=== PATIENT | male | born 1965 | race Caucasian/White ===

== ENCOUNTER 2019-10-15 15:25 | Outpatient (CLI) | payer BC, SELFPAY ==
--- NOTE | ~2019-10-15 | XR_ITS ---
XR hip RT 2V w AP pelvis DATE: 10/15/2019 15:51 INDICATION: Right hip pain. No known injury. TECHNIQUE: AP pelvis. AP and lateral views. COMPARISON: None FINDINGS: Diffuse osteopenia. The pubic symphysis and sacroiliac joints are intact. No pelvic fractur e or bone destruction is detected. Hip joint spaces are symmetric and relatively preserved. No fractu re, dislocation, avascular necrosis or bone destruction of the right hip area Bilateral iliac arterial calcifications as well as abdominal aortic calcification. IMPRESSION: Osteopenia Reviewed, dictated and finalized at location B. IMPRESSION: Osteopenia
== END 2019-10-15 15:26 | disposition home or self-care (01) ==
LOC: CHSIMG 15:27
PROVIDERS: PCP Nurse Practitioner Family; Visit Provider Nurse Practitioner Family
DX: M25.551 Pain in right hip (principal)
CPT/HCPCS: 73502

== ENCOUNTER 2019-10-21 08:37 | Outpatient (RCR) | payer BC, SELFPAY ==
--- NOTE | 2019-10-21 09:11 | PTOPEVAL ---
Thank you for referring Augusto Leon to [facility]. Please review, sign, date and return this plan of care DEEPAK. I agree with and certify that the following plan of care is medically necessary. Referring Physician Date Admitting Provider: Attending Provider: Mirlande Munoz NP Referring Provider: *PT Outpatient Evaluation Start: 10/21/19 08:05 Freq: Status: Active Protocol: Document 10/21/19 08:05 AUTUMN (Rec: 10/21/19 08:47 AUTUMN [id number]) Therapy Assessment Status Assessment Status Assessment Status Evaluation Evaluation Information Problem Diagnosis back/hip pain right Onset 12/24/18 Additional Evaluation Detail [id number] Subjective Information Pt. reports that pain began Query Text:As Reported By Patient/ last year. He states that he Family had recent xray of the back and hip that revealed osteopenia. He states that pain is on the side of the right thigh. He reports that pain is increased with short distance walking or short durations of standing. 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 He states that he can only stand for about 5 minutes before having to sit. He reports that his goal for therapy is to decrease his hip /back pain. Prior Level of Function Activity Level (Last 3 Months) Occupation unemployed Hand Dominance Right Activity of Daily Living Ability Independent Indoor/Home Mobility Independent Community Mobility Independent Stairs Ability Independent Functional Cognition (Planning, Shopping Independent , Taking Medications) Cooking Yes Cleaning Yes Laundry Yes Shopping Yes Driving Yes Pain Assessment Pain Scale Pain Scale Used Numeric (1 - 10) Self Report Pain Assessment Right Hip(s) Reported Pain Level 2 Lowest Pain Intensity 2 Greatest Pain Intensity 10 Pain Aggravating Factors Bending,Exercise/Activity, Walking,Weight Bearing/ Standing Pain Relief Interventions Used By Relaxation Technique Patient
== END 2019-12-04 15:23 | disposition home or self-care (01) ==
LOC: CHSPT 08:37
PROVIDERS: PCP Nurse Practitioner Family; Visit Provider Nurse Practitioner Family
DX: M85.851 Other specified disorders of bone density and structure, right thigh (principal)
CPT/HCPCS: 97012; 97014; 97110; 97140; 97161; G0283

== ENCOUNTER 2020-09-04 19:05 | Emergency (ER) | payer SELFPAY ==
--- NOTE | ~2020-09-04 | XR_ITS ---
EXAMINATION: XR shoulder RT min 2V DATE: 09/04/2020 19:44 INDICATION: Right shoulder bruising post fall one day prior. TECHNIQUE: AP internally and externally rotated, AP oblique externally rotated and transscapular Y vi ews of the right shoulder were obtained. 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 No rmal alignment. No fracture. Glenohumeral and acromioclavicular joint spaces are normal. Chronic oss eous excrescence arising from the inferior neck of the glenoid. Soft tissues are unremarkable. A few small thin linear opacities are seen at the periphery of the right upper lobe which could represent K erley B-lines related to mild pulmonary edema or atelectasis. 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 No acute osseous abn ormality. Reviewed, dictated and finalized at location A. 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 No acute osseous abnormality.
[2020-09-04 19:15] VITALS: BP 110/78; PULSE 76; RESP 16; TEMP 36.6; O2SAT 97
--- NOTE | 2020-09-04 19:49 | ED.UPPEXIN ---
HPI - Extremity Injury (Upper) General Chief Complaint: Extremity Injury, Upper Stated Complaint: right shoulder injury Time Seen by Provider: 09/04/20 19:49 Source: patient Mode of arrival: ambulatory Limitations: no limitations History of Present Illness HPI narrative: 55-year-old man comes to the ER today complaining of right shoulder pain that is worse with movement and palpation that started last evening. Patient states that he was sitting on a stool and fell asleep, falling over and landing on his shoulder. Patient states that he had no chest pain, shortness of breath, rapid heart rate or headache prior to or after the fall. He denies any other injury , weakness, numbness or tingling and he has no headache. He states that he has been drinking (ETOH) this afternoon in order to kill the pain. complaint: injury to: right and shoulder Onset (ago): day(s) (1) Other Extremity Injury: Right: shoulder Other injuries: none Place: home ( onto carpeted floor.) Severity: moderate Relieving factors: rest Exacerbating factors: movement of extremity Context: fall Associated symptoms: denies other symptoms Related Data Home Medications Medication Instructions Recorded Confirmed aspirin 81 mg tablet,delayed 81 mg PO DAILY 03/31/19 09/04/20 release Allergies Allergy/AdvReac Type Severity Reaction Status Date / Time No Known Allergies Allergy Verified 12/10/19 14:35 Review of Systems Constitutional: Constitutional: Denies chills and Denies fever(s) Eyes: Eyes: Denies change in vision and Denies photophobia ENT: Denies nasal congestion and Denies sore throat Cardiovascular: Cardiovascular: Denies chest pain and Denies radiating jaw, neck or arm pain Respiratory: Respiratory: Denies cough, Denies dyspnea and Denies wheezing Gastrointestinal: Gastrointestinal: Denies abdominal pain, Denies diarrhea, Denies nausea and Denies vomiting Musculoskeletal: Musculoskeletal: Denies back pain and Denies joint swelling Integumentary/Breasts: Skin/Breast: Denies pruritus, Denies erythema and Denies rash Neurologic: Denies vertigo, Denies dizziness and Denies syncope Hematologic/Lymphatic: Hematologic/Lymphatic: Denies easy bleeding and Denies easy bruising Allergic/Immunologic: Allergic/Immunologic: Denies lip swelling and Denies throat swelling [facility] Past Medical History Medical History (Updated 09/04/20 @ 20:19 by Jian Dias MD) HTN (hypertension) Tobacco dependence Surgical History Surgical History History of foot surgery Right Heel Surgery - Screws/Plates Family History Family History Mother Family history of malignant neoplasm of breast in first degree relative Father Family history of heart disease in male family member before age 55 Social History Social History (Updated 09/04/20 @ 20:05 by Jian Dias MD) Smoking packs per day: 0.5 Smoking cigarettes per day: 10.0 Smoking status: Current every day smoker Alcohol intake: current Alcohol use details: Daily Substance use: never Substance use type: does not use Living arrangements: with family Gender identity (if verbalized by the patient): Male Exam Const: General: healthy appearing and alert Orientation/consciousness: patient oriented x3 Limitations: no limitations Other: mild acute distress. HENMT: Head: normal to inspection Ears: external ears normal and TM's normal bilaterally General nose exam: Normal nares present Face and sinus: normal facial exam Mouth: Yes moist mucous membranes Throat: posterior oropharynx normal Eyes: Conjunctivae: conjunctivae normal Pupils: Equal, round and reactive pupils present EOM: EOMs intact bilaterally Other: Nystagmus Neck: Neck: normal visual inspection and no lymphadenopathy Other: no tenderness. Resp: Effort & Inspection: normal respir
[2020-09-04 20:24] VITALS: BP 93/71; PULSE 73; RESP 20; O2SAT 96
== END 2020-09-04 20:30 | disposition home or self-care (01) ==
PROVIDERS: Emergency Provider Emergency Medicine; PCP Nurse Practitioner Family
DX: S43.401A Unspecified sprain of right shoulder joint, initial encounter (principal); F10.129 Alcohol abuse with intoxication, unspecified; R06.2 Wheezing; W19.XXXA Unspecified fall, initial encounter
CPT/HCPCS: 73030; 99282; 99283; A4565

== ENCOUNTER 2020-11-17 11:39 | Outpatient (CLI) | payer MEDICAID, SELFPAY ==
[2020-11-17 13:36] LABS: Alanine Aminotransferase 51 U/L (16-63); Albumin Level 2.5 g/dL (3.4-5.0); Alkaline Phosphatase 111 U/L (46-116); Anion Gap 9 mmol/L (8-16); Aspartate Amino Transferase 35 U/L (15-37); Bilirubin,Total 0.2 mg/dL (0.00-1.00); Blood Urea Nitrogen 4 mg/dL (7-18); Calcium 8.8 mg/dL (8.5-10.1); Carbon Dioxide 28 mmol/L (21-32); Chloride 96 mmol/L (98-108); Estimated Glomerular Filt Rate > 60; Glucose 94 mg/dL (70-99); Osmolality Calculated 272 mOsm/kg (285-295); Potassium 5.1 mmol/L (3.5-5.1); Sodium 133 mmol/L (136-145); Total Protein 7.3 g/dL (6.4-8.2)
== END 2020-11-17 11:40 | disposition home or self-care (01) ==
LOC: CHSLAB 11:41
PROVIDERS: PCP Nurse Practitioner Family; Visit Provider Nurse Practitioner Family
DX: Z00.00 Encounter for general adult medical examination without abnormal findings (principal); E87.1 Hypo-osmolality and hyponatremia
CPT/HCPCS: 36415; 80053

== ENCOUNTER 2020-11-24 11:03 | Outpatient (CLI) | payer MEDICAID, SELFPAY ==
[2020-11-24 12:52] LABS: Alanine Aminotransferase 20 U/L (16-63); Albumin Level 2.3 g/dL (3.4-5.0); Alkaline Phosphatase 102 U/L (46-116); Anion Gap 8 mmol/L (8-16); Aspartate Amino Transferase 15 U/L (15-37); Bilirubin,Total 0.3 mg/dL (0.00-1.00); Blood Urea Nitrogen 6 mg/dL (7-18); Calcium 8.6 mg/dL (8.5-10.1); Carbon Dioxide 28 mmol/L (21-32); Chloride 95 mmol/L (98-108); Estimated Glomerular Filt Rate > 60; Glucose 125 mg/dL (70-99); Osmolality Calculated 270 mOsm/kg (285-295); Potassium 4.6 mmol/L (3.5-5.1); Sodium 131 mmol/L (136-145); Total Protein 7.1 g/dL (6.4-8.2)
== END 2020-11-24 11:04 | disposition home or self-care (01) ==
LOC: CHSLAB 11:06
PROVIDERS: PCP Nurse Practitioner Family; Visit Provider Nurse Practitioner Family
DX: E87.1 Hypo-osmolality and hyponatremia (principal)
CPT/HCPCS: 36415; 80053

== ENCOUNTER 2020-12-01 15:39 | Outpatient (CLI) | payer MEDICAID, SELFPAY ==
[2020-12-01 18:09] LABS: Alanine Aminotransferase 20 U/L (16-63); Albumin Level 2.3 g/dL (3.4-5.0); Alkaline Phosphatase 105 U/L (46-116); Anion Gap 13 mmol/L (8-16); Aspartate Amino Transferase 17 U/L (15-37); Bilirubin,Total 0.3 mg/dL (0.00-1.00); Blood Urea Nitrogen 7 mg/dL (7-18); Calcium 8.6 mg/dL (8.5-10.1); Carbon Dioxide 24 mmol/L (21-32); Chloride 96 mmol/L (98-108); Estimated Glomerular Filt Rate > 60; Glucose 100 mg/dL (70-99); Osmolality Calculated 274 mOsm/kg (285-295); Potassium 4.5 mmol/L (3.5-5.1); Sodium 133 mmol/L (136-145); Total Protein 7.3 g/dL (6.4-8.2)
== END 2020-12-01 15:40 | disposition home or self-care (01) ==
LOC: CHSLAB 15:42
PROVIDERS: PCP Nurse Practitioner Family; Visit Provider Nurse Practitioner Family
DX: E87.1 Hypo-osmolality and hyponatremia (principal)
CPT/HCPCS: 36415; 80053

== ENCOUNTER 2020-12-08 11:35 | Outpatient (CLI) | payer SELFPAY ==
--- NOTE | ~2020-12-08 | XR_ITS ---
XR chest 2V DATE: 12/08/2020 12:10 INDICATION: Shortness of breath, cough. Smoker. TECHNIQUE: 2 views COMPARISON: None FINDINGS: There is bilateral hyperinflation consistent with COPD. There is patchy infiltrate in the right mid lung and greater patchy consolidation in the right lower lung. There are multiple acute or subacute displaced lateral right seventh and eighth and ninth rib fractur es. There is mild right pleural fluid. No pneumothorax is detected. The left lung is clear. No left pleural effusion or pneumothorax. Normal heart size. Left-sided transvenous pacemaker device with lead overlying right ventricle. Diffuse osteopenia. IMPRESSION: Displaced lateral right seventh through ninth rib fractures, acute or subacute Patchy infiltrate in the right mid and to a greater extent right lower lung and mild right pleural ef fusion. No pneumothorax COPD Left single-lead pacemaker Reviewed, dictated and finalized at location A. IMPRESSION: Displaced lateral right seventh through ninth rib fractures, acute or subacute Patchy infiltrate in the right mid and to a greater extent right lower lung and mild right pleural effusion. No pneumothorax COPD Left single-lead pacemaker
[2020-12-08 11:51] LABS: Hemoglobin 7.2 g/dL (14.0-18.0); Mean Corpuscular HGB Conc 32.7 g/dL (32.0-36.0); Mean Corpuscular Hemoglobin 26.9 pg (27.0-31.0); Mean Corpuscular Volume 82.1 fL (78.0-102.0); Mean Platelet Volume 8.7 fl (8.7-11.0); Platelet Count Result 491 K/mm3 (150-420); Red Blood Count 2.68 M/mm3 (4.70-6.10)
[2020-12-08 12:40] LABS: White Blood Count 34.6 K/mm3 (4.8-10.8)
[2020-12-08 12:43] LABS: Band Neutrophils Percent 1 % (0-6); Lymphocytes Absolute Manual 1.38 K/mm3 (1.1-4.5); Lymphocytes Percent Manual 4 % (18-44); Monocytes Absolute Manual 1.73 K/mm3 (0.1-0.90); Monocytes Percent Manual 5 % (3-9); Neutrophils Absolute Manual 31.48 K/mm3 (1.3-6.7); Neutrophils Percent Manual 90 % (46-73); Platelet Estimate Increased (Adequate); Total Cells Counted 100
[2020-12-08 14:49] LABS: Alanine Aminotransferase 16 U/L (16-63); Albumin Level 1.7 g/dL (3.4-5.0); Alkaline Phosphatase 140 U/L (46-116); Anion Gap 12 mmol/L (8-16); Aspartate Amino Transferase 15 U/L (15-37); Bilirubin,Total 0.2 mg/dL (0.00-1.00); Blood Urea Nitrogen 9 mg/dL (7-18); Calcium 8.4 mg/dL (8.5-10.1); Carbon Dioxide 27 mmol/L (21-32); Chloride 96 mmol/L (98-108); Estimated Glomerular Filt Rate > 60; Glucose 122 mg/dL (70-99); Osmolality Calculated 279 mOsm/kg (285-295); Potassium 4.1 mmol/L (3.5-5.1); Sodium 135 mmol/L (136-145); Total Protein 6.2 g/dL (6.4-8.2)
== END 2020-12-08 11:36 | disposition home or self-care (01) ==
LOC: CHSLAB 11:39
PROVIDERS: PCP Nurse Practitioner Family; Visit Provider Nurse Practitioner Family
DX: R05 Cough (principal); R53.83 Other fatigue; E87.1 Hypo-osmolality and hyponatremia
CPT/HCPCS: 36415; 71046; 80053; 85025; 85060

== ENCOUNTER 2020-12-08 14:32 | Inpatient (IN) | payer MEDICAID, SELFPAY ==
[2020-12-08] VITALS (9 sets, daily range): BP systolic 153–163; BP diastolic 71–87; PULSE 100–123; RESP 20–23; TEMP 37–37.7; O2SAT 97–100; BMI 16.9
--- NOTE | ~2020-12-08 | XR_ITS ---
EXAMINATION: [id number] DATE: 12/15/2020 12:56 INDICATION: Right pleural effusion status post thoracentesis. TECHNIQUE: Frontal and lateral views of the chest were obtained. COMPARISON: Chest 2 views 12/13/2020, chest CT 12/14/2020 FINDINGS: There are lucencies in the lungs, consistent with emphysema. There are airspace opacities i n right lower lung zone. There is a small right pleural effusion. No pneumothorax. The heart size is normal. There is a left chest pacer/defibrillator with lead in right ventricle. IMPRESSION: 1. Small right pleural effusion with improvement status post thoracentesis. 2. Airspace opacities in right lower lung zone, consistent with pneumonia. 3. Emphysema. Reviewed, dictated and finalized at location A.
--- NOTE | ~2020-12-08 | US_ITS ---
EXAMINATION: US thoracentesis DATE: 12/15/2020 12:58 INDICATION: pleural effusion TECHNIQUE: The procedure and its risks, benefits, and alternatives were discussed with the patient. P otential risks discussed included bleeding, infection, and pneumothorax. The patient understood the r isks and agreed to proceed. The skin was prepped and draped in sterile fashion. 1% lidocaine was used for local anesthesia. Under ultrasound guidance, a 5 Fr catheter with trochar was advanced into the right pleural effusion. Fluid was aspirated. The catheter was removed, and a dressing was applied. Th ere were no immediate complications. FINDINGS: Ultrasound images demonstrate a right pleural effusion and the catheter within the fluid. IMPRESSION: 1. Successful ultrasound-guided thoracentesis yielding 200 mL of opaque, burrell fluid. Reviewed, dictated and finalized at location A. IMPRESSION: 1. Successful ultrasound-guided thoracentesis yielding 200 mL of opaque, burrell f luid.
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
--- NOTE | ~2020-12-08 | XR_ITS ---
EXAMINATION: XR chest 2V EXAM DATE: 12/13/2020 11:25 INDICATION: Pneumonia. TECHNIQUE: Frontal and lateral projections of the chest obtained and reviewed. Comparison is made to prior examination from 12/08/2016. FINDINGS: There is multi segmental right lower lobe airspace disease consistent with pneumonia. Mild progression in this compared to 12/08. There is small to moderate right pleural effusion. There is sin gle lead pacemaker/AICD device seen with tip projecting over the expected location of right ventricle . Cardiomediastinal silhouette is normal. There is no pneumothorax suspected. There are no osseous ab normalities identified. IMPRESSION: 1. Progression in multi segmental right lower lobe pneumonia. 2. Small to moderate right pleural effusion. Reviewed, dictated and finalized at location B.
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
[2020-12-08 18:33] LABS: Lactic Acid Reflex 1.5 mmol/L (0.7-2.1)
[2020-12-08 18:46] LABS: NT Pro B Type Natriuretic Pept 648 pg/mL (5-100); Troponin I < 0.012 ng/mL (0.000-0.034)
--- NOTE | 2020-12-08 19:20 | PC.NURSE ---
Assumed care of pt at this time. Pt alert and upright on stretcher, family at bedside. Pt requesting food tray. Pt and family updated on POC.
--- NOTE | 2020-12-08 19:44 | PC.NURSE ---
EDP made aware of elevated HR. Per VORB, give 1L NS bolus and recheck temperature.
[2020-12-08] MEDS: SODIUM CHLORIDE 0.9% IV 1,000 ML 999 ML IV CONT (19:52)
[2020-12-08] MEDS: ACETAMINOPHEN 325 MG TABLET 650 MG PO (19:52)
--- NOTE | 2020-12-08 21:10 | ADMGEN ---
This patient, Augusto Leon, was admitted to Medical Room 346-. Patient/family oriented to hospital policies and general routines including ID bracelet, bed and alarms, visiting hours, pain management, procedures, bathroom and other care routines, personal items, smoking policy, room service/diet, and visiting hours. Information on how to activate the Rapid Response Team has been discussed. Patient/Family are encouraged to report perceived risks to care and to ask questions if they do not understand what they are told or what they should do.
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
[2020-12-08] MEDS: SODIUM CHLORIDE 0.9% IV 1,000 ML 125 ML IV CONT (21:18)
[2020-12-08 21:34] LABS: Add Urine Microscopic? YES; Appearance Urine Clear (Clear); Bacteria Urine Trace /hpf; Bilirubin Urine Negative (Negative); Blood Urine Negative (Negative); Color Urine Yellow (Yellow); Glucose Urine UA Negative (Negative); Ketones Urine Negative (Negative); Leukocyte Esterase Ur Negative LEU/UL (Negative); Mucus Urine Rare /lpf; Nitrate Urine Negative (Negative); Protein Urine Negative (Negative); RBC Urine 0-2 /hpf (0-2); Specific Grav Ur 1.023 (1.001-1.035); WBC Urine 0-3 /hpf
[2020-12-08] MEDS: levETIRAcetam 500 MG TABLET 1500 MG PO (23:32)
[2020-12-08] MEDS: carvediloL 3.125 MG TABLET PO (23:33)
[2020-12-08] MEDS: DULoxetine HCL 30 MG CAPSULE.DR PO (23:33)
[2020-12-09] VITALS (14 sets, daily range): BP systolic 132–159; BP diastolic 77–82; PULSE 96–124; RESP 16–18; TEMP 36.9–37.6; O2SAT 93–98; BMI 16.9
[2020-12-09] MEDS: ALBUTEROL SULFATE (*SP) AEROSOL 1 PUFF 2 PUFF INHALATION ×4 (00:53→20:45)
[2020-12-09 01:15] LABS: Basophils Absolute Auto 0.1 K/mm3 (0.0-0.1); Basophils Percent Auto 0.3 % (0.2-1.2); Hematocrit 21.5 % (42.0-52.0); Immature Granulocyte Absolute 0.47 K/mm3 (0.00-0.031); Immature Granulocyte Percent A 1.5 % (0-0.5); Lymphocytes Absolute Auto 1.18 K/mm3 (0.9-3.2); Lymphocytes Percent Auto 3.9 % (18.3-44.2); Mean Corpuscular HGB Conc 32.6 g/dl (32-36); Mean Corpuscular Hemoglobin 27.3 pg (26-34); Mean Platelet Volume 8.6 fl (7.4-10.4); Monocytes Percent Auto 6.5 % (2.6-8.5); Neutrophils Absolute Auto 26.7 K/mm3 (1.3-6.7); Neutrophils Percent Auto 87.8 % (45.5-73.1); Platelet Count Result 462 k/mm3 (150-375); Red Blood Count 2.56 M/mm3 (4.6-6.20); Red Cell Distribution Width 17.2 % (11.5-14.5); White Blood Count 30.4 K/mm3 (4.5-10.0)
[2020-12-09 06:08] LABS: Basophils Absolute Auto 0.1 K/mm3 (0.0-0.1); Basophils Percent Auto 0.3 % (0.2-1.2); Eosinophils Percent Auto 0.1 % (0-4.4); Hematocrit 22.5 % (42.0-52.0); Hemoglobin 7.1 g/dL (14.0-18.0); Immature Granulocyte Absolute 0.33 K/mm3 (0.00-0.031); Immature Granulocyte Percent A 1.1 % (0-0.5); Lymphocytes Absolute Auto 1.14 K/mm3 (0.9-3.2); Lymphocytes Percent Auto 3.7 % (18.3-44.2); Mean Corpuscular HGB Conc 31.6 g/dl (32-36); Mean Corpuscular Hemoglobin 26.3 pg (26-34); Mean Corpuscular Volume 83.3 fl (80-100); Mean Platelet Volume 8.8 fl (7.4-10.4); Monocytes Absolute Auto 1.9 K/mm3 (0.1-0.6); Monocytes Percent Auto 6.3 % (2.6-8.5); Neutrophils Absolute Auto 27.3 K/mm3 (1.3-6.7); Neutrophils Percent Auto 88.5 % (45.5-73.1); Platelet Count Result 507 k/mm3 (150-375); Red Cell Distribution Width 17.3 % (11.5-14.5); White Blood Count 30.9 K/mm3 (4.5-10.0)
[2020-12-09 06:41] LABS: Anion Gap 7 mmol/L (8-16); Blood Urea Nitrogen 5 mg/dL (9-20); Calcium 8.2 mg/dL (8.4-10.2); Carbon Dioxide 26 mmol/L (22-30); Chloride 97 mmol/L (98-107); Estimated CRCL calculation 161 ml/min; Estimated Glomerular Filt Rate > 60; Glucose 109 mg/dL (65-110); Potassium 3.2 mmol/L (3.4-5.0); Sodium 130 mmol/L (137-145)
[2020-12-09] MEDS: ACETAMINOPHEN 325 MG TABLET 650 MG PO ×2 (08:03→17:50)
[2020-12-09] MEDS: SODIUM CHLORIDE 1 GM TABLET 3 GM PO ×3 (08:03→17:02)
[2020-12-09] MEDS: DULoxetine HCL 30 MG CAPSULE.DR PO ×2 (08:04→17:01)
[2020-12-09] MEDS: THIAMINE HCL 100 MG TABLET PO (08:04)
[2020-12-09] MEDS: FOLIC ACID 1 MG TABLET PO (08:04)
[2020-12-09] MEDS: MULTIVITAMINS THERAPEUTIC TAB (*BKC) 1 TABLET PO (08:04)
[2020-12-09] MEDS: DOCUSATE SODIUM LIQ 100 MG/10 ML UDC 50 MG PO (08:04)
[2020-12-09] MEDS: carvediloL 3.125 MG TABLET PO ×2 (08:04→21:07)
[2020-12-09] MEDS: levETIRAcetam 500 MG TABLET 1500 MG PO ×2 (08:05→21:07)
[2020-12-09] MEDS: polyethylene glycoL 3350 17 GM POWD.PACK PO ×2 (08:05→17:01)
[2020-12-09] MEDS: SODIUM CHLORIDE 0.9% IV 1,000 ML 125 ML IV CONT ×3 (08:10→17:52)
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
[2020-12-09] MEDS: NICOTINE (*PBKC) 21 MG PATCH 1 PATCH TRANSDERM (10:15)
[2020-12-09] MEDS: GABAPENTIN 100 MG CAPSULE PO ×2 (11:20→14:00)
[2020-12-10] VITALS (13 sets, daily range): BP systolic 128–139; BP diastolic 73–90; PULSE 98–121; RESP 18; TEMP 36.6–37.2; O2SAT 93–99
[2020-12-10] MEDS: SODIUM CHLORIDE 0.9% IV 1,000 ML 125 ML IV CONT (04:33)
[2020-12-10 06:18] LABS: Hematocrit 22.7 % (42.0-52.0); Hemoglobin 7.3 g/dL (14.0-18.0); Mean Corpuscular HGB Conc 32.2 g/dl (32-36); Mean Corpuscular Hemoglobin 26.9 pg (26-34); Mean Corpuscular Volume 83.8 fl (80-100); Mean Platelet Volume 9.1 fl (7.4-10.4); Platelet Count Result 542 k/mm3 (150-375); Red Blood Count 2.71 M/mm3 (4.6-6.20); Red Cell Distribution Width 17.4 % (11.5-14.5); White Blood Count 32.6 K/mm3 (4.5-10.0)
[2020-12-10 06:41] LABS: Alanine Aminotransferase 11 U/L (4-50); Albumin Level 2.6 g/dL (3.5-5.1); Alkaline Phosphatase 173 U/L (38-126); Anion Gap 8 mmol/L (8-16); Aspartate Amino Transferase 26 U/L (17-59); Bilirubin,Total < 0.1 mg/dL (0.2-1.3); Blood Urea Nitrogen 4 mg/dL (9-20); Carbon Dioxide 25 mmol/L (22-30); Chloride 93 mmol/L (98-107); Estimated CRCL calculation 161 ml/min; Estimated Glomerular Filt Rate > 60; Glucose 231 mg/dL (65-110); Magnesium 1.2 mg/dL (1.6-2.3); Sodium 126 mmol/L (137-145)
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
[2020-12-10] MEDS: MULTIVITAMINS THERAPEUTIC TAB (*BKC) 1 TABLET PO (08:22)
[2020-12-10] MEDS: ENOXAPARIN 40 MG/0.4 ML SYRINGE SUB-Q (08:22)
[2020-12-10] MEDS: FOLIC ACID 1 MG TABLET PO (08:22)
[2020-12-10] MEDS: NICOTINE (*PBKC) 21 MG PATCH 1 PATCH TRANSDERM (08:22)
[2020-12-10] MEDS: polyethylene glycoL 3350 17 GM POWD.PACK PO ×2 (08:22→16:39)
[2020-12-10] MEDS: SODIUM CHLORIDE 1 GM TABLET 3 GM PO ×3 (08:22→16:40)
[2020-12-10] MEDS: DULoxetine HCL 30 MG CAPSULE.DR PO ×2 (08:23→16:40)
[2020-12-10] MEDS: MAGNESIUM SULF 4 GM/WATER100ML 4 GM/100 ML BAG IVPB (08:23)
[2020-12-10] MEDS: carvediloL 3.125 MG TABLET PO ×2 (08:23→21:44)
[2020-12-10] MEDS: DOCUSATE SODIUM LIQ 100 MG/10 ML UDC 50 MG PO (08:23)
[2020-12-10] MEDS: levETIRAcetam 500 MG TABLET 1500 MG PO ×2 (08:25→21:45)
[2020-12-10] MEDS: THIAMINE HCL 100 MG TABLET PO (08:25)
[2020-12-10 09:00] LABS: NT Pro B Type Natriuretic Pept 1580 pg/mL (5-100)
[2020-12-10] MEDS: FUROSEMIDE INJ 40 MG/4 ML VIAL IV PUSH (09:35)
[2020-12-10] MEDS: POTASSIUM CHLORIDE 20 MEQ TABLET 40 MEQ PO (09:36)
[2020-12-10] MEDS: chlordiazePOXIDE (*CRX) 25 MG CAPSULE PO (10:11)
[2020-12-10] MEDS: ALBUTEROL SULFATE (*SP) AEROSOL 1 PUFF 2 PUFF INHALATION ×3 (10:19→20:35)
[2020-12-10] MEDS: GABAPENTIN 100 MG CAPSULE PO ×2 (10:56→16:39)
[2020-12-10 11:38] LABS: Band Neutrophils Percent 3 % (0-6); Lymphocytes Absolute Manual 0.65 K/mm3 (1.1-4.5); Monocytes Absolute Manual 0.97 K/mm3 (0.1-0.90); Monocytes Percent Manual 3 % (3-9); Neutrophils Absolute Manual 30.97 K/mm3 (1.3-6.7); Neutrophils Percent Manual 92 % (46-73); Total Cells Counted 100
[2020-12-10 11:39] LABS: Hypochromasia 2+ (NORMAL)
[2020-12-10 11:40] LABS: Anisocytosis 1+ (NORMAL)
[2020-12-10 15:38] LABS: Anion Gap 7 mmol/L (8-16); Blood Urea Nitrogen 5 mg/dL (9-20); Calcium 8.1 mg/dL (8.4-10.2); Carbon Dioxide 28 mmol/L (22-30); Chloride 95 mmol/L (98-107); Estimated CRCL calculation 161 ml/min; Estimated Glomerular Filt Rate > 60; Glucose 127 mg/dL (65-110); Magnesium 1.8 mg/dL (1.6-2.3); Potassium 3.3 mmol/L (3.4-5.0); Sodium 130 mmol/L (137-145)
[2020-12-10] MEDS: HYDROcodone/acetaminophen (*CRX) 5-325 MG TABLET 1 TAB PO ×2 (16:43→21:45)
[2020-12-10 23:51] LABS: Vancomycin Trough < 5.0 ug/mL (10.0-20.0)
[2020-12-11] VITALS (18 sets, daily range): BP systolic 116–141; BP diastolic 62–85; PULSE 106–122; RESP 14–24; TEMP 35.6–37.2; O2SAT 91–97
[2020-12-11] MEDS: ALBUTEROL SULFATE (*SP) AEROSOL 1 PUFF 2 PUFF INHALATION ×4 (02:00→20:01)
[2020-12-11] MEDS: HYDROcodone/acetaminophen (*CRX) 5-325 MG TABLET 1 TAB PO ×3 (05:06→20:31)
[2020-12-11 06:24] LABS: Basophils Absolute Auto 0.1 K/mm3 (0.0-0.1); Basophils Percent Auto 0.3 % (0.2-1.2); Eosinophils Percent Auto 0.1 % (0-4.4); Hematocrit 21.4 % (42.0-52.0); Immature Granulocyte Absolute 0.79 K/mm3 (0.00-0.031); Immature Granulocyte Percent A 2.8 % (0-0.5); Lymphocytes Absolute Auto 1.28 K/mm3 (0.9-3.2); Lymphocytes Percent Auto 4.6 % (18.3-44.2); Mean Corpuscular HGB Conc 31.3 g/dl (32-36); Mean Corpuscular Hemoglobin 25.8 pg (26-34); Mean Corpuscular Volume 82.3 fl (80-100); Mean Platelet Volume 8.8 fl (7.4-10.4); Monocytes Absolute Auto 1.7 K/mm3 (0.1-0.6); Neutrophils Absolute Auto 23.9 K/mm3 (1.3-6.7); Neutrophils Percent Auto 86.2 % (45.5-73.1); Platelet Count Result 552 k/mm3 (150-375); Red Cell Distribution Width 17.5 % (11.5-14.5); White Blood Count 27.8 K/mm3 (4.5-10.0)
[2020-12-11 06:37] LABS: Alanine Aminotransferase 15 U/L (4-50); Albumin Level 2.6 g/dL (3.5-5.1); Alkaline Phosphatase 155 U/L (38-126); Anion Gap 7 mmol/L (8-16); Aspartate Amino Transferase 28 U/L (17-59); Bilirubin,Total < 0.1 mg/dL (0.2-1.3); Blood Urea Nitrogen 4 mg/dL (9-20); Calcium 8.3 mg/dL (8.4-10.2); Carbon Dioxide 27 mmol/L (22-30); Chloride 94 mmol/L (98-107); Estimated CRCL calculation 161 ml/min; Estimated Glomerular Filt Rate > 60; Glucose 142 mg/dL (65-110); Magnesium 1.5 mg/dL (1.6-2.3); Potassium 3.2 mmol/L (3.4-5.0); Sodium 128 mmol/L (137-145)
[2020-12-11 06:59] LABS: Hemoglobin 6.7 g/dL (14.0-18.0)
[2020-12-11] MEDS: SODIUM CHLORIDE 1 GM TABLET 3 GM PO ×3 (08:17→17:30)
[2020-12-11] MEDS: carvediloL 3.125 MG TABLET PO ×2 (08:18→20:31)
[2020-12-11] MEDS: ENOXAPARIN 40 MG/0.4 ML SYRINGE SUB-Q (08:19)
[2020-12-11] MEDS: GABAPENTIN 100 MG CAPSULE PO ×3 (08:19→17:31)
[2020-12-11] MEDS: FOLIC ACID 1 MG TABLET PO (08:19)
[2020-12-11] MEDS: DULoxetine HCL 30 MG CAPSULE.DR PO ×2 (08:19→17:31)
[2020-12-11] MEDS: NICOTINE (*PBKC) 21 MG PATCH 1 PATCH TRANSDERM (08:20)
[2020-12-11] MEDS: DOCUSATE SODIUM LIQ 100 MG/10 ML UDC 50 MG PO (08:20)
[2020-12-11] MEDS: levETIRAcetam 500 MG TABLET 1500 MG PO ×2 (08:20→20:31)
[2020-12-11] MEDS: THIAMINE HCL 100 MG TABLET PO (08:20)
[2020-12-11] MEDS: polyethylene glycoL 3350 17 GM POWD.PACK PO ×2 (08:20→17:30)
[2020-12-11] MEDS: MULTIVITAMINS THERAPEUTIC TAB (*BKC) 1 TABLET PO (08:21)
[2020-12-11 09:15] LABS: Iron < 10 ug/dL (49-181)
[2020-12-11 09:26] LABS: Percent Iron Saturation < 9 % (20-50)
[2020-12-11] MEDS: SODIUM CHLORIDE 0.9% IV 250 ML 30 ML IV CONT (11:20)
[2020-12-11 11:32] LABS: EDCOVIDSCREEN Negative (Negative)
[2020-12-11 17:26] LABS: Hemoglobin 8.5 g/dL (14.0-18.0)
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
[2020-12-11] MEDS: MAGNESIUM SULF 1 GM/D5W 100 ML 1 GM/100 ML BAG IVPB (18:43)
[2020-12-11] MEDS: POTASSIUM CHLORIDE 20 MEQ PACKET (FOR LIQUID) 40 MEQ PO (18:48)
[2020-12-12] VITALS (11 sets, daily range): BP systolic 139–154; BP diastolic 76–87; PULSE 100–118; RESP 16–26; TEMP 35.8–37; O2SAT 94–95
[2020-12-12] MEDS: ALBUTEROL SULFATE (*SP) AEROSOL 1 PUFF 2 PUFF INHALATION ×4 (02:02→22:13)
[2020-12-12] MEDS: HYDROcodone/acetaminophen (*CRX) 5-325 MG TABLET 1 TAB PO ×3 (04:54→19:31)
[2020-12-12] MEDS: NICOTINE (*PBKC) 21 MG PATCH 1 PATCH TRANSDERM (08:21)
[2020-12-12] MEDS: polyethylene glycoL 3350 17 GM POWD.PACK PO (08:21)
[2020-12-12] MEDS: DOCUSATE SODIUM LIQ 100 MG/10 ML UDC 50 MG PO (08:22)
[2020-12-12] MEDS: ENOXAPARIN 40 MG/0.4 ML SYRINGE SUB-Q (08:22)
[2020-12-12] MEDS: SODIUM CHLORIDE 1 GM TABLET 3 GM PO ×3 (08:23→17:55)
[2020-12-12] MEDS: levETIRAcetam 500 MG TABLET 1500 MG PO ×2 (08:24→20:21)
[2020-12-12] MEDS: GABAPENTIN 100 MG CAPSULE PO ×3 (08:24→17:55)
[2020-12-12] MEDS: MULTIVITAMINS THERAPEUTIC TAB (*BKC) 1 TABLET PO (08:25)
[2020-12-12] MEDS: DULoxetine HCL 30 MG CAPSULE.DR PO ×2 (08:25→17:57)
[2020-12-12] MEDS: carvediloL 3.125 MG TABLET PO ×2 (08:25→20:21)
[2020-12-12] MEDS: FOLIC ACID 1 MG TABLET PO (08:25)
[2020-12-12] MEDS: THIAMINE HCL 100 MG TABLET PO (08:26)
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
[2020-12-12 11:33] LABS: Hematocrit 26.5 % (42.0-52.0); Hemoglobin 8.5 g/dL (14.0-18.0); Mean Corpuscular HGB Conc 32.1 g/dl (32-36); Mean Corpuscular Hemoglobin 26.8 pg (26-34); Mean Corpuscular Volume 83.6 fl (80-100); Mean Platelet Volume 8.8 fl (7.4-10.4); Platelet Count Result 618 k/mm3 (150-375); Red Blood Count 3.17 M/mm3 (4.6-6.20); White Blood Count 25.9 K/mm3 (4.5-10.0)
[2020-12-12 11:46] LABS: Anion Gap 8 mmol/L (8-16); Blood Urea Nitrogen 5 mg/dL (9-20); Calcium 8.8 mg/dL (8.4-10.2); Carbon Dioxide 28 mmol/L (22-30); Chloride 96 mmol/L (98-107); Estimated CRCL calculation 161 ml/min; Estimated Glomerular Filt Rate > 60; Glucose 125 mg/dL (65-110); Potassium 3.7 mmol/L (3.4-5.0); Sodium 132 mmol/L (137-145)
[2020-12-12] MEDS: LACTULOSE 20 GM/30 ML UDC PO (12:10)
[2020-12-12 12:29] LABS: Vancomycin Trough 10.6 ug/mL (10.0-20.0)
[2020-12-12 13:12] LABS: IFOB Positive Control Positive; Immunochemical Fecal Occult Bl Negative (N)
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
[2020-12-12 16:40] LABS: Hemoglobin 8.1 g/dL (14.0-18.0)
[2020-12-12 16:50] LABS: Magnesium 1.6 mg/dL (1.6-2.3)
[2020-12-12 17:51] LABS: Iron 13 ug/dL (49-181)
[2020-12-12] MEDS: IRON SUCROSE COMPLEX 100 MG in SODIUM CHLORIDE 0.9% IV 50 ML 220 MG IVPB (18:48)
[2020-12-13] VITALS (11 sets, daily range): BP systolic 135–150; BP diastolic 77–90; PULSE 102–113; RESP 16–18; TEMP 36.1–36.9; O2SAT 92–99
[2020-12-13] MEDS: HYDROcodone/acetaminophen (*CRX) 5-325 MG TABLET 1 TAB PO ×5 (01:36→22:05)
[2020-12-13] MEDS: ALBUTEROL SULFATE (*SP) AEROSOL 1 PUFF 2 PUFF INHALATION ×4 (03:46→21:10)
[2020-12-13 06:17] LABS: Basophils Absolute Auto 0.1 K/mm3 (0.0-0.1); Basophils Percent Auto 0.4 % (0.2-1.2); Eosinophils Absolute Auto 0.1 K/mm3 (0-0.3); Eosinophils Percent Auto 0.4 % (0-4.4); Hematocrit 26.3 % (42.0-52.0); Hemoglobin 8.3 g/dL (14.0-18.0); Immature Granulocyte Percent A 1.8 % (0-0.5); Lymphocytes Absolute Auto 1.27 K/mm3 (0.9-3.2); Lymphocytes Percent Auto 5.7 % (18.3-44.2); Mean Corpuscular HGB Conc 31.6 g/dl (32-36); Mean Corpuscular Hemoglobin 26.9 pg (26-34); Mean Corpuscular Volume 85.4 fl (80-100); Mean Platelet Volume 8.8 fl (7.4-10.4); Monocytes Absolute Auto 1.4 K/mm3 (0.1-0.6); Monocytes Percent Auto 6.2 % (2.6-8.5); Neutrophils Absolute Auto 19.2 K/mm3 (1.3-6.7); Neutrophils Percent Auto 85.5 % (45.5-73.1); Platelet Count Result 604 k/mm3 (150-375); Red Blood Count 3.08 M/mm3 (4.6-6.20); Red Cell Distribution Width 17.5 % (11.5-14.5); White Blood Count 22.4 K/mm3 (4.5-10.0)
[2020-12-13 06:32] LABS: Anion Gap 9 mmol/L (8-16); Blood Urea Nitrogen 4 mg/dL (9-20); Calcium 8.2 mg/dL (8.4-10.2); Carbon Dioxide 26 mmol/L (22-30); Chloride 94 mmol/L (98-107); Estimated CRCL calculation 161 ml/min; Estimated Glomerular Filt Rate > 60; Glucose 113 mg/dL (65-110); Magnesium 1.6 mg/dL (1.6-2.3); Potassium 3.6 mmol/L (3.4-5.0); Sodium 129 mmol/L (137-145)
[2020-12-13] MEDS: GABAPENTIN 100 MG CAPSULE PO ×3 (09:06→17:42)
[2020-12-13] MEDS: levETIRAcetam 500 MG TABLET 1500 MG PO ×2 (09:06→20:59)
[2020-12-13] MEDS: guaiFENesin 12 HR 600 MG TABCR PO (09:06)
[2020-12-13] MEDS: NICOTINE (*PBKC) 21 MG PATCH 1 PATCH TRANSDERM (09:06)
[2020-12-13] MEDS: FERROUS SULFATE 324 MG TABLET PO (09:07)
[2020-12-13] MEDS: MULTIVITAMINS THERAPEUTIC TAB (*BKC) 1 TABLET PO (09:07)
[2020-12-13] MEDS: FOLIC ACID 1 MG TABLET PO (09:07)
[2020-12-13] MEDS: DULoxetine HCL 30 MG CAPSULE.DR PO ×2 (09:07→17:42)
[2020-12-13] MEDS: carvediloL 3.125 MG TABLET PO ×2 (09:07→20:59)
[2020-12-13] MEDS: ENOXAPARIN 40 MG/0.4 ML SYRINGE SUB-Q (09:07)
[2020-12-13] MEDS: SODIUM CHLORIDE 1 GM TABLET 3 GM PO ×3 (09:08→17:42)
[2020-12-13] MEDS: THIAMINE HCL 100 MG TABLET PO (09:08)
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
--- NOTE | 2020-12-13 16:06 | WPDGIPROGNO ---
Progress Note: A&P Assessment and Plan (1) Severe anemia: Code(s): D64.9 - Anemia, unspecified Status: Acute Assessment and Plan: no overt gib but received blood transfusion couple days ago, hb low but stable egd and colonoscopy tomorrow (2) Right lower lobe pneumonia: Qualifiers: Pneumonia type: due to unspecified organism Qualified Code(s): J18.9 - Pneumonia, unspecified organism Code(s): J18.9 - Pneumonia, unspecified organism Status: Acute Assessment and Plan: on antibiotics, recovering (3) Seizures: Code(s): R56.9 - Unspecified convulsions Status: Acute (4) ETOH abuse: Code(s): F10.10 - Alcohol abuse, uncomplicated Status: Acute (5) Hyponatremia: Code(s): E87.1 - Hypo-osmolality and hyponatremia Status: Acute Subjective Date/time seen: 12/13/20 16:06 Interval history: no acute issues, feeling better today and comfortable Review of Systems Review of Systems: All systems reviewed & are unremarkable except as noted in HPI and below Exam Const: General: comfortable and no acute distress HENMT: General nose exam: Normal nares present Eyes: General: appearance normal, both eyes and all related structures Neck: Neck: no JVD Resp: Auscultation: clear to auscultation bilaterally Cardio: Rate: regular rate Rhythm: regular rhythm GI: Inspection: non-distended GI Palp: Yes Soft to palpation and No Guarding due to palpation present (GI) Auscultation: normal bowel sounds Skin: General skin exam: normal color Neuro: Speech: normal speech Extrem: General: normal to inspection Psych: Mental Status: mental status grossly normal Objective Data Vital Signs Vital Signs: Vital Signs - 24 hr 12/12/20 20:00 12/12/20 20:17 12/12/20 20:21 Temperature 97.2 F L Pulse Rate 104 H 103 H 103 H Respiratory Rate 16 Blood Pressure 154/87 H Pulse Oximetry 94 12/13/20 00:00 12/13/20 03:26 12/13/20 04:00 Temperature 97.7 F Pulse Rate 102 H 110 H 105 H Respiratory Rate 16 Blood Pressure 150/90 H Pulse Oximetry 99 12/13/20 08:00 12/13/20 09:07 12/13/20 14:00 Temperature 98.4 F Pulse Rate 108 H 105 H 108 H Respiratory Rate 18 Blood Pressure 135/85 Pulse Oximetry 93 Intake/Output Intake/Output: Intake & Output 12/10/20 12/11/20 12/12/20 12/13/20 23:59 23:59 23:59 23:59 Intake Total 3170 2029 1835 1445 Balance 3170 2029 1835 1445 Meds/Results Medications: Active Medications Generic Name Dose Route Start Last Admin Trade Name Freq PRN Reason Stop Dose Admin Acetaminophen 650 mg 12/08/20 18:10 12/09/20 17:50 Acetaminophen 325 Mg Tablet PO 650 mg Q4H PRN Administration Mild Pain (1-3) or Fever Hydrocodone Bitart/Acetaminophen 1 tab 12/08/20 22:39 12/13/20 12:55 Hydrocodone/Acetaminophen (*Crx) 5-325 Mg Tablet PO 1 tab Q4H PRN Administration Pain Rated 4-6 Albuterol 2 puff 12/09/20 02:00 12/13/20 14:14 Albuterol Sulfate (*Sp) Aerosol 1 Puff INHALATION 2 puff Q6HRT MONIK Administration Benzonatate 200 mg 12/08/20 22:39 Benzonatate 100 Mg Capsule PO BID PRN cough Bisacodyl 20 mg 12/13/20 17:00 Bisacodyl 5 Mg Tablet Ec PO 12/13/20 17:01 ONCE ONE Carvedilol 3.125 mg 12/08/20 22:50 12/13/20 09:07 Carvedilol 3.125 Mg Tablet PO 3.125 mg Q12HR MONIK Administration Chlordiazepoxide HCl 25 mg 12/09/20 09:01 12/10/20 10:11 Chlordiazepoxide (*Crx) 25 Mg Capsule PO 25 mg Q8H PRN Administration Anxiety Diphenhydramine HCl 25 mg 12/08/20 22:39 Diphenhydramine Hcl Cap 25 Mg Capsule PO TID PRN Itching Docusate Sodium 50 mg 12/09/20 09:00 12/12/20 08:22 Docusate Sodium Liq 100 Mg/10 Ml Udc PO 50 mg DAILY MONIK Administration Duloxetine HCl 30 mg 12/08/20 23:00 12/13/20 09:07 Duloxetine Hcl 30 Mg Capsule.Dr PO 30 mg BID MONIK Administration Enoxaparin Sodi
[2020-12-13] MEDS: BISACODYL 5 MG TABLET EC 20 MG PO (17:40)
[2020-12-13] MEDS: polyethylene glycoL 3350 238 GM BOTTLE PO (17:41)
[2020-12-13] MEDS: BENZONATATE 100 MG CAPSULE 200 MG PO (21:52)
[2020-12-14] VITALS (15 sets, daily range): BP systolic 111–148; BP diastolic 71–92; PULSE 98–120; RESP 18–27; TEMP 36.1–36.4; O2SAT 90–100
[2020-12-14] MEDS: ALBUTEROL SULFATE (*SP) AEROSOL 1 PUFF 2 PUFF INHALATION ×4 (04:29→21:23)
[2020-12-14] MEDS: MAGNESIUM CITRATE 300 ML BTL PO (04:57)
[2020-12-14] MEDS: HYDROcodone/acetaminophen (*CRX) 5-325 MG TABLET 1 TAB PO ×3 (04:59→18:14)
[2020-12-14 06:13] LABS: Hematocrit 27.2 % (42.0-52.0); Hemoglobin 8.7 g/dL (14.0-18.0); Mean Corpuscular Volume 84.5 fl (80-100); Mean Platelet Volume 8.8 fl (7.4-10.4); Platelet Count Result 696 k/mm3 (150-375); Red Blood Count 3.22 M/mm3 (4.6-6.20); Red Cell Distribution Width 17.6 % (11.5-14.5); White Blood Count 24.5 K/mm3 (4.5-10.0)
[2020-12-14 06:25] LABS: Magnesium 1.4 mg/dL (1.6-2.3)
[2020-12-14 06:44] LABS: Anion Gap 8 mmol/L (8-16); Blood Urea Nitrogen 5 mg/dL (9-20); Calcium 8.8 mg/dL (8.4-10.2); Carbon Dioxide 28 mmol/L (22-30); Chloride 94 mmol/L (98-107); Estimated CRCL calculation 161 ml/min; Estimated Glomerular Filt Rate > 60; Glucose 124 mg/dL (65-110); Potassium 3.4 mmol/L (3.4-5.0); Sodium 130 mmol/L (137-145)
[2020-12-14 08:24] LABS: Lymphocytes Absolute Manual 1.22 K/mm3 (1.1-4.5); Monocytes Absolute Manual 0.73 K/mm3 (0.1-0.90); Monocytes Percent Manual 3 % (3-9); Neutrophils Percent Manual 92 % (46-73); Total Cells Counted 100
[2020-12-14 08:26] LABS: Anisocytosis 1+ (NORMAL); Hypochromasia 1+ (NORMAL); Platelet Estimate Increased (Adequate)
[2020-12-14 08:57] LABS: Lactic Acid Reflex 0.7 mmol/L (0.7-2.1)
[2020-12-14 09:14] LABS: CRP 21.7 mg/dL (<1.0); Lactate Dehydrogenase 546 U/L (313-618)
[2020-12-14] MEDS: NICOTINE (*PBKC) 21 MG PATCH 1 PATCH TRANSDERM (09:39)
[2020-12-14] MEDS: ENOXAPARIN 40 MG/0.4 ML SYRINGE SUB-Q (09:40)
[2020-12-14] MEDS: SODIUM CHLORIDE 1 GM TABLET 3 GM PO ×3 (09:41→17:23)
[2020-12-14] MEDS: THIAMINE HCL 100 MG TABLET PO (09:41)
[2020-12-14] MEDS: DULoxetine HCL 30 MG CAPSULE.DR PO ×2 (09:42→17:24)
[2020-12-14] MEDS: MULTIVITAMINS THERAPEUTIC TAB (*BKC) 1 TABLET PO (09:42)
[2020-12-14] MEDS: FERROUS SULFATE 324 MG TABLET PO (09:42)
[2020-12-14] MEDS: FOLIC ACID 1 MG TABLET PO (09:42)
[2020-12-14] MEDS: GABAPENTIN 100 MG CAPSULE PO ×3 (09:42→17:24)
[2020-12-14] MEDS: carvediloL 3.125 MG TABLET PO ×2 (09:43→20:53)
[2020-12-14] MEDS: levETIRAcetam 500 MG TABLET 1500 MG PO ×2 (09:43→20:52)
[2020-12-14] MEDS: LACTATED RINGERS 1,000 ML 150 ML IV CONT (10:27)
--- NOTE | 2020-12-14 10:32 | WPDANESPN ---
Anes - Prog Note Post-Op Date/Time: 12/14/20 10:32 Cardiovascular status: normal Respiratory status: normal Airway patency: baseline Mental status: baseline Post-Op hydration status: normal Vital Signs: Last Vital Signs Temp 36.4 C 12/14/20 04:52 Pulse 115 H 12/14/20 09:43 Resp 18 12/14/20 04:52 BP 146/77 H 12/14/20 04:52 Pulse Ox 92 12/14/20 04:52 Pain Score (VAS): 0 I/O: Intake & Output 12/13/20 12/14/20 12/14/20 23:59 07:59 15:59 Intake Total 600 1923 Balance 600 1923 Laboratory Tests 12/14/20 05:51 12/14/20 05:51 12/14/20 12/14/20 12/14/20 05:51 05:51 05:51 WBC 24.5 H RBC 3.22 L Hgb 8.7 L Hct 27.2 L MCV 84.5 MCH 27.0 MCHC 32.0 RDW 17.6 H Plt Count 696 H MPV 8.8 Immature Gran % (Auto) Not Reportable Neut % (Auto) Not Reportable Lymph % (Auto) Not Reportable [place] % (Auto) Not Reportable Eos % (Auto) Not Reportable Baso % (Auto) Not Reportable Lymph # (Auto) Not Reportable [place] # (Auto) Not Reportable Eos # (Auto) Not Reportable Baso # (Auto) Not Reportable Abs Immat Gran (auto) Not Reportable Absolute Neuts (auto) Not Reportable Absolute Nucleated RBC Not Reportable Total Counted 100 Neutrophils % (Manual) 92 H Lymphocytes % (Manual) 5.0 L Monocytes % (Manual) 3 Nucleated RBC % Not Reportable Abs Lymphs (Manual) 1.22 Abs Monocytes (Manual) 0.73 Platelet Estimate Increased Hypochromasia 1+ Anisocytosis 1+ Sodium 130 L Potassium 3.4 Chloride 94 L Carbon Dioxide 28 Anion Gap 8 BUN 5 L Creatinine 0.30 L Estim Creat Clear Calc 161 Estimated GFR > 60 Glucose 124 H Lactic Acid Calcium 8.8 Magnesium 1.4 L Ferritin Lactate Dehydrogenase C-Reactive Protein 12/14/20 12/14/20 12/14/20 08:08 08:08 08:08 WBC RBC Hgb Hct MCV MCH MCHC RDW Plt Count MPV Immature Gran % (Auto) Neut % (Auto) Lymph % (Auto) [place] % (Auto) Eos % (Auto) Baso % (Auto) Lymph # (Auto) [place] # (Auto) Eos # (Auto) Baso # (Auto) Abs Immat Gran (auto) Absolute Neuts (auto) Absolute Nucleated RBC Total Counted Neutrophils % (Manual) Lymphocytes % (Manual) Monocytes % (Manual) Nucleated RBC % Abs Lymphs (Manual) Abs Monocytes (Manual) Platelet Estimate Hypochromasia Anisocytosis Sodium Potassium Chloride Carbon Dioxide Anion Gap BUN Creatinine Estim Creat Clear Calc Estimated GFR Glucose Lactic Acid 0.7 Calcium Magnesium Ferritin Pending Lactate Dehydrogenase 546 C-Reactive Protein 21.7 H Microbiology 12/08/20 18:14 Blood Blood Culture - Final 12/08/20 18:14 Blood Blood Culture - Final 12/10/20 10:00 Sputum Sputum Culture - Final Yeast isolated Post-procedural complaints: none Patient Feedback: Patient satisfied with anesthetic care.
--- NOTE | 2020-12-14 10:39 | WPDANESEPPF ---
Anes - Initial Pre Proc Eval Procedure: Operation Date: 12/14/20 13:30 Proposed Procedures p Esophagogastroduodenoscopy & Colonoscopy - Stewart Joaquin MD Date/Time: 12/14/20 10:39 Surgeon: Lisbeth Bryan MD Pre Op Diagnosis: pneumonia, leukocytosis Patient Data Age: 55 Gender: M Height: 1.75 m Weight: 52 kg Last Vital Signs Temp 97.0 F L 12/14/20 10:32 Pulse 102 H 12/14/20 10:32 Resp 18 12/14/20 10:32 BP 134/81 12/14/20 10:32 Pulse Ox 95 12/14/20 10:32 Allergies Allergy/AdvReac Type Severity Reaction Status Date / Time No Known Allergies Allergy Verified 12/08/20 21:28 Home Medications Medication Instructions Recorded Confirmed Type acetaminophen 325 mg capsule 325 mg PO Q6H PRN 11/17/20 12/08/20 History docusate sodium 50 mg/5 mL oral 10 mg PO DAILY ml 11/17/20 12/08/20 History liquid multivitamin 1 tablet PO DAILY 11/17/20 12/08/20 History polyethylene glycol 3350 17 17 g PO BID #510 g 11/17/20 12/08/20 Rx gram/dose oral powder thiamine HCl (vitamin B1) 100 mg 100 mg PO DAILY 11/17/20 12/08/20 History tablet hydrocodone 5 mg-acetaminophen 325 1 tablet PO Q4H PRN #21 tablet 11/24/20 12/08/20 Rx mg tablet levetiracetam 500 mg tablet 1,500 mg PO BID #180 tablet 11/24/20 12/08/20 Rx duloxetine 30 mg capsule,delayed 30 mg PO BID #60 cap 11/25/20 12/08/20 Rx release guaifenesin 600 mg tablet, 600 mg PO Q12H PRN #20 tablet 11/25/20 12/08/20 Rx extended release 12 hr carvedilol 3.125 mg tablet 3.125 mg PO Q12H #60 tablet 12/01/20 12/08/20 Rx folic acid 1 mg tablet 1 mg PO DAILY #30 tablet 12/01/20 12/08/20 Rx benzonatate 200 mg capsule 200 mg PO BID PRN #20 cap 12/08/20 12/08/20 Rx diphenhydramine HCl 25 mg PO TID PRN 12/08/20 12/08/20 History sodium chloride 3,000 mg PO TIDWM 12/08/20 12/08/20 History Laboratory Tests 12/14/20 12/14/20 12/14/20 05:51 05:51 05:51 WBC 24.5 K/mm3 H K/mm3 (4.5-10.0) RBC 3.22 M/mm3 L M/mm3 (4.6-6.20) Hgb 8.7 g/dL L g/dL (14.0-18.0) Hct 27.2 % L % (42.0-52.0) MCV 84.5 fl fl (80-100) MCH 27.0 pg pg (26-34) MCHC 32.0 g/dl g/dl (32-36) RDW 17.6 % H % (11.5-14.5) Plt Count 696 k/mm3 H k/mm3 (150-375) MPV 8.8 fl fl (7.4-10.4) Immature Gran % (Auto) Not Reportable Neut % (Auto) Not Reportable Lymph % (Auto) Not Reportable [place] % (Auto) Not Reportable Eos % (Auto) Not Reportable Baso % (Auto) Not Reportable Lymph # (Auto) Not Reportable [place] # (Auto) Not Reportable Eos # (Auto) Not Reportable Baso # (Auto) Not Reportable Abs Immat Gran (auto) Not Reportable Absolute Neuts (auto) Not Reportable Absolute Nucleated RBC Not Reportable Total Counted 100 Neutrophils % (Manual) 92 % H % (46-73) Lymphocytes % (Manual) 5.0 % L % (18-44) Monocytes % (Manual) 3 % % (3-9) Nucleated RBC % Not Reportable Abs Lymphs (Manual) 1.22 K/mm3 K/mm3 (1.1-4.5) Abs Monocytes (Manual) 0.73 K/mm3 K/mm3 (0.1-0.90) Platelet Estimate Increased (Adequate) Hypochromasia 1+ (NORMAL) Anisocytosis 1+ (NORMAL) Sodium 130 mmol/L L mmol/L (137-145) Potassium 3.4 mmol/L mmol/L (3.4-5.0) Chloride 94 mmol/L L mmol/L (98-107) Carbon Dioxide 28 mmol/L mmol/L (22-30) Anion Gap 8 mmol/L mmol/L (8-16) BUN 5 mg/dL L mg/dL (9-20) Creatinine 0.30 mg/dL L mg/dL (0.7-1.3) Estim Creat Clear Calc 161 ml/min ml/min Estimated GFR > 60 (59 - ) Glucose 124 mg/dL H mg/dL (65-110) Lactic Acid Calcium 8.8 mg/dL mg/dL (8.4-10.2) Magnesium 1.4 mg/dL
--- NOTE | 2020-12-14 11:08 | PCNFU ---
Nutrition Follow-Up Complete: Excessive Alcohol Intake as related history of depression as evidenced by greater than 2 drinks per day. Goal: Adequate Intake of at least 75% of meals/supplements Patient is meeting nutrition goal. No new goal. Pt current nutrition is NPO for EGD/colonoscopy, had been on regular diet. Last recorded weight is 52 kg, no new weight to report. Bowel Motility:+BM reported 12/14 Labs Reviewed:Mg 1.4,Na 130,Cr 0.3,BUN 5,HCt 27.2,Hgb 8.7 Meds Noted:Folic Acid,Thiamine, Keppra, MVI, Lovenox, Maxipime,Coreg, Proventil. Additional Notes: Nutrition follow up. Patient currently NPO. Regular diet consumption has been 50-100% of all meals. Diet supplements are being providing of Ensure compact BID. An additional 220 kcals and 9 gms protein from supplements. Agree with diet orders. No further nutritional interventions needed. Monitoring: RD will monitor every 7 days.
[2020-12-14] MEDS: MAGNESIUM OXIDE 200 MG TABLET PO ×2 (14:03→20:52)
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
[2020-12-15] VITALS (14 sets, daily range): BP systolic 138–149; BP diastolic 77–85; PULSE 98–117; RESP 18–20; TEMP 36.1; O2SAT 94–99
[2020-12-15] MEDS: HYDROcodone/acetaminophen (*CRX) 5-325 MG TABLET 1 TAB PO ×4 (00:17→20:27)
[2020-12-15 05:44] LABS: Basophils Absolute Auto 0.1 K/mm3 (0.0-0.1); Basophils Percent Auto 0.4 % (0.2-1.2); Eosinophils Absolute Auto 0.1 K/mm3 (0-0.3); Eosinophils Percent Auto 0.2 % (0-4.4); Hematocrit 25.1 % (42.0-52.0); Immature Granulocyte Absolute 0.38 K/mm3 (0.00-0.031); Immature Granulocyte Percent A 1.5 % (0-0.5); Lymphocytes Absolute Auto 1.27 K/mm3 (0.9-3.2); Lymphocytes Percent Auto 5.2 % (18.3-44.2); Mean Corpuscular HGB Conc 31.9 g/dl (32-36); Mean Corpuscular Volume 84.8 fl (80-100); Mean Platelet Volume 8.7 fl (7.4-10.4); Monocytes Absolute Auto 1.2 K/mm3 (0.1-0.6); Neutrophils Absolute Auto 21.6 K/mm3 (1.3-6.7); Neutrophils Percent Auto 87.7 % (45.5-73.1); Platelet Count Result 723 k/mm3 (150-375); Red Blood Count 2.96 M/mm3 (4.6-6.20); Red Cell Distribution Width 18.2 % (11.5-14.5); White Blood Count 24.7 K/mm3 (4.5-10.0)
[2020-12-15 06:04] LABS: Anion Gap 9 mmol/L (8-16); Blood Urea Nitrogen 4 mg/dL (9-20); Calcium 8.4 mg/dL (8.4-10.2); Carbon Dioxide 28 mmol/L (22-30); Chloride 96 mmol/L (98-107); Estimated CRCL calculation 161 ml/min; Estimated Glomerular Filt Rate > 60; Glucose 104 mg/dL (65-110); Magnesium 1.7 mg/dL (1.6-2.3); Potassium 3.4 mmol/L (3.4-5.0); Sodium 133 mmol/L (137-145)
[2020-12-15 06:44] LABS: Anisocytosis 1+ (NORMAL); Hypochromasia 2+ (NORMAL); Platelet Estimate Increased (Adequate)
[2020-12-15] MEDS: ALBUTEROL SULFATE (*SP) AEROSOL 1 PUFF 2 PUFF INHALATION (08:25)
[2020-12-15] MEDS: FERROUS SULFATE 324 MG TABLET PO (08:38)
[2020-12-15] MEDS: ENOXAPARIN 40 MG/0.4 ML SYRINGE SUB-Q (08:38)
[2020-12-15] MEDS: NICOTINE (*PBKC) 21 MG PATCH 1 PATCH TRANSDERM (08:38)
[2020-12-15] MEDS: SODIUM CHLORIDE 1 GM TABLET 3 GM PO ×3 (08:38→17:13)
[2020-12-15] MEDS: PANTOPRAZOLE 40 MG TABLET PO (08:39)
[2020-12-15] MEDS: FOLIC ACID 1 MG TABLET PO (08:39)
[2020-12-15] MEDS: GABAPENTIN 100 MG CAPSULE PO ×3 (08:39→17:13)
[2020-12-15] MEDS: MAGNESIUM OXIDE 200 MG TABLET PO ×2 (08:39→20:26)
[2020-12-15] MEDS: MULTIVITAMINS THERAPEUTIC TAB (*BKC) 1 TABLET PO (08:40)
[2020-12-15] MEDS: carvediloL 3.125 MG TABLET PO ×2 (08:40→20:26)
[2020-12-15] MEDS: THIAMINE HCL 100 MG TABLET PO (08:42)
[2020-12-15] MEDS: DULoxetine HCL 30 MG CAPSULE.DR PO ×2 (08:43→17:13)
[2020-12-15] MEDS: levETIRAcetam 500 MG TABLET 1500 MG PO ×2 (08:43→20:25)
--- NOTE | 2020-12-15 09:19 | P.PNAN_ITS ---
Anes - Prog Note Post-Op Date/Time: 12/15/20 09:19 Cardiovascular status: normal Respiratory status: normal Airway patency: baseline Mental status: baseline Post-Op hydration status: normal Vital Signs: Last Vital Signs Temp 36.1 C L 12/15/20 05:01 Pulse 114 H 12/15/20 08:40 Resp 20 12/15/20 05:01 BP 142/77 H 12/15/20 05:01 Pulse Ox 94 12/15/20 05:01 Pain Score (VAS): 0 I/O: Intake & Output 12/14/20 12/15/20 12/15/20 23:59 07:59 15:59 Intake Total 150 150 Balance 150 150 Laboratory Tests 12/15/20 05:32 12/15/20 05:32 12/14/20 12/15/20 12/15/20 08:08 05:32 05:32 WBC 24.7 H RBC 2.96 L Hgb 8.0 L Hct 25.1 L MCV 84.8 MCH 27.0 MCHC 31.9 L RDW 18.2 H Plt Count 723 H MPV 8.7 Immature Gran % (Auto) 1.5 H Neut % (Auto) 87.7 H Lymph % (Auto) 5.2 L [place] % (Auto) 5.0 Eos % (Auto) 0.2 Baso % (Auto) 0.4 Lymph # (Auto) 1.27 [place] # (Auto) 1.2 H Eos # (Auto) 0.1 Baso # (Auto) 0.1 Abs Immat Gran (auto) 0.38 H Absolute Neuts (auto) 21.6 H Absolute Nucleated RBC 0.0 Nucleated RBC % 0.0 Platelet Estimate Increased Hypochromasia 2+ Anisocytosis 1+ Sodium 133 L Potassium 3.4 Chloride 96 L Carbon Dioxide 28 Anion Gap 9 BUN 4 L Creatinine 0.30 L Estim Creat Clear Calc 161 Estimated GFR > 60 Glucose 104 Calcium 8.4 Magnesium 1.7 Ferritin 1200.00 H Microbiology 12/14/20 08:10 Blood Blood Culture - Preliminary 12/14/20 08:08 Blood Blood Culture - Preliminary 12/08/20 18:14 Blood Blood Culture - Final 12/08/20 18:14 Blood Blood Culture - Final Post-procedural complaints: none Patient Feedback: Patient satisfied with anesthetic care.
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
[2020-12-15 10:50] LABS: INR 1.2; Prothrombin Time 14.8 Seconds (11.1-14.7)
[2020-12-15] MEDS: UMECLIDINIUM/VILANTEROL 62.5-25 MCG ELLIPTA 1 PUFF INHALATION (13:27)
[2020-12-15 15:27] LABS: Appearance Pleural Fluid Turbid (Clear); Pleural fluid source Pleural fluid
[2020-12-15 15:28] LABS: Color Pleural Fluid Other (Colorless); RBC Pleural Fluid 93499 /uL (0-0)
[2020-12-15 15:51] LABS: Lymphocytes Pleural Fluid 20 %; Monocytes Pleural Fluid 10 %; Neutrophils Pleural Fluid 70 % (0-25)
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
--- NOTE | 2020-12-15 16:44 | WPDGIPROGNO ---
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 CT chest reviewed, anterior mediastinal mass, differential diagnosis include thymoma, thymic carcinoma, germ cell tumor, pathological lymph node. (5) ETOH abuse: Code(s): F10.10 - Alcohol abuse, uncomplicated Status: Acute (6) Mediastinal mass: Code(s): J98.59 - Other diseases of mediastinum, not elsewhere classified Status: Acute Subjective Date/time seen: 12/15/20 16:44 Interval history: egd yesterday showed moderate erosive gastritis and also long segment Siegel's esophagus, colonoscopy with polyps removed. Today had thoracentesis Rt side, feeling better Review of Systems Review of Systems: All systems reviewed & are unremarkable except as noted in HPI and below Exam Const: General: comfortable and no acute distress HENMT: General nose exam: Normal nares present Eyes: General: appearance normal, both eyes and all related structures Neck: Neck: no JVD Resp: Auscultation: clear to auscultation bilaterally Cardio: Rate: regular rate Rhythm: regular rhythm GI: Inspection: non-distended GI Palp: Yes Soft to palpation and No Guarding due to palpation present (GI) Auscultation: normal bowel sounds Skin: General skin exam: normal color Neuro: Speech: normal speech Extrem: General: normal to inspection Psych: Mental Status: mental status grossly normal Objective Data Vital Signs Vital Signs: Vital Signs - 24 hr 12/14/20 20:00 12/14/20 20:39 12/14/20 20:53 Temperature 97.4 F L Pulse Rate 98 108 H 98 Respiratory Rate 18 Blood Pressure 148/85 H Pulse Oximetry 94 12/14/20 21:24 12/15/20 00:00 12/15/20 04:00 Temperature Pulse Rate 98 112 H Respiratory Rate Blood Pressure Pulse Oximetry 98 12/15/20 05:01 12/15/20 08:00 12/15/20 08:40 Temperature 97 F L Pulse Rate 114 H 109 H 114 H Respiratory Rate 20 Blood Pressure 142/77 H Pulse Oximetry 94 12/15/20 12:00 12/15/20 12:54 12/15/20 12:57 Temperature Pulse Rate 112 H 105 H 117 H Respiratory Rate 20 20 Blood Pressure 149/85 H 138/85 Pulse Oximetry 98 99 12/15/20 13:29 12/15/20 13:32 12/15/20 16:00 Temperature Pulse Rate 98 99 109 H Respiratory Rate 20 20 Blood Pressure Pulse Oximetry Intake/Output Intake/Output: Intake & Output 12/12/20 12/13/20 12/14/20 12/15/20 23:59 23:59 23:59 23:59 Intake Total 1835 2195 2123 150 Output Total 200 Balance 1835 2195 2123 -50 Meds/Results Medications: Active Medications Generic Name Dose Route Start Last Admin Trade Name Daviq PRN Reason Stop Dose Admin Acetaminophen 650 mg 12/08/20 18:10 12/09/20 17:50 Acetaminophen 325 Mg Tablet PO 650 mg Q4H PRN Administration Mild Pain (1-3) or Fever Hydrocodone Bitart/Acetaminophen 1 tab 12/08/20 22:39 12/15/20 15:17 Hydrocodone/Acetaminophen (*Crx) 5-325 Mg Tablet PO 1 tab Q4H PRN Administration Pain Rated 4-6 Benzonatate 200 mg 12/08/20 22:39 12/13/20 21:52 Benzonatate 100 Mg Capsule PO 200 mg BID PRN Administration cough Carvedilol 3.125 mg
[2020-12-15] MEDS: polyethylene glycoL 3350 17 GM POWD.PACK PO (17:13)
[2020-12-15] MEDS: ACETAMINOPHEN 325 MG TABLET 650 MG PO (17:18)
[2020-12-16] VITALS (13 sets, daily range): BP systolic 136–157; BP diastolic 72–90; PULSE 94–113; RESP 16–20; TEMP 36.8–36.9; O2SAT 95–96
[2020-12-16 03:45] LABS: Basophils Absolute Auto 0.1 K/mm3 (0.0-0.1); Basophils Percent Auto 0.6 % (0.2-1.2); Eosinophils Absolute Auto 0.1 K/mm3 (0-0.3); Eosinophils Percent Auto 0.5 % (0-4.4); Hematocrit 23.9 % (42.0-52.0); Hemoglobin 7.6 g/dL (14.0-18.0); Immature Granulocyte Percent A 1.3 % (0-0.5); Lymphocytes Absolute Auto 1.31 K/mm3 (0.9-3.2); Lymphocytes Percent Auto 8.5 % (18.3-44.2); Mean Corpuscular HGB Conc 31.8 g/dl (32-36); Mean Corpuscular Hemoglobin 26.6 pg (26-34); Mean Corpuscular Volume 83.6 fl (80-100); Monocytes Absolute Auto 1.1 K/mm3 (0.1-0.6); Monocytes Percent Auto 7.2 % (2.6-8.5); Neutrophils Absolute Auto 12.7 K/mm3 (1.3-6.7); Neutrophils Percent Auto 81.9 % (45.5-73.1); Platelet Count Result 652 k/mm3 (150-375); Red Blood Count 2.86 M/mm3 (4.6-6.20); Red Cell Distribution Width 18.1 % (11.5-14.5); White Blood Count 15.5 K/mm3 (4.5-10.0)
[2020-12-16 03:50] LABS: Anion Gap 6 mmol/L (8-16); Blood Urea Nitrogen 6 mg/dL (9-20); Calcium 8.3 mg/dL (8.4-10.2); Carbon Dioxide 29 mmol/L (22-30); Chloride 97 mmol/L (98-107); Estimated CRCL calculation 161 ml/min; Estimated Glomerular Filt Rate > 60; Glucose 105 mg/dL (65-110); Magnesium 1.7 mg/dL (1.6-2.3); Potassium 3.6 mmol/L (3.4-5.0); Sodium 132 mmol/L (137-145)
[2020-12-16] MEDS: HYDROcodone/acetaminophen (*CRX) 5-325 MG TABLET 1 TAB PO ×4 (05:26→22:50)
[2020-12-16] MEDS: UMECLIDINIUM/VILANTEROL 62.5-25 MCG ELLIPTA 1 PUFF INHALATION (08:05)
[2020-12-16] MEDS: ENOXAPARIN 40 MG/0.4 ML SYRINGE SUB-Q (08:30)
[2020-12-16] MEDS: NICOTINE (*PBKC) 21 MG PATCH 1 PATCH TRANSDERM (08:30)
[2020-12-16] MEDS: levETIRAcetam 500 MG TABLET 1500 MG PO ×2 (08:31→21:16)
[2020-12-16] MEDS: guaiFENesin 12 HR 600 MG TABCR PO (08:31)
[2020-12-16] MEDS: FOLIC ACID 1 MG TABLET PO (08:31)
[2020-12-16] MEDS: polyethylene glycoL 3350 17 GM POWD.PACK PO ×2 (08:31→17:57)
[2020-12-16] MEDS: GABAPENTIN 100 MG CAPSULE PO ×3 (08:31→17:56)
[2020-12-16] MEDS: DOCUSATE SODIUM LIQ 100 MG/10 ML UDC 50 MG PO (08:31)
[2020-12-16] MEDS: FERROUS SULFATE 324 MG TABLET PO (08:31)
[2020-12-16] MEDS: DULoxetine HCL 30 MG CAPSULE.DR PO ×2 (08:31→17:56)
[2020-12-16] MEDS: MULTIVITAMINS THERAPEUTIC TAB (*BKC) 1 TABLET PO (08:31)
[2020-12-16] MEDS: SODIUM CHLORIDE 1 GM TABLET 3 GM PO ×3 (08:31→17:56)
[2020-12-16] MEDS: PANTOPRAZOLE 40 MG TABLET PO (08:32)
[2020-12-16] MEDS: carvediloL 3.125 MG TABLET PO ×2 (08:32→21:16)
[2020-12-16] MEDS: THIAMINE HCL 100 MG TABLET PO (08:32)
[2020-12-16] MEDS: BENZONATATE 100 MG CAPSULE 200 MG PO (08:32)
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
[2020-12-16 22:32] LABS: Vancomycin Trough 6.3 ug/mL (10.0-20.0)
[2020-12-17] VITALS (9 sets, daily range): BP systolic 148–153; BP diastolic 81–84; PULSE 99–115; RESP 18; TEMP 36.8–37.1; O2SAT 93–95
[2020-12-17] MEDS: HYDROcodone/acetaminophen (*CRX) 5-325 MG TABLET 1 TAB PO ×4 (02:55→18:22)
[2020-12-17 05:59] LABS: Basophils Absolute Auto 0.1 K/mm3 (0.0-0.1); Basophils Percent Auto 0.5 % (0.2-1.2); Eosinophils Absolute Auto 0.1 K/mm3 (0-0.3); Eosinophils Percent Auto 0.5 % (0-4.4); Hematocrit 24.9 % (42.0-52.0); Immature Granulocyte Percent A 1.2 % (0-0.5); Lymphocytes Absolute Auto 1.27 K/mm3 (0.9-3.2); Lymphocytes Percent Auto 7.3 % (18.3-44.2); Mean Corpuscular HGB Conc 32.1 g/dl (32-36); Mean Corpuscular Hemoglobin 26.7 pg (26-34); Mean Platelet Volume 8.4 fl (7.4-10.4); Neutrophils Absolute Auto 14.7 K/mm3 (1.3-6.7); Neutrophils Percent Auto 84.5 % (45.5-73.1); Platelet Count Result 771 k/mm3 (150-375); Red Cell Distribution Width 18.4 % (11.5-14.5); White Blood Count 17.4 K/mm3 (4.5-10.0)
[2020-12-17 06:15] LABS: Anion Gap 7 mmol/L (8-16); Blood Urea Nitrogen 3 mg/dL (9-20); Calcium 8.2 mg/dL (8.4-10.2); Carbon Dioxide 30 mmol/L (22-30); Chloride 96 mmol/L (98-107); Estimated CRCL calculation 161 ml/min; Estimated Glomerular Filt Rate > 60; Glucose 110 mg/dL (65-110); Magnesium 1.5 mg/dL (1.6-2.3); Potassium 3.1 mmol/L (3.4-5.0); Sodium 133 mmol/L (137-145)
[2020-12-17] MEDS: UMECLIDINIUM/VILANTEROL 62.5-25 MCG ELLIPTA 1 PUFF INHALATION (07:30)
[2020-12-17] MEDS: MULTIVITAMINS THERAPEUTIC TAB (*BKC) 1 TABLET PO (08:39)
[2020-12-17] MEDS: DULoxetine HCL 30 MG CAPSULE.DR PO ×2 (08:39→18:17)
[2020-12-17] MEDS: THIAMINE HCL 100 MG TABLET PO (08:39)
[2020-12-17] MEDS: levETIRAcetam 500 MG TABLET 1500 MG PO ×2 (08:39→19:59)
[2020-12-17] MEDS: PANTOPRAZOLE 40 MG TABLET PO (08:39)
[2020-12-17] MEDS: carvediloL 3.125 MG TABLET PO ×2 (08:39→20:00)
[2020-12-17] MEDS: NICOTINE (*PBKC) 21 MG PATCH 1 PATCH TRANSDERM (08:39)
[2020-12-17] MEDS: ENOXAPARIN 40 MG/0.4 ML SYRINGE SUB-Q (08:40)
[2020-12-17] MEDS: FERROUS SULFATE 324 MG TABLET PO (08:40)
[2020-12-17] MEDS: SODIUM CHLORIDE 1 GM TABLET 3 GM PO ×3 (08:40→18:18)
[2020-12-17] MEDS: GABAPENTIN 100 MG CAPSULE PO ×3 (08:40→18:17)
[2020-12-17] MEDS: MAGNESIUM OXIDE 200 MG TABLET PO ×2 (08:41→19:59)
[2020-12-17] MEDS: FOLIC ACID 1 MG TABLET PO (08:41)
--- NOTE | 2020-12-17 10:40 | PC.NURSE ---
rate of KCl infusion slowed due to pt having burning at IV site
[2020-12-17] MEDS: POTASSIUM CHLORIDE 20 MEQ PACKET (FOR LIQUID) 40 MEQ PO (11:57)
--- NOTE | 2020-12-17 14:19 | PC.NURSE ---
called report to Britt at [facility] in [facility], reviewed pt's chart with receiving RN
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
[2020-12-17 22:06] LABS: Glucose Pleural Fluid 83 mg/dL
[2020-12-19 14:48] LABS: LDH Pleural Fluid 48118 U/L; Total Protein Pleural Fluid <3.0 g/dL
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
== END 2020-12-17 21:20 | disposition short-term general hospital (02) | DRG 720 ==
LOC: ANHED 18:03 → ANH3MED 21:10
PROVIDERS: Internal Medicine; Internal Medicine Gastroenterology; Internal Medicine Pulmonary Disease; Nurse Practitioner; Admitting Provider Family Medicine; Emergency Provider Emergency Medicine; PCP Nurse Practitioner Family; Visit Provider Internal Medicine
PROC: 0DJ08ZZ Inspection of Upper Intestinal Tract, Via Natural or Artificial Opening Endoscopic (ICD-10-PCS; CPT 43235; principal; 2020-12-14 13:30)
DX: A41.9 Sepsis, unspecified organism (principal); J18.9 Pneumonia, unspecified organism; Z20.822 Contact with and (suspected) exposure to COVID-19; J91.8 Pleural effusion in other conditions classified elsewhere; J86.9 Pyothorax without fistula; K44.9 Diaphragmatic hernia without obstruction or gangrene; K29.60 Other gastritis without bleeding; K22.70 Barrett's esophagus without dysplasia; G40.89 Other seizures; I10 Essential (primary) hypertension; K64.8 Other hemorrhoids; K63.5 Polyp of colon; K57.30 Diverticulosis of large intestine without perforation or abscess without bleeding; F10.10 Alcohol abuse, uncomplicated; J98.59 Other diseases of mediastinum, not elsewhere classified; D72.829 Elevated white blood cell count, unspecified; G62.9 Polyneuropathy, unspecified; E87.1 Hypo-osmolality and hyponatremia; G25.81 Restless legs syndrome; J98.11 Atelectasis; R94.31 Abnormal electrocardiogram [ECG] [EKG]; E83.42 Hypomagnesemia; D63.1 Anemia in chronic kidney disease; E87.6 Hypokalemia; F17.210 Nicotine dependence, cigarettes, uncomplicated; E46 Unspecified protein-calorie malnutrition; Z68.1 Body mass index [BMI] 19.9 or less, adult; Z95.810 Presence of automatic (implantable) cardiac defibrillator; S22.49XG Multiple fractures of ribs, unspecified side, subsequent encounter for fracture with delayed healing; V89.2XXD Person injured in unspecified motor-vehicle accident, traffic, subsequent encounter
CPT/HCPCS: 32555; 36415; 36430; 71046; 71250; 80048; 80053; 80202; 81001; 82150; 82274; 82728; 82945; 83540; 83550; 83605; 83615; 83735; 83880; 83986; 84155; 84157; 84484; 85014; 85018; 85025; 85027; 85060; 85610; 86140; 86850; 86900; 86901; 86920; 87015; 87040; 87070; 87075; 87081; 87102; 87116; 87205; 87206; 87426; 88104; 88108; 88305; 89051; 94640; 99285; A9270; C9803; J0692; J0696; J1650; J1756; J1940; J2543; J3370; J3475; J3480; J7030; J7050; J7120; P9016

== ENCOUNTER 2021-01-03 12:45 | Inpatient (IN) | payer MEDICAID, SELFPAY ==
[2021-01-03] VITALS (17 sets, daily range): BP systolic 82–131; BP diastolic 62–90; PULSE 91–120; RESP 16–25; TEMP 34.6–38.2; O2SAT 98–100; BMI 16.5
--- NOTE | ~2021-01-03 | XR_ITS ---
EXAMINATION: XR fl Dobhoff insert/rad w img DATE: 01/18/2021 10:36 INDICATION: Dysphagia. TECHNIQUE: I placed a nasoenteric tube with fluoroscopic guidance. The fluoroscopy exposure time was 0.4 minutes. The number of images was 2. COMPARISON: None. FINDINGS: The nasoenteric tube tip is in the stomach. IMPRESSION: 1. Fluoroscopy guided nasoenteric tube placement with tip in the stomach. Reviewed, dictated and finalized at location A.
--- NOTE | ~2021-01-03 | CT_ITS ---
EXAMINATION: CT brain wo con DATE: 01/09/2021 09:33 INDICATION: Encephalopathy TECHNIQUE: Computed tomography (CT) of the head was performed without intravenous contrast. The dose- length product was 605.33 mGy-cm. Automated exposure control and iterative reconstruction technique were employed. COMPARISON: CT dated 01/03/2021 FINDINGS: Generalized atrophy. Chronic bilateral occipital lobe infarctions. There are scattered mild periventricular and subcortical white matter changes, most likely related to small vessel ischemic d isease (microangiopathy). No ventriculomegaly or midline shift. There is mild mucosal thickening of t he posterior right ethmoid and sphenoid sinuses. IMPRESSION: 1. No acute intracranial abnormality. No significant change. 2: Chronic bilateral occipital lobe infarctions. 3: Mild sinus disease. Reviewed, dictated and finalized at location A.
--- NOTE | ~2021-01-03 | XR_ITS ---
EXAMINATION: XR chest 1V portable DATE: 01/03/2021 13:12 INDICATION: Seizures TECHNIQUE: frontal view of the chest was obtained. COMPARISON: Chest radiograph dated 12/13/[address] dated 12/14/2020 FINDINGS: Talus formation along numerous right mid to lower rib fractures more fully appreciated on prior CT. T here multiple Skin brooks suggesting possible more recent thoracotomy. Decrease in airspace opacities in the right mid and lower lung zones with consistent with atelectasis and/or pneumonia along with a decreasing s mall right pleural effusion. There is also suggestion of residual small loculated component of the pl eural effusion along the right major fissure. Underlying moderate emphysema better appreciated on supa or CT. No pneumothorax or left-sided pleural effusion. The cardiomediastinal silhouette is normal. Si ngle lead cardiac pacemaker/AICD with lead tip at the right ventricle. There are multiple new surgica l clips along the right side of the mediastinum. 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 Subacute potentially ununited fracture of the lateral head of the right clavicle. Unchanged mi ld to moderate vertebral body height loss at T10 corresponding to a subacute burst fracture on prior CT. IMPRESSION: 1. New postoperative changes at the right hemithorax and severe decompression and decortication of a prior right empyema. Correlate with surgical history. 2. Decreasing opacities in the right mid and lower lung zones consistent with decreasing small right pleural effusion with associated atelectasis and/or pneumonia. 3. Underlying moderate emphysema. 4. Multiple healing subacute rib fractures, subacute potentially still ununited fracture of the later al head of the right clavicle and unchanged subacute T10 burst fracture. Reviewed, dictated and finalized at location A. IMPRESSION: 1. New postoperative changes at the right hemithorax and severe decompression a nd decortication of a prior right empyema. Correlate with surgical history. 2. Decreasing opacities in the right mid and lower lung zones consistent with d ecreasing small right pleural effusion with associated atelectasis and/or pneum onia. 3. Underlying moderate emphysema. 4. Multiple healing subacute rib fractures, subacute potentially still ununited fracture of the lateral head of the right clavicle and unchanged subacute T10 burst fracture.
--- NOTE | ~2021-01-03 | XR_ITS ---
EXAMINATION: XR abdomen NG/feed tube insert DATE: 01/03/2021 17:55 INDICATION: Nasogastric tube placement. TECHNIQUE: An upright view of the abdomen was obtained on 2 radiographs. COMPARISON: Chest single view at 2:45 PM FINDINGS: The lower abdomen is excluded. There are no dilated loops of bowel. The nasogastric tube ti p is in the stomach. Surgical clips and skin brooks overlie right chest. There are airspace opacitie s in right mid and lower lung zones. Again seen are multiple healing right rib fractures. There is a pacer wire in right ventricle of the heart. IMPRESSION: 1. Nasogastric tube tip in the stomach. 2. Airspace opacities in right mid and lower lung zones, consistent with atelectasis versus pneumonia . Reviewed, dictated and finalized at location A. IMPRESSION: 1. Nasogastric tube tip in the stomach. 2. Airspace opacities in right mid and lower lung zones, consistent with atelec tasis versus pneumonia.
--- NOTE | ~2021-01-03 | XR_ITS ---
EXAMINATION: XR chest ET placement DATE: 01/03/2021 14:54 INDICATION: Intubation. TECHNIQUE: A single frontal view of the chest was obtained on 2 radiographs. COMPARISON: Chest single view 01/03/2021 at 12:52 PM, chest CT 12/14/2020 FINDINGS: There are lucencies in the lungs, consistent with emphysema. There are airspace opacities i n right mid and lower lung zones. No pleural effusion or pneumothorax. The heart size is normal. The endotracheal tube tip is 4.2 cm above the mack. There is a left chest pacer/defibrillator with lead in right ventricle. Surgical clips overlie right chest. There are healing right-sided rib fractures. Right-sided skin brooks are noted. There is a subacute burst fracture of T10. IMPRESSION: 1. Stable airspace opacities in right mid and lower lung zones, consistent with atelectasis versus pn eumonia. 2. Emphysema. Reviewed, dictated and finalized at location A. IMPRESSION: 1. Stable airspace opacities in right mid and lower lung zones, consistent with atelectasis versus pneumonia. 2. Emphysema.
--- NOTE | ~2021-01-03 | XR_ITS ---
EXAMINATION: XR chest 1V portable EXAM DATE: 01/04/2021 05:41 INDICATION: Intubated. possible pneumonia. TECHNIQUE: Portable AP frontal chest x-ray was obtained. Comparison is made to prior examination from 01/03/2021. FINDINGS: Endotracheal tube tip is 4-5 centimeters above the mack. There is a nasogastric tube see n with tip collimated off the study, but below the left hemidiaphragm. There is moderate amount of right basilar nonspecific airspace disease, could be acute or chronic inf ectious process or lymphangitic carcinomatosis correlating with prior CT scan. Lungs are hyperinflate d. Lower pleural effusion. There is no pneumothorax suspected. There is single lead pacemaker/AICD device seen with tip projecting over the expected location of right ventricle. The cardiomediasti nal silhouette is prominent but magnified on this AP technique. There are bony degenerative changes . There is no significant interval change compared to prior exam. IMPRESSION: 1. Tubes in position. 2. Stable airspace disease and other findings as above. Reviewed, dictated and finalized at location A.
--- NOTE | ~2021-01-03 | XR_ITS ---
EXAMINATION: XR fl Dobhoff insert/rad w img DATE: 01/14/2021 11:59 INDICATION: Encephalopathy. TECHNIQUE: I placed a nasoenteric tube with fluoroscopic guidance. Fluoroscopy exposure time was 0.5 minutes. The number of images was 2. COMPARISON: None. FINDINGS: The nasoenteric tube tip is in the stomach. IMPRESSION: 1. Fluoroscopy guided nasoenteric tube placement with tip in the stomach. Reviewed, dictated and finalized at location A.
--- NOTE | ~2021-01-03 | XR_ITS ---
EXAMINATION: XR chest 1V portable EXAM DATE: 01/05/2021 06:05 INDICATION: Intubation, pneumonia. TECHNIQUE: Portable AP frontal chest x-ray was obtained. Comparison is made to prior examination from 01/04/2021. FINDINGS: Endotracheal tube tip is 3-4 centimeters above the mack. There is a nasogastric tube see n with tip collimated off the study, but below the left hemidiaphragm. There is moderate amount of right basilar nonspecific airspace disease, could be acute or chronic inf ectious process or lymphangitic carcinomatosis correlating with prior CT scan. Lungs are hyperinflate d. Small right pleural effusion. There is no pneumothorax suspected. There is single lead pacemake r/AICD device seen with tip projecting over the expected location of right ventricle. Cardiomedias tinal silhouette is normal. There are bony degenerative changes. There is no significant interval change compared to prior exam. IMPRESSION: 1. Tubes in position. 2. Stable airspace disease and other findings as above. Reviewed, dictated and finalized at location A.
--- NOTE | ~2021-01-03 | CT_ITS ---
EXAMINATION: CT brain wo con EXAM DATE: 01/03/2021 13:45 INDICATION: Seizures. History traumatic brain injury. TECHNIQUE: Spiral CT of the head was performed without contrast. Axial, coronal and sagittal images were reviewed. The dose-length product (DLP) for this examination was 605.33 mGy-cm. The exposure w as tailored according to patient size, and iterative reconstruction (ASIR) was used as additional dos e reduction technique. There is no prior study for comparison. FINDINGS: There is small to moderate region of encephalomalacia in the right occipital lobe, small re gion in the left, likely old ischemic infarctions. There our small cortical regions of hypodensity wi thin the parietal lobes bilaterally without encephalomalacia, age indeterminate infarctions. There is mild to moderate microangiopathy and cerebral atrophy. No obstructive hydrocephalus, extra-axial col lections, acute intracranial hemorrhage or brain mass. Posterior fossa is unremarkable. There is flui d along the external surface of the calvarium on the left, could be a chronic seroma. IMPRESSION: 1. Small age-indeterminate cortical parietal infarctions bilaterally. 2. Old bilateral occipital lobe infarctions. 3. Age-related intracranial findings. Reviewed, dictated and finalized at location A.
--- NOTE | 2021-01-03 12:47 | ECG_ITS ---
Measurements Intervals Edna Rate: 112 P: 79 OK: 131 QRS: 75 QRSD: 78 T: 78 QT: 356 QTc: 487 Interpretive Statements SINUS TACHYCARDIA BASELINE ARTIFACT- II, III ABNORMAL ECG Electronically Signed On 01-03-2021 14:42:58 CDT by Hernan Cox D.O.
[2021-01-03] MEDS: LORazepam INJ (*CRX) 2 MG/ML VIAL IV PUSH ×3 (13:00→13:28)
[2021-01-03] MEDS: NALOXONE HCL INJ 2 MG/2 ML AMP IV PUSH (13:00)
[2021-01-03] MEDS: levETIRAcetam 1000MG/NACL100ML 1,000 MG/100 ML BAG 400 MG IVPB (13:04)
[2021-01-03] MEDS: LACTATED RINGERS 1,000 ML 999 ML IV CONT ×2 (13:05→15:06)
[2021-01-03 13:13] LABS: Basophils Absolute Auto 0.1 K/mm3 (0.0-0.1); Basophils Percent Auto 0.3 % (0.2-1.2); Eosinophils Percent Auto 0.1 % (0-4.4); Hematocrit 34.7 % (42.0-52.0); Hemoglobin 10.7 g/dL (14.0-18.0); Immature Granulocyte Absolute 0.13 K/mm3 (0.00-0.031); Immature Granulocyte Percent A 0.6 % (0-0.5); Lymphocytes Absolute Auto 1.28 K/mm3 (0.9-3.2); Lymphocytes Percent Auto 6.3 % (18.3-44.2); Mean Corpuscular HGB Conc 30.8 g/dl (32-36); Mean Corpuscular Hemoglobin 28.8 pg (26-34); Mean Corpuscular Volume 93.5 fl (80-100); Monocytes Absolute Auto 1.6 K/mm3 (0.1-0.6); Monocytes Percent Auto 8.1 % (2.6-8.5); Neutrophils Absolute Auto 17.1 K/mm3 (1.3-6.7); Neutrophils Percent Auto 84.6 % (45.5-73.1); Platelet Count Result 789 k/mm3 (150-375); Red Blood Count 3.71 M/mm3 (4.6-6.20); Red Cell Distribution Width 18.5 % (11.5-14.5); White Blood Count 20.2 K/mm3 (4.5-10.0)
[2021-01-03] MEDS: ONDANSETRON INJ 4 MG/2 ML VIAL IV PUSH (13:20)
[2021-01-03 13:27] LABS: Anion Gap 18 mmol/L (8-16); Blood Urea Nitrogen 19 mg/dL (9-20); Calcium 10.1 mg/dL (8.4-10.2); Carbon Dioxide 20 mmol/L (22-30); Chloride 95 mmol/L (98-107); Estimated Glomerular Filt Rate > 60; Glucose 107 mg/dL (65-110); Potassium 5.5 mmol/L (3.4-5.0); Sodium 133 mmol/L (137-145)
[2021-01-03 13:36] LABS: Troponin I < 0.012 ng/mL (0.000-0.034)
[2021-01-03 13:46] LABS: Creatine Kinase 715 U/L (55-170)
[2021-01-03 13:47] LABS: Lactic Acid Reflex 1.7 mmol/L (0.7-2.1)
[2021-01-03 13:49] LABS: Prothrombin Time 12.9 Seconds (11.1-14.7)
--- NOTE | 2021-01-03 14:06 | ED.AMS ---
HPI - Altered Mental Status General Chief Complaint: Altered Mental Status Stated Complaint: AMS Time Seen by Provider: 01/03/21 13:15 Source: EMS Mode of arrival: EMS Limitations: clinical condition History of Present Illness HPI narrative: 55-year-old male with complicated medical history including new onset of seizures for which he takes Keppra at home was not heard from by his family for a day. EMS arrived patient was altered mental status. Glucose was normal. On arrival Narcan was given immediately glucose was 127. Patient was in status epilepticus with partial seizures he would open his eyes to pain he would mumble but he was having seizure activity to both lower extremities his head as well as his left upper extremity. Patient was immediately given 2 of Ativan without seat and then another 2 of Ativan without seizures stopping patient takes Keppra at home was given 1 g IV Keppra and another 2 of Ativan. Patient was taken to CT and when he returned from CT seizing had stopped. However he patient was postictal and had been heavily medicated and was no longer protecting his airway his pulse ox is 100% but his PCO2 was decreasing and he would become intermittently apneic. Decision was made to intubate. Patient intubated with 7 .1/2 ETT Related Data Home Medications Medication Instructions Recorded Confirmed acetaminophen 325 mg capsule 325 mg PO Q6H PRN 11/17/20 12/08/20 docusate sodium 50 mg/5 mL oral 10 mg PO DAILY ml 11/17/20 12/08/20 liquid multivitamin 1 tablet PO DAILY 11/17/20 12/08/20 thiamine HCl (vitamin B1) 100 mg 100 mg PO DAILY 11/17/20 12/08/20 tablet diphenhydramine HCl 25 mg PO TID PRN 12/08/20 12/08/20 sodium chloride 3,000 mg PO TIDWM 12/08/20 12/08/20 Allergies Allergy/AdvReac Type Severity Reaction Status Date / Time No Known Allergies Allergy Verified 12/08/20 21:28 [facility] Past Medical History Medical History (Updated 01/03/21 @ 15:18 by Qian Campbell MD) Fitzpatrick esophagus Erosive gastritis HTN (hypertension) Severe anemia Tobacco dependence Surgical History Surgical History History of foot surgery Right Heel Surgery - Screws/Plates Family History Family History Mother Family history of malignant neoplasm of breast in first degree relative Father Family history of heart disease in male family member before age 55 Social History Social History Smoking packs per day: 1 Smoking cigarettes per day: 20.0 Years smoked: 30 Smoking pack-years: 30.00 Smoking status: Current every day smoker Tobacco type: cigarettes Alcohol intake: current Drinks per week: 70 Alcohol use details: Daily Substance use: never Substance use type: does not use Gender identity (if verbalized by the patient): Male Spiritual care concerns: No Course Vital Signs Vital signs: Vital Signs Temperature 36.0 C L 01/03/21 13:00 Pulse Rate 111 H 01/03/21 13:00 Respiratory Rate 18 01/03/21 13:00 Blood Pressure 108/81 01/03/21 13:00 Pulse Oximetry 100 01/03/21 13:00 Temperature 37.7 C H 01/03/21 15:05 Pulse Rate 109 H 01/03/21 15:05 Respiratory Rate 17 01/03/21 15:05 Blood Pressure 82/62 L 01/03/21 15:05 Pulse Oximetry 99 01/03/21 15:05 Procedures Intubation Intubation #1: Intubation Date: 01/03/21 Intubation Time: 14:34 Time out performed: Yes sedative: Etomidate Mg Given: 20 paralytic: Succinylcholine Mg Given: 100 Laryngoscope: Frances Tube Size (cm): Cuffed Number of Attempts: 1 Tube Secured Depth (cm): 25 Tube Secured Location: lips Tube Placement Confirmation: visualized tube passing through cords, equal breath sounds bilaterally, no breath sounds over epigastrium and confirma
--- NOTE | 2021-01-03 14:08 | PC.NURSE ---
Per sister pt hasnt taken any of his normal medications including keppra since sunday night. Unsure of downtime.
--- NOTE | 2021-01-03 14:14 | PC.NURSE ---
LR running through fluid warmer per EDP vrbo. Nataly traore placed per vrbo
[2021-01-03 14:41] LABS: Add Urine Microscopic? YES; Appearance Urine Clear (Clear); Bilirubin Urine Negative (Negative); Blood Urine Negative (Negative); Color Urine Yellow (Yellow); Glucose Urine UA Negative (Negative); Ketones Urine 2+ mg/dL (Negative); Leukocyte Esterase Ur Negative LEU/UL (Negative); Mucus Urine Rare /lpf; Nitrate Urine Negative (Negative); Protein Urine 2+ mg/dL (Negative); RBC Urine 0-2 /hpf (0-2); Specific Grav Ur 1.021 (1.001-1.035)
[2021-01-03 14:42] LABS: Amphetamine Screen Urine Negative (Negative); Barbiturate Screen Urine Negative (Negative); Benzodiazepines Screen Urine Negative (Negative); Cannabinoid Screen Urine Negative (Negative); Cocaine Screen Urine Negative (Negative); Methadone Screen Urine Negative (Negative); Opiate Screen Urine Positive (Negative); Phencyclidine Screen Urine Negative (Negative)
--- NOTE | 2021-01-03 14:46 | PC.NURSE ---
Pt requiring intubation for post-ichtal airway protection. EDP at bedside. Pt given 20mg Etomadate and 100mg Succinylcholine at 1430. Pt intubated at 1434 with 7.5mm ET tube 25cm to the lip. Good color change noted on CO2 detector and bilateral lung sounds ausculated. Pt placed on ventilator. Radiology called for placement.
[2021-01-03] MEDS: fentaNYL CITRATE INJ (*CRX) 100 MCG/2 ML VIAL 50 MCG IV PUSH ×3 (14:55→23:45)
[2021-01-03] MEDS: AMPICILLIN SULB 3 GM/NS 100 ML 3 GM/100 ML VIAL IVPB (14:55)
[2021-01-03 15:40] LABS: Alveolar/Arterial O2 Gradient 79.5 mmHg; Arterial Blood Gas PEEP 5 cmH2O; Arterial Blood Gas Tidal Volume 400 ml; Arterial Blood Gas Vent Mode CMV; Arterial Blood Gas Ventilator rate 16 /MIN; Base Excess ABG 1.8 mEq/l (+/-2.0); Carboxyhemoglobin 0.6 % THb (0-2.0); Device VENTILATOR; Fractional Inspired Oxygen 30 %; HCO3 ABG 25.5 mEq/l (22.0-26.0); Methemoglobin ABG 0.2 %THb (0-1.5); Modified Allen's Test Unable to perform; Oxygen Content ABG 12.1 %vol (16.0-22.0); Oxygen Saturation ABG 97.5 % (95.0-100.0); Oxyhemoglobin 95.7 % THb (90.0-100.0); PCO2 ABG 36.2 mmHg (35.0-45.0); PO2 ABG 91.9 mmHg (80.0-100.0); PO2 FiO2 Ratio Arterial Blood 3.06 %; Reduced Hemoglobin 3.5 %THb (0-5.0); Site Drawn RIGHT RADIAL; Total Hemoglobin 8.9 g/dL (12.0-18.0); pH ABG 7.466 (7.350-7.450)
[2021-01-03] MEDS: MIDAZOLAM HCL (*CRX) 2 MG/2 ML VIAL IV PUSH (17:01)
[2021-01-03] MEDS: PANTOPRAZOLE SODIUM IV 40 MG VIAL 80 MG IV PUSH (17:05)
[2021-01-03] MEDS: ACETAMINOPHEN 650 MG SUPPOSITORY RECTAL (17:09)
--- NOTE | 2021-01-03 17:35 | ADMGEN ---
This patient, Augusto Leon, was admitted to Intensive Care Unit-9. Patient/family oriented to hospital policies and general routines including ID bracelet, bed and alarms, visiting hours, pain management, procedures, bathroom and other care routines, personal items, smoking policy, room service/diet, and visiting hours. Information on how to activate the Rapid Response Team has been discussed. Patient/Family are encouraged to report perceived risks to care and to ask questions if they do not understand what they are told or what they should do.
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
[2021-01-03] MEDS: MIDAZOLAM 100MG/NS 100ML(*CRX) 100 MG/100 ML BAG IV CONT (18:00)
[2021-01-03] MEDS: LACTATED RINGERS 1,000 ML 125 ML IV CONT (18:02)
[2021-01-03 18:03] LABS: Ammonia 10 umol/L (9-30); Ethanol < 10 mg/dL (<10)
[2021-01-03] MEDS: SODIUM CHLORIDE 0.9% IV 1,000 ML 125 ML IV CONT (20:45)
[2021-01-03] MEDS: AMPICILLIN SULB 1.5 GM/NS 50ML 1.5 GM/50 ML VIAL IVPB (20:46)
[2021-01-03] MEDS: NICOTINE (*PBKC) 14 MG PATCH 1 PATCH TRANSDERM (21:04)
[2021-01-03] MEDS: PANTOPRAZOLE SODIUM IV 40 MG VIAL IV PUSH (21:05)
[2021-01-03] MEDS: MINERAL OIL/WHITE PETROLATUM OINTMENT 1 APPLIC EACH EYE (21:17)
[2021-01-04] VITALS (46 sets, daily range): BP systolic 97–166; BP diastolic 54–94; PULSE 61–136; RESP 10–36; TEMP 36.3–38.2; O2SAT 95–100; BMI 17.9
[2021-01-04] MEDS: AMPICILLIN SULB 1.5 GM/NS 50ML 1.5 GM/50 ML VIAL IVPB ×4 (03:12→19:52)
[2021-01-04] MEDS: fentaNYL CITRATE INJ (*CRX) 100 MCG/2 ML VIAL 50 MCG IV PUSH ×2 (03:48→14:03)
[2021-01-04 04:23] LABS: Alveolar/Arterial O2 Gradient 75.1 mmHg; Base Excess ABG -1.4 mEq/l (+/-2.0); Carboxyhemoglobin 0.8 % THb (0-2.0); Fractional Inspired Oxygen 30 %; Methemoglobin ABG 0.1 %THb (0-1.5); Oxyhemoglobin 96.2 % THb (90.0-100.0); PCO2 ABG 31.9 mmHg (35.0-45.0); PO2 ABG 101.3 mmHg (80.0-100.0); PO2 FiO2 Ratio Arterial Blood 3.38 %; Reduced Hemoglobin 2.9 %THb (0-5.0); Total Hemoglobin 8.7 g/dL (12.0-18.0); pH ABG 7.457 (7.350-7.450)
[2021-01-04 04:25] LABS: Device VENTILATOR; Modified Allen's Test Pass; Site Drawn RIGHT RADIAL
[2021-01-04 04:26] LABS: Arterial Blood Gas PEEP 5 cmH2O; Arterial Blood Gas Tidal Volume 400 ml; Arterial Blood Gas Vent Mode CMV; Arterial Blood Gas Ventilator rate 16 /MIN
[2021-01-04] MEDS: SODIUM CHLORIDE 0.9% IV 1,000 ML 125 ML IV CONT ×3 (05:23→22:43)
[2021-01-04 06:57] LABS: Basophils Absolute Auto 0.1 K/mm3 (0.0-0.1); Basophils Percent Auto 0.5 % (0.2-1.2); Eosinophils Percent Auto 0.3 % (0-4.4); Hematocrit 28.4 % (42.0-52.0); Hemoglobin 8.6 g/dL (14.0-18.0); Immature Granulocyte Absolute 0.07 K/mm3 (0.00-0.031); Immature Granulocyte Percent A 0.5 % (0-0.5); Lymphocytes Absolute Auto 1.15 K/mm3 (0.9-3.2); Lymphocytes Percent Auto 7.5 % (18.3-44.2); Mean Corpuscular HGB Conc 30.3 g/dl (32-36); Mean Corpuscular Hemoglobin 28.7 pg (26-34); Mean Corpuscular Volume 94.7 fl (80-100); Mean Platelet Volume 8.6 fl (7.4-10.4); Monocytes Absolute Auto 1.5 K/mm3 (0.1-0.6); Monocytes Percent Auto 9.5 % (2.6-8.5); Neutrophils Absolute Auto 12.6 K/mm3 (1.3-6.7); Neutrophils Percent Auto 81.7 % (45.5-73.1); Platelet Count Result 650 k/mm3 (150-375); Red Cell Distribution Width 18.7 % (11.5-14.5); White Blood Count 15.4 K/mm3 (4.5-10.0)
[2021-01-04 07:06] LABS: Lactic Acid Reflex 1.3 mmol/L (0.7-2.1)
[2021-01-04 07:34] LABS: Creatine Kinase 307 U/L (55-170)
[2021-01-04 07:38] LABS: Alanine Aminotransferase 17 U/L (4-50); Albumin Level 3.4 g/dL (3.5-5.1); Alkaline Phosphatase 98 U/L (38-126); Anion Gap 8 mmol/L (8-16); Aspartate Amino Transferase 49 U/L (17-59); Bilirubin,Total 0.5 mg/dL (0.2-1.3); Blood Urea Nitrogen 13 mg/dL (9-20); Calcium 9.1 mg/dL (8.4-10.2); Carbon Dioxide 26 mmol/L (22-30); Chloride 99 mmol/L (98-107); Estimated CRCL calculation 161 ml/min; Estimated Glomerular Filt Rate > 60; Glucose 92 mg/dL (65-110); Lactate Dehydrogenase 749 U/L (313-618); Lipase 69 U/L (23-300); Magnesium 1.4 mg/dL (1.6-2.3); Potassium 3.6 mmol/L (3.4-5.0); Sodium 133 mmol/L (137-145)
[2021-01-04] MEDS: MINERAL OIL/WHITE PETROLATUM OINTMENT 1 APPLIC EACH EYE ×2 (08:11→20:00)
[2021-01-04] MEDS: ENOXAPARIN 40 MG/0.4 ML SYRINGE SUB-Q (08:11)
[2021-01-04] MEDS: FOLIC ACID 1 MG/0.2 ML INJ IV PUSH (08:12)
[2021-01-04] MEDS: PANTOPRAZOLE SODIUM IV 40 MG VIAL IV PUSH ×2 (08:12→20:00)
[2021-01-04] MEDS: THIAMINE HCL 200 MG/2 ML VIAL 100 MG IV PUSH (08:12)
[2021-01-04] MEDS: NICOTINE (*PBKC) 14 MG PATCH 1 PATCH TRANSDERM (08:14)
[2021-01-04] MEDS: dexmedeTOMIDine 400 MCG/100 ML 400 MCG/100 ML BAG IV CONT (08:20)
[2021-01-04] MEDS: MAGNESIUM SULF 2 GM/WATER 50ML 2 GM/50 ML BAG IVPB ×2 (08:30→14:00)
--- NOTE | 2021-01-04 09:34 | WPDCNINT ---
Assessment and Plan Assessment and plan (1) Seizures: Code(s): R56.9 - Unspecified convulsions Status: Chronic Assessment and Plan: Patient presented with seizure activities, received Ativan and Keppra in the ER, was postictal and was intubated for airway protection -currently on Keppra 1500 mg q.12 -no seizure activity noted overnight -neurology has evaluated the patient -EEG has been done, report pending (2) Acute respiratory failure: Code(s): J96.00 - Acute respiratory failure, unspecified whether with hypoxia or hypercapnia Status: Acute Assessment and Plan: Patient was postictal after being given Ativan for his seizures in the ER and was unable to protect his airway, patient was intubated on 01/03/2021 -currently are 30% FiO2, peep of 5 on CMV mode of ventilation -patient has been placed on Precedex infusion -will put him on SBT and evaluate for extubation (3) COPD (chronic obstructive pulmonary disease): Code(s): J44.9 - Chronic obstructive pulmonary disease, unspecified Status: Acute Assessment and Plan: History of COPD, continue bronchodilators, -ABGs does not show any hypercapnia (4) Depression: Code(s): F32.9 - Major depressive disorder, single episode, unspecified Status: Chronic (5) ETOH abuse: Code(s): F10.10 - Alcohol abuse, uncomplicated Status: Acute Assessment and Plan: Continue thiamine and folic acid -patient with heavy alcohol use (6) DVT prophylaxis: Code(s): Z29.9 - Encounter for prophylactic measures, unspecified Status: Acute Assessment and Plan: SQ Lovenox (7) Empyema: Code(s): J86.9 - Pyothorax without fistula Status: Acute Assessment and Plan: Patient had recently had an empyema and status post thoracotomy at [facility] in [facility]. Records have been requested -patient has been started on Unasyn as he was on Augmentin at home Additional Plan And status: Full code Critical care time spent: 45 minutes This dictation may have been done utilizing a voice recognition system. Attempts have been made to correct errors. However, there may be uncorrected grammatical, spelling, and recognition errors present. Due to a high probability of clinically significant, life threatening deterioration, the patient required my highest level of preparedness to intervene emergently and I personally spent this critical care time directly and personally managing the patient. This critical care time included obtaining a history; examining the patient; pulse oximetry; ordering and review of studies; arranging urgent treatment with development of a management plan; evaluation of patient's response to treatment; frequent reassessment; and discussions with other providers. It was exclusive of separately billable procedures and treating other patients and teaching time. Please see Assessment and Plan section and the rest of the note for further information on patient assessment and treatment Financial Management Consultant Consult Note Consult date: 01/04/21 Time Seen: 07:02 Reason for consult: Seizures, respiratory failure regular airway protection, altered mental status HPI: Augusto Leon is a 55 year old male past medical history of depression, erosive gastritis, hypertension, seizure disorder, anemia, tobacco dependence, empyema and was recently [facility] in [facility] and was being treated for empyema we had a thoracotomy on the right side. Patient presented on 01/03/2021 after being found unresponsive and with seizure activity at home. According the family they had not heard from him for a day and went to check on him, he was altered, EMS was called, blood sugars were within normal limits, patient did have a seizure. Patient also has seizure in the ER. CT scan of the head did not show any acute intracranial abnormality. Due to his altered mental status patient was not
[2021-01-04 10:07] LABS: Glucose Point of Care 107 mg/dl (65-105)
[2021-01-04 11:38] LABS: Ferritin > 2000.00 ng/mL (11.1-264)
[2021-01-04] MEDS: hydrALAZINE HCL 20 MG/ML VIAL 10 MG IV PUSH (14:03)
--- NOTE | 2021-01-04 14:06 | PM.IMPN ---
Progress Note: A&P Assessment and Plan (1) Seizures: Code(s): R56.9 - Unspecified convulsions Status: Chronic Assessment and Plan: Patient presented with seizure activities, received Ativan and Keppra in the ER, was postictal and was intubated for airway protection -currently on Keppra 1500 mg q.12 -no seizure activity noted overnight -neurology has evaluated the patient -EEG has been done (2) Acute respiratory failure: Code(s): J96.00 - Acute respiratory failure, unspecified whether with hypoxia or hypercapnia Status: Acute Assessment and Plan: Patient was postictal after being given Ativan for his seizures in the ER and was unable to protect his airway, patient was intubated on 01/03/2021 -currently are 30% FiO2, peep of 5 on CMV mode of ventilation -patient has been placed on Precedex infusion -will put him on SBT and evaluate for extubation (3) COPD (chronic obstructive pulmonary disease): Code(s): J44.9 - Chronic obstructive pulmonary disease, unspecified Status: Acute Assessment and Plan: History of COPD, continue bronchodilators, Pt is currently on ventilator (4) Depression: Code(s): F32.9 - Major depressive disorder, single episode, unspecified Status: Chronic (5) ETOH abuse: Code(s): F10.10 - Alcohol abuse, uncomplicated Status: Acute Assessment and Plan: Continue thiamine and folic acid -patient with heavy alcohol use (6) DVT prophylaxis: Code(s): Z29.9 - Encounter for prophylactic measures, unspecified Status: Acute Assessment and Plan: SQ Lovenox (7) Empyema: Code(s): J86.9 - Pyothorax without fistula Status: Acute Assessment and Plan: Patient had recently had an empyema and status post thoracotomy at [facility] in [facility]. Records have been requested -patient has been started on Unasyn Subjective Date/time seen: 01/04/21 14:06 Interval history: From admission notes pt is intubated currently. 55-year-old male patient who was discharged from our facility on 12/17/2020 he was transferred to [facility] in [place]. The patient had been treated for empyema and had a thoracentesis. The patient was sent to [place] and had a procedure performed by a thoracic surgeon according to the sister. The patient still continues to have brooks to his right chest. Pt had Seizure in ED. The patient was given 2 mg of Ativan without any cessation of seizure activity and then another 2 mg of Ativan without cessation of seizure activity. The patient was then given 1 g of Keppra and another 2 mg of Ativan. The patient was postictal and became apneic. The patient was intubated in the emergency room. Patient was started on on Unasyn as he had been on Augmentin at home for his empyema. Review of Systems Review of Systems: All systems reviewed & are unremarkable except as noted in HPI and below Exam Const: General: comfortable and no acute distress Nutritional Appearance: thin Orientation/consciousness: Other orientation findings ( the patient is intubated and sedated) Other: intubated and sedated Chest: Other: brooks intact to right lateral chest Resp: Effort & Inspection: normal respiratory effort Auscultation: clear to auscultation bilaterally Percussion: percussion normal Cardio: Palpation: normal PMI Rate: regular rate Rhythm: regular rhythm Heart sounds: S1 normal heart sound present and S2 normal heart sound present Peripheral pulses: Peripheral pulses 2+ throughout GI: Inspection: normal to inspection Auscultation: normal bowel sounds Skin: Hair: normal Nails: normal Neuro: Cranial nerves: Yes Equal, round and reactive pupils present Extrem: General: normal to inspection Right upper extremity: normal to inspection Left upper extremity: normal to inspection Right lower extremity: normal to inspection Left lower extremity: normal
[2021-01-04] MEDS: PROPOFOL IV EMULSION 100 ML 3.12 MG IV CONT (16:12)
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
[2021-01-04] MEDS: dexmedeTOMIDine 400 MCG/100 ML 400 MCG/100 ML BAG 10.4 MCG IV CONT (20:01)
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
[2021-01-05] VITALS (47 sets, daily range): BP systolic 80–147; BP diastolic 2–112; PULSE 49–122; RESP 14–30; TEMP 35.2–36.8; O2SAT 91–100
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
[2021-01-05] MEDS: dexmedeTOMIDine 400 MCG/100 ML 400 MCG/100 ML BAG 16.9 MCG IV CONT ×3 (03:08→15:23)
[2021-01-05] MEDS: PROPOFOL IV EMULSION 100 ML 4.68 MG IV CONT (03:09)
[2021-01-05] MEDS: AMPICILLIN SULB 1.5 GM/NS 50ML 1.5 GM/50 ML VIAL IVPB ×4 (03:11→20:53)
[2021-01-05 04:50] LABS: Hematocrit 25.1 % (42.0-52.0); Hemoglobin 7.8 g/dL (14.0-18.0); Mean Corpuscular HGB Conc 31.1 g/dl (32-36); Mean Corpuscular Hemoglobin 28.3 pg (26-34); Mean Corpuscular Volume 90.9 fl (80-100); Mean Platelet Volume 8.7 fl (7.4-10.4); Platelet Count Result 606 k/mm3 (150-375); Red Blood Count 2.76 M/mm3 (4.6-6.20); Red Cell Distribution Width 18.1 % (11.5-14.5); White Blood Count 11.1 K/mm3 (4.5-10.0)
[2021-01-05 05:04] LABS: Anion Gap 8 mmol/L (8-16); Blood Urea Nitrogen 9 mg/dL (9-20); Calcium 8.5 mg/dL (8.4-10.2); Carbon Dioxide 23 mmol/L (22-30); Chloride 104 mmol/L (98-107); Estimated CRCL calculation 228 ml/min; Estimated Glomerular Filt Rate > 60; Glucose 115 mg/dL (65-110); Magnesium 1.6 mg/dL (1.6-2.3); Potassium 3.1 mmol/L (3.4-5.0); Sodium 135 mmol/L (137-145)
[2021-01-05 05:24] LABS: Alveolar/Arterial O2 Gradient 62.6 mmHg; Base Excess ABG -0.4 mEq/l (+/-2.0); Fractional Inspired Oxygen 30 %; HCO3 ABG 23.2 mEq/l (22.0-26.0); Methemoglobin ABG 0.1 %THb (0-1.5); Oxygen Content ABG 11.5 %vol (16.0-22.0); Oxygen Saturation ABG 98.3 % (95.0-100.0); Oxyhemoglobin 97.5 % THb (90.0-100.0); PCO2 ABG 33.5 mmHg (35.0-45.0); PO2 ABG 111.9 mmHg (80.0-100.0); PO2 FiO2 Ratio Arterial Blood 3.73 %; Reduced Hemoglobin 2.4 %THb (0-5.0); Total Hemoglobin 8.2 g/dL (12.0-18.0); pH ABG 7.458 (7.350-7.450)
[2021-01-05 05:25] LABS: Device VENTILATOR; Site Drawn RIGHT RADIAL
[2021-01-05 05:26] LABS: Arterial Blood Gas PEEP 5 cmH2O; Arterial Blood Gas Vent Mode CMV; Arterial Blood Gas Ventilator rate 16 /MIN
[2021-01-05 05:27] LABS: Arterial Blood Gas Tidal Volume 400 ml
[2021-01-05] MEDS: SODIUM CHLORIDE 0.9% IV 1,000 ML 125 ML IV CONT ×2 (08:14→16:16)
[2021-01-05] MEDS: FOLIC ACID 1 MG/0.2 ML INJ IV PUSH (08:16)
[2021-01-05] MEDS: NICOTINE (*PBKC) 14 MG PATCH 1 PATCH TRANSDERM (08:19)
[2021-01-05] MEDS: ENOXAPARIN 40 MG/0.4 ML SYRINGE SUB-Q (08:19)
[2021-01-05] MEDS: POTASSIUM CHLORIDE 20 MEQ PACKET (FOR LIQUID) 40 MEQ FEED TUBE ×2 (08:19→16:16)
[2021-01-05] MEDS: PANTOPRAZOLE SODIUM IV 40 MG VIAL IV PUSH ×2 (08:19→21:09)
[2021-01-05] MEDS: MINERAL OIL/WHITE PETROLATUM OINTMENT 1 APPLIC EACH EYE ×2 (08:19→20:53)
[2021-01-05] MEDS: THIAMINE HCL 200 MG/2 ML VIAL 100 MG IV PUSH (08:19)
[2021-01-05] MEDS: MAGNESIUM SULF 2 GM/WATER 50ML 2 GM/50 ML BAG IVPB (08:23)
--- NOTE | 2021-01-05 08:56 | WPDINTPN ---
Progress Note: A&P Assessment and Plan (1) Seizures: Code(s): R56.9 - Unspecified convulsions Status: Chronic Assessment and Plan: Patient presented with seizure activities, received Ativan and Keppra in the ER, was postictal and was intubated for airway protection -currently on Keppra 1500 mg q.12 -no seizure activity noted overnight -neurology has evaluated the patient and appreciate their recommendation -EEG has been done, report pending (2) Acute respiratory failure: Code(s): J96.00 - Acute respiratory failure, unspecified whether with hypoxia or hypercapnia Status: Acute Assessment and Plan: Patient was postictal after being given Ativan for his seizures in the ER and was unable to protect his airway, patient was intubated on 01/03/2021 -currently are 30% FiO2, peep of 5 on CMV mode of ventilation -patient on Precedex and propofol for sedation, will start weaning propofol and place patient SBT and evaluate for extubation (3) COPD (chronic obstructive pulmonary disease): Code(s): J44.9 - Chronic obstructive pulmonary disease, unspecified Status: Acute Assessment and Plan: History of COPD, continue bronchodilators, -ABGs does not show any hypercapnia (4) Depression: Code(s): F32.9 - Major depressive disorder, single episode, unspecified Status: Chronic (5) ETOH abuse: Code(s): F10.10 - Alcohol abuse, uncomplicated Status: Acute Assessment and Plan: Continue thiamine and folic acid -patient with heavy alcohol use -will monitor for alcohol withdrawal (6) DVT prophylaxis: Code(s): Z29.9 - Encounter for prophylactic measures, unspecified Status: Acute Assessment and Plan: SQ Lovenox (7) Empyema: Code(s): J86.9 - Pyothorax without fistula Status: Acute Assessment and Plan: Patient had recently had an empyema and status post thoracotomy at [facility] in [facility]. Records have been requested -patient has been started on Unasyn as he was on Augmentin at home (8) Tobacco dependence: Code(s): F17.200 - Nicotine dependence, unspecified, uncomplicated Status: Acute Assessment and Plan: Remains intubated sedated, this patient is more awake will addictions counselor assistant him on cessation of smoking Additional Plan Code status: Full code Critical care time spent: 33 minutes This dictation may have been done utilizing a voice recognition system. Attempts have been made to correct errors. However, there may be uncorrected grammatical, spelling, and recognition errors present. Due to a high probability of clinically significant, life threatening deterioration, the patient required my highest level of preparedness to intervene emergently and I personally spent this critical care time directly and personally managing the patient. This critical care time included obtaining a history; examining the patient; pulse oximetry; ordering and review of studies; arranging urgent treatment with development of a management plan; evaluation of patient's response to treatment; frequent reassessment; and discussions with other providers. It was exclusive of separately billable procedures and treating other patients and teaching time. Please see Assessment and Plan section and the rest of the note for further information on patient assessment and treatment Subjective Date/time seen: 01/05/21 08:56 Interval history: Reason for consult: Seizures, respiratory failure regular airway protection, altered mental status 01/06/2020: Patient remains intubated, on CMV mode of ventilation, 30% FiO2, peep of 5. Overnight patient was started on propofol and was getting agitated on maximum dose of Precedex. Patient does open his eyes, follows simple commands in all extremities. Urine output has been adequate, patient is afebrile. No seizure activity noted overnight white blood cell count is trending down, patient is
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
--- NOTE | 2021-01-05 13:23 | PM.IMPN ---
Progress Note: A&P Assessment and Plan (1) Seizures: Code(s): R56.9 - Unspecified convulsions Status: Chronic Assessment and Plan: Patient presented with seizure activities, received Ativan and Keppra in the ER, was postictal and was intubated for airway protection -currently on Keppra 1500 mg q.12 -no seizure activity noted overnight -neurology has evaluated the patient -EEG has been done (2) Acute respiratory failure: Code(s): J96.00 - Acute respiratory failure, unspecified whether with hypoxia or hypercapnia Status: Acute Assessment and Plan: Patient was postictal after being given Ativan for his seizures in the ER and was unable to protect his airway, patient was intubated on 01/03/2021 (3) COPD (chronic obstructive pulmonary disease): Code(s): J44.9 - Chronic obstructive pulmonary disease, unspecified Status: Acute Assessment and Plan: History of COPD, continue bronchodilators, Pt is currently on ventilator (4) Depression: Code(s): F32.9 - Major depressive disorder, single episode, unspecified Status: Chronic (5) ETOH abuse: Code(s): F10.10 - Alcohol abuse, uncomplicated Status: Acute Assessment and Plan: Continue thiamine and folic acid -patient with heavy alcohol use (6) DVT prophylaxis: Code(s): Z29.9 - Encounter for prophylactic measures, unspecified Status: Acute Assessment and Plan: SQ Lovenox (7) Empyema: Code(s): J86.9 - Pyothorax without fistula Status: Acute Assessment and Plan: Patient had recently had an empyema and status post thoracotomy at [facility] in [facility]. Records have been requested -patient has been started on Unasyn and augmentin (8) COVID-19 ruled out: Code(s): Z20.822 - Contact with and (suspected) exposure to COVID-19 Status: Acute Assessment and Plan: Pt is a PUI await covid results. Subjective Date/time seen: 01/05/21 13:23 Interval history: From admission notes pt is intubated currently. 55-year-old male patient who was discharged from our facility on 12/17/2020 he was transferred to [facility] in [place]. The patient had been treated for empyema and had a thoracentesis. The patient was sent to [place] and had a procedure performed by a thoracic surgeon according to the sister. The patient still continues to have brooks to his right chest. Pt had Seizure in ED. The patient was given 2 mg of Ativan without any cessation of seizure activity and then another 2 mg of Ativan without cessation of seizure activity. The patient was then given 1 g of Keppra and another 2 mg of Ativan. The patient was postictal and became apneic. The patient was intubated in the emergency room. Patient was started on on Unasyn as he had been on Augmentin at home for his empyema. Pt is a COVID PUI Review of Systems Review of Systems: All systems reviewed & are unremarkable except as noted in HPI and below ROS unobtainable: Yes unobtainable due to endotracheal tube Exam Const: General: comfortable and no acute distress Nutritional Appearance: thin Orientation/consciousness: Other orientation findings ( the patient is intubated and sedated) Other: intubated and sedated HENMT: Head: normal to inspection and No palpable skull fracture present General nose exam: Normal external nose present Eyes: General: appearance normal, both eyes and all related structures Chest: Other: brooks intact to right lateral chest Resp: Effort & Inspection: normal respiratory effort Auscultation: clear to auscultation bilaterally Cardio: Rate: regular rate Rhythm: regular rhythm Heart sounds: S1 normal heart sound present and S2 normal heart sound present GI: Auscultation: normal bowel sounds Neuro: Cranial nerves: Yes Equal, round and reactive pupils present Extrem: General: normal to inspection Right upper extre
[2021-01-05] MEDS: PROPOFOL IV EMULSION 100 ML 5.3 MG IV CONT (17:44)
[2021-01-05] MEDS: LORazepam INJ (*CRX) 2 MG/ML VIAL 0.5 MG IV PUSH (19:15)
[2021-01-05 19:23] LABS: SARS-CoV-2 RNA PCR Negative
[2021-01-05] MEDS: dexmedeTOMIDine 400 MCG/100 ML 400 MCG/100 ML BAG 15.6 MCG IV CONT (21:03)
--- NOTE | 2021-01-05 21:30 | PC.NURSE ---
unable to get oral temp higher than 95. Core temp via temp watson is 95.4. Nataly traore applied.
[2021-01-05] MEDS: SODIUM CHLORIDE 0.9% IV 500 ML IV CONT (23:13)
[2021-01-06] VITALS (28 sets, daily range): BP systolic 86–163; BP diastolic 59–98; PULSE 61–113; RESP 16–34; TEMP 36.1–37.2; O2SAT 93–100
[2021-01-06] MEDS: SODIUM CHLORIDE 0.9% IV 1,000 ML 125 ML IV CONT ×2 (01:32→15:48)
[2021-01-06] MEDS: LORazepam INJ (*CRX) 2 MG/ML VIAL 0.5 MG IV PUSH ×2 (03:07→17:42)
[2021-01-06] MEDS: AMPICILLIN SULB 1.5 GM/NS 50ML 1.5 GM/50 ML VIAL IVPB ×4 (03:07→20:32)
[2021-01-06] MEDS: dexmedeTOMIDine 400 MCG/100 ML 400 MCG/100 ML BAG 15.6 MCG IV CONT (03:15)
[2021-01-06 05:18] LABS: Alveolar/Arterial O2 Gradient 66.2 mmHg; Base Excess ABG -2.4 mEq/l (+/-2.0); Carboxyhemoglobin 0.3 % THb (0-2.0); Fractional Inspired Oxygen 30 %; HCO3 ABG 20.6 mEq/l (22.0-26.0); Methemoglobin ABG 0.3 %THb (0-1.5); Oxygen Saturation ABG 98.4 % (95.0-100.0); PCO2 ABG 29.3 mmHg (35.0-45.0); PO2 ABG 113.3 mmHg (80.0-100.0); PO2 FiO2 Ratio Arterial Blood 3.78 %; Reduced Hemoglobin 2.4 %THb (0-5.0); Site Drawn LEFT BRACHIAL; Total Hemoglobin 9.4 g/dL (12.0-18.0); pH ABG 7.465 (7.350-7.450)
[2021-01-06 05:19] LABS: Arterial Blood Gas PEEP 5 cmH2O; Arterial Blood Gas Vent Mode CMV; Arterial Blood Gas Ventilator rate 16 /MIN; Device VENTILATOR
[2021-01-06 05:20] LABS: Arterial Blood Gas Tidal Volume 400 ml
[2021-01-06 05:28] LABS: Hematocrit 26.6 % (42.0-52.0); Hemoglobin 8.2 g/dL (14.0-18.0); Mean Corpuscular HGB Conc 30.8 g/dl (32-36); Mean Corpuscular Hemoglobin 28.4 pg (26-34); Mean Platelet Volume 8.5 fl (7.4-10.4); Platelet Count Result 586 k/mm3 (150-375); Red Blood Count 2.89 M/mm3 (4.6-6.20); Red Cell Distribution Width 18.3 % (11.5-14.5); White Blood Count 9.7 K/mm3 (4.5-10.0)
[2021-01-06 05:40] LABS: Anion Gap 4 mmol/L (8-16); Blood Urea Nitrogen 6 mg/dL (9-20); Calcium 8.1 mg/dL (8.4-10.2); Carbon Dioxide 25 mmol/L (22-30); Chloride 107 mmol/L (98-107); Estimated CRCL calculation 165 ml/min; Estimated Glomerular Filt Rate > 60; Glucose 106 mg/dL (65-110); Magnesium 1.5 mg/dL (1.6-2.3); Potassium 3.6 mmol/L (3.4-5.0); Sodium 136 mmol/L (137-145)
[2021-01-06] MEDS: PROPOFOL IV EMULSION 100 ML 2.5 MG IV CONT (06:21)
[2021-01-06] MEDS: MINERAL OIL/WHITE PETROLATUM OINTMENT 1 APPLIC EACH EYE (08:01)
[2021-01-06] MEDS: PANTOPRAZOLE SODIUM IV 40 MG VIAL IV PUSH ×2 (08:01→20:14)
[2021-01-06] MEDS: THIAMINE HCL 200 MG/2 ML VIAL 100 MG IV PUSH (08:01)
[2021-01-06] MEDS: FOLIC ACID 1 MG/0.2 ML INJ IV PUSH (08:01)
[2021-01-06] MEDS: NICOTINE (*PBKC) 14 MG PATCH 1 PATCH TRANSDERM (08:02)
[2021-01-06] MEDS: ENOXAPARIN 40 MG/0.4 ML SYRINGE SUB-Q (08:02)
--- NOTE | 2021-01-06 09:13 | PC.NURSE ---
Proprofol paused per Dr. Eaton's order for anticipated extubation
[2021-01-06] MEDS: MAGNESIUM SULFATE 3GM/D5W100ML 3 GM/100 ML BAG IVPB (09:50)
[2021-01-06] MEDS: POTASSIUM CHLORIDE 20 MEQ PACKET (FOR LIQUID) 40 MEQ FEED TUBE (09:50)
[2021-01-06] MEDS: dexmedeTOMIDine 400 MCG/100 ML 400 MCG/100 ML BAG 13 MCG IV CONT ×2 (09:57→18:40)
--- NOTE | 2021-01-06 11:48 | PCDIET ---
ICU Rounding Note: Patient had been tolerating Jevity 1.2 at 60mL/hr with 30mL water flush every 4 hours until had emesis this morning with repositioning. Last recorded weight is 55kg which is increased from last review. Bowel Motility: +BM today, per RN. Labs Reviewed: WBC (11.1), RBC (2.76), Hgb (7.8), Hct (25.1), Glu (115), Cr (0.2), K (3.1), Na (135) Meds Noted: Unasyn, Thiamine, Precedex, Folic Acid, Keppra, Magnesium Sulfate, Protonix, KCl Additional Notes: No change in skin reported. Recommend resuming tube feedings as tolerated. Following daily in ICU rounds. Assessing/reassessing every Sunday/Sunday.
--- NOTE | 2021-01-06 12:05 | WPDINTPN ---
Progress Note: A&P Assessment and Plan (1) Seizures: Code(s): R56.9 - Unspecified convulsions Status: Chronic Assessment and Plan: Patient presented with seizure activities, received Ativan and Keppra in the ER, was postictal and was intubated for airway protection -currently on Keppra 1500 mg q.12 -no seizure activity noted overnight -neurology has evaluated the patient and appreciate their recommendation -EEG 01/04/2021 - Abnormal record due to the presence of bihemispheric theta and delta slow activity with persistent right hemispheric delta activity admixed with sharp and slow-wave transients at the rate of 1 to 2 per seconds these abnormalities are suggestive of seizure disorder with right hemispheric focus . (2) Acute respiratory failure: Code(s): J96.00 - Acute respiratory failure, unspecified whether with hypoxia or hypercapnia Status: Acute Assessment and Plan: Patient was postictal after being given Ativan for his seizures in the ER and was unable to protect his airway, patient was intubated on 01/03/2021 -currently are 30% FiO2, peep of 5 on CMV mode of ventilation -patient on Precedex and propofol for sedation, will start weaning propofol and place patient SBT and evaluate for extubation (3) COPD (chronic obstructive pulmonary disease): Code(s): J44.9 - Chronic obstructive pulmonary disease, unspecified Status: Acute Assessment and Plan: History of COPD, continue bronchodilators, -ABGs does not show any hypercapnia (4) Depression: Code(s): F32.9 - Major depressive disorder, single episode, unspecified Status: Chronic (5) ETOH abuse: Code(s): F10.10 - Alcohol abuse, uncomplicated Status: Acute Assessment and Plan: Continue thiamine and folic acid -patient with heavy alcohol use -will monitor for alcohol withdrawal (6) DVT prophylaxis: Code(s): Z29.9 - Encounter for prophylactic measures, unspecified Status: Acute Assessment and Plan: SQ Lovenox (7) Empyema: Code(s): J86.9 - Pyothorax without fistula Status: Acute Assessment and Plan: Patient had recently had an empyema and status post thoracotomy at [facility] in [facility]. Records have been requested -patient has been started on Unasyn as he was on Augmentin at home (8) Tobacco dependence: Code(s): F17.200 - Nicotine dependence, unspecified, uncomplicated Status: Acute Assessment and Plan: Remains intubated sedated, this patient is more awake will teen counselor him on cessation of smoking Additional Plan Code status: Full code Critical care time spent: 32 minutes This dictation may have been done utilizing a voice recognition system. Attempts have been made to correct errors. However, there may be uncorrected grammatical, spelling, and recognition errors present. Due to a high probability of clinically significant, life threatening deterioration, the patient required my highest level of preparedness to intervene emergently and I personally spent this critical care time directly and personally managing the patient. This critical care time included obtaining a history; examining the patient; pulse oximetry; ordering and review of studies; arranging urgent treatment with development of a management plan; evaluation of patient's response to treatment; frequent reassessment; and discussions with other providers. It was exclusive of separately billable procedures and treating other patients and teaching time. Please see Assessment and Plan section and the rest of the note for further information on patient assessment and treatment Subjective Date/time seen: 01/06/21 12:05 Interval history: Reason for consult: Seizures, respiratory failure regular airway protection, altered mental status 01/07/2020: Patient remains intubated, on CMV mode of ventilation, 30% FiO2, peep of 5. Remains on propofol and Precede
[2021-01-06 14:51] LABS: Alveolar/Arterial O2 Gradient 86.2 mmHg; Base Excess ABG -0.7 mEq/l (+/-2.0); Carboxyhemoglobin 0.3 % THb (0-2.0); Fractional Inspired Oxygen 30 %; Methemoglobin ABG 0.2 %THb (0-1.5); Oxygen Content ABG 12.3 %vol (16.0-22.0); Oxygen Saturation ABG 97.8 % (95.0-100.0); Oxyhemoglobin 96.3 % THb (90.0-100.0); PCO2 ABG 28.9 mmHg (35.0-45.0); PO2 ABG 93.7 mmHg (80.0-100.0); PO2 FiO2 Ratio Arterial Blood 3.12 %; Reduced Hemoglobin 3.2 %THb (0-5.0); pH ABG 7.499 (7.350-7.450)
[2021-01-06 14:52] LABS: Device VENTILATOR; Modified Allen's Test Pass; Site Drawn RIGHT RADIAL
[2021-01-06 14:54] LABS: Arterial Blood Gas PEEP 5 cmH2O; Arterial Blood Gas Pressure Support 8 cmH2O
--- NOTE | 2021-01-06 15:17 | PC.NURSE ---
Wean Precedex down, to off if patient tolerates, per Dr. Eaton's order
--- NOTE | 2021-01-06 21:31 | PM.IMPN ---
Progress Note: A&P Assessment and Plan (1) Status epilepticus due to complex partial seizure: Code(s): G40.201 - Localization-related (focal) (partial) symptomatic epilepsy and epileptic syndromes with complex partial seizures, not intractable, with status epilepticus Status: Acute Assessment and Plan: No observed seizure activity. The patient is awake and alert on the ventilator will intermittently follow commands. Continue Keppra 1.5 g b.i.d. (2) Acute respiratory failure: Qualifiers: Respiratory failure complication: hypoxia Qualified Code(s): J96.01 - Acute respiratory failure with hypoxia Code(s): J96.00 - Acute respiratory failure, unspecified whether with hypoxia or hypercapnia Status: Acute Assessment and Plan: Patient was intubated for airway protection The patient's tube feeds are on hold for possible extubation today. Remains on sedation with Precedex and propofol (3) COPD (chronic obstructive pulmonary disease): Qualifiers: COPD type: unspecified COPD Qualified Code(s): J44.9 - Chronic obstructive pulmonary disease, unspecified Code(s): J44.9 - Chronic obstructive pulmonary disease, unspecified Status: Acute Assessment and Plan: No evidence of acute exacerbation. Continue scheduled nebulizer treatments. (4) ETOH abuse: Code(s): F10.10 - Alcohol abuse, uncomplicated Status: Acute Assessment and Plan: Continue thiamine supplementation (5) Empyema: Code(s): J86.9 - Pyothorax without fistula Status: Acute Assessment and Plan: History of empyema with recent thoracotomy. Given status epilepticus patient is currently high risk for aspiration. Patient's white count had continued to trend downward to normal. Continue antibiotic therapy with Unasyn. Time Spent With Patient Time with patient: 15 - 25 minutes Subjective Date/time seen: 01/06/21 21:31 Interval history: The patient remains intubated. At the time of my evaluation the patient was thrashing about. He had a in moderate to large amount of emesis of tube feeds that had already been placed on hold for anticipated extubation. Review of Systems Review of Systems: ROS unobtainable: Yes unobtainable due to endotracheal tube Exam Narrative: PHYSICAL EXAM: WEIGHT 55 kg BMI 19 General: Thin body habitus, disheveled, thrashing about in the bed HEENT: Dry mucous membranes, multiple scabs to the lips with a small amount of oozing blood, head is nontraumatic, pupils are equal and reactive Respiratory: Coarse breath sounds bilaterally at that improved after suctioning of the T2, equal chest rise, occasional expiratory wheezing Cardiovascular: Sinus tachycardia with 2+ bilateral radial pedal pulses Gastrointestinal: Soft, nondistended, nontender Skin: Multiple tattoos, generalized pallor Musculoskeletal: Moves all extremities equally, 5/5 strength bilateral upper and lower Neurological: No gross motor deficits noted on exam, agitated but will follow commands Psychiatric: Agitated, anxious : Shearer catheter in place with clear yellow urine present Hematologic/lymphatic: Small amount of bleeding from where scabs of come off the lips, no petechiae Objective Data Vital Signs Vital Signs: Vital Signs - 24 hr 01/05/21 22:00 01/05/21 22:46 01/05/21 23:15 Temperature 95.5 F L 96.6 F L Pulse Rate 104 H 84 65 Respiratory Rate 16 22 H Blood Pressure 80/55 L 102/66 Pulse Oximetry 99 99 97 01/05/21 23:19 01/05/21 23:20 01/05/21 23:30 Temperature 97.4 F L Pulse Rate 58 L 68 64 Respiratory Rate 16 22 H 19 Blood Pressure 97/68 L Pulse Oximetry 98 97 01/05/21 23:53 01/06/21 00:00 01/06/21 01:00 Temperature 97.6 F 98.0 F Pulse Rate 78 64 73 Respiratory Rate 25 H 22 H 23 H Blood Pressure 91/63 L 106/67 Pulse Oximetry 97 98 01/06/21 02:00 01/06/21 02:15 01/06/21 03:00 Temperature 98.0 F 98.2 F Pulse Ra
[2021-01-07] VITALS (21 sets, daily range): BP systolic 128–155; BP diastolic 74–100; PULSE 58–133; RESP 16–30; TEMP 35.8–37; O2SAT 93–100
[2021-01-07] MEDS: SODIUM CHLORIDE 0.9% IV 1,000 ML 125 ML IV CONT ×3 (00:59→18:22)
[2021-01-07] MEDS: AMPICILLIN SULB 1.5 GM/NS 50ML 1.5 GM/50 ML VIAL IVPB ×4 (02:27→20:24)
[2021-01-07] MEDS: dexmedeTOMIDine 400 MCG/100 ML 400 MCG/100 ML BAG 11.7 MCG IV CONT ×2 (02:27→16:14)
[2021-01-07 08:13] LABS: Basophils Absolute Auto 0.1 K/mm3 (0.0-0.1); Eosinophils Absolute Auto 0.2 K/mm3 (0-0.3); Eosinophils Percent Auto 1.9 % (0-4.4); Hematocrit 30.6 % (42.0-52.0); Hemoglobin 9.8 g/dL (14.0-18.0); Immature Granulocyte Absolute 0.04 K/mm3 (0.00-0.031); Immature Granulocyte Percent A 0.5 % (0-0.5); Lymphocytes Absolute Auto 0.77 K/mm3 (0.9-3.2); Lymphocytes Percent Auto 9.2 % (18.3-44.2); Mean Corpuscular Hemoglobin 28.4 pg (26-34); Mean Corpuscular Volume 88.7 fl (80-100); Mean Platelet Volume 8.7 fl (7.4-10.4); Monocytes Absolute Auto 0.6 K/mm3 (0.1-0.6); Neutrophils Absolute Auto 6.7 K/mm3 (1.3-6.7); Neutrophils Percent Auto 80.4 % (45.5-73.1); Platelet Count Result 661 k/mm3 (150-375); Red Blood Count 3.45 M/mm3 (4.6-6.20); White Blood Count 8.4 K/mm3 (4.5-10.0)
--- NOTE | 2021-01-07 08:16 | PM.IMPN ---
Progress Note: A&P Assessment and Plan (1) Status epilepticus due to complex partial seizure: Code(s): G40.201 - Localization-related (focal) (partial) symptomatic epilepsy and epileptic syndromes with complex partial seizures, not intractable, with status epilepticus Status: Acute Assessment and Plan: No observed seizure activity. The patient is awake and alert on the ventilator will intermittently follow commands. Continue Keppra 1.5 g b.i.d. (2) Acute respiratory failure: Qualifiers: Respiratory failure complication: hypoxia Qualified Code(s): J96.01 - Acute respiratory failure with hypoxia Code(s): J96.00 - Acute respiratory failure, unspecified whether with hypoxia or hypercapnia Status: Acute Assessment and Plan: Patient was intubated for airway protection The patient's tube feeds are on hold for possible extubation today. Remains on sedation with Precedex and propofol (3) COPD (chronic obstructive pulmonary disease): Qualifiers: COPD type: unspecified COPD Qualified Code(s): J44.9 - Chronic obstructive pulmonary disease, unspecified Code(s): J44.9 - Chronic obstructive pulmonary disease, unspecified Status: Acute Assessment and Plan: No evidence of acute exacerbation. Continue scheduled nebulizer treatments. (4) ETOH abuse: Code(s): F10.10 - Alcohol abuse, uncomplicated Status: Acute Assessment and Plan: Continue thiamine supplementation (5) Empyema: Code(s): J86.9 - Pyothorax without fistula Status: Acute Assessment and Plan: History of empyema with recent thoracotomy. Given status epilepticus patient is currently high risk for aspiration. Patient's white count had continued to trend downward to normal. Continue antibiotic therapy with Unasyn. Additional Plan Code status: Full code Critical care time spent: 20 minutes. Subjective Date/time seen: 01/07/21 08:16 Interval history: The patient remains intubated. Currently on daily weaning trials for extubation. Review of Systems Review of Systems: All systems reviewed & are unremarkable except as noted in HPI and below ROS unobtainable: Yes unobtainable due to endotracheal tube Constitutional: Constitutional: Reports as per HPI and Reports no additional constitutional complaints Eyes: Eyes: Reports as per HPI and Reports no additional eye complaints ENT: Reports system reviewed and no additional complaints, except as documented Cardiovascular: Cardiovascular: Reports no additional cardiovascular complaints Respiratory: Respiratory: Reports no additional respiratory complaints and Reports no additional respiratory complaints Gastrointestinal: Gastrointestinal: Reports as per HPI and Reports no additional gastrointestinal complaints Musculoskeletal: Musculoskeletal: Reports no additional musculoskeletal complaints Integumentary/Breasts: Skin/Breast: Reports system reviewed and no additional complaints, except as docu and Reports as per HPI Neurologic: Reports system reviewed and no additional complaints, except as documented and Reports as per HPI Psychiatric: Psychiatric: Reports no additional psychiatric complaints and Reports as per HPI Endocrine: Endocrine: Reports no additional endocrine complaints Hematologic/Lymphatic: Hematologic/Lymphatic: Reports no additional hematologic/lymphatic complaints Allergic/Immunologic: Allergic/Immunologic: Reports no additional allergic/immunologic complaints Exam Narrative: PHYSICAL EXAM: WEIGHT 55 kg BMI 19 General: Thin body habitus, disheveled, thrashing about in the bed HEENT: Dry mucous membranes, multiple scabs to the lips with a small amount of oozing blood, head is nontraumatic, pupils are equal and reactive Respiratory: Coarse breath sounds bilaterally at that improved after suctioning of the T2, equal chest rise, occasional expiratory wheezing Cardiovascula
[2021-01-07 08:30] LABS: Alanine Aminotransferase 19 U/L (4-50); Albumin Level 2.6 g/dL (3.5-5.1); Alkaline Phosphatase 94 U/L (38-126); Anion Gap 6 mmol/L (8-16); Aspartate Amino Transferase 44 U/L (17-59); Bilirubin,Total 0.6 mg/dL (0.2-1.3); Blood Urea Nitrogen 2 mg/dL (9-20); Calcium 8.4 mg/dL (8.4-10.2); Carbon Dioxide 23 mmol/L (22-30); Chloride 102 mmol/L (98-107); Estimated CRCL calculation 221 ml/min; Estimated Glomerular Filt Rate > 60; Glucose 94 mg/dL (65-110); Magnesium 1.3 mg/dL (1.6-2.3); Potassium 3.9 mmol/L (3.4-5.0); Sodium 131 mmol/L (137-145)
[2021-01-07] MEDS: ENOXAPARIN 40 MG/0.4 ML SYRINGE SUB-Q (08:50)
[2021-01-07] MEDS: NICOTINE (*PBKC) 14 MG PATCH 1 PATCH TRANSDERM (08:50)
[2021-01-07] MEDS: FOLIC ACID 1 MG/0.2 ML INJ IV PUSH (08:50)
[2021-01-07] MEDS: THIAMINE HCL 200 MG/2 ML VIAL 100 MG IV PUSH (08:50)
[2021-01-07] MEDS: PANTOPRAZOLE SODIUM IV 40 MG VIAL IV PUSH ×2 (08:51→20:24)
[2021-01-07] MEDS: dexmedeTOMIDine 400 MCG/100 ML 400 MCG/100 ML BAG 9.1 MCG IV CONT (09:17)
--- NOTE | 2021-01-07 09:41 | PCSTNOTE ---
Please refer to the Bedside Swallow Evaluation in the EMR. Please note, silent aspiration cannot be ruled out at bedside.
[2021-01-07] MEDS: LORazepam INJ (*CRX) 2 MG/ML VIAL 0.5 MG IV PUSH ×3 (09:46→19:59)
--- NOTE | 2021-01-07 11:14 | PCDIET ---
Nutrition Follow-Up Complete: Nutrition Diagnosis: Inadequate oral intake related to oral intubation as evidenced by NPO status. Nutrition Goal: Patient will meet estimated nutritional needs. Goal not met. Patient extubated, but was unable to follow directions with [facility] [employer] for bedside swallow evaluation this morning. Recommend reattempting evaluation once appropriate; if unable to advance diet in the next 24-48 hours, would resume tube feedings. If medically appropriate, would supplement magnesium. Last recorded weight is 51.8 kg which is down from last review. Bowel Motility: Last documented BM on 01/06/21 x 2. Labs Reviewed: RBC (3.45), Hgb (9.8), Hct (30.6), Cr (0.2), Na (131), Alb (2.6), Mg (1.3) Meds Noted: Unasyn, Precedex, Thiamine, Folic Acid, Keppra, Protonix, NS at 125mL/hr Additional Notes: No change in skin reported. Integumentary notes reviewed. Will continue to monitor with same goal. Nutrition Monitoring and Evaluation: Follow up every 3 days.
--- NOTE | 2021-01-07 12:33 | WPDINTPN ---
Progress Note: A&P Assessment and Plan (1) Encephalopathy: Code(s): G93.40 - Encephalopathy, unspecified Status: Acute Assessment and Plan: Patient remains on Precedex, is confused, pulling on things, hallucinating, trying to get out of bed. -continue Precedex for now, patient may be per will withdrawing -currently on room air with O2 sats (2) Seizures: Code(s): R56.9 - Unspecified convulsions Status: Chronic Assessment and Plan: Patient presented with seizure activities, received Ativan and Keppra in the ER, was postictal and was intubated for airway protection -currently on Keppra 1500 mg q.12 -no seizure activity noted overnight -neurology has evaluated the patient and appreciate their recommendation -EEG 01/04/2021 - Abnormal record due to the presence of bihemispheric theta and delta slow activity with persistent right hemispheric delta activity admixed with sharp and slow-wave transients at the rate of 1 to 2 per seconds these abnormalities are suggestive of seizure disorder with right hemispheric focus . (3) Acute respiratory failure: Qualifiers: Respiratory failure complication: hypoxia Qualified Code(s): J96.01 - Acute respiratory failure with hypoxia Code(s): J96.00 - Acute respiratory failure, unspecified whether with hypoxia or hypercapnia Status: Acute Assessment and Plan: Patient was postictal after being given Ativan for his seizures in the ER and was unable to protect his airway, patient was intubated on 01/03/2021 -patient successfully extubated on 01/06/2021 -currently on room air -PT/OT has been ordered -patient was not cooperative enough for bedside swallow test (4) COPD (chronic obstructive pulmonary disease): Qualifiers: COPD type: unspecified COPD Qualified Code(s): J44.9 - Chronic obstructive pulmonary disease, unspecified Code(s): J44.9 - Chronic obstructive pulmonary disease, unspecified Status: Acute Assessment and Plan: History of COPD, continue bronchodilators, -ABGs does not show any hypercapnia (5) Depression: Code(s): F32.9 - Major depressive disorder, single episode, unspecified Status: Chronic (6) ETOH abuse: Code(s): F10.10 - Alcohol abuse, uncomplicated Status: Acute Assessment and Plan: Continue thiamine and folic acid -patient with heavy alcohol use -will monitor for alcohol withdrawal (7) Empyema: Code(s): J86.9 - Pyothorax without fistula Status: Acute Assessment and Plan: Patient had recently had an empyema and status post thoracotomy at [facility] in [facility]. Records have been requested -patient has been started on Unasyn as he was on Augmentin at home (8) Tobacco dependence: Code(s): F17.200 - Nicotine dependence, unspecified, uncomplicated Status: Acute Assessment and Plan: Will financial health counselor on cessation of smoking once patient is more awake and alert (9) DVT prophylaxis: Code(s): Z29.9 - Encounter for prophylactic measures, unspecified Status: Acute Assessment and Plan: SQ Lovenox Additional Plan Code status: Full code Critical care time spent: 31 minutes This dictation may have been done utilizing a voice recognition system. Attempts have been made to correct errors. However, there may be uncorrected grammatical, spelling, and recognition errors present. Due to a high probability of clinically significant, life threatening deterioration, the patient required my highest level of preparedness to intervene emergently and I personally spent this critical care time directly and personally managing the patient. This critical care time included obtaining a history; examining the patient; pulse oximetry; ordering and review of studies; arranging urgent treatment with development of a management plan; evaluation of patient's response to treatment; frequent reassessment; a
[2021-01-07] MEDS: MAGNESIUM SULFATE 3GM/D5W100ML 3 GM/100 ML BAG IVPB (12:57)
--- NOTE | 2021-01-07 15:57 | PCOTNOTE ---
Attempted to see pt. for evaluation. Pt. still on bedrest orders. Nurse requested he not be seen at this time and will cancel orders and reorder when appropriate.
[2021-01-07] MEDS: dexmedeTOMIDine 400 MCG/100 ML 400 MCG/100 ML BAG 19.5 MCG IV CONT (22:09)
[2021-01-08] VITALS (26 sets, daily range): BP systolic 124–150; BP diastolic 68–106; PULSE 58–130; RESP 17–33; TEMP 35.8–36.6; O2SAT 95–100
[2021-01-08] MEDS: SODIUM CHLORIDE 0.9% IV 1,000 ML 125 ML IV CONT ×2 (02:52→10:35)
[2021-01-08] MEDS: AMPICILLIN SULB 1.5 GM/NS 50ML 1.5 GM/50 ML VIAL IVPB ×4 (02:52→20:50)
[2021-01-08] MEDS: dexmedeTOMIDine 400 MCG/100 ML 400 MCG/100 ML BAG 16.9 MCG IV CONT ×2 (03:36→09:25)
[2021-01-08 04:34] LABS: Basophils Absolute Auto 0.1 K/mm3 (0.0-0.1); Basophils Percent Auto 1.4 % (0.2-1.2); Eosinophils Absolute Auto 0.2 K/mm3 (0-0.3); Eosinophils Percent Auto 3.4 % (0-4.4); Hematocrit 27.4 % (42.0-52.0); Hemoglobin 8.8 g/dL (14.0-18.0); Immature Granulocyte Absolute 0.03 K/mm3 (0.00-0.031); Immature Granulocyte Percent A 0.5 % (0-0.5); Lymphocytes Absolute Auto 0.85 K/mm3 (0.9-3.2); Lymphocytes Percent Auto 13.2 % (18.3-44.2); Mean Corpuscular HGB Conc 32.1 g/dl (32-36); Mean Corpuscular Hemoglobin 28.3 pg (26-34); Mean Corpuscular Volume 88.1 fl (80-100); Mean Platelet Volume 8.7 fl (7.4-10.4); Monocytes Absolute Auto 0.7 K/mm3 (0.1-0.6); Monocytes Percent Auto 10.7 % (2.6-8.5); Neutrophils Absolute Auto 4.6 K/mm3 (1.3-6.7); Neutrophils Percent Auto 70.8 % (45.5-73.1); Platelet Count Result 606 k/mm3 (150-375); Red Blood Count 3.11 M/mm3 (4.6-6.20); Red Cell Distribution Width 17.9 % (11.5-14.5); White Blood Count 6.5 K/mm3 (4.5-10.0)
[2021-01-08 04:58] LABS: Anion Gap 9 mmol/L (8-16); Calcium 8.1 mg/dL (8.4-10.2); Carbon Dioxide 22 mmol/L (22-30); Chloride 105 mmol/L (98-107); Estimated CRCL calculation 160 ml/min; Estimated Glomerular Filt Rate > 60; Glucose 99 mg/dL (65-110); Magnesium 1.5 mg/dL (1.6-2.3); Phosphorus 4.3 mg/dL (2.5-4.5); Potassium 3.2 mmol/L (3.4-5.0); Sodium 136 mmol/L (137-145)
[2021-01-08 05:34] LABS: Blood Urea Nitrogen < 2 mg/dL (9-20)
[2021-01-08] MEDS: LORazepam INJ (*CRX) 2 MG/ML VIAL 0.5 MG IV PUSH ×4 (05:51→23:20)
[2021-01-08 06:03] LABS: Alveolar/Arterial O2 Gradient 49.9 mmHg; Base Excess ABG -1.4 mEq/l (+/-2.0); Fractional Inspired Oxygen 21 %; HCO3 ABG 21.5 mEq/l (22.0-26.0); Methemoglobin ABG 0.1 %THb (0-1.5); Oxygen Content ABG 13.4 %vol (16.0-22.0); PCO2 ABG 29.9 mmHg (35.0-45.0); PO2 FiO2 Ratio Arterial Blood 3.05 %; Reduced Hemoglobin 8.9 %THb (0-5.0); Total Hemoglobin 10.4 g/dL (12.0-18.0); pH ABG 7.475 (7.350-7.450)
[2021-01-08 06:04] LABS: Device ROOM AIR; Modified Allen's Test Pass; Site Drawn RIGHT RADIAL
[2021-01-08] MEDS: FOLIC ACID 1 MG/0.2 ML INJ IV PUSH (07:52)
[2021-01-08] MEDS: PANTOPRAZOLE SODIUM IV 40 MG VIAL IV PUSH ×2 (07:53→20:32)
[2021-01-08] MEDS: ENOXAPARIN 40 MG/0.4 ML SYRINGE SUB-Q (07:53)
[2021-01-08] MEDS: THIAMINE HCL 200 MG/2 ML VIAL 100 MG IV PUSH (07:53)
[2021-01-08] MEDS: NICOTINE (*PBKC) 14 MG PATCH 1 PATCH TRANSDERM (07:53)
[2021-01-08] MEDS: MAGNESIUM SULF 4 GM/WATER100ML 4 GM/100 ML BAG IVPB (09:14)
[2021-01-08 09:46] LABS: Add Urine Microscopic? YES; Appearance Urine Clear (Clear); Bacteria Urine Trace /hpf; Bilirubin Urine Negative (Negative); Blood Urine Negative (Negative); Color Urine Colorless (Yellow); Glucose Urine UA Negative (Negative); Ketones Urine Trace mg/dL (Negative); Leukocyte Esterase Ur Negative LEU/UL (Negative); Mucus Urine Rare /lpf; Nitrate Urine Negative (Negative); Protein Urine Negative (Negative); RBC Urine 0-2 /hpf (0-2); Specific Grav Ur 1.009 (1.001-1.035); Urobilinogen Urine Negative mg/dL (<2.0); WBC Urine 0-3 /hpf
[2021-01-08] MEDS: HALOPERIDOL LACTATE 5 MG/ML VIAL IV PUSH ×2 (10:29→15:32)
--- NOTE | 2021-01-08 11:57 | WPDINTPN ---
Progress Note: A&P Assessment and Plan (1) Encephalopathy: Code(s): G93.40 - Encephalopathy, unspecified Status: Acute Assessment and Plan: Patient remains on Precedex, is confused, pulling on things, hallucinating, trying to get out of bed. -patient is likely withdrawing, given his symptoms -continue Precedex for now -currently on room air with O2 sats (2) Seizures: Code(s): R56.9 - Unspecified convulsions Status: Chronic Assessment and Plan: Patient presented with seizure activities, received Ativan and Keppra in the ER, was postictal and was intubated for airway protection -currently on Keppra 1500 mg q.12 -no seizure activity noted overnight -neurology has evaluated the patient and appreciate their recommendation -EEG 01/04/2021 - Abnormal record due to the presence of bihemispheric theta and delta slow activity with persistent right hemispheric delta activity admixed with sharp and slow-wave transients at the rate of 1 to 2 per seconds these abnormalities are suggestive of seizure disorder with right hemispheric focus . (3) Acute respiratory failure: Qualifiers: Respiratory failure complication: hypoxia Qualified Code(s): J96.01 - Acute respiratory failure with hypoxia Code(s): J96.00 - Acute respiratory failure, unspecified whether with hypoxia or hypercapnia Status: Acute Assessment and Plan: Patient was postictal after being given Ativan for his seizures in the ER and was unable to protect his airway, patient was intubated on 01/03/2021 -patient successfully extubated on 01/06/2021 -currently on room air -PT/OT has been ordered -patient was not cooperative enough for bedside swallow test (4) COPD (chronic obstructive pulmonary disease): Qualifiers: COPD type: unspecified COPD Qualified Code(s): J44.9 - Chronic obstructive pulmonary disease, unspecified Code(s): J44.9 - Chronic obstructive pulmonary disease, unspecified Status: Acute Assessment and Plan: History of COPD, continue bronchodilators, -ABGs does not show any hypercapnia (5) Depression: Code(s): F32.9 - Major depressive disorder, single episode, unspecified Status: Chronic (6) ETOH abuse: Code(s): F10.10 - Alcohol abuse, uncomplicated Status: Acute Assessment and Plan: Continue thiamine and folic acid -patient with heavy alcohol use -will monitor for alcohol withdrawal (7) Empyema: Code(s): J86.9 - Pyothorax without fistula Status: Acute Assessment and Plan: Patient had recently had an empyema and status post thoracotomy at [facility] in [facility]. Records have been requested -patient has been started on Unasyn as he was on Augmentin at home (8) Tobacco dependence: Code(s): F17.200 - Nicotine dependence, unspecified, uncomplicated Status: Acute Assessment and Plan: Will loan counselor on cessation of smoking once patient is more awake and alert (9) DVT prophylaxis: Code(s): Z29.9 - Encounter for prophylactic measures, unspecified Status: Acute Assessment and Plan: SQ Lovenox Additional Plan Code status: Full code Critical care time spent: 31 minutes This dictation may have been done utilizing a voice recognition system. Attempts have been made to correct errors. However, there may be uncorrected grammatical, spelling, and recognition errors present. Due to a high probability of clinically significant, life threatening deterioration, the patient required my highest level of preparedness to intervene emergently and I personally spent this critical care time directly and personally managing the patient. This critical care time included obtaining a history; examining the patient; pulse oximetry; ordering and review of studies; arranging urgent treatment with development of a management plan; evaluation of patient's response to treatment; frequent r
[2021-01-08] MEDS: DEXTROSE 5%/LACTATED RINGERS 1,000 ML 100 ML IV CONT ×2 (13:17→23:26)
[2021-01-08] MEDS: dexmedeTOMIDine 400 MCG/100 ML 400 MCG/100 ML BAG 19.5 MCG IV CONT ×3 (14:01→23:24)
[2021-01-09] VITALS (12 sets, daily range): BP systolic 117–168; BP diastolic 71–93; PULSE 63–119; RESP 21–28; TEMP 36.2–36.6; O2SAT 95–98
[2021-01-09] MEDS: AMPICILLIN SULB 1.5 GM/NS 50ML 1.5 GM/50 ML VIAL IVPB ×4 (02:56→20:10)
[2021-01-09 04:35] LABS: Hematocrit 29.5 % (42.0-52.0); Hemoglobin 9.4 g/dL (14.0-18.0); Mean Corpuscular HGB Conc 31.9 g/dl (32-36); Mean Corpuscular Hemoglobin 28.2 pg (26-34); Mean Corpuscular Volume 88.6 fl (80-100); Mean Platelet Volume 8.7 fl (7.4-10.4); Platelet Count Result 581 k/mm3 (150-375); Red Blood Count 3.33 M/mm3 (4.6-6.20); Red Cell Distribution Width 18.2 % (11.5-14.5); White Blood Count 7.4 K/mm3 (4.5-10.0)
[2021-01-09] MEDS: dexmedeTOMIDine 400 MCG/100 ML 400 MCG/100 ML BAG 19.5 MCG IV CONT ×4 (04:38→20:31)
[2021-01-09 04:51] LABS: Anion Gap 3 mmol/L (8-16); Calcium 8.5 mg/dL (8.4-10.2); Carbon Dioxide 27 mmol/L (22-30); Chloride 106 mmol/L (98-107); Estimated CRCL calculation 148 ml/min; Estimated Glomerular Filt Rate > 60; Glucose 145 mg/dL (65-110); Magnesium 1.5 mg/dL (1.6-2.3); Phosphorus 4.1 mg/dL (2.5-4.5); Potassium 3.1 mmol/L (3.4-5.0); Sodium 136 mmol/L (137-145)
[2021-01-09 05:47] LABS: Blood Urea Nitrogen < 2 mg/dL (9-20)
[2021-01-09] MEDS: LORazepam INJ (*CRX) 2 MG/ML VIAL 0.5 MG IV PUSH ×3 (07:40→20:20)
[2021-01-09] MEDS: THIAMINE HCL 200 MG/2 ML VIAL 100 MG IV PUSH (08:29)
[2021-01-09] MEDS: PANTOPRAZOLE SODIUM IV 40 MG VIAL IV PUSH ×2 (08:34→20:18)
[2021-01-09] MEDS: NICOTINE (*PBKC) 14 MG PATCH 1 PATCH TRANSDERM (08:36)
[2021-01-09] MEDS: ENOXAPARIN 40 MG/0.4 ML SYRINGE SUB-Q (08:38)
[2021-01-09] MEDS: FOLIC ACID 1 MG/0.2 ML INJ IV PUSH (10:08)
[2021-01-09] MEDS: DEXTROSE 5%/LACTATED RINGERS 1,000 ML 100 ML IV CONT ×2 (10:14→20:10)
[2021-01-09] MEDS: hydrALAZINE HCL 20 MG/ML VIAL 10 MG IV PUSH (10:21)
[2021-01-09] MEDS: MAGNESIUM SULF 4 GM/WATER100ML 4 GM/100 ML BAG IVPB (10:29)
--- NOTE | 2021-01-09 11:32 | WPDINTPN ---
Progress Note: A&P Assessment and Plan (1) Encephalopathy: Code(s): G93.40 - Encephalopathy, unspecified Status: Acute Assessment and Plan: Patient remains on Precedex, is confused, pulling on things, hallucinating, trying to get out of bed. -patient is likely withdrawing, given his symptoms -continue Precedex for now and also gets Ativan p.r.n. -currently on room air with O2 sats -CT brain 01/09: No acute intracranial abnormality, no significant change, chronic bilateral occipital lobe infarctions, mild sinus disease (2) Seizures: Code(s): R56.9 - Unspecified convulsions Status: Chronic Assessment and Plan: Patient presented with seizure activities, received Ativan and Keppra in the ER, was postictal and was intubated for airway protection -currently on Keppra 1500 mg q.12 -no seizure activity noted overnight -neurology has evaluated the patient and appreciate their recommendation -EEG 01/04/2021 - Abnormal record due to the presence of bihemispheric theta and delta slow activity with persistent right hemispheric delta activity admixed with sharp and slow-wave transients at the rate of 1 to 2 per seconds these abnormalities are suggestive of seizure disorder with right hemispheric focus . (3) Acute respiratory failure: Qualifiers: Respiratory failure complication: hypoxia Qualified Code(s): J96.01 - Acute respiratory failure with hypoxia Code(s): J96.00 - Acute respiratory failure, unspecified whether with hypoxia or hypercapnia Status: Acute Assessment and Plan: Patient was postictal after being given Ativan for his seizures in the ER and was unable to protect his airway, patient was intubated on 01/03/2021 -patient successfully extubated on 01/06/2021 -currently on room air -PT/OT has been ordered -patient was not cooperative enough for bedside swallow test (4) COPD (chronic obstructive pulmonary disease): Qualifiers: COPD type: unspecified COPD Qualified Code(s): J44.9 - Chronic obstructive pulmonary disease, unspecified Code(s): J44.9 - Chronic obstructive pulmonary disease, unspecified Status: Acute Assessment and Plan: History of COPD, continue bronchodilators, -ABGs does not show any hypercapnia (5) Depression: Code(s): F32.9 - Major depressive disorder, single episode, unspecified Status: Chronic (6) ETOH abuse: Code(s): F10.10 - Alcohol abuse, uncomplicated Status: Acute Assessment and Plan: Continue thiamine and folic acid -patient with heavy alcohol use -will monitor for alcohol withdrawal (7) Empyema: Code(s): J86.9 - Pyothorax without fistula Status: Acute Assessment and Plan: Patient had recently had an empyema and status post thoracotomy at [facility] in [facility]. Records have been requested -patient has been started on Unasyn as he was on Augmentin at home (8) Tobacco dependence: Code(s): F17.200 - Nicotine dependence, unspecified, uncomplicated Status: Acute Assessment and Plan: Will counselling psychologist on cessation of smoking once patient is more awake and alert (9) DVT prophylaxis: Code(s): Z29.9 - Encounter for prophylactic measures, unspecified Status: Acute Assessment and Plan: SQ Lovenox Additional Plan Code status: Full code Critical care time spent: 31 minutes This dictation may have been done utilizing a voice recognition system. Attempts have been made to correct errors. However, there may be uncorrected grammatical, spelling, and recognition errors present. Due to a high probability of clinically significant, life threatening deterioration, the patient required my highest level of preparedness to intervene emergently and I personally spent this critical care time directly and personally managing the patient. This critical care time included obtaining a history; examining the patient; pul
--- NOTE | 2021-01-09 11:38 | PM.IMPN ---
Progress Note: A&P Assessment and Plan (1) Encephalopathy: Code(s): G93.40 - Encephalopathy, unspecified Status: Acute Assessment and Plan: Patient remains on Precedex, is confused, pulling on things, hallucinating, trying to get out of bed. -patient is likely withdrawing, given his symptoms -continue Precedex for now -currently on room air with O2 sats (2) Seizures: Code(s): R56.9 - Unspecified convulsions Status: Chronic Assessment and Plan: Patient presented with seizure activities, received Ativan and Keppra in the ER, was postictal and was intubated for airway protection -currently on Keppra 1500 mg q.12 hrs. -no seizure activity noted overnight -neurology has evaluated the patient. -EEG 01/04/2021 - Abnormal record due to the presence of bihemispheric theta and delta slow activity with persistent right hemispheric delta activity admixed with sharp and slow-wave transients at the rate of 1 to 2 per seconds these abnormalities are suggestive of seizure disorder with right hemispheric focus . (3) Acute respiratory failure: Qualifiers: Respiratory failure complication: hypoxia Qualified Code(s): J96.01 - Acute respiratory failure with hypoxia Code(s): J96.00 - Acute respiratory failure, unspecified whether with hypoxia or hypercapnia Status: Acute Assessment and Plan: Patient was postictal after being given Ativan for his seizures in the ER and was unable to protect his airway, patient was intubated on 01/03/2021 -patient successfully extubated on 01/06/2021 -currently on room air and saturating 96%. -PT/OT has been ordered -patient was not cooperative enough for bedside swallow test (4) COPD (chronic obstructive pulmonary disease): Qualifiers: COPD type: unspecified COPD Qualified Code(s): J44.9 - Chronic obstructive pulmonary disease, unspecified Code(s): J44.9 - Chronic obstructive pulmonary disease, unspecified Status: Acute Assessment and Plan: History of COPD, continue bronchodilators, -ABGs does not show any hypercapnia (5) Depression: Code(s): F32.9 - Major depressive disorder, single episode, unspecified Status: Chronic Assessment and Plan: Patient is a who lives at home. There is a history of chronic alcohol use. (6) ETOH abuse: Code(s): F10.10 - Alcohol abuse, uncomplicated Status: Acute Assessment and Plan: Continue thiamine and folic acid -patient with heavy alcohol use -will monitor for alcohol withdrawal (7) Empyema: Code(s): J86.9 - Pyothorax without fistula Status: Acute Assessment and Plan: Patient had recently had an empyema and status post thoracotomy at [facility] in [facility]. Records have been requested -patient has been started on Unasyn as he was on Augmentin at home. -Continue usasyn (8) Tobacco dependence: Code(s): F17.200 - Nicotine dependence, unspecified, uncomplicated Status: Acute Assessment and Plan: Will corporate counselor on cessation of smoking once patient is more awake and alert. Nicotine patch PRN (9) DVT prophylaxis: Code(s): Z29.9 - Encounter for prophylactic measures, unspecified Status: Acute Assessment and Plan: SQ Lovenox Additional Plan Code status: Full code Critical care time spent: 30 minutes Subjective Date/time seen: 01/09/21 8:38 S : Patient was examined at the bedside. He is sleeping peacefully. He was sleepy, did not wake up to calling of his name. He seems comfortable and did not show any signs of distress. He remains on Precedex, as earlier he was confused, pulling on things, hallucinating, trying to get out of bed. Interval history: Reason for consult: Seizures, respiratory failure regular, intubated for airway protection on 01/03/2021, altered mental status Extubated successfully on 01/07/2020 Patient remains intermittently confused, de
[2021-01-10] VITALS (17 sets, daily range): BP systolic 122–165; BP diastolic 72–105; PULSE 59–95; RESP 19–31; TEMP 35.8–36.8; O2SAT 97–100
[2021-01-10] MEDS: LORazepam INJ (*CRX) 2 MG/ML VIAL 0.5 MG IV PUSH ×3 (02:01→20:12)
[2021-01-10] MEDS: dexmedeTOMIDine 400 MCG/100 ML 400 MCG/100 ML BAG 19.5 MCG IV CONT ×4 (02:01→19:04)
[2021-01-10] MEDS: AMPICILLIN SULB 1.5 GM/NS 50ML 1.5 GM/50 ML VIAL IVPB ×4 (02:27→20:17)
[2021-01-10 04:38] LABS: Hematocrit 37.6 % (42.0-52.0); Hemoglobin 10.5 g/dL (14.0-18.0); Mean Corpuscular HGB Conc 27.9 g/dl (32-36); Mean Corpuscular Hemoglobin 28.7 pg (26-34); Mean Corpuscular Volume 102.7 fl (80-100); Mean Platelet Volume 8.8 fl (7.4-10.4); Platelet Count Result 476 k/mm3 (150-375); Red Blood Count 3.66 M/mm3 (4.6-6.20); Red Cell Distribution Width 18.6 % (11.5-14.5)
[2021-01-10 04:52] LABS: Anion Gap 4 mmol/L (8-16); Calcium 8.6 mg/dL (8.4-10.2); Carbon Dioxide 25 mmol/L (22-30); Chloride 108 mmol/L (98-107); Estimated CRCL calculation 148 ml/min; Estimated Glomerular Filt Rate > 60; Glucose 128 mg/dL (65-110); Magnesium 1.6 mg/dL (1.6-2.3); Phosphorus 4.6 mg/dL (2.5-4.5); Potassium 3.4 mmol/L (3.4-5.0); Sodium 137 mmol/L (137-145)
[2021-01-10 04:56] LABS: Blood Urea Nitrogen < 2 mg/dL (9-20)
[2021-01-10] MEDS: DEXTROSE 5%/LACTATED RINGERS 1,000 ML 100 ML IV CONT (07:51)
[2021-01-10] MEDS: THIAMINE HCL 200 MG/2 ML VIAL 100 MG IV PUSH (08:03)
[2021-01-10] MEDS: PANTOPRAZOLE SODIUM IV 40 MG VIAL IV PUSH ×2 (08:05→20:18)
[2021-01-10] MEDS: FOLIC ACID 1 MG/0.2 ML INJ IV PUSH (08:05)
[2021-01-10] MEDS: NICOTINE (*PBKC) 14 MG PATCH 1 PATCH TRANSDERM (08:05)
[2021-01-10] MEDS: ENOXAPARIN 40 MG/0.4 ML SYRINGE SUB-Q (08:05)
[2021-01-10] MEDS: MAGNESIUM SULFATE 3GM/D5W100ML 3 GM/100 ML BAG IVPB (08:28)
--- NOTE | 2021-01-10 09:38 | PM.IMPN ---
Progress Note: A&P Assessment and Plan (1) Encephalopathy: Code(s): G93.40 - Encephalopathy, unspecified Status: Acute Assessment and Plan: Patient remains on Precedex, requiring intermittent doses of ativen. He is confused, pulling on things, hallucinating, trying to get out of bed. -patient is likely withdrawing, given his symptoms -continue Precedex for now -currently on room air with O2 sats (2) Seizures: Code(s): R56.9 - Unspecified convulsions Status: Chronic Assessment and Plan: Patient presented with seizure activities, received Ativan and Keppra in the ER, was postictal and was intubated for airway protection -currently on Keppra 1500 mg q.12 hrs. -no seizure activity noted overnight -neurology has evaluated the patient. -EEG 01/04/2021 - Abnormal record due to the presence of bihemispheric theta and delta slow activity with persistent right hemispheric delta activity admixed with sharp and slow-wave transients at the rate of 1 to 2 per seconds these abnormalities are suggestive of seizure disorder with right hemispheric focus . (3) Acute respiratory failure: Qualifiers: Respiratory failure complication: hypoxia Qualified Code(s): J96.01 - Acute respiratory failure with hypoxia Code(s): J96.00 - Acute respiratory failure, unspecified whether with hypoxia or hypercapnia Status: Acute Assessment and Plan: Patient was postictal after being given Ativan for his seizures in the ER and was unable to protect his airway, patient was intubated on 01/03/2021 -patient successfully extubated on 01/06/2021 -currently on room air and saturating 96%. -PT/OT has been ordered -patient is not cooperative enough for bedside swallow test (4) COPD (chronic obstructive pulmonary disease): Qualifiers: COPD type: unspecified COPD Qualified Code(s): J44.9 - Chronic obstructive pulmonary disease, unspecified Code(s): J44.9 - Chronic obstructive pulmonary disease, unspecified Status: Acute Assessment and Plan: History of COPD, continue bronchodilators, -ABGs does not show any hypercapnia -inhaler as needed. (5) Depression: Code(s): F32.9 - Major depressive disorder, single episode, unspecified Status: Chronic Assessment and Plan: Patient is a who lives at home. There is a history of chronic alcohol use. (6) ETOH abuse: Code(s): F10.10 - Alcohol abuse, uncomplicated Status: Acute Assessment and Plan: Continue thiamine and folic acid -patient with heavy alcohol use -will monitor for alcohol withdrawal (7) Empyema: Code(s): J86.9 - Pyothorax without fistula Status: Acute Assessment and Plan: Patient had recently had an empyema and status post thoracotomy at [facility] in [facility]. Records have been requested -patient has been started on Unasyn as he was on Augmentin at home. -Continue usasyn (8) Tobacco dependence: Code(s): F17.200 - Nicotine dependence, unspecified, uncomplicated Status: Acute Assessment and Plan: Will addiction counselor on cessation of smoking once patient is more awake and alert. Nicotine patch PRN (9) DVT prophylaxis: Code(s): Z29.9 - Encounter for prophylactic measures, unspecified Status: Acute Assessment and Plan: SQ Lovenox Additional Plan Code status: Full code Critical care time spent: 30 minutes Subjective Date/time seen: 01/10/21 09:38 S: Patient is examined at the bedside. He remains confused and is trying to climb out of the bed. No oral intake so far. He will be evaluated by speech and we are starting tube feedings to improve his nutritional status. Interval history: Patient remains intermittently confused, delirious, and at times agitated requiring Ativan p.r.n. potassium and magnesium are on the low side of normal range this morning. Patient is awake, does not follow simple command
--- NOTE | 2021-01-10 09:47 | PCDIET ---
Nutrition Follow-Up Complete: Nutrition Diagnosis: Inadequate oral intake related to oral intubation as evidenced by NPO status. Nutrition Goal: Patient will meet estimated nutritional needs. Goal not met. Received consult from Dr. Parikh. Discussed that patient currently unable to take oral diet. Plan for NG placement and initiation of tube feedings. Recommended Jevity 1.2 at 60mL/hr goal which will provide 1584kcal, 73g protein and 1065mL free water over 22 hours/day. Verbal order obtained. Last recorded weight is 51.9 kg which is stable with last review. Bowel Motility: Last documented BM on 01/06/21 x 2. Labs Reviewed: RBC (3.66), Hgb (10.5), Hct (37.6), Glu (128), Cr (0.3), PO4 (4.6) Meds Noted: D5/LR at 75mL/hr, Folic Acid, Unasyn, Precedex, Keppra, Magnesium Sulfate, KCl, Protonix, Thiamine Additional Notes: Deep tissue injuries to left upper posterior ischium and left upper back. Abrasions to left lower arm and multiple sutures to back incision. Will continue to monitor with same goal. Nutrition Monitoring and Evaluation: Follow up every Sunday/Sunday.
--- NOTE | 2021-01-10 11:00 | WPDINTPN ---
Progress Note: A&P Assessment and Plan (1) Encephalopathy: Code(s): G93.40 - Encephalopathy, unspecified Status: Acute Assessment and Plan: Patient remains on Precedex, is confused, pulling on things, hallucinating, trying to get out of bed. -patient is likely withdrawing, given his symptoms -continue Precedex for now and also gets Ativan p.r.n. -currently on room air with O2 sats -CT brain 01/09: No acute intracranial abnormality, no significant change, chronic bilateral occipital lobe infarctions, mild sinus disease check ammonia level will consult neurology (2) Seizures: Code(s): R56.9 - Unspecified convulsions Status: Chronic Assessment and Plan: Patient presented with seizure activities, received Ativan and Keppra in the ER, was postictal and was intubated for airway protection -currently on Keppra 1500 mg q.12 -no seizure activity noted overnight -neurology has evaluated the patient and appreciate their recommendation -EEG 01/04/2021 - Abnormal record due to the presence of bihemispheric theta and delta slow activity with persistent right hemispheric delta activity admixed with sharp and slow-wave transients at the rate of 1 to 2 per seconds these abnormalities are suggestive of seizure disorder with right hemispheric focus . (3) Acute respiratory failure: Qualifiers: Respiratory failure complication: hypoxia Qualified Code(s): J96.01 - Acute respiratory failure with hypoxia Code(s): J96.00 - Acute respiratory failure, unspecified whether with hypoxia or hypercapnia Status: Acute Assessment and Plan: Patient was postictal after being given Ativan for his seizures in the ER and was unable to protect his airway, patient was intubated on 01/03/2021 -patient successfully extubated on 01/06/2021 -currently on room air -PT/OT has been ordered -patient was not cooperative enough for bedside swallow test (4) COPD (chronic obstructive pulmonary disease): Qualifiers: COPD type: unspecified COPD Qualified Code(s): J44.9 - Chronic obstructive pulmonary disease, unspecified Code(s): J44.9 - Chronic obstructive pulmonary disease, unspecified Status: Acute Assessment and Plan: History of COPD, continue bronchodilators, -ABGs does not show any hypercapnia (5) Depression: Code(s): F32.9 - Major depressive disorder, single episode, unspecified Status: Chronic (6) ETOH abuse: Code(s): F10.10 - Alcohol abuse, uncomplicated Status: Acute Assessment and Plan: Continue thiamine and folic acid -patient with heavy alcohol use -will monitor for alcohol withdrawal (7) Empyema: Code(s): J86.9 - Pyothorax without fistula Status: Acute Assessment and Plan: Patient had recently had an empyema and status post thoracotomy at [facility] in [facility]. Records have been requested -patient has been started on Unasyn as he was on Augmentin at home - will call Thoracic surgeon and discuss with him regarding removal of the brooks (8) Tobacco dependence: Code(s): F17.200 - Nicotine dependence, unspecified, uncomplicated Status: Acute Assessment and Plan: Will delinquency counselor on cessation of smoking once patient is more awake and alert (9) DVT prophylaxis: Code(s): Z29.9 - Encounter for prophylactic measures, unspecified Status: Acute Assessment and Plan: SQ Lovenox Additional Plan Code status: Full code Critical care time spent: 31 minutes This dictation may have been done utilizing a voice recognition system. Attempts have been made to correct errors. However, there may be uncorrected grammatical, spelling, and recognition errors present. Due to a high probability of clinically significant, life threatening deterioration, the patient required my highest level of preparedness to intervene emergently and I personally spent this critical care time
[2021-01-10 11:14] LABS: Ammonia 20 umol/L (9-30)
[2021-01-10] MEDS: LORazepam INJ (*CRX) 2 MG/ML VIAL 1 MG IV PUSH ×2 (11:50→12:10)
[2021-01-10] MEDS: LIDOCAINE HCL 1% PF INJ 5 ML VIAL INFILTRATE (12:15)
[2021-01-10] MEDS: CENTRAL LINE FLUSH 10 ML IV PUSH ×2 (13:25→21:18)
[2021-01-10 20:33] LABS: Basophils Absolute Auto 0.1 K/mm3 (0.0-0.1); Basophils Percent Auto 0.7 % (0.2-1.2); Eosinophils Absolute Auto 0.2 K/mm3 (0-0.3); Eosinophils Percent Auto 1.7 % (0-4.4); Hemoglobin 9.7 g/dL (14.0-18.0); Immature Granulocyte Absolute 0.04 K/mm3 (0.00-0.031); Immature Granulocyte Percent A 0.4 % (0-0.5); Lymphocytes Absolute Auto 1.04 K/mm3 (0.9-3.2); Lymphocytes Percent Auto 9.2 % (18.3-44.2); Mean Corpuscular HGB Conc 32.3 g/dl (32-36); Mean Corpuscular Volume 89.6 fl (80-100); Mean Platelet Volume 9.2 fl (7.4-10.4); Monocytes Absolute Auto 1.1 K/mm3 (0.1-0.6); Monocytes Percent Auto 10.1 % (2.6-8.5); Neutrophils Absolute Auto 8.8 K/mm3 (1.3-6.7); Neutrophils Percent Auto 77.9 % (45.5-73.1); Platelet Count Result 523 k/mm3 (150-375); Red Blood Count 3.35 M/mm3 (4.6-6.20); Red Cell Distribution Width 18.5 % (11.5-14.5); White Blood Count 11.3 K/mm3 (4.5-10.0)
[2021-01-10 20:43] LABS: Partial Thromboplastin Time 46.3 SECONDS (22.3-36.8)
[2021-01-10] MEDS: AMINO ACIDS 5%/D15W/E-LYTES/CA 2,000 ML with MULTIVITAMINS-12 INJ VIAL 1 2.5 ML, MULTIV... 30 ML IV CONT (21:18)
[2021-01-10] MEDS: FAT EMULSIONS IV 20% 250 ML 20.83 ML IVPB (21:18)
[2021-01-10 23:31] LABS: Glucose Point of Care 116 mg/dl (65-105)
[2021-01-11] VITALS (16 sets, daily range): BP systolic 106–175; BP diastolic 63–136; PULSE 67–101; RESP 15–31; TEMP 36.1–37.4; O2SAT 95–100
[2021-01-11 00:17] LABS: Alanine Aminotransferase 16 U/L (4-50); Albumin Level 2.9 g/dL (3.5-5.1); Alkaline Phosphatase 96 U/L (38-126); Anion Gap 5 mmol/L (8-16); Aspartate Amino Transferase 29 U/L (17-59); Bilirubin,Total 0.4 mg/dL (0.2-1.3); Calcium 8.6 mg/dL (8.4-10.2); Carbon Dioxide 25 mmol/L (22-30); Chloride 102 mmol/L (98-107); Estimated CRCL calculation 160 ml/min; Estimated Glomerular Filt Rate > 60; Glucose 122 mg/dL (65-110); Magnesium 1.5 mg/dL (1.6-2.3); Potassium 3.5 mmol/L (3.4-5.0); Sodium 132 mmol/L (137-145)
[2021-01-11 00:23] LABS: Blood Urea Nitrogen < 2 mg/dL (9-20)
[2021-01-11 00:24] LABS: Transferrin 87 mg/dL (206-381)
[2021-01-11] MEDS: dexmedeTOMIDine 400 MCG/100 ML 400 MCG/100 ML BAG 19.5 MCG IV CONT ×5 (01:00→23:37)
[2021-01-11] MEDS: AMPICILLIN SULB 1.5 GM/NS 50ML 1.5 GM/50 ML VIAL IVPB ×4 (02:36→20:26)
[2021-01-11] MEDS: LORazepam INJ (*CRX) 2 MG/ML VIAL 0.5 MG IV PUSH ×2 (02:37→22:45)
[2021-01-11] MEDS: CENTRAL LINE FLUSH 10 ML IV PUSH ×3 (05:11→22:34)
[2021-01-11 05:26] LABS: Hematocrit 29.8 % (42.0-52.0); Hemoglobin 9.6 g/dL (14.0-18.0); Mean Corpuscular HGB Conc 32.2 g/dl (32-36); Mean Corpuscular Hemoglobin 28.6 pg (26-34); Mean Corpuscular Volume 88.7 fl (80-100); Mean Platelet Volume 9.4 fl (7.4-10.4); Platelet Count Result 424 k/mm3 (150-375); Red Blood Count 3.36 M/mm3 (4.6-6.20); Red Cell Distribution Width 17.9 % (11.5-14.5); White Blood Count 13.2 K/mm3 (4.5-10.0)
[2021-01-11] MEDS: FOLIC ACID 1 MG/0.2 ML INJ IV PUSH (08:04)
[2021-01-11] MEDS: ENOXAPARIN 40 MG/0.4 ML SYRINGE SUB-Q (08:04)
[2021-01-11] MEDS: NICOTINE (*PBKC) 14 MG PATCH 1 PATCH TRANSDERM (08:07)
[2021-01-11 08:10] LABS: Anion Gap 5 mmol/L (8-16); Blood Urea Nitrogen 3 mg/dL (9-20); Calcium 8.9 mg/dL (8.4-10.2); Carbon Dioxide 26 mmol/L (22-30); Chloride 103 mmol/L (98-107); Estimated CRCL calculation 152 ml/min; Estimated Glomerular Filt Rate > 60; Glucose 124 mg/dL (65-110); Magnesium 1.3 mg/dL (1.6-2.3); Phosphorus 5.4 mg/dL (2.5-4.5); Potassium 4.4 mmol/L (3.4-5.0); Sodium 134 mmol/L (137-145)
[2021-01-11] MEDS: PANTOPRAZOLE SODIUM IV 40 MG VIAL IV PUSH ×2 (08:12→20:27)
[2021-01-11] MEDS: THIAMINE HCL 200 MG/2 ML VIAL 100 MG IV PUSH (08:12)
[2021-01-11] MEDS: MAGNESIUM SULFATE 3GM/D5W100ML 3 GM/100 ML BAG IVPB (09:39)
--- NOTE | 2021-01-11 09:40 | WPDINTPN ---
Progress Note: A&P Assessment and Plan (1) Encephalopathy: Code(s): G93.40 - Encephalopathy, unspecified Status: Acute Assessment and Plan: Appears to be toxic metabolic encephalopathy with delirium. ? Withdrawal - Patient remains on Precedex, is confused, pulling on things, hallucinating, trying to get out of bed. -continue Precedex for now and limit Ativan to only for agitation -may need a sitter in the room -currently on room air with O2 sats -CT brain 01/09: No acute intracranial abnormality, no significant change, chronic bilateral occipital lobe infarctions, mild sinus disease TSH and ammonia level were normal -neurology consult is pending -patient has a pacemaker precluding MRI (2) Seizures: Code(s): R56.9 - Unspecified convulsions Status: Chronic Assessment and Plan: Patient presented with seizure activities, received Ativan and Keppra in the ER, was postictal and was intubated for airway protection -currently on Keppra 1500 mg q.12 -no seizure activity noted overnight -neurology has evaluated the patient and appreciate their recommendation -EEG 01/04/2021 - Abnormal record due to the presence of bihemispheric theta and delta slow activity with persistent right hemispheric delta activity admixed with sharp and slow-wave transients at the rate of 1 to 2 per seconds these abnormalities are suggestive of seizure disorder with right hemispheric focus . (3) Acute respiratory failure: Qualifiers: Respiratory failure complication: hypoxia Qualified Code(s): J96.01 - Acute respiratory failure with hypoxia Code(s): J96.00 - Acute respiratory failure, unspecified whether with hypoxia or hypercapnia Status: Acute Assessment and Plan: Patient was postictal after being given Ativan for his seizures in the ER and was unable to protect his airway, patient was intubated on 01/03/2021 -patient successfully extubated on 01/06/2021 -currently on room air -PT/OT has been ordered -patient was not cooperative enough for bedside swallow test (4) COPD (chronic obstructive pulmonary disease): Qualifiers: COPD type: unspecified COPD Qualified Code(s): J44.9 - Chronic obstructive pulmonary disease, unspecified Code(s): J44.9 - Chronic obstructive pulmonary disease, unspecified Status: Acute Assessment and Plan: History of COPD, continue bronchodilators, -ABGs does not show any hypercapnia (5) ETOH abuse: Code(s): F10.10 - Alcohol abuse, uncomplicated Status: Acute Assessment and Plan: Continue thiamine and folic acid -patient with heavy alcohol use (6) Empyema: Code(s): J86.9 - Pyothorax without fistula Status: Acute Assessment and Plan: Patient had recently had an empyema and status post thoracotomy at [facility] in [facility]. Records have been requested -patient has been started on Unasyn as he was on Augmentin at home 01/10 -Dr. Eaton Discussed with Dr. Bobo, cell [phone], regarding the brooks from the thoracotomy and decortication on the right lung on 12/20/2020. he stated that remove EVERY OTHER STAPLE TODAY, Leave the sutures in. Then in 2 weeks remove all sutures and remaining brooks. (7) Tobacco dependence: Code(s): F17.200 - Nicotine dependence, unspecified, uncomplicated Status: Acute Assessment and Plan: Patient at this time is not a candidate for any counseling (8) DVT prophylaxis: Code(s): Z29.9 - Encounter for prophylactic measures, unspecified Status: Acute Assessment and Plan: SQ Lovenox (9) Electrolyte abnormality: Code(s): E87.8 - Other disorders of electrolyte and fluid balance, not elsewhere classified Status: Acute Assessment and Plan: Replace low magnesium Additional Plan Stress ulcer prophylaxis -he is on PPI Nutrition -patient was started on TPN has patient to confused in pulled a summer
[2021-01-11] MEDS: LABETALOL HCL INJ 100 MG/20 ML VIAL 20 MG IV PUSH (11:14)
--- NOTE | 2021-01-11 11:32 | PCDIET ---
Nutrition Follow-Up Complete: Nutrition Diagnosis: Inadequate oral intake related to oral intubation as evidenced by NPO status. Nutrition Goal: Patient will meet estimated nutritional needs. Goal in progress. TPN initiated after it was determined patient would not tolerate NG placement. Clinimix E 08/07 currently infusing at 30mL/hr with 250mL 20% lipids daily. This provides 1011kcal and 36g protein per day. Goal rate will be 60mL/hr with 250mL 20% lipids for 1522kcal and 72g protein. MD advancing to 45mL/hr today. Last recorded weight is 49.3 kg which is down from last review. -I/O. Bowel Motility: Last documented BM on 01/06/21 x 2. Labs Reviewed: WBC (13.2), RBC (3.36), Hgb (9.6), Hct (9.8), Glu (124), Cr (0.3), Na (134), PO4 (5.4), Mg (1.3) Meds Noted: Albuterol, Unasyn, Precedex, Folic Acid, Keppra, Magnesium Sulfate, Protonix, Thiamine Additional Notes: No change in skin reported. Will continue to monitor with same goal. Nutrition Monitoring and Evaluation: Follow up every Sunday/Sunday. Follow daily in ICU rounds.
[2021-01-11 12:32] LABS: Glucose Point of Care 107 mg/dl (65-105)
[2021-01-11 18:14] LABS: Glucose Point of Care 106 mg/dl (65-105)
[2021-01-11 20:15] LABS: Triglycerides 103 mg/dL (<150)
[2021-01-11] MEDS: AMINO ACIDS 5%/D15W/E-LYTES/CA 2,000 ML with MULTIVITAMINS-12 INJ VIAL 1 2.5 ML, MULTIV... 45 ML IV CONT (22:32)
[2021-01-11] MEDS: FAT EMULSIONS IV 20% 250 ML 20.83 ML IVPB (22:33)
[2021-01-12] VITALS (20 sets, daily range): BP systolic 112–161; BP diastolic 71–96; PULSE 65–102; RESP 14–28; TEMP 36.1–36.8; O2SAT 93–100
[2021-01-12 00:26] LABS: Glucose Point of Care 132 mg/dl (65-105)
[2021-01-12] MEDS: AMPICILLIN SULB 1.5 GM/NS 50ML 1.5 GM/50 ML VIAL IVPB ×4 (03:13→19:53)
[2021-01-12] MEDS: dexmedeTOMIDine 400 MCG/100 ML 400 MCG/100 ML BAG 19.5 MCG IV CONT ×4 (04:29→19:54)
[2021-01-12 04:51] LABS: Hemoglobin 9.4 g/dL (14.0-18.0); Mean Corpuscular HGB Conc 32.4 g/dl (32-36); Mean Corpuscular Hemoglobin 28.7 pg (26-34); Mean Corpuscular Volume 88.7 fl (80-100); Mean Platelet Volume 9.4 fl (7.4-10.4); Platelet Count Result 383 k/mm3 (150-375); Red Blood Count 3.27 M/mm3 (4.6-6.20); Red Cell Distribution Width 17.9 % (11.5-14.5); White Blood Count 8.4 K/mm3 (4.5-10.0)
[2021-01-12 05:16] LABS: Anion Gap 3 mmol/L (8-16); Blood Urea Nitrogen 5 mg/dL (9-20); Carbon Dioxide 29 mmol/L (22-30); Chloride 103 mmol/L (98-107); Estimated CRCL calculation 152 ml/min; Estimated Glomerular Filt Rate > 60; Glucose 124 mg/dL (65-110); Magnesium 1.6 mg/dL (1.6-2.3); Phosphorus 5.3 mg/dL (2.5-4.5); Potassium 5.1 mmol/L (3.4-5.0); Sodium 135 mmol/L (137-145)
[2021-01-12] MEDS: CENTRAL LINE FLUSH 10 ML IV PUSH ×3 (06:11→21:43)
--- NOTE | 2021-01-12 07:42 | P.PNIM_ITS ---
Progress Note: A&P Assessment and Plan (1) Encephalopathy: Code(s): G93.40 - Encephalopathy, unspecified Status: Acute Assessment and Plan: Appears to be toxic metabolic encephalopathy with delirium. ? Withdrawal - Patient remains on Precedex, is confused, pulling on things, hallucinating, trying to get out of bed. -continue Precedex for now and limit Ativan to only for agitation -may need a sitter in the room -currently on room air with O2 sats -CT brain 01/09: No acute intracranial abnormality, no significant change, chronic bilateral occipital lobe infarctions, mild sinus disease TSH and ammonia level were normal -neurology consult is pending -patient has a pacemaker precluding MRI (2) Seizures: Code(s): R56.9 - Unspecified convulsions Status: Chronic Assessment and Plan: Patient presented with seizure activities, received Ativan and Keppra in the ER, was postictal and was intubated for airway protection -currently on Keppra 1500 mg q.12 -no seizure activity noted overnight -neurology has evaluated the patient and appreciate their recommendation -EEG 01/04/2021 - Abnormal record due to the presence of bihemispheric theta and delta slow activity with persistent right hemispheric delta activity admixed with sharp and slow-wave transients at the rate of 1 to 2 per seconds these abnormalities are suggestive of seizure disorder with right hemispheric focus . (3) Acute respiratory failure: Qualifiers: Respiratory failure complication: hypoxia Qualified Code(s): J96.01 - Acute respiratory failure with hypoxia Code(s): J96.00 - Acute respiratory failure, unspecified whether with hypoxia or hypercapnia Status: Acute Assessment and Plan: Patient was postictal after being given Ativan for his seizures in the ER and was unable to protect his airway, patient was intubated on 01/03/2021 -patient successfully extubated on 01/06/2021 -currently on room air -PT/OT has been ordered -patient was not cooperative enough for bedside swallow test (4) COPD (chronic obstructive pulmonary disease): Qualifiers: COPD type: unspecified COPD Qualified Code(s): J44.9 - Chronic obstructive pulmonary disease, unspecified Code(s): J44.9 - Chronic obstructive pulmonary disease, unspecified Status: Acute Assessment and Plan: History of COPD, continue bronchodilators, -ABGs does not show any hypercapnia (5) ETOH abuse: Code(s): F10.10 - Alcohol abuse, uncomplicated Status: Acute Assessment and Plan: Continue thiamine and folic acid -patient with heavy alcohol use (6) Empyema: Code(s): J86.9 - Pyothorax without fistula Status: Acute Assessment and Plan: Patient had recently had an empyema and status post thoracotomy at [facility] in [facility]. Records have been requested -patient has been started on Unasyn as he was on Augmentin at home 01/10 -Dr. Eaton Discussed with Dr. Bobo, cell [phone], regarding the brooks from the thoracotomy and decortication on the right lung on 12/20/2020. he stated that remove EVERY OTHER STAPLE TODAY, Leave the sutures in. Then in 2 weeks remove all sutures and remaining brooks. (7) Tobacco dependence: Code(s): F17.200 - Nicotine dependence, unspecified, uncomplicated Status: Acute Assessment and Plan: Patient at this time is not a candidate for any counseling (8) DVT prophylaxis: Code(s): Z29.9 - Encounter for prophylactic measures, unspecified Status: Acute Assessment and Plan: RUSSELL Panchal
[2021-01-12] MEDS: PANTOPRAZOLE SODIUM IV 40 MG VIAL IV PUSH ×2 (08:06→19:55)
[2021-01-12] MEDS: THIAMINE HCL 200 MG/2 ML VIAL 100 MG IV PUSH (08:07)
[2021-01-12] MEDS: ENOXAPARIN 40 MG/0.4 ML SYRINGE SUB-Q (08:07)
--- NOTE | 2021-01-12 09:14 | PCSTNOTE ---
Please refer to the Bedside Swallow Evaluation in the EMR. Please note, silent aspiration cannot be ruled out at bedside.
[2021-01-12] MEDS: MAGNESIUM SULF 2 GM/WATER 50ML 2 GM/50 ML BAG IVPB (09:15)
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
[2021-01-12] MEDS: FOLIC ACID 1 MG/0.2 ML INJ IV PUSH (11:13)
--- NOTE | 2021-01-12 11:39 | WPDINTPN ---
Progress Note: A&P Assessment and Plan (1) Encephalopathy: Code(s): G93.40 - Encephalopathy, unspecified Status: Acute Assessment and Plan: Appears to be toxic metabolic encephalopathy with delirium. ? Withdrawal, patient does have CVA at baseline - Patient remains on Precedex, is confused, pulling on things, hallucinating, trying to get out of bed. -continue Precedex for now and limit Ativan to only for agitation -may need a sitter in the room -currently on room air with O2 sats -CT brain 01/09: No acute intracranial abnormality, no significant change, chronic bilateral occipital lobe infarctions, mild sinus disease TSH and ammonia level were normal -neurology consult is pending -patient has a pacemaker precluding MRI (2) Seizures: Code(s): R56.9 - Unspecified convulsions Status: Chronic Assessment and Plan: Patient presented with seizure activities, received Ativan and Keppra in the ER, was postictal and was intubated for airway protection -currently on Keppra 1500 mg q.12 -no seizure activity noted overnight -neurology has evaluated the patient and appreciate their recommendation -EEG 01/04/2021 - Abnormal record due to the presence of bihemispheric theta and delta slow activity with persistent right hemispheric delta activity admixed with sharp and slow-wave transients at the rate of 1 to 2 per seconds these abnormalities are suggestive of seizure disorder with right hemispheric focus . (3) Acute respiratory failure: Qualifiers: Respiratory failure complication: hypoxia Qualified Code(s): J96.01 - Acute respiratory failure with hypoxia Code(s): J96.00 - Acute respiratory failure, unspecified whether with hypoxia or hypercapnia Status: Acute Assessment and Plan: Patient was postictal after being given Ativan for his seizures in the ER and was unable to protect his airway, patient was intubated on 01/03/2021 -patient successfully extubated on 01/06/2021 -currently on room air -PT/OT has been ordered -patient was not cooperative enough for bedside swallow test which was ED attempted today (4) COPD (chronic obstructive pulmonary disease): Qualifiers: COPD type: unspecified COPD Qualified Code(s): J44.9 - Chronic obstructive pulmonary disease, unspecified Code(s): J44.9 - Chronic obstructive pulmonary disease, unspecified Status: Acute Assessment and Plan: History of COPD, continue bronchodilators, -ABGs does not show any hypercapnia (5) ETOH abuse: Code(s): F10.10 - Alcohol abuse, uncomplicated Status: Acute Assessment and Plan: Continue thiamine and folic acid -patient with heavy alcohol use (6) Empyema: Code(s): J86.9 - Pyothorax without fistula Status: Acute Assessment and Plan: Patient had recently had an empyema and status post thoracotomy at [facility] in [facility]. Records have been requested -patient has been started on Unasyn as he was on Augmentin at home 01/10 -Dr. Eaton Discussed with Dr. Bobo, cell [phone], regarding the broosk from the thoracotomy and decortication on the right lung on 12/20/2020. he stated that remove EVERY OTHER STAPLE TODAY, Leave the sutures in. Then in 2 weeks remove all sutures and remaining brooks. (7) Tobacco dependence: Code(s): F17.200 - Nicotine dependence, unspecified, uncomplicated Status: Acute Assessment and Plan: Patient at this time is not a candidate for any counseling (8) DVT prophylaxis: Code(s): Z29.9 - Encounter for prophylactic measures, unspecified Status: Acute Assessment and Plan: SQ Lovenox (9) Electrolyte abnormality: Code(s): E87.8 - Other disorders of electrolyte and fluid balance, not elsewhere classified Status: Acute Assessment and Plan: Replace low magnesium Additional Plan Stress ulcer prophylaxis -he is on PPI Nutrition -pat
--- NOTE | 2021-01-12 11:53 | WPDNEUROPN ---
Progress Note: A&P Additional Plan will be continued on the treatment as such Time Spent With Patient Time with patient: less than 15 minutes Subjective Date/time seen: 01/12/21 11:53 55 years old with ongoing diagnosis of encephalopathy continues to be in delirious state with intermittent hallucination CT scan has been documented with chronic bilateral occipital lobe infarctions his TCA Thatch ammonia levels were normal patient does have pacemaker so MRI could not be done patient's EEG was abnormal though non paroxysmal but consistent right hemispheric focus. Patient does have bio thorax without fistula Review of Systems Review of Systems: All systems reviewed & are unremarkable except as noted in HPI and below Exam Narrative: continues to be awake alert but does not follow the verbal commands appropriately does not communicate with the examiner looking is spontaneously here and there particularly to the right side and also does not regard the visual stimuli moving upper and lower extremities fairly well with symmetrical reflexes and questionably upgoing plantar responses Objective Data Vital Signs Vital Signs: Vital Signs - 24 hr 01/11/21 12:00 01/11/21 12:19 01/11/21 14:00 Temperature 37.2 C 37.1 C Pulse Rate 79 79 81 Respiratory Rate 20 21 H 28 H Blood Pressure 107/75 152/85 H Pulse Oximetry 100 100 01/11/21 16:00 01/11/21 17:59 01/11/21 18:00 Temperature 36.7 C 36.1 C L Pulse Rate 86 82 101 H Respiratory Rate 15 18 31 H Blood Pressure 168/91 H 161/136 H Pulse Oximetry 100 100 01/11/21 20:00 01/11/21 22:00 01/11/21 23:37 Temperature 36.2 C L 36.4 C L Pulse Rate 76 84 67 Respiratory Rate 20 21 H 22 H Blood Pressure 133/92 H 154/93 H Pulse Oximetry 96 96 01/12/21 00:00 01/12/21 02:00 01/12/21 04:00 Temperature 36.5 C 36.2 C L 36.3 C L Pulse Rate 65 69 71 Respiratory Rate 18 20 19 Blood Pressure 112/71 136/85 144/91 H Pulse Oximetry 96 95 95 01/12/21 04:29 01/12/21 06:00 01/12/21 06:20 Temperature 36.3 C L Pulse Rate 82 84 Respiratory Rate 22 H 20 Blood Pressure 161/86 H 159/90 H Pulse Oximetry 95 01/12/21 08:00 01/12/21 09:37 01/12/21 10:07 Temperature Pulse Rate 87 86 86 Respiratory Rate 21 H 14 14 Blood Pressure 142/91 H Pulse Oximetry 97 Intake/Output Intake/Output: Intake & Output 01/09/21 01/10/21 01/11/21 01/12/21 23:59 23:59 23:59 23:59 Intake Total 3930 3280 2218 250 Output Total 4800 5000 4075 2200 [facility] -390 [phone] -1857 -2377 Meds/Results Medications: Active Medications Generic Name Dose Route Start Last Admin Trade Name Freq PRN Reason Stop Dose Admin Albuterol 2.5 mg 01/03/21 18:38 Albuterol Sulfate Neb 2.5 Mg/0.5 Ml Inh INHALATION Q4HRT PRN Shortness Of Breath Enoxaparin Sodium 40 mg 01/04/21 09:00 01/12/21 08:07 Enoxaparin 40 Mg/0.4 Ml Syringe SUB-Q 40 mg DAILY MONIK Administration Folic Acid 1 mg 01/04/21 09:00 01/12/21 11:13 Folic Acid 1 Mg/0.2 Ml Inj IV PUSH 1 mg QAM MONIK Administration Hydralazine HCl 10 mg 01/09/21 11:32 Hydralazine Hcl 20 Mg/Ml Vial IV PUSH Q4H PRN Blood Pressure - High Dextrose 1,000 mls @ 50 mls/hr 01/10/21 19:44 Dextrose 10% IV CONT .Q20H PRN if PN is interrupted Multivitamins 2.5 ml/ 2,005 mls @ 45 mls/hr 01/10/21 22:00 01/11/21 22:32 Multivitamins 2.5 ml/ Amino IV CONT 45 mls/hr Acids/Electrolytes/Dextrose .Q24H MONIK Administration Protocol Fat Emulsion Intravenous 250 mls @ 20.833 mls/hr 01/10/21 22:00 01/11/21 22:33 Lipids 20% IVPB 20.83 mls/hr Q24H MONIK Administration Levetiracetam 1,500 mg/ 115 mls @ 460 mls/hr 01/03/21 21:00 01/12/21 08:58 Dextrose IVPB 460 mls/hr Q12HR MONIK Administration Ampicillin Sodium/Sulbactam Sodium 1.5 gm in 50 mls @ 100 mls/hr 01/03/21 21:00 01/12/21 08:15 Unasyn 1.5 Gm/Ns 50 Ml IVPB 100 mls/hr Q6H MONIK Administration Dexmedetomidine HCl 400 mcg i
[2021-01-12 14:33] LABS: Glucose Point of Care 118 mg/dl (65-105)
[2021-01-12] MEDS: LABETALOL HCL INJ 100 MG/20 ML VIAL 20 MG IV PUSH (14:44)
[2021-01-12 18:24] LABS: Glucose Point of Care 97 mg/dl (65-105)
[2021-01-12] MEDS: AMINO ACIDS 5%/D15W/E-LYTES/CA 2,000 ML with MULTIVITAMINS-12 INJ VIAL 1 2.5 ML, MULTIV... 45 ML IV CONT (21:28)
[2021-01-12] MEDS: FAT EMULSIONS IV 20% 250 ML 20.83 ML IVPB (21:29)
[2021-01-13] VITALS (26 sets, daily range): BP systolic 104–170; BP diastolic 49–142; PULSE 95–130; RESP 15–31; TEMP 36.5–37; O2SAT 92–99
[2021-01-13 00:07] LABS: Glucose Point of Care 116 mg/dl (65-105)
[2021-01-13] MEDS: dexmedeTOMIDine 400 MCG/100 ML 400 MCG/100 ML BAG 19.5 MCG IV CONT (01:45)
[2021-01-13] MEDS: AMPICILLIN SULB 1.5 GM/NS 50ML 1.5 GM/50 ML VIAL IVPB ×4 (03:00→20:32)
[2021-01-13 04:59] LABS: Basophils Absolute Auto 0.1 K/mm3 (0.0-0.1); Basophils Percent Auto 0.9 % (0.2-1.2); Eosinophils Absolute Auto 0.1 K/mm3 (0-0.3); Eosinophils Percent Auto 1.2 % (0-4.4); Hemoglobin 9.3 g/dL (14.0-18.0); Immature Granulocyte Absolute 0.03 K/mm3 (0.00-0.031); Immature Granulocyte Percent A 0.3 % (0-0.5); Lymphocytes Percent Auto 14.2 % (18.3-44.2); Mean Corpuscular HGB Conc 32.1 g/dl (32-36); Mean Corpuscular Hemoglobin 28.9 pg (26-34); Mean Corpuscular Volume 90.1 fl (80-100); Mean Platelet Volume 9.2 fl (7.4-10.4); Monocytes Absolute Auto 1.2 K/mm3 (0.1-0.6); Monocytes Percent Auto 12.2 % (2.6-8.5); Neutrophils Percent Auto 71.2 % (45.5-73.1); Platelet Count Result 464 k/mm3 (150-375); Red Blood Count 3.22 M/mm3 (4.6-6.20); Red Cell Distribution Width 18.1 % (11.5-14.5); White Blood Count 9.9 K/mm3 (4.5-10.0)
[2021-01-13] MEDS: CENTRAL LINE FLUSH 10 ML IV PUSH ×3 (05:06→21:25)
[2021-01-13 06:20] LABS: Glucose Point of Care 108 mg/dl (65-105)
[2021-01-13] MEDS: dexmedeTOMIDine 400 MCG/100 ML 400 MCG/100 ML BAG 13 MCG IV CONT (06:54)
--- NOTE | 2021-01-13 07:34 | PM.IMPN ---
Progress Note: A&P Assessment and Plan (1) Encephalopathy: Code(s): G93.40 - Encephalopathy, unspecified Status: Acute Assessment and Plan: Appears to be toxic metabolic encephalopathy with delirium. ? Withdrawal(history of chronic ETOH), patient does have CVA at baseline - Patient remains on Precedex, is confused, pulling on things, hallucinating, trying to get out of bed. -continue Precedex for now and limit Ativan to only for agitation -may need a sitter in the room -currently on room air with O2 sats in the 95-98% range today. -CT brain 01/09: No acute intracranial abnormality, no significant change, chronic bilateral occipital lobe infarctions, mild sinus disease TSH and ammonia level were normal -neurology consult reviewed -patient has a pacemaker precluding MRI (2) Seizures: Code(s): R56.9 - Unspecified convulsions Status: Chronic Assessment and Plan: Patient presented with seizure activities, received Ativan and Keppra in the ER, was postictal and was intubated for airway protection -currently on Keppra 1500 mg q.12 -no seizure activity noted overnight -neurology has evaluated the patient and appreciate their recommendation -EEG 01/04/2021 - Abnormal record due to the presence of bihemispheric theta and delta slow activity with persistent right hemispheric delta activity admixed with sharp and slow-wave transients at the rate of 1 to 2 per seconds these abnormalities are suggestive of seizure disorder with right hemispheric focus . (3) Acute respiratory failure: Qualifiers: Respiratory failure complication: hypoxia Qualified Code(s): J96.01 - Acute respiratory failure with hypoxia Code(s): J96.00 - Acute respiratory failure, unspecified whether with hypoxia or hypercapnia Status: Acute Assessment and Plan: Patient was postictal after being given Ativan for his seizures in the ER and was unable to protect his airway, patient was intubated on 01/03/2021 -patient successfully extubated on 01/06/2021 -currently on room air -PT/OT has been ordered -patient was not cooperative enough for bedside swallow test which was attempted. (4) COPD (chronic obstructive pulmonary disease): Qualifiers: COPD type: unspecified COPD Qualified Code(s): J44.9 - Chronic obstructive pulmonary disease, unspecified Code(s): J44.9 - Chronic obstructive pulmonary disease, unspecified Status: Acute Assessment and Plan: History of COPD, continue bronchodilators, -ABGs does not show any hypercapnia (5) ETOH abuse: Code(s): F10.10 - Alcohol abuse, uncomplicated Status: Acute Assessment and Plan: Continue thiamine and folic acid -patient with heavy alcohol use (6) Empyema: Code(s): J86.9 - Pyothorax without fistula Status: Acute Assessment and Plan: Patient had recently had an empyema and status post thoracotomy at [facility] in [facility]. Records have been requested -patient has been started on Unasyn as he was on Augmentin at home 01/10 -Dr. Eaton Discussed with Dr. Bobo, cell [phone], regarding the brooks from the thoracotomy and decortication on the right lung on 12/20/2020. Every other staple was removed, and the sutures were left in on 01/10. Then in 2 weeks remove all sutures and remaining brooks. (7) Tobacco dependence: Code(s): F17.200 - Nicotine dependence, unspecified, uncomplicated Status: Acute Assessment and Plan: Patient at this time is not capable for any counseling (8) DVT prophylaxis: Code(s): Z29.9 - Encounter for prophylactic measures, unspecified Status: Acute Assessment and Plan: SQ Lovenox (9) Electrolyte abnormality: Code(s): E87.8 - Other disorders of electrolyte and fluid balance, not elsewhere classified Status: Acute Assessment and Plan: Low magnesium was supplemented. Additional Plan Stres
[2021-01-13] MEDS: FOLIC ACID 1 MG/0.2 ML INJ IV PUSH (08:13)
[2021-01-13] MEDS: PANTOPRAZOLE SODIUM IV 40 MG VIAL IV PUSH ×2 (08:14→20:33)
[2021-01-13] MEDS: THIAMINE HCL 200 MG/2 ML VIAL 100 MG IV PUSH (08:14)
[2021-01-13] MEDS: ENOXAPARIN 40 MG/0.4 ML SYRINGE SUB-Q (08:14)
--- NOTE | 2021-01-13 09:43 | WPDINTPN ---
Progress Note: A&P Assessment and Plan (1) Encephalopathy: Code(s): G93.40 - Encephalopathy, unspecified Status: Acute Assessment and Plan: Appears to be toxic metabolic encephalopathy with delirium. ? Withdrawal, patient does have CVA at baseline - Patient remains on Precedex, is confused, pulling on things, hallucinating, trying to get out of bed. I will trying to wean down Precedex to see if that helps -will add Seroquel if patient is able to take p.o. -may need a sitter in the room -currently on room air with O2 sats -CT brain 01/09: No acute intracranial abnormality, no significant change, chronic bilateral occipital lobe infarctions, mild sinus disease TSH and ammonia level were normal -discussed with neurology no other recommendations at this time -patient has a AICD. Patient did have MRI done in October of this year were unfortunately our hospital MRI cannot scan even if the device is MRI compatible -MRI done in 10/2020 was consistent with PRES (2) Seizures: Code(s): R56.9 - Unspecified convulsions Status: Chronic Assessment and Plan: Patient presented with seizure activities, received Ativan and Keppra in the ER, was postictal and was intubated for airway protection -currently on Keppra 1500 mg q.12 -no seizure activity noted overnight -neurology has evaluated the patient and appreciate their recommendation -EEG 01/04/2021 - Abnormal record due to the presence of bihemispheric theta and delta slow activity with persistent right hemispheric delta activity admixed with sharp and slow-wave transients at the rate of 1 to 2 per seconds these abnormalities are suggestive of seizure disorder with right hemispheric focus . (3) Acute respiratory failure: Qualifiers: Respiratory failure complication: hypoxia Qualified Code(s): J96.01 - Acute respiratory failure with hypoxia Code(s): J96.00 - Acute respiratory failure, unspecified whether with hypoxia or hypercapnia Status: Acute Assessment and Plan: Patient was postictal after being given Ativan for his seizures in the ER and was unable to protect his airway, patient was intubated on 01/03/2021 -patient successfully extubated on 01/06/2021 -currently on room air -PT/OT has been ordered -patient was not cooperative enough for bedside swallow test which was again attempted 01/12 (4) COPD (chronic obstructive pulmonary disease): Qualifiers: COPD type: unspecified COPD Qualified Code(s): J44.9 - Chronic obstructive pulmonary disease, unspecified Code(s): J44.9 - Chronic obstructive pulmonary disease, unspecified Status: Acute Assessment and Plan: History of COPD, continue bronchodilators, -ABGs does not show any hypercapnia (5) ETOH abuse: Code(s): F10.10 - Alcohol abuse, uncomplicated Status: Acute Assessment and Plan: Continue thiamine and folic acid -patient with heavy alcohol use (6) Empyema: Code(s): J86.9 - Pyothorax without fistula Status: Acute Assessment and Plan: Patient had recently had an empyema and status post thoracotomy at [facility] in [facility]. Records have been requested -patient has been started on Unasyn as he was on Augmentin at home 01/10 -Dr. Eaton Discussed with Dr. Bobo, cell [phone], regarding the brooks from the thoracotomy and decortication on the right lung on 12/20/2020. he stated that remove EVERY OTHER STAPLE TODAY, Leave the sutures in. Then in 2 weeks remove all sutures and remaining brooks. (7) Tobacco dependence: Code(s): F17.200 - Nicotine dependence, unspecified, uncomplicated Status: Acute Assessment and Plan: Patient at this time is not a candidate for any counseling (8) DVT prophylaxis: Code(s): Z29.9 - Encounter for prophylactic measures, unspecified Status: Acute Assessment and Plan: SQ Lovenox (9) Electrolyte abnormality:
--- NOTE | 2021-01-13 11:22 | PCDIET ---
ICU Rounding Note: MD increasing Clinimix E 08/07 to recommended 60mL/hr with 250mL 20% lipids daily. RN attempted ice chips with patient, but he spit them out. Plan to attempt NG later today for medications; if tolerated and does not pull out, MD plans to start tube feedings tomorrow. Last recorded weight is 43.8kg which is significantly down from last review. Recommend re-weighing. Bowel Motility: Last documented BM on 01/11/21 x 2. Labs Reviewed: Glu (108) - most labs still pending. Meds Noted: Unasyn, Precedex, Folic Acid, Normodyne, Keppra, Protonix, Thiamine Additional Notes: Left upper back and left upper ischium with deep tissue injuries. Left lower arm abrasion. Incision to upper back. Following daily in ICU rounds. Assessing/reassessing every Sunday/Sunday.
[2021-01-13 11:46] LABS: Glucose Point of Care 104 mg/dl (65-105)
[2021-01-13 17:29] LABS: Glucose Point of Care 97 mg/dl (65-105)
[2021-01-13] MEDS: QUEtiapine FUMARATE 25 MG TABLET PO (20:33)
[2021-01-13] MEDS: dexmedeTOMIDine 400 MCG/100 ML 400 MCG/100 ML BAG 5.2 MCG IV CONT (20:35)
[2021-01-13] MEDS: AMINO ACIDS 5%/D15W/E-LYTES/CA 2,000 ML with MULTIVITAMINS-12 INJ VIAL 1 2.5 ML, MULTIV... 45 ML IV CONT (20:47)
[2021-01-13] MEDS: FAT EMULSIONS IV 20% 250 ML 20.83 ML IVPB (20:47)
[2021-01-14] VITALS (19 sets, daily range): BP systolic 113–173; BP diastolic 73–100; PULSE 89–121; RESP 19–29; TEMP 36.2–36.8; O2SAT 94–100
[2021-01-14] MEDS: HALOPERIDOL LACTATE 5 MG/ML VIAL IM (00:10)
[2021-01-14] MEDS: AMPICILLIN SULB 1.5 GM/NS 50ML 1.5 GM/50 ML VIAL IVPB ×4 (03:00→20:18)
[2021-01-14] MEDS: dexmedeTOMIDine 400 MCG/100 ML 400 MCG/100 ML BAG 5.2 MCG IV CONT (05:51)
[2021-01-14] MEDS: CENTRAL LINE FLUSH 10 ML IV PUSH ×3 (05:52→22:13)
[2021-01-14 07:49] LABS: Alanine Aminotransferase 15 U/L (4-50); Albumin Level 3.5 g/dL (3.5-5.1); Alkaline Phosphatase 107 U/L (38-126); Anion Gap 9 mmol/L (8-16); Aspartate Amino Transferase 36 U/L (17-59); Bilirubin,Total 0.4 mg/dL (0.2-1.3); Blood Urea Nitrogen 9 mg/dL (9-20); Calcium 9.5 mg/dL (8.4-10.2); Carbon Dioxide 26 mmol/L (22-30); Chloride 102 mmol/L (98-107); Estimated CRCL calculation 104 ml/min; Estimated Glomerular Filt Rate > 60; Glucose 121 mg/dL (65-110); Magnesium 1.3 mg/dL (1.6-2.3); Potassium 3.5 mmol/L (3.4-5.0); Sodium 137 mmol/L (137-145); Triglycerides 140 mg/dL (<150)
[2021-01-14] MEDS: PANTOPRAZOLE SODIUM IV 40 MG VIAL IV PUSH ×2 (09:10→20:10)
[2021-01-14] MEDS: ENOXAPARIN 40 MG/0.4 ML SYRINGE SUB-Q (09:10)
[2021-01-14] MEDS: FOLIC ACID 1 MG/0.2 ML INJ IV PUSH (09:10)
[2021-01-14] MEDS: MAGNESIUM SULF 2 GM/WATER 50ML 2 GM/50 ML BAG IVPB (09:13)
[2021-01-14] MEDS: THIAMINE HCL 200 MG/2 ML VIAL 100 MG IV PUSH (10:11)
--- NOTE | 2021-01-14 10:15 | WPDINTPN ---
Progress Note: A&P Assessment and Plan (1) Encephalopathy: Code(s): G93.40 - Encephalopathy, unspecified Status: Acute Assessment and Plan: Appears to be toxic metabolic encephalopathy with delirium. ? Withdrawal, patient does have CVA at baseline - Patient remains on Precedex although at lower rate, is confused, pulling on things, hallucinating, trying to get out of bed. I will trying to wean down Precedex to see if that helps - Seroquel started 01/13 after Neurology recommendation and will be advanced to twice a day today. --currently on room air with O2 sats -CT brain 01/09: No acute intracranial abnormality, no significant change, chronic bilateral occipital lobe infarctions, mild sinus disease TSH and ammonia level were normal -discussed with neurology no other recommendations at this time -patient has a AICD. Patient did have MRI done in October of this year were unfortunately our hospital MRI cannot scan even if the device is MRI compatible -MRI done in 10/2020 was consistent with PRES (2) Seizures: Code(s): R56.9 - Unspecified convulsions Status: Chronic Assessment and Plan: Patient presented with seizure activities, received Ativan and Keppra in the ER, was postictal and was intubated for airway protection -currently on Keppra 1500 mg q.12 -no seizure activity noted overnight -neurology has evaluated the patient and appreciate their recommendation -EEG 01/04/2021 - Abnormal record due to the presence of bihemispheric theta and delta slow activity with persistent right hemispheric delta activity admixed with sharp and slow-wave transients at the rate of 1 to 2 per seconds these abnormalities are suggestive of seizure disorder with right hemispheric focus . (3) Acute respiratory failure: Qualifiers: Respiratory failure complication: hypoxia Qualified Code(s): J96.01 - Acute respiratory failure with hypoxia Code(s): J96.00 - Acute respiratory failure, unspecified whether with hypoxia or hypercapnia Status: Acute Assessment and Plan: Patient was postictal after being given Ativan for his seizures in the ER and was unable to protect his airway, patient was intubated on 01/03/2021 -patient successfully extubated on 01/06/2021 -currently on room air -PT/OT has been ordered -patient was not cooperative enough for bedside swallow test which was again attempted 01/12 (4) COPD (chronic obstructive pulmonary disease): Qualifiers: COPD type: unspecified COPD Qualified Code(s): J44.9 - Chronic obstructive pulmonary disease, unspecified Code(s): J44.9 - Chronic obstructive pulmonary disease, unspecified Status: Acute Assessment and Plan: History of COPD, continue bronchodilators, -ABGs does not show any hypercapnia (5) ETOH abuse: Code(s): F10.10 - Alcohol abuse, uncomplicated Status: Acute Assessment and Plan: Continue thiamine and folic acid -patient with heavy alcohol use (6) Empyema: Code(s): J86.9 - Pyothorax without fistula Status: Acute Assessment and Plan: Patient had recently had an empyema and status post thoracotomy at [facility] in [facility]. Records have been requested -patient has been started on Unasyn as he was on Augmentin at home 01/10 -Dr. Eaton Discussed with Dr. Bobo, cell [phone], regarding the brooks from the thoracotomy and decortication on the right lung on 12/20/2020. he stated that remove EVERY OTHER STAPLE TODAY, Leave the sutures in. Then in 2 weeks remove all sutures and remaining brooks. (7) Tobacco dependence: Code(s): F17.200 - Nicotine dependence, unspecified, uncomplicated Status: Acute Assessment and Plan: Patient at this time is not a candidate for any counseling (8) DVT prophylaxis: Code(s): Z29.9 - Encounter for prophylactic measures, unspecified Status: Acute Assessment and Plan: SQ Myranda
--- NOTE | 2021-01-14 10:58 | PCDIET ---
Nutrition Follow-Up Complete: Nutrition Diagnosis: Inadequate oral intake related to oral intubation as evidenced by NPO status. Nutrition Goal: Patient will meet estimated nutritional needs. Goal in progress. Patient receiving Clinimix E / at recommended goal of 60mL/hr with 250mL 20% lipids daily for 1522kcal and 72g protein. Plan to insert Dobhoff today. Recommend Jevity 1.2 at goal of 60mL/hr x 22 hours/day for 1584kcal, 73g protein and 1065mL free water. Recommend 30mL water flush every 4 hours and tapering PN as tube feeding advances. Last recorded weight is 43.1 kg which is slightly down from last review, despite +I/O. Bowel Motility: BM x 2 on 01/11/21. Labs Reviewed: RBC (3.27), Hgb (9.4), Hct (29.0), BUN (5), Cr (0.3), K (5.1), Na (135), PO4 (5.3) Meds Noted: Albuterol, Unasyn, Magnesium Sulfate, Precedex, Folic Acid, Keppra, Protonix, KCl, Seroquel, Thiamine Additional Notes: No change in skin reported. Will continue to monitor with same goal. Nutrition Monitoring and Evaluation: Follow up every Sunday/Sunday.
[2021-01-14] MEDS: LORazepam INJ (*CRX) 2 MG/ML VIAL IV PUSH (11:35)
[2021-01-14] MEDS: QUEtiapine FUMARATE 25 MG TABLET PO ×2 (12:33→17:34)
[2021-01-14 12:42] LABS: Glucose Point of Care 105 mg/dl (65-105)
--- NOTE | 2021-01-14 14:46 | PCDIET ---
New order for Vital 1.5 at 40mL/hr received. Given 22 hour daily infusion, this will provide 1320kcal, 59g protein and 672mL free water. Recommend increasing to goal of 50mL/hr, as tolerated, for 1650kcal, 74g protein and 840mL free water. Agree with 100mL water flush every 4 hours. Would discontinue PN once tube feedings tolerated at 30mL/hr.
--- NOTE | 2021-01-14 15:22 | PM.IMPN ---
Progress Note: A&P Assessment and Plan (1) Encephalopathy: Code(s): G93.40 - Encephalopathy, unspecified Status: Acute Assessment and Plan: Remains in toxic metabolic encephalopathy with delirium. ? Withdrawal, patient does have CVA at baseline - Patient remains on Precedex although at lower rate, is confused, pulling on things, hallucinating, trying to get out of bed. I will trying to wean down Precedex to see if that helps - Seroquel started 01/13 after Neurology recommendation and will be advanced to twice a day today. -currently on room air with O2 sats -CT brain 01/09: No acute intracranial abnormality, no significant change, chronic bilateral occipital lobe infarctions, mild sinus disease TSH and ammonia level were normal -discussed with neurology no other recommendations at this time -patient has a AICD. Patient did have MRI done in October of this year were unfortunately our hospital MRI cannot scan even if the device is MRI compatible -MRI done in 10/2020 was consistent with PRES (2) Seizures: Code(s): R56.9 - Unspecified convulsions Status: Chronic Assessment and Plan: Patient presented with seizure activities, received Ativan and Keppra in the ER, was postictal and was intubated for airway protection -currently on Keppra 1500 mg q.12 hrs. -no seizure activity noted overnight -neurology has evaluated the patient and appreciate their recommendation -EEG 01/04/2021 - Abnormal record due to the presence of bihemispheric theta and delta slow activity with persistent right hemispheric delta activity admixed with sharp and slow-wave transients at the rate of 1 to 2 per seconds these abnormalities are suggestive of seizure disorder with right hemispheric focus . (3) Acute respiratory failure: Qualifiers: Respiratory failure complication: hypoxia Qualified Code(s): J96.01 - Acute respiratory failure with hypoxia Code(s): J96.00 - Acute respiratory failure, unspecified whether with hypoxia or hypercapnia Status: Acute Assessment and Plan: Patient was postictal after being given Ativan for his seizures in the ER and was unable to protect his airway, patient was intubated on 01/03/2021 -patient successfully extubated on 01/06/2021 -currently on room air -PT/OT has been ordered -patient was not cooperative enough for bedside swallow test which was again attempted 01/12 (4) COPD (chronic obstructive pulmonary disease): Qualifiers: COPD type: unspecified COPD Qualified Code(s): J44.9 - Chronic obstructive pulmonary disease, unspecified Code(s): J44.9 - Chronic obstructive pulmonary disease, unspecified Status: Acute Assessment and Plan: History of COPD, continue bronchodilators, -ABGs does not show any hypercapnia (5) ETOH abuse: Code(s): F10.10 - Alcohol abuse, uncomplicated Status: Acute Assessment and Plan: Continue thiamine and folic acid -patient with heavy alcohol use (6) Empyema: Code(s): J86.9 - Pyothorax without fistula Status: Acute Assessment and Plan: Patient had recently had an empyema and status post thoracotomy at [facility] in [facility]. Records have been requested -patient has been started on Unasyn as he was on Augmentin at home 01/10 -Dr. Eaton Discussed with Dr. Bobo, cell [phone], regarding the brooks from the thoracotomy and decortication on the right lung on 12/20/2020. he stated that remove every other staple on 01/10/2021, Leave the sutures in. Then in 2 weeks remove all sutures and remaining brooks. (7) Tobacco dependence: Code(s): F17.200 - Nicotine dependence, unspecified, uncomplicated Status: Acute Assessment and Plan: Patient at this time is not a candidate for any counseling (8) DVT prophylaxis: Code(s): Z29.9 - Encounter for prophylactic measures, unspecified Status: Acute Assessment and Plan:
[2021-01-14] MEDS: LORazepam INJ (*CRX) 2 MG/ML VIAL 0.5 MG IV PUSH (17:34)
[2021-01-14 17:49] LABS: Glucose Point of Care 111 mg/dl (65-105)
[2021-01-14] MEDS: AMINO ACIDS 5%/D15W/E-LYTES/CA 2,000 ML with MULTIVITAMINS-12 INJ VIAL 1 2.5 ML, MULTIV... 60 ML IV CONT (22:00)
[2021-01-14] MEDS: FAT EMULSIONS IV 20% 250 ML 20.83 ML IVPB (22:12)
[2021-01-15] VITALS (12 sets, daily range): BP systolic 123–156; BP diastolic 70–97; PULSE 98–120; RESP 20–30; TEMP 36.2–37.5; O2SAT 93–100
[2021-01-15 00:42] LABS: Glucose Point of Care 116 mg/dl (65-105)
[2021-01-15] MEDS: LORazepam INJ (*CRX) 2 MG/ML VIAL 0.5 MG IV PUSH ×4 (01:21→21:01)
[2021-01-15] MEDS: AMPICILLIN SULB 1.5 GM/NS 50ML 1.5 GM/50 ML VIAL IVPB ×4 (02:31→21:01)
[2021-01-15] MEDS: CENTRAL LINE FLUSH 10 ML IV PUSH ×3 (05:31→21:17)
[2021-01-15 05:52] LABS: Magnesium 1.6 mg/dL (1.6-2.3)
[2021-01-15 05:56] LABS: Anion Gap 10 mmol/L (8-16); Blood Urea Nitrogen 12 mg/dL (9-20); Calcium 9.4 mg/dL (8.4-10.2); Carbon Dioxide 24 mmol/L (22-30); Chloride 103 mmol/L (98-107); Estimated CRCL calculation 104 ml/min; Estimated Glomerular Filt Rate > 60; Glucose 111 mg/dL (65-110); Phosphorus 5.6 mg/dL (2.5-4.5); Potassium 3.7 mmol/L (3.4-5.0); Sodium 137 mmol/L (137-145)
[2021-01-15 06:30] LABS: Glucose Point of Care 89 mg/dl (65-105)
--- NOTE | 2021-01-15 07:47 | PM.IMPN ---
Progress Note: A&P Assessment and Plan (1) Encephalopathy: Code(s): G93.40 - Encephalopathy, unspecified Status: Acute Assessment and Plan: Appears to be toxic metabolic encephalopathy with delirium. ? Withdrawal, patient does have CVA at baseline - Patient remains on Precedex although at lower rate, ; he appears a lot calmer today but was noncommunicative at the time of my examination. - Seroquel started 01/13 after Neurology recommendation and will be advanced in dose further today --currently on room air with O2 sats -CT brain 01/09: No acute intracranial abnormality, no significant change, chronic bilateral occipital lobe infarctions, mild sinus disease TSH and ammonia level were normal -discussed with neurology no other recommendations at this time -patient has a AICD. Patient did have MRI done in October of this year were unfortunately our hospital MRI cannot scan even if the device is MRI compatible -MRI done in 10/2020 was consistent with PRES - I suspect some component of cortical visual impairment but I have discussed with Dr. Johnson and there is no way for us to check for it here (2) Seizures: Code(s): R56.9 - Unspecified convulsions Status: Chronic Assessment and Plan: Patient presented with seizure activities, received Ativan and Keppra in the ER, was postictal and was intubated for airway protection -currently on Keppra 1500 mg q.12 -no seizure activity noted overnight -neurology has evaluated the patient and appreciate their recommendation -EEG 01/04/2021 - Abnormal record due to the presence of bihemispheric theta and delta slow activity with persistent right hemispheric delta activity admixed with sharp and slow-wave transients at the rate of 1 to 2 per seconds these abnormalities are suggestive of seizure disorder with right hemispheric focus . (3) Acute respiratory failure: Qualifiers: Respiratory failure complication: hypoxia Qualified Code(s): J96.01 - Acute respiratory failure with hypoxia Code(s): J96.00 - Acute respiratory failure, unspecified whether with hypoxia or hypercapnia Status: Acute Assessment and Plan: Patient was postictal after being given Ativan for his seizures in the ER and was unable to protect his airway, patient was intubated on 01/03/2021 -patient successfully extubated on 01/06/2021 -currently on room air -PT/OT has been ordered - bedside swallow test on 01/17/2021 (4) COPD (chronic obstructive pulmonary disease): Qualifiers: COPD type: unspecified COPD Qualified Code(s): J44.9 - Chronic obstructive pulmonary disease, unspecified Code(s): J44.9 - Chronic obstructive pulmonary disease, unspecified Status: Acute Assessment and Plan: History of COPD, continue bronchodilators, -ABGs does not show any hypercapnia -continue inhalers as needed. Currently there is no evidence of exacerbation. (5) ETOH abuse: Code(s): F10.10 - Alcohol abuse, uncomplicated Status: Acute Assessment and Plan: Continue thiamine and folic acid supplementation. -patient with her recent history of heavy alcohol use (6) Empyema: Code(s): J86.9 - Pyothorax without fistula Status: Acute Assessment and Plan: Patient had recently had a pyothorax and status post thoracotomy at [facility] in [facility]. Records have been requested -patient has been started on Unasyn as he was on Augmentin at home 01/10 -Dr. Eaton Discussed with Dr. Bobo, cell [phone], regarding the brooks from the thoracotomy and decortication on the right lung on 12/20/2020. he stated that remove EVERY OTHER STAPLE TODAY, Leave the sutures in. Then in 2 weeks remove all sutures and remaining brooks. (7) Tobacco dependence: Code(s): F17.200 - Nicotine dependence, unspecified, uncomplicated Status: Acute Assessment and Plan: Patient at this time is not a candidate for any
[2021-01-15] MEDS: PANTOPRAZOLE SODIUM IV 40 MG VIAL IV PUSH ×2 (08:39→21:16)
[2021-01-15] MEDS: ENOXAPARIN 40 MG/0.4 ML SYRINGE SUB-Q (08:39)
[2021-01-15] MEDS: THIAMINE HCL 200 MG/2 ML VIAL 100 MG IV PUSH (08:39)
[2021-01-15] MEDS: QUEtiapine FUMARATE 25 MG TABLET PO (08:40)
--- NOTE | 2021-01-15 08:56 | WPDINTPN ---
Progress Note: A&P Assessment and Plan (1) Encephalopathy: Code(s): G93.40 - Encephalopathy, unspecified Status: Acute Assessment and Plan: Appears to be toxic metabolic encephalopathy with delirium. ? Withdrawal, patient does have CVA at baseline - Patient remains on Precedex although at lower rate, is confused, pulling on things, hallucinating, trying to get out of bed. I will trying to wean down Precedex to see if that helps - Seroquel started 01/13 after Neurology recommendation and will be advanced in dose further today --currently on room air with O2 sats -CT brain 01/09: No acute intracranial abnormality, no significant change, chronic bilateral occipital lobe infarctions, mild sinus disease TSH and ammonia level were normal -discussed with neurology no other recommendations at this time -patient has a AICD. Patient did have MRI done in October of this year were unfortunately our hospital MRI cannot scan even if the device is MRI compatible -MRI done in 10/2020 was consistent with PRES - I suspect some component of cortical visual impairment but I have discussed with Dr. Johnson and there is no way for us to check for it here (2) Seizures: Code(s): R56.9 - Unspecified convulsions Status: Chronic Assessment and Plan: Patient presented with seizure activities, received Ativan and Keppra in the ER, was postictal and was intubated for airway protection -currently on Keppra 1500 mg q.12 -no seizure activity noted overnight -neurology has evaluated the patient and appreciate their recommendation -EEG 01/04/2021 - Abnormal record due to the presence of bihemispheric theta and delta slow activity with persistent right hemispheric delta activity admixed with sharp and slow-wave transients at the rate of 1 to 2 per seconds these abnormalities are suggestive of seizure disorder with right hemispheric focus . (3) Acute respiratory failure: Qualifiers: Respiratory failure complication: hypoxia Qualified Code(s): J96.01 - Acute respiratory failure with hypoxia Code(s): J96.00 - Acute respiratory failure, unspecified whether with hypoxia or hypercapnia Status: Acute Assessment and Plan: Patient was postictal after being given Ativan for his seizures in the ER and was unable to protect his airway, patient was intubated on 01/03/2021 -patient successfully extubated on 01/06/2021 -currently on room air -PT/OT has been ordered -patient was not cooperative enough for bedside swallow test which was again attempted 01/12 (4) COPD (chronic obstructive pulmonary disease): Qualifiers: COPD type: unspecified COPD Qualified Code(s): J44.9 - Chronic obstructive pulmonary disease, unspecified Code(s): J44.9 - Chronic obstructive pulmonary disease, unspecified Status: Acute Assessment and Plan: History of COPD, continue bronchodilators, -ABGs does not show any hypercapnia (5) ETOH abuse: Code(s): F10.10 - Alcohol abuse, uncomplicated Status: Acute Assessment and Plan: Continue thiamine and folic acid -patient with heavy alcohol use (6) Empyema: Code(s): J86.9 - Pyothorax without fistula Status: Acute Assessment and Plan: Patient had recently had an empyema and status post thoracotomy at [facility] in [facility]. Records have been requested -patient has been started on Unasyn as he was on Augmentin at home 01/10 -Dr. Eaton Discussed with Dr. Bobo, cell [phone], regarding the brooks from the thoracotomy and decortication on the right lung on 12/20/2020. he stated that remove EVERY OTHER STAPLE TODAY, Leave the sutures in. Then in 2 weeks remove all sutures and remaining brooks. (7) Tobacco dependence: Code(s): F17.200 - Nicotine dependence, unspecified, uncomplicated Status: Acute Assessment and Plan: Patient at this time is not a candidate for any counseling (8) DVT
[2021-01-15] MEDS: MAGNESIUM SULF 2 GM/WATER 50ML 2 GM/50 ML BAG IVPB (09:12)
[2021-01-15] MEDS: FOLIC ACID 1 MG/0.2 ML INJ IV PUSH (10:13)
[2021-01-15 11:57] LABS: Glucose Point of Care 98 mg/dl (65-105)
[2021-01-15] MEDS: QUEtiapine FUMARATE 25 MG TABLET 50 MG PO (21:17)
[2021-01-16] VITALS (12 sets, daily range): BP systolic 91–165; BP diastolic 63–110; PULSE 93–120; RESP 19–27; TEMP 36.3–37.7; O2SAT 94–100
[2021-01-16] MEDS: AMPICILLIN SULB 1.5 GM/NS 50ML 1.5 GM/50 ML VIAL IVPB ×4 (03:45→20:39)
[2021-01-16] MEDS: CENTRAL LINE FLUSH 10 ML IV PUSH ×3 (06:28→20:40)
[2021-01-16 06:45] LABS: Hematocrit 32.1 % (42.0-52.0); Hemoglobin 8.7 g/dL (14.0-18.0); Mean Corpuscular HGB Conc 27.1 g/dl (32-36); Mean Corpuscular Hemoglobin 28.6 pg (26-34); Mean Corpuscular Volume 105.6 fl (80-100); Mean Platelet Volume 9.5 fl (7.4-10.4); Platelet Count Result 385 k/mm3 (150-375); Red Blood Count 3.04 M/mm3 (4.6-6.20); Red Cell Distribution Width 19.2 % (11.5-14.5); White Blood Count 7.5 K/mm3 (4.5-10.0)
[2021-01-16 06:54] LABS: Triglycerides 52 mg/dL (<150)
--- NOTE | 2021-01-16 07:45 | PM.IMPN ---
Progress Note: A&P Assessment and Plan (1) Encephalopathy: Code(s): G93.40 - Encephalopathy, unspecified Status: Acute Assessment and Plan: Appears to be toxic metabolic encephalopathy with delirium. ? Withdrawal, patient does have CVA at baseline - Patient remains on Precedex although at lower rate, ; he appears calmer today but was noncommunicative at the time of my examination. - Seroquel started 01/13 after Neurology recommendation and will be advanced in dose further today --currently on room air with O2 sats -CT brain 01/09: No acute intracranial abnormality, no significant change, chronic bilateral occipital lobe infarctions, mild sinus disease TSH and ammonia level were normal -discussed with neurology no other recommendations at this time -patient has a AICD. Patient did have MRI done in October of this year were unfortunately our hospital MRI cannot scan even if the device is MRI compatible -MRI done in 10/2020 was consistent with PRES - I suspect some component of cortical visual impairment but I have discussed with Dr. Johnson and there is no way for us to check for it here (2) Seizures: Code(s): R56.9 - Unspecified convulsions Status: Chronic Assessment and Plan: Patient presented with seizure activities, received Ativan and Keppra in the ER, was postictal and was intubated for airway protection -Continue Keppra 1500 mg q.12 -no seizure activity noted overnight -neurology has evaluated the patient and appreciate their recommendation -EEG 01/04/2021 - Abnormal record due to the presence of bihemispheric theta and delta slow activity with persistent right hemispheric delta activity admixed with sharp and slow-wave transients at the rate of 1 to 2 per seconds these abnormalities are suggestive of seizure disorder with right hemispheric focus . (3) Acute respiratory failure: Qualifiers: Respiratory failure complication: hypoxia Qualified Code(s): J96.01 - Acute respiratory failure with hypoxia Code(s): J96.00 - Acute respiratory failure, unspecified whether with hypoxia or hypercapnia Status: Acute Assessment and Plan: Patient was postictal after being given Ativan for his seizures in the ER and was unable to protect his airway, patient was intubated on 01/03/2021 -patient successfully extubated on 01/06/2021 -currently on room air -PT/OT has been ordered - bedside swallow test on 01/17/2021 (4) COPD (chronic obstructive pulmonary disease): Qualifiers: COPD type: unspecified COPD Qualified Code(s): J44.9 - Chronic obstructive pulmonary disease, unspecified Code(s): J44.9 - Chronic obstructive pulmonary disease, unspecified Status: Acute Assessment and Plan: History of COPD, continue bronchodilators, -ABGs does not show any hypercapnia -continue inhalers as needed. Currently there is no evidence of exacerbation. (5) ETOH abuse: Code(s): F10.10 - Alcohol abuse, uncomplicated Status: Acute Assessment and Plan: Continue thiamine and folic acid supplementation. -patient with her recent history of heavy alcohol use (6) Empyema: Code(s): J86.9 - Pyothorax without fistula Status: Acute Assessment and Plan: Patient had recently had a pyothorax and status post thoracotomy at [facility] in [facility]. Records have been requested -patient has been started on Unasyn as he was on Augmentin at home 01/10 -Dr. Eaton Discussed with Dr. Bobo, cell [phone], regarding the brooks from the thoracotomy and decortication on the right lung on 12/20/2020. (7) Tobacco dependence: Code(s): F17.200 - Nicotine dependence, unspecified, uncomplicated Status: Acute Assessment and Plan: Patient at this time is not a candidate for any counseling. Place patch every 24 hours for comfort. (8) DVT prophylaxis: Code(s): Z29.9 - Encounter for prophylactic measures, un
[2021-01-16 08:08] LABS: Anion Gap 11 mmol/L (8-16); Blood Urea Nitrogen 16 mg/dL (9-20); Calcium 9.6 mg/dL (8.4-10.2); Carbon Dioxide 26 mmol/L (22-30); Chloride 99 mmol/L (98-107); Estimated CRCL calculation 146 ml/min; Estimated Glomerular Filt Rate > 60; Glucose 115 mg/dL (65-110); Magnesium 1.6 mg/dL (1.6-2.3); Phosphorus 5.9 mg/dL (2.5-4.5); Potassium 4.4 mmol/L (3.4-5.0); Sodium 136 mmol/L (137-145)
--- NOTE | 2021-01-16 08:44 | WPDINTPN ---
Progress Note: A&P Assessment and Plan (1) Encephalopathy: Code(s): G93.40 - Encephalopathy, unspecified Status: Acute Assessment and Plan: Appears to be toxic metabolic encephalopathy with delirium. ? Withdrawal, patient does have CVA at baseline - Patient remains on Precedex although at lower rate, is confused, pulling on things, hallucinating, trying to get out of bed. I will trying to wean down Precedex to see if that helps - Seroquel started 01/13 after Neurology recommendation and will be advanced in dose further today --currently on room air with O2 sats -CT brain 01/09: No acute intracranial abnormality, no significant change, chronic bilateral occipital lobe infarctions, mild sinus disease TSH and ammonia level were normal -discussed with neurology no other recommendations at this time -patient has a AICD. Patient did have MRI done in October of this year were unfortunately our hospital MRI cannot scan even if the device is MRI compatible -MRI done in 10/2020 was consistent with PRES - I suspect some component of cortical visual impairment but I have discussed with Dr. Johnson and there is no way for us to check for it here - psychiatric evaluation will be helpful but at this time patient is not medically cleared for psych to evaluate him here in the hospital or will need to be transferred to another facility (2) Seizures: Code(s): R56.9 - Unspecified convulsions Status: Chronic Assessment and Plan: Patient presented with seizure activities, received Ativan and Keppra in the ER, was postictal and was intubated for airway protection -currently on Keppra 1500 mg q.12 -no seizure activity noted overnight -neurology has evaluated the patient and appreciate their recommendation -EEG 01/04/2021 - Abnormal record due to the presence of bihemispheric theta and delta slow activity with persistent right hemispheric delta activity admixed with sharp and slow-wave transients at the rate of 1 to 2 per seconds these abnormalities are suggestive of seizure disorder with right hemispheric focus . (3) Acute respiratory failure: Qualifiers: Respiratory failure complication: hypoxia Qualified Code(s): J96.01 - Acute respiratory failure with hypoxia Code(s): J96.00 - Acute respiratory failure, unspecified whether with hypoxia or hypercapnia Status: Acute Assessment and Plan: Patient was postictal after being given Ativan for his seizures in the ER and was unable to protect his airway, patient was intubated on 01/03/2021 -patient successfully extubated on 01/06/2021 -currently on room air -PT/OT has been ordered -patient was not cooperative enough for bedside swallow test which was again attempted 01/12 (4) COPD (chronic obstructive pulmonary disease): Qualifiers: COPD type: unspecified COPD Qualified Code(s): J44.9 - Chronic obstructive pulmonary disease, unspecified Code(s): J44.9 - Chronic obstructive pulmonary disease, unspecified Status: Acute Assessment and Plan: History of COPD, continue bronchodilators, -ABGs does not show any hypercapnia (5) ETOH abuse: Code(s): F10.10 - Alcohol abuse, uncomplicated Status: Acute Assessment and Plan: Continue thiamine and folic acid -patient with heavy alcohol use (6) Empyema: Code(s): J86.9 - Pyothorax without fistula Status: Acute Assessment and Plan: Patient had recently had an empyema and status post thoracotomy at [facility] in [facility]. Records have been requested -patient has been started on Unasyn as he was on Augmentin at home 01/10 -Dr. Eaton Discussed with Dr. Bobo, cell [phone], regarding the brooks from the thoracotomy and decortication on the right lung on 12/20/2020. he stated that remove EVERY OTHER STAPLE TODAY, Leave the sutures in. Then in 2 weeks remove all sutures and remaining brooks. (7) Tobacco dependence:
[2021-01-16] MEDS: LORazepam INJ (*CRX) 2 MG/ML VIAL 0.5 MG IV PUSH ×2 (08:51→15:51)
[2021-01-16] MEDS: ENOXAPARIN 40 MG/0.4 ML SYRINGE SUB-Q (08:52)
[2021-01-16] MEDS: PANTOPRAZOLE SODIUM IV 40 MG VIAL IV PUSH ×2 (08:53→20:40)
[2021-01-16] MEDS: THIAMINE HCL 200 MG/2 ML VIAL 100 MG IV PUSH (08:53)
[2021-01-16] MEDS: QUEtiapine FUMARATE 25 MG TABLET PO (08:54)
[2021-01-16] MEDS: FOLIC ACID 1 MG/0.2 ML INJ IV PUSH (09:07)
[2021-01-16 12:45] LABS: Glucose Point of Care 89 mg/dl (65-105)
[2021-01-16 16:30] LABS: Glucose Point of Care 108 mg/dl (65-105)
[2021-01-16] MEDS: QUEtiapine FUMARATE 25 MG TABLET 50 MG PO (20:40)
[2021-01-17] VITALS (12 sets, daily range): BP systolic 95–122; BP diastolic 64–82; PULSE 91–109; RESP 16–25; TEMP 36.7–37.4; O2SAT 94–99
[2021-01-17] MEDS: AMPICILLIN SULB 1.5 GM/NS 50ML 1.5 GM/50 ML VIAL IVPB ×4 (02:45→20:15)
[2021-01-17 04:24] LABS: Basophils Absolute Auto 0.1 K/mm3 (0.0-0.1); Basophils Percent Auto 1.2 % (0.2-1.2); Eosinophils Absolute Auto 0.4 K/mm3 (0-0.3); Eosinophils Percent Auto 4.6 % (0-4.4); Hematocrit 28.4 % (42.0-52.0); Hemoglobin 9.1 g/dL (14.0-18.0); Immature Granulocyte Absolute 0.03 K/mm3 (0.00-0.031); Immature Granulocyte Percent A 0.3 % (0-0.5); Lymphocytes Absolute Auto 0.94 K/mm3 (0.9-3.2); Lymphocytes Percent Auto 10.9 % (18.3-44.2); Mean Corpuscular Hemoglobin 28.9 pg (26-34); Mean Corpuscular Volume 90.2 fl (80-100); Mean Platelet Volume 9.2 fl (7.4-10.4); Monocytes Absolute Auto 0.8 K/mm3 (0.1-0.6); Monocytes Percent Auto 8.8 % (2.6-8.5); Neutrophils Absolute Auto 6.4 K/mm3 (1.3-6.7); Neutrophils Percent Auto 74.2 % (45.5-73.1); Platelet Count Result 337 k/mm3 (150-375); Red Blood Count 3.15 M/mm3 (4.6-6.20); Red Cell Distribution Width 17.8 % (11.5-14.5); White Blood Count 8.7 K/mm3 (4.5-10.0)
[2021-01-17 04:33] LABS: Prothrombin Time 13.2 Seconds (11.1-14.7)
[2021-01-17 04:35] LABS: Partial Thromboplastin Time 51.1 SECONDS (22.3-36.8)
[2021-01-17 04:37] LABS: Alanine Aminotransferase 49 U/L (4-50); Albumin Level 3.4 g/dL (3.5-5.1); Alkaline Phosphatase 107 U/L (38-126); Anion Gap 6 mmol/L (8-16); Aspartate Amino Transferase 79 U/L (17-59); Bilirubin,Total 0.3 mg/dL (0.2-1.3); Blood Urea Nitrogen 16 mg/dL (9-20); Calcium 9.2 mg/dL (8.4-10.2); Carbon Dioxide 30 mmol/L (22-30); Chloride 98 mmol/L (98-107); Estimated CRCL calculation 115 ml/min; Estimated Glomerular Filt Rate > 60; Glucose 121 mg/dL (65-110); Magnesium 1.3 mg/dL (1.6-2.3); Phosphorus 4.9 mg/dL (2.5-4.5); Potassium 4.4 mmol/L (3.4-5.0); Sodium 134 mmol/L (137-145)
[2021-01-17 04:44] LABS: Transferrin 119 mg/dL (206-381)
[2021-01-17] MEDS: CENTRAL LINE FLUSH 10 ML IV PUSH ×3 (06:56→20:10)
[2021-01-17] MEDS: MAGNESIUM SULFATE 3GM/D5W100ML 3 GM/100 ML BAG IVPB (09:07)
[2021-01-17] MEDS: FOLIC ACID 1 MG/0.2 ML INJ IV PUSH (09:08)
[2021-01-17] MEDS: ENOXAPARIN 40 MG/0.4 ML SYRINGE SUB-Q (09:08)
[2021-01-17] MEDS: THIAMINE HCL 200 MG/2 ML VIAL 100 MG IV PUSH (09:08)
[2021-01-17] MEDS: QUEtiapine FUMARATE 25 MG TABLET PO (09:09)
[2021-01-17] MEDS: PANTOPRAZOLE SODIUM IV 40 MG VIAL IV PUSH ×2 (09:09→20:13)
--- NOTE | 2021-01-17 09:34 | WPDINTPN ---
Progress Note: A&P Assessment and Plan (1) Encephalopathy: Code(s): G93.40 - Encephalopathy, unspecified Status: Acute Assessment and Plan: Appears to be toxic metabolic encephalopathy with delirium. ? Withdrawal, patient does have CVA at baseline - Patient was on Precedex early in the course but has been off now for many days - Seroquel started 01/13 after Neurology recommendation and will be continue --currently on room air with O2 sats -CT brain 01/09: No acute intracranial abnormality, no significant change, chronic bilateral occipital lobe infarctions, mild sinus disease TSH and ammonia level were normal -discussed with neurology no other recommendations at this time -patient has a AICD. Patient did have MRI done in October of this year were unfortunately our hospital MRI cannot scan even if the device is MRI compatible -MRI done in 10/2020 was consistent with PRES - I suspect some component of cortical visual impairment which has been confirmed by patient's daughter and I have discussed with Dr. Johnson and there is no way for us to check for it here - psychiatric evaluation will be helpful but at this time patient is not medically cleared for psych to evaluate him here in the hospital or will need to be transferred to another facility (2) Seizures: Code(s): R56.9 - Unspecified convulsions Status: Chronic Assessment and Plan: Patient presented with seizure activities, received Ativan and Keppra in the ER, was postictal and was intubated for airway protection -currently on Keppra 1500 mg q.12 -no seizure activity noted overnight -neurology has evaluated the patient and appreciate their recommendation -EEG 01/04/2021 - Abnormal record due to the presence of bihemispheric theta and delta slow activity with persistent right hemispheric delta activity admixed with sharp and slow-wave transients at the rate of 1 to 2 per seconds these abnormalities are suggestive of seizure disorder with right hemispheric focus . (3) Acute respiratory failure: Qualifiers: Respiratory failure complication: hypoxia Qualified Code(s): J96.01 - Acute respiratory failure with hypoxia Code(s): J96.00 - Acute respiratory failure, unspecified whether with hypoxia or hypercapnia Status: Acute Assessment and Plan: Patient was postictal after being given Ativan for his seizures in the ER and was unable to protect his airway, patient was intubated on 01/03/2021 -patient successfully extubated on 01/06/2021 -currently on room air -PT/OT has been ordered -patient was not cooperative enough for bedside swallow test which was again attempted 01/12 (4) COPD (chronic obstructive pulmonary disease): Qualifiers: COPD type: unspecified COPD Qualified Code(s): J44.9 - Chronic obstructive pulmonary disease, unspecified Code(s): J44.9 - Chronic obstructive pulmonary disease, unspecified Status: Acute Assessment and Plan: History of COPD, continue bronchodilators, (5) ETOH abuse: Code(s): F10.10 - Alcohol abuse, uncomplicated Status: Acute Assessment and Plan: Continue thiamine and folic acid -patient with heavy alcohol use (6) Empyema: Code(s): J86.9 - Pyothorax without fistula Status: Acute Assessment and Plan: Patient had recently had an empyema and status post thoracotomy at [facility] in [facility]. Records have been requested -patient has been started on Unasyn as he was on Augmentin at home 01/10 -Dr. Eaton Discussed with Dr. Bobo, cell [phone], regarding the brooks from the thoracotomy and decortication on the right lung on 12/20/2020. he stated that remove EVERY OTHER STAPLE TODAY, Leave the sutures in. Then in 2 weeks remove all sutures and remaining brooks. (7) Tobacco dependence: Code(s): F17.200 - Nicotine dependence, unspecified, uncomplicated Status: Acute Assessment
[2021-01-17 09:43] LABS: Triglycerides 108 mg/dL (<150)
--- NOTE | 2021-01-17 10:42 | PCDIET ---
ICU Rounding Note: Patient tolerating Vital 1.2 at 60mL/hr goal rate which provides 1980kcal, 89g protein and 1008mL free water over 22 hours/day. Receiving 100mL water flush every 4 hours. Last recorded weight is 48.2kg which is increased from last review. +I/O. Bowel Motility: Last documented BM on 01/16/21. Labs Reviewed: RBC (3.15), Hgb (9.1), Hct (28.4), Glu (121), Cr (0.4), Na (134), Alb (3.4), PO4 (4.9), Mg (1.5) Meds Noted: Albuterol, Magnesium Sulfate, Unasyn, Folic Acid, Apresoline Additional Notes: No documented skin changes. Following daily in ICU rounds. Assessing/reassessing every Sunday/Sunday.
[2021-01-17 12:29] LABS: Glucose Point of Care 109 mg/dl (65-105)
[2021-01-17] MEDS: LORazepam INJ (*CRX) 2 MG/ML VIAL 0.5 MG IV PUSH ×2 (13:20→23:59)
--- NOTE | 2021-01-17 13:52 | PC.NURSE ---
Patient become increasingly agitated, yelling at individuals not present in the room. Patient was also kicking legs over the bed side rail. Ativan given at this time.
[2021-01-17 17:38] LABS: Glucose Point of Care 97 mg/dl (65-105)
--- NOTE | 2021-01-17 18:04 | PM.IMPN ---
Progress Note: A&P Assessment and Plan (1) Encephalopathy: Code(s): G93.40 - Encephalopathy, unspecified Status: Acute Assessment and Plan: Appears to be toxic metabolic encephalopathy with delirium. ? Withdrawal, patient does have CVA at baseline - Patient was treated with Precedex in the beginning now off, needing as needed p.r.n. Ativan for agitation; he appears calmer today but was noncommunicative at the time of my examination. - Seroquel started 01/13 after Neurology recommendation delete y --currently on room air with O2 sats -CT brain 01/09: No acute intracranial abnormality, no significant change, chronic bilateral occipital lobe infarctions, mild sinus disease TSH and ammonia level were normal -patient has a AICD. Patient did have MRI done in October of this year were unfortunately our hospital MRI cannot scan even if the device is MRI compatible -MRI done in 10/2020 was consistent with PRES Suspect some component of cortical visual impairment (2) Seizures: Code(s): R56.9 - Unspecified convulsions Status: Chronic Assessment and Plan: Patient presented with seizure activities, received Ativan and Keppra in the ER, was postictal and was intubated for airway protection -Continue Keppra 1500 mg q.12 -no seizure activity noted so far here -neurology has evaluated the patient and appreciate their recommendation -EEG 01/04/2021 - Abnormal record due to the presence of bihemispheric theta and delta slow activity with persistent right hemispheric delta activity admixed with sharp and slow-wave transients at the rate of 1 to 2 per seconds these abnormalities are suggestive of seizure disorder with right hemispheric focus . (3) Acute respiratory failure: Qualifiers: Respiratory failure complication: hypoxia Qualified Code(s): J96.01 - Acute respiratory failure with hypoxia Code(s): J96.00 - Acute respiratory failure, unspecified whether with hypoxia or hypercapnia Status: Acute Assessment and Plan: Patient was postictal after being given Ativan for his seizures in the ER and was unable to protect his airway, patient was intubated on 01/03/2021 -patient successfully extubated on 01/06/2021 -currently on room air -PT/OT has been ordered - bedside swallow test on 01/17/2021 (4) COPD (chronic obstructive pulmonary disease): Qualifiers: COPD type: unspecified COPD Qualified Code(s): J44.9 - Chronic obstructive pulmonary disease, unspecified Code(s): J44.9 - Chronic obstructive pulmonary disease, unspecified Status: Acute Assessment and Plan: History of COPD, continue bronchodilators, -ABGs does not show any hypercapnia -continue inhalers as needed. Currently there is no evidence of exacerbation. (5) ETOH abuse: Code(s): F10.10 - Alcohol abuse, uncomplicated Status: Acute Assessment and Plan: Continue thiamine and folic acid supplementation. -patient with her recent history of heavy alcohol use (6) Empyema: Code(s): J86.9 - Pyothorax without fistula Status: Acute Assessment and Plan: Patient had recently had a pyothorax and status post thoracotomy at [facility] in [facility]. Records have been requested -patient has been started on Unasyn as he was on Augmentin at home 01/10 -Dr. Eaton Discussed with Dr. Bobo, cell [phone], regarding the brooks from the thoracotomy and decortication on the right lung on 12/20/2020. (7) Tobacco dependence: Code(s): F17.200 - Nicotine dependence, unspecified, uncomplicated Status: Acute Assessment and Plan: Patient at this time is not a candidate for any counseling. Place patch every 24 hours for comfort. (8) DVT prophylaxis: Code(s): Z29.9 - Encounter for prophylactic measures, unspecified Status: Acute Assessment and Plan: SQ Lovenox (9) Electrolyte abnormality: Code(s): E87.8 - Other
[2021-01-17] MEDS: QUEtiapine FUMARATE 25 MG TABLET 50 MG PO (20:13)
[2021-01-17 23:55] LABS: Glucose Point of Care 89 mg/dl (65-105)
[2021-01-18] VITALS (12 sets, daily range): BP systolic 102–138; BP diastolic 68–99; PULSE 88–108; RESP 18–34; TEMP 36.5–37.2; O2SAT 93–98
[2021-01-18] MEDS: AMPICILLIN SULB 1.5 GM/NS 50ML 1.5 GM/50 ML VIAL IVPB ×4 (02:57→20:09)
[2021-01-18] MEDS: CENTRAL LINE FLUSH 10 ML IV PUSH ×3 (05:18→20:15)
[2021-01-18 05:50] LABS: Hematocrit 26.9 % (42.0-52.0); Hemoglobin 8.5 g/dL (14.0-18.0); Mean Corpuscular HGB Conc 31.6 g/dl (32-36); Mean Corpuscular Hemoglobin 28.6 pg (26-34); Mean Corpuscular Volume 90.6 fl (80-100); Mean Platelet Volume 9.3 fl (7.4-10.4); Platelet Count Result 341 k/mm3 (150-375); Red Blood Count 2.97 M/mm3 (4.6-6.20); Red Cell Distribution Width 17.5 % (11.5-14.5); White Blood Count 8.7 K/mm3 (4.5-10.0)
[2021-01-18 06:08] LABS: Anion Gap 10 mmol/L (8-16); Blood Urea Nitrogen 14 mg/dL (9-20); Calcium 9.1 mg/dL (8.4-10.2); Carbon Dioxide 27 mmol/L (22-30); Chloride 97 mmol/L (98-107); Estimated CRCL calculation 123 ml/min; Estimated Glomerular Filt Rate > 60; Glucose 97 mg/dL (65-110); Magnesium 1.6 mg/dL (1.6-2.3); Potassium 4.4 mmol/L (3.4-5.0); Sodium 134 mmol/L (137-145)
[2021-01-18] MEDS: LORazepam INJ (*CRX) 2 MG/ML VIAL 0.5 MG IV PUSH (06:56)
[2021-01-18] MEDS: MAGNESIUM SULF 2 GM/WATER 50ML 2 GM/50 ML BAG IVPB (07:58)
[2021-01-18] MEDS: ENOXAPARIN 40 MG/0.4 ML SYRINGE SUB-Q (08:00)
[2021-01-18] MEDS: THIAMINE HCL 200 MG/2 ML VIAL 100 MG IV PUSH (08:00)
[2021-01-18] MEDS: PANTOPRAZOLE SODIUM IV 40 MG VIAL IV PUSH ×2 (08:00→20:13)
[2021-01-18] MEDS: QUEtiapine FUMARATE 25 MG TABLET PO (08:01)
--- NOTE | 2021-01-18 08:50 | WPDINTPN ---
Progress Note: A&P Assessment and Plan (1) Encephalopathy: Code(s): G93.40 - Encephalopathy, unspecified Status: Acute Assessment and Plan: Appears to be toxic metabolic encephalopathy with delirium. ? Withdrawal, patient does have CVA at baseline - Patient was on Precedex early in the course but has been off now for many days - Seroquel started 01/13 after Neurology recommendation and will be continue. -patient is slowly improving --currently on room air with O2 sats -CT brain 01/09: No acute intracranial abnormality, no significant change, chronic bilateral occipital lobe infarctions, mild sinus disease TSH and ammonia level were normal -discussed with neurology no other recommendations at this time -patient has a AICD. Patient did have MRI done in October of this year were unfortunately our hospital MRI cannot scan even if the device is MRI compatible -MRI done in 10/2020 was consistent with PRES - I suspect some component of cortical visual impairment which has been confirmed by patient's daughter and I have discussed with Dr. Johnson and there is no way for us to check for it here - psychiatric evaluation will be helpful but at this time patient is not medically cleared for psych to evaluate him here in the hospital or will need to be transferred to another facility (2) Seizures: Code(s): R56.9 - Unspecified convulsions Status: Chronic Assessment and Plan: Patient presented with seizure activities, received Ativan and Keppra in the ER, was postictal and was intubated for airway protection -currently on Keppra 1500 mg q.12 -no seizure activity noted overnight -neurology has evaluated the patient and appreciate their recommendation -EEG 01/04/2021 - Abnormal record due to the presence of bihemispheric theta and delta slow activity with persistent right hemispheric delta activity admixed with sharp and slow-wave transients at the rate of 1 to 2 per seconds these abnormalities are suggestive of seizure disorder with right hemispheric focus . (3) Dysphagia: Code(s): R13.10 - Dysphagia, unspecified Status: Acute Assessment and Plan: Patient has been unable to complete a swallow evaluation due to lack of cooperation and agitation He was started on TPN earlier this week Nursing staff has been unable to place an NG tube despite multiple attempts yesterday. Dobbhoff placement by IR on 01/14 and patient was tolerating tube feeds without any issues. TPN was discontinued I have consulted GI for PEG tube placement as patient's daughter is agreeable Patient pulled out his Dobbhoff last night and is swallow eval was again attempted this morning but was not successful Will try to get another Dobbhoff placed today to feed him until PEG is placed (4) Acute respiratory failure: Qualifiers: Respiratory failure complication: hypoxia Qualified Code(s): J96.01 - Acute respiratory failure with hypoxia Code(s): J96.00 - Acute respiratory failure, unspecified whether with hypoxia or hypercapnia Status: Acute Assessment and Plan: Patient was postictal after being given Ativan for his seizures in the ER and was unable to protect his airway, patient was intubated on 01/03/2021 -patient successfully extubated on 01/06/2021 -currently on room air -PT/OT has been ordered (5) COPD (chronic obstructive pulmonary disease): Qualifiers: COPD type: unspecified COPD Qualified Code(s): J44.9 - Chronic obstructive pulmonary disease, unspecified Code(s): J44.9 - Chronic obstructive pulmonary disease, unspecified Status: Acute Assessment and Plan: History of COPD, continue bronchodilators, (6) ETOH abuse: Code(s): F10.10 - Alcohol abuse, uncomplicated Status: Acute Assessment and Plan: Continue thiamine and folic acid -patient with heavy alcohol use in the past (7) Empyema: Code(s): J86.9 - Pyothorax without fistula S
--- NOTE | 2021-01-18 09:47 | PCSTNOTE ---
Please refer to the Bedside Swallow Evaluation in the EMR. Please note, silent aspiration cannot be ruled out at bedside.
[2021-01-18] MEDS: LORazepam INJ (*CRX) 2 MG/ML VIAL 1 MG IV PUSH (09:49)
[2021-01-18] MEDS: FOLIC ACID 1 MG/0.2 ML INJ IV PUSH (10:01)
--- NOTE | 2021-01-18 10:31 | PCDIET ---
Nutrition Follow-Up Complete: Nutrition Diagnosis: Inadequate oral intake related to oral intubation as evidenced by NPO status. Nutrition Goal: Patient will meet estimated nutritional needs. Goal in progress. Patient previously tolerating tube feedings, but pulled out Dobhoff tube overnight. Currently having feeding tube replaced. Last recorded weight is 50.6 kg which is up from last review. Bowel Motility: +BM on 01/16/21. Labs Reviewed: RBC (2.97), Hgb (8.5), Hct (26.9), Cr (0.4), Na (134), Mg (1.5) Meds Noted: Unasyn, Folic Acid, Ativan, Keppra, Protonix, Seroquel, Thiamine, Magnesium Sulfate Additional Notes: No skin changes reported. Patient's daughter has consented to PEG, and GI has been consulted. Will continue to monitor with same goal. Nutrition Monitoring and Evaluation: Follow up every Sunday/Sunday.
[2021-01-18 11:41] LABS: Glucose Point of Care 76 mg/dl (65-105)
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
[2021-01-18 17:30] LABS: Glucose Point of Care 100 mg/dl (65-105)
[2021-01-19] VITALS (14 sets, daily range): BP systolic 112–161; BP diastolic 76–97; PULSE 91–110; RESP 16–27; TEMP 36.3–37.1; O2SAT 94–100
[2021-01-19 00:24] LABS: Glucose Point of Care 78 mg/dl (65-105)
[2021-01-19] MEDS: AMPICILLIN SULB 1.5 GM/NS 50ML 1.5 GM/50 ML VIAL IVPB ×4 (03:00→20:07)
[2021-01-19 06:22] LABS: Hematocrit 31.4 % (42.0-52.0); Hemoglobin 9.5 g/dL (14.0-18.0); Mean Corpuscular HGB Conc 30.3 g/dl (32-36); Mean Corpuscular Hemoglobin 28.3 pg (26-34); Mean Corpuscular Volume 93.5 fl (80-100); Mean Platelet Volume 9.3 fl (7.4-10.4); Platelet Count Result 292 k/mm3 (150-375); Red Blood Count 3.36 M/mm3 (4.6-6.20); Red Cell Distribution Width 17.2 % (11.5-14.5); White Blood Count 8.9 K/mm3 (4.5-10.0)
[2021-01-19] MEDS: CENTRAL LINE FLUSH 10 ML IV PUSH ×3 (06:32→22:58)
[2021-01-19 06:36] LABS: Anion Gap 14 mmol/L (8-16); Blood Urea Nitrogen 12 mg/dL (9-20); Calcium 9.7 mg/dL (8.4-10.2); Carbon Dioxide 22 mmol/L (22-30); Chloride 98 mmol/L (98-107); Estimated CRCL calculation 111 ml/min; Estimated Glomerular Filt Rate > 60; Glucose 94 mg/dL (65-110); Magnesium 1.6 mg/dL (1.6-2.3); Potassium 4.5 mmol/L (3.4-5.0); Sodium 134 mmol/L (137-145)
[2021-01-19] MEDS: MAGNESIUM SULF 2 GM/WATER 50ML 2 GM/50 ML BAG IVPB (07:48)
[2021-01-19] MEDS: FOLIC ACID 1 MG/0.2 ML INJ IV PUSH (08:02)
[2021-01-19] MEDS: ENOXAPARIN 40 MG/0.4 ML SYRINGE SUB-Q (08:04)
[2021-01-19] MEDS: PANTOPRAZOLE SODIUM IV 40 MG VIAL IV PUSH (08:07)
[2021-01-19] MEDS: THIAMINE HCL 200 MG/2 ML VIAL 100 MG IV PUSH (08:08)
[2021-01-19] MEDS: QUEtiapine FUMARATE 25 MG TABLET PO (08:14)
[2021-01-19] MEDS: ALTEPLASE 2 MG VIAL (CATHFLO) IV PUSH (09:00)
--- NOTE | 2021-01-19 09:05 | PM.IMPN ---
Progress Note: A&P Assessment and Plan (1) Encephalopathy: Code(s): G93.40 - Encephalopathy, unspecified Status: Acute Assessment and Plan: Appears to be toxic metabolic encephalopathy with delirium. ? Withdrawal, patient does have CVA at baseline - Patient was on Precedex early in the course but has been off now for many days - Seroquel started 01/13 after Neurology recommendation and will be continue. -patient is slowly improving --currently on room air with O2 sats -CT brain 01/09: No acute intracranial abnormality, no significant change, chronic bilateral occipital lobe infarctions, mild sinus disease TSH and ammonia level were normal -discussed with neurology no other recommendations at this time -patient has a AICD. Patient did have MRI done in October of this year were unfortunately our hospital MRI cannot scan even if the device is MRI compatible -MRI done in 10/2020 was consistent with PRES - I suspect some component of cortical visual impairment which has been confirmed by patient's daughter and I have discussed with Dr. Johnson and there is no way for us to check for it here - psychiatric evaluation will be helpful but at this time patient is not medically cleared for psych to evaluate him here in the hospital or will need to be transferred to another facility (2) Seizures: Code(s): R56.9 - Unspecified convulsions Status: Chronic Assessment and Plan: Patient presented with seizure activities, received Ativan and Keppra in the ER, was postictal and was intubated for airway protection -currently on Keppra 1500 mg q.12 -no seizure activity noted overnight -neurology has evaluated the patient and appreciate their recommendation -EEG 01/04/2021 - Abnormal record due to the presence of bihemispheric theta and delta slow activity with persistent right hemispheric delta activity admixed with sharp and slow-wave transients at the rate of 1 to 2 per seconds these abnormalities are suggestive of seizure disorder with right hemispheric focus . (3) Dysphagia: Code(s): R13.10 - Dysphagia, unspecified Status: Acute Assessment and Plan: Patient has been unable to complete a swallow evaluation due to lack of cooperation and agitation He was started on TPN earlier this week Nursing staff has been unable to place an NG tube despite multiple attempts yesterday. Dobbhoff placement by IR on 01/14 and patient was tolerating tube feeds without any issues. TPN was discontinued Dobbhoff of was replaced yesterday 01/18 and patient pulled out again yesterday evening I have consulted GI for PEG tube placement as patient's daughter is agreeable. PEG placement is scheduled for today (4) Acute respiratory failure: Qualifiers: Respiratory failure complication: hypoxia Qualified Code(s): J96.01 - Acute respiratory failure with hypoxia Code(s): J96.00 - Acute respiratory failure, unspecified whether with hypoxia or hypercapnia Status: Acute Assessment and Plan: Patient was postictal after being given Ativan for his seizures in the ER and was unable to protect his airway, patient was intubated on 01/03/2021 -patient successfully extubated on 01/06/2021 -currently on room air -PT/OT has been ordered (5) COPD (chronic obstructive pulmonary disease): Qualifiers: COPD type: unspecified COPD Qualified Code(s): J44.9 - Chronic obstructive pulmonary disease, unspecified Code(s): J44.9 - Chronic obstructive pulmonary disease, unspecified Status: Acute Assessment and Plan: History of COPD, continue bronchodilators, (6) ETOH abuse: Code(s): F10.10 - Alcohol abuse, uncomplicated Status: Acute Assessment and Plan: Continue thiamine and folic acid -patient with heavy alcohol use in the past (7) Empyema: Code(s): J86.9 - Pyothorax without fistula Status: Acute Assessment and Plan: Patient had recently had
[2021-01-19] MEDS: LORazepam INJ (*CRX) 2 MG/ML VIAL 0.5 MG IV PUSH ×2 (09:18→22:33)
--- NOTE | 2021-01-19 10:43 | WPDANESEPPF ---
Anes - Initial Pre Proc Eval Procedure: Operation Date: 01/19/21 13:45 Proposed Procedures p Percutaneous Endoscopic Gastrostomy - Stewart Joaquin MD Date/Time: 01/19/21 10:43 Surgeon: Kellen Pena, DO Pre Op Diagnosis: Status epilepticus/altered mental status/resp fail Patient Data Age: 55 Gender: M Height: 1.7 m Weight: 45.9 kg Last Vital Signs Temp 37.1 C 01/19/21 08:00 Pulse 109 H 01/19/21 10:00 Resp 19 01/19/21 08:00 BP 123/76 01/19/21 08:00 Pulse Ox 95 01/19/21 08:00 Allergies Allergy/AdvReac Type Severity Reaction Status Date / Time No Known Allergies Allergy Verified 12/08/20 21:28 Home Medications Medication Instructions Recorded Confirmed Type multivitamin 1 tablet PO DAILY 11/17/20 01/03/21 History polyethylene glycol 3350 17 17 g PO BID #510 g 11/17/20 01/03/21 Rx gram/dose oral powder thiamine HCl (vitamin B1) 100 mg 100 mg PO DAILY 11/17/20 01/03/21 History tablet levetiracetam 500 mg tablet 1,500 mg PO BID #180 tablet 11/24/20 01/03/21 Rx folic acid 1 mg tablet 1 mg PO DAILY #30 tablet 12/01/20 01/03/21 Rx sodium chloride 3,000 mg PO TIDWM 12/08/20 01/03/21 History amoxicillin-pot clavulanate 1 tablet PO BID 01/03/21 01/03/21 History carvedilol 3.125 mg PO BID 01/03/21 01/03/21 History duloxetine 20 mg PO DAILY 01/03/21 01/03/21 History hydrocodone-acetaminophen 1 tablet PO Q6H PRN 01/03/21 01/03/21 History ipratropium-albuterol 1 puff INHALATION Q4H 01/03/21 01/03/21 History Laboratory Tests 01/18/21 01/18/21 01/19/21 11:39 17:28 00:22 WBC RBC Hgb Hct MCV MCH MCHC RDW Plt Count MPV Sodium Potassium Chloride Carbon Dioxide Anion Gap BUN Creatinine Estim Creat Clear Calc Estimated GFR Glucose POC Capillary Glucose 76 mg/dl mg/dl 100 mg/dl mg/dl 78 mg/dl mg/dl (65-105) (65-105) (65-105) Calcium Magnesium 01/19/21 01/19/21 06:08 06:08 WBC 8.9 K/mm3 K/mm3 (4.5-10.0) RBC 3.36 M/mm3 L M/mm3 (4.6-6.20) Hgb 9.5 g/dL L g/dL (14.0-18.0) Hct 31.4 % L % (42.0-52.0) MCV 93.5 fl fl (80-100) MCH 28.3 pg pg (26-34) MCHC 30.3 g/dl L g/dl (32-36) RDW 17.2 % H % (11.5-14.5) Plt Count 292 k/mm3 k/mm3 (150-375) MPV 9.3 fl fl (7.4-10.4) Sodium 134 mmol/L L mmol/L (137-145) Potassium 4.5 mmol/L mmol/L (3.4-5.0) Chloride 98 mmol/L mmol/L (98-107) Carbon Dioxide 22 mmol/L mmol/L (22-30) Anion Gap 14 mmol/L mmol/L (8-16) BUN 12 mg/dL mg/dL (9-20) Creatinine 0.40 mg/dL L mg/dL (0.7-1.3) Estim Creat Clear Calc 111 ml/min ml/min Estimated GFR > 60 (59 - ) Glucose 94 mg/dL mg/dL (65-110) POC Capillary Glucose Calcium 9.7 mg/dL mg/dL (8.4-10.2) Magnesium 1.6 mg/dL mg/dL (1.6-2.3) Patient hx anesthesia problems: none Family hx anesthesia problems: none Results Review: All pre-operative results and documents have been reviewed as part of the pre-operative evaluation. [facility] Past Medical History Medical History Fitzpatrick esophagus Depression Erosive gastritis HTN (hypertension) Seizure disorder Seizures Severe anemia Tobacco dependence Surgical History Surgical History AICD (automatic cardioverter/defibrillator) present History of foot surgery Right Heel Surgery - Screws/Plates S/P thoracotomy [facility] in [facility] performed by [phone]. Family History Family History Mother Anamaria
[2021-01-19 12:58] LABS: Glucose Point of Care 81 mg/dl (65-105)
--- NOTE | 2021-01-19 13:14 | PCDIET ---
Spoke with assurance services manager health care regarding tube feeding on discharge. Facility may not have Vital 1.5 product in stock at this time. While Vital 1.5 at 60mL/hr has been well tolerated and meets estimated needs, expect that patient would be able to tolerate standard formula. Thus, recommend change to Jevity 1.5 once feedings are resumed following PEG. Goal of 60mL/hr x 22 hours/day would provide 1980kcal, 84g protein and 1003mL free water. Recommend continuing 100mL water flush every 4 hours.
--- NOTE | 2021-01-19 13:27 | SUR.PREOP ---
Patient transferred from ICU with restraints on. No acute distress noted.
[2021-01-19] MEDS: LACTATED RINGERS 1,000 ML 150 ML IV CONT (13:28)
--- NOTE | 2021-01-19 14:10 | SUR.OPER ---
pt to icu for post op recovery. vss per niraj coy crna. report called to gamaliel in icu.
[2021-01-19 17:33] LABS: Glucose Point of Care 69 mg/dl (65-105)
[2021-01-19] MEDS: DEXTROSE 50% 25 GM/50 ML SYRINGE IV PUSH (17:39)
[2021-01-19] MEDS: QUEtiapine FUMARATE 25 MG TABLET 50 MG PO (20:06)
[2021-01-20] VITALS (7 sets, daily range): BP systolic 106–166; BP diastolic 71–96; PULSE 90–114; RESP 18–21; TEMP 36.7–36.8; O2SAT 94–96
[2021-01-20 01:06] LABS: Glucose Point of Care 111 mg/dl (65-105)
[2021-01-20] MEDS: AMPICILLIN SULB 1.5 GM/NS 50ML 1.5 GM/50 ML VIAL IVPB ×4 (04:55→21:36)
[2021-01-20] MEDS: CENTRAL LINE FLUSH 10 ML IV PUSH ×3 (05:54→21:40)
[2021-01-20 06:12] LABS: Alanine Aminotransferase 38 U/L (4-50); Albumin Level 3.6 g/dL (3.5-5.1); Alkaline Phosphatase 117 U/L (38-126); Anion Gap 11 mmol/L (8-16); Aspartate Amino Transferase 46 U/L (17-59); Bilirubin,Total 0.4 mg/dL (0.2-1.3); Blood Urea Nitrogen 10 mg/dL (9-20); Calcium 9.9 mg/dL (8.4-10.2); Carbon Dioxide 24 mmol/L (22-30); Chloride 101 mmol/L (98-107); Estimated CRCL calculation 114 ml/min; Estimated Glomerular Filt Rate > 60; Glucose 111 mg/dL (65-110); Magnesium 1.8 mg/dL (1.6-2.3); Potassium 4.6 mmol/L (3.4-5.0); Sodium 136 mmol/L (137-145)
[2021-01-20 07:09] LABS: Hepatitis B Surface Antigen Negative (Negative)
[2021-01-20 07:27] LABS: HIV 1/2 Ab P24 Ag Result Negative (Negative); Hepatitis C Virus Antibody Negative (Negative)
[2021-01-20 08:31] LABS: Basophils Absolute Auto 0.1 K/mm3 (0.0-0.1); Basophils Percent Auto 1.2 % (0.2-1.2); Eosinophils Absolute Auto 0.2 K/mm3 (0-0.3); Eosinophils Percent Auto 2.5 % (0-4.4); Hematocrit 27.7 % (42.0-52.0); Hemoglobin 8.8 g/dL (14.0-18.0); Immature Granulocyte Absolute 0.02 K/mm3 (0.00-0.031); Immature Granulocyte Percent A 0.2 % (0-0.5); Lymphocytes Absolute Auto 1.06 K/mm3 (0.9-3.2); Lymphocytes Percent Auto 12.2 % (18.3-44.2); Mean Corpuscular HGB Conc 31.8 g/dl (32-36); Mean Corpuscular Hemoglobin 27.7 pg (26-34); Mean Corpuscular Volume 87.1 fl (80-100); Mean Platelet Volume 9.2 fl (7.4-10.4); Monocytes Absolute Auto 0.9 K/mm3 (0.1-0.6); Monocytes Percent Auto 10.3 % (2.6-8.5); Neutrophils Absolute Auto 6.4 K/mm3 (1.3-6.7); Neutrophils Percent Auto 73.6 % (45.5-73.1); Platelet Count Result 436 k/mm3 (150-375); Red Blood Count 3.18 M/mm3 (4.6-6.20); White Blood Count 8.7 K/mm3 (4.5-10.0)
[2021-01-20] MEDS: ENOXAPARIN 40 MG/0.4 ML SYRINGE SUB-Q (08:32)
[2021-01-20] MEDS: FOLIC ACID 1 MG/0.2 ML INJ IV PUSH (08:32)
[2021-01-20] MEDS: QUEtiapine FUMARATE 25 MG TABLET PO (08:33)
[2021-01-20] MEDS: THIAMINE HCL 200 MG/2 ML VIAL 100 MG IV PUSH (08:33)
[2021-01-20] MEDS: LORazepam INJ (*CRX) 2 MG/ML VIAL 0.5 MG IV PUSH ×2 (11:27→17:00)
--- NOTE | 2021-01-20 12:03 | PCDIET ---
ICU Rounding Note: Patient tolerating Jevity 1.5 at 30mL/hr with goal of 60mL/hr with 30mL water flush every 4 hours via PEG. Last recorded weight is 47.0kg which is increased from last review. Bowel Motility: Last documented BM on 01/16/21 x 1. If medically appropriate, would consider medication to promote BM. Labs Reviewed: Glu (111), Cr (0.4), Na (136) Meds Noted: Unasyn, Folic Acid, Keppra, Seroquel, Thiamine Additional Notes: No change in skin reported. Following daily in ICU rounds. Assessing/reassessing every Sunday/Sunday.
--- NOTE | 2021-01-20 13:24 | PM.IMPN ---
Progress Note: A&P Assessment and Plan (1) Encephalopathy: Code(s): G93.40 - Encephalopathy, unspecified Status: Acute Assessment and Plan: Appears to be toxic metabolic encephalopathy with delirium. ? Withdrawal, patient does have CVA at baseline - Patient was on Precedex early in the course but has been off now for many days - Seroquel started 01/13 after Neurology recommendation and will be continue. 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 Neurology recommended placement --currently on room air with O2 sats -CT brain 01/09: No acute intracranial abnormality, no significant change, chronic bilateral occipital lobe infarctions, mild sinus disease TSH and ammonia level were normal -patient has a AICD. Patient did have MRI done in October of this year were unfortunately our hospital MRI cannot scan even if the device is MRI compatible -MRI done in 10/2020 was consistent with PRES - I suspect some component of cortical visual impairment which has been confirmed by patient's daughter and I have discussed with Dr. Johnson and there is no way for us to check for it here - psychiatric evaluation will be helpful but at this time patient is not medically cleared for psych to evaluate him here in the hospital or will need to be transferred to another facility (2) Seizures: Code(s): R56.9 - Unspecified convulsions Status: Chronic Assessment and Plan: Patient presented with seizure activities, received Ativan and Keppra in the ER, was postictal and was intubated for airway protection -currently on Keppra 1500 mg q.12 -no seizure activity noted overnight -neurology has evaluated the patient and appreciate their recommendation -EEG 01/04/2021 - Abnormal record due to the presence of bihemispheric theta and delta slow activity with persistent right hemispheric delta activity admixed with sharp and slow-wave transients at the rate of 1 to 2 per seconds these abnormalities are suggestive of seizure disorder with right hemispheric focus . (3) Dysphagia: Code(s): R13.10 - Dysphagia, unspecified Status: Acute Assessment and Plan: Patient has been unable to complete a swallow evaluation due to lack of cooperation and agitation He was started on TPN earlier this week Nursing staff has been unable to place an NG tube despite multiple attempts yesterday. Dobbhoff placement by IR on 01/14 and patient was tolerating tube feeds without any issues. TPN was discontinued Dobbhoff of was replaced yesterday 01/18 and patient pulled out again yesterday evening PEG tube placed on 01/20/21, continue tube feeds (4) Acute respiratory failure: Qualifiers: Respiratory failure complication: hypoxia Qualified Code(s): J96.01 - Acute respiratory failure with hypoxia Code(s): J96.00 - Acute respiratory failure, unspecified whether with hypoxia or hypercapnia Status: Acute Assessment and Plan: Patient was postictal after being given Ativan for his seizures in the ER and was unable to protect his airway, patient was intubated on 01/03/2021 -patient successfully extubated on 01/06/2021 -currently on room air -PT/OT has been ordered (5) COPD (chronic obstructive pulmonary disease): Qualifiers: COPD type: unspecified COPD Qualified Code(s): J44.9 - Chronic obstructive pulmonary disease, unspecified Code(s): J44.9 - Chronic obstructive pulmonary disease, unspecified Status: Acute Assessment and Plan: History of COPD, continue bronchodilators, (6) ETOH abuse: Code(s): F10.10 - Alcohol abuse, uncomplicated Status: Acute Assessment and Plan: Continue thiamine and folic acid -patient with heavy alcohol use in the past (7) Empyema: Code(s): J86.9 - Pyothorax without fistula Status: Acute Assessment and Plan: [place]
--- NOTE | 2021-01-20 16:52 | WPDGIPROGNO ---
Progress Note: A&P Assessment and Plan (1) Dysphagia: Code(s): R13.10 - Dysphagia, unspecified Status: Acute Assessment and Plan: tolerating tube feeding, no issues will follow from afar, call if questions (2) Encephalopathy: Code(s): G93.40 - Encephalopathy, unspecified Status: Acute Assessment and Plan: ongoing, neurology on board on seizure meds also former alcoholic (3) Seizures: Code(s): R56.9 - Unspecified convulsions Status: Chronic (4) ETOH abuse: Code(s): F10.10 - Alcohol abuse, uncomplicated Status: Acute (5) AICD (automatic cardioverter/defibrillator) present: Code(s): Z95.810 - Presence of automatic (implantable) cardiac defibrillator Status: Inactive Subjective Date/time seen: 01/20/21 16:52 Interval history: PEG placed yesterday, he is still confused and on restraints. Tolerating tube feeding. Review of Systems Review of Systems: All systems reviewed & are unremarkable except as noted in HPI and below Exam Const: Other: awake and alert but confused, on restraints HENMT: General nose exam: Normal nares present Other: DHT in place Eyes: Sclera: sclerae normal Neck: Neck: supple Resp: Effort & Inspection: normal respiratory effort Other: brooks in right chest Cardio: Rhythm: regular rhythm GI: Inspection: non-distended GI Palp: Yes Soft to palpation and No Tenderness to palpation present (GI) Auscultation: normal bowel sounds Other: G-tube in place, site is clean. Abdominal binder. Skin: General skin exam: no rashes or lesions noted Neuro: Speech: normal speech Other: talking but confused Extrem: General: normal to inspection Psych: Affect: Anxious affect present Objective Data Vital Signs Vital Signs: Vital Signs - 24 hr 01/19/21 18:00 01/19/21 20:00 01/19/21 20:15 Temperature 98.6 F Pulse Rate 106 H 96 104 H Respiratory Rate 22 H Blood Pressure 149/97 H Pulse Oximetry 96 01/19/21 22:00 01/20/21 00:00 01/20/21 02:00 Temperature Pulse Rate 109 H 104 H 90 Respiratory Rate 20 Blood Pressure 166/96 H Pulse Oximetry 96 01/20/21 04:00 01/20/21 06:00 01/20/21 08:00 Temperature 98.2 F 98.3 F Pulse Rate 91 98 114 H Respiratory Rate 21 H 19 Blood Pressure 106/71 133/90 Pulse Oximetry 94 01/20/21 10:00 01/20/21 16:00 Temperature 98.0 F Pulse Rate 114 H 101 H Respiratory Rate 18 Blood Pressure 148/89 H Pulse Oximetry 94 Intake/Output Intake/Output: Intake & Output 01/17/21 01/18/21 01/19/21 01/20/21 23:59 23:59 23:59 23:59 Intake Total 2105 480 480 544 Output Total 1400 1950 1100 475 Balance [phone] Meds/Results Medications: Active Medications Generic Name Dose Route Start Last Admin Trade Name Freq PRN Reason Stop Dose Admin Albuterol 2.5 mg 01/03/21 18:38 Albuterol Sulfate Neb 2.5 Mg/0.5 Ml Inh INHALATION Q4HRT PRN Shortness Of Breath Alteplase, Recombinant 2 mg 01/19/21 08:20 01/19/21 09:00 Alteplase 2 Mg Vial (Cathflo) IV PUSH 2 mg ONCE PRN Administration Line Occlusion Enoxaparin Sodium 40 mg 01/04/21 09:00 01/20/21 08:32 Enoxaparin 40 Mg/0.4 Ml Syringe SUB-Q 40 mg DAILY MONIK Administration Folic Acid 1 mg 01/21/21 09:00 Folic Acid 1 Mg Tablet PO DAILY MONIK Hydralazine HCl 10 mg 01/09/21 11:32 Hydralazine Hcl 20 Mg/Ml Vial IV PUSH Q4H PRN Blood Pressure - High Dextrose 1,000 mls @ 50 mls/hr 01/10/21 19:44 Dextrose 10% IV CONT .Q20H PRN if PN is interrupted Levetiracetam 1,500 mg/ 115 mls @ 460 mls/hr 01/03/21 21:00 01/20/21 09:00 Dextrose IVPB Infused Q12HR MONIK Infusion Ampicillin Sodium/Sulbactam Sodium 1.5 gm in 50 mls @ 100 mls/hr 01/03/21 21:00 01/20/21 16:00 Unasyn 1.5 Gm/Ns 50 Ml IVPB Infused Q6H MONIK Infusion Labetalol HCl 20 mg 01/11/21 09:48 01/12/21 14:44 Labetalol Hcl Inj 100 Mg/20 Ml Vial
[2021-01-20] MEDS: QUEtiapine FUMARATE 25 MG TABLET 50 MG PO (21:40)
[2021-01-21 02:12] LABS: Glucose Point of Care 111 mg/dl (65-105)
[2021-01-21 04:00] VITALS: BP 157/96; PULSE 111; RESP 18; O2SAT 91
[2021-01-21] MEDS: AMPICILLIN SULB 1.5 GM/NS 50ML 1.5 GM/50 ML VIAL IVPB ×2 (04:00→09:05)
[2021-01-21] MEDS: LORazepam INJ (*CRX) 2 MG/ML VIAL 0.5 MG IV PUSH ×3 (04:00→18:22)
[2021-01-21 07:02] LABS: Glucose Point of Care 116 mg/dl (65-105)
[2021-01-21] MEDS: CENTRAL LINE FLUSH 10 ML IV PUSH ×3 (07:41→17:29)
[2021-01-21 08:00] VITALS: BP 145/90; PULSE 99; RESP 18; TEMP 36.4; O2SAT 96
[2021-01-21] MEDS: FOLIC ACID 1 MG TABLET PO (09:06)
[2021-01-21] MEDS: ENOXAPARIN 40 MG/0.4 ML SYRINGE SUB-Q (09:06)
[2021-01-21] MEDS: QUEtiapine FUMARATE 25 MG TABLET PO (09:06)
[2021-01-21] MEDS: THIAMINE HCL 200 MG/2 ML VIAL 100 MG IV PUSH (09:06)
--- NOTE | 2021-01-21 12:16 | PCDIET ---
Nutrition Follow-Up Complete: Nutrition Diagnosis: Inadequate oral intake related to oral intubation as evidenced by NPO status. Nutrition Goal: Patient will meet estimated nutritional needs. Goal met. Patient tolerating Jevity 1.5 at 50mL/hr with goal of 60mL/hr. Continues to receive 30mL water flush every 4 hours. Last recorded weight is 47.2 kg which is stable with last review. Bowel Motility: Last documented BM on 01/16/21 x 1. If medically appropriate, would consider medication to promote BM. Labs Reviewed: RBC (3.18), Hgb (8.8), Hct (27.7), Glu (116), Cr (0.4), Na (136) Meds Noted: Unasyn, Folic Acid, Apresoline, Keppra, Thiamine Additional Notes: Integumentary notes reviewed. Will continue to monitor with same goal. Nutrition Monitoring and Evaluation: Follow up every Sunday/Sunday.
[2021-01-21] MEDS: OLANZapine 10 MG INJ VIAL 5 MG IM (15:55)
[2021-01-21 16:00] VITALS: BP 147/82; PULSE 104; RESP 22; O2SAT 100
--- NOTE | 2021-01-21 16:01 | PM.IMPN ---
Progress Note: A&P Assessment and Plan (1) Encephalopathy: Code(s): G93.40 - Encephalopathy, unspecified Status: Acute Assessment and Plan: Appears to be toxic metabolic encephalopathy with delirium. ? Withdrawal, patient does have CVA at baseline - Patient was on Precedex early in the course but has been off now for many days - Seroquel started 01/13 after Neurology recommendation and will be continue. 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 Neurology recommended placement --currently on room air with O2 sats -CT brain 01/09: No acute intracranial abnormality, no significant change, chronic bilateral occipital lobe infarctions, mild sinus disease TSH and ammonia level were normal -patient has a AICD. Patient did have MRI done in October of this year were unfortunately our hospital MRI cannot scan even if the device is MRI compatible -MRI done in 10/2020 was consistent with PRES - I suspect some component of cortical visual impairment which has been confirmed by patient's daughter and I have discussed with Dr. 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 PRN for agitation and increased Seroquel to 100 mg at the bedtime from 50 mg, will continue to monitor, patient is seen by principal technologist and neurologist and appreciate. (2) Seizures: Code(s): R56.9 - Unspecified convulsions Status: Chronic Assessment and Plan: Patient presented with seizure activities, received Ativan and Keppra in the ER, was postictal and was intubated for airway protection -currently on Keppra 1500 mg q.12 -no seizure activity noted overnight -neurology has evaluated the patient and appreciate their recommendation -EEG 01/04/2021 - Abnormal record due to the presence of bihemispheric theta and delta slow activity with persistent right hemispheric delta activity admixed with sharp and slow-wave transients at the rate of 1 to 2 per seconds these abnormalities are suggestive of seizure disorder with right hemispheric focus . (3) Dysphagia: Code(s): R13.10 - Dysphagia, unspecified Status: Acute Assessment and Plan: Patient has been unable to complete a swallow evaluation due to lack of cooperation and agitation He was started on TPN earlier this week Nursing staff has been unable to place an NG tube despite multiple attempts yesterday. Dobbhoff placement by IR on 01/14 and patient was tolerating tube feeds without any issues. TPN was discontinued Dobbhoff of was replaced yesterday 01/18 and patient pulled out again yesterday evening PEG tube placed on 01/20/21, continue tube feeds (4) Acute respiratory failure: Qualifiers: Respiratory failure complication: hypoxia Qualified Code(s): J96.01 - Acute respiratory failure with hypoxia Code(s): J96.00 - Acute respiratory failure, unspecified whether with hypoxia or hypercapnia Status: Acute Assessment and Plan: Patient was postictal after being given Ativan for his seizures in the ER and was unable to protect his airway, patient was intubated on 01/03/2021 -patient successfully extubated on 01/06/2021 -currently on room air -PT/OT has been ordered (5) COPD (chronic obstructive pulmonary disease): Qualifiers: COPD type: unspecified COPD Qualified Code(s): J44.9 - Chronic obstructive pulmonary disease, unspecified Code(s): J44.9 - Chronic obstructive pulmonary diseas
[2021-01-21] MEDS: WATER, STERILE FOR INJECTION 10 ML VIAL XX (17:28)
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
[2021-01-22] VITALS: BP 146/92; PULSE 96; RESP 18; TEMP 36.4; O2SAT 97
[2021-01-22] MEDS: OLANZapine 5 MG TABLET PO ×4 (00:54→21:00)
[2021-01-22 01:05] LABS: Glucose Point of Care 85 mg/dl (65-105)
[2021-01-22] MEDS: LORazepam (*CRX) 0.5 MG TABLET PO ×4 (02:04→21:00)
[2021-01-22] MEDS: CENTRAL LINE FLUSH 10 ML IV PUSH ×3 (05:56→21:01)
[2021-01-22 06:04] LABS: Glucose Point of Care 109 mg/dl (65-105)
[2021-01-22 07:14] LABS: Folic Acid 14.3 ng/mL (2.76->20)
[2021-01-22 07:20] LABS: Vitamin D 25 Hydroxy 22.3 ng/mL
[2021-01-22 08:00] VITALS: BP 143/89; PULSE 98; TEMP 36.7; O2SAT 96
[2021-01-22] MEDS: ENOXAPARIN 40 MG/0.4 ML SYRINGE SUB-Q (08:18)
[2021-01-22] MEDS: THIAMINE HCL 200 MG/2 ML VIAL 100 MG IV PUSH (08:19)
[2021-01-22] MEDS: FOLIC ACID 1 MG TABLET PO (08:19)
[2021-01-22 12:11] LABS: Glucose Point of Care 109 mg/dl (65-105)
--- NOTE | 2021-01-22 13:38 | PM.IMPN ---
Progress Note: A&P Assessment and Plan (1) Encephalopathy: Code(s): G93.40 - Encephalopathy, unspecified Status: Acute Assessment and Plan: Appears to be toxic metabolic encephalopathy with delirium. ? Withdrawal, patient does have CVA at baseline - Patient was on Precedex early in the course but has been off now for many days - Seroquel started 01/13 after Neurology recommendation and will be continue. 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 Neurology recommended placement --currently on room air with O2 sats -CT brain 01/09: No acute intracranial abnormality, no significant change, chronic bilateral occipital lobe infarctions, mild sinus disease TSH and ammonia level were normal -patient has a AICD. Patient did have MRI done in October of this year were unfortunately our hospital MRI cannot scan even if the device is MRI compatible -MRI done in 10/2020 was consistent with PRES - I suspect some component of cortical visual impairment which has been confirmed by patient's daughter and I have discussed with Dr. 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 PRN for agitation and increased Seroquel to 100 mg at the bedtime from 50 mg, will continue to monitor, patient is seen by vault clerk and neurologist and appreciate. 01/22/2021 Interval history patient remains clinically stable with a and ecephalopathy and hallucination was seen by psychiatrist Dr. Green started the patient on Zyprexa 5 mg p.o. b.i.d. as needed and Zyprexa 5 mg at the bedtime, continued Ativan 1 mg q.6 p.r.n., and stopped Seroquel at bedtime, will continue to monitor appreciate Psychiatry input and further recommendation to follow. (2) Seizures: Code(s): R56.9 - Unspecified convulsions Status: Chronic Assessment and Plan: Patient presented with seizure activities, received Ativan and Keppra in the ER, was postictal and was intubated for airway protection -currently on Keppra 1500 mg q.12 -no seizure activity noted overnight -neurology has evaluated the patient and appreciate their recommendation -EEG 01/04/2021 - Abnormal record due to the presence of bihemispheric theta and delta slow activity with persistent right hemispheric delta activity admixed with sharp and slow-wave transients at the rate of 1 to 2 per seconds these abnormalities are suggestive of seizure disorder with right hemispheric focus . (3) Dysphagia: Code(s): R13.10 - Dysphagia, unspecified Status: Acute Assessment and Plan: Patient has been unable to complete a swallow evaluation due to lack of cooperation and agitation He was started on TPN earlier this week Nursing staff has been unable to place an NG tube despite multiple attempts yesterday. Dobbhoff placement by IR on 01/14 and patient was tolerating tube feeds without any issues. TPN was discontinued Dobbhoff of was replaced yesterday 01/18 and patient pulled out again yesterday evening PEG tube placed on 01/20/21, continue tube feeds (4) Acute respiratory failure: Qualifiers: Respiratory failure complication: hypoxia Qualified Code(s): J96.01 - Acute respiratory failure with hypoxia Code(s): J96.00 - Acute respiratory failure, unspecified whether with hypoxia or hypercapnia Status: Acute Assessment and Plan: Patient was postictal after being given Ativan for his seizures in the ER and was un
[2021-01-22 15:38] LABS: Rapid Plasma Reagin Non-Reactive (NonReactive)
[2021-01-22 16:00] VITALS: BP 145/92; PULSE 98; TEMP 36.8; O2SAT 95
[2021-01-22 18:49] LABS: Glucose Point of Care 88 mg/dl (65-105)
--- NOTE | 2021-01-22 21:06 | PC.NURSE ---
Pt in room alone, yelling for someone to quit it. Pt restrained. Kicking and punching the air towards the right side of his bed. Pt then drawing his legs up under him. Unable to redirect or reorient pt. Staff at bedside to prevent pt self injury.
[2021-01-22 23:40] VITALS: BP 149/91; PULSE 91; RESP 18; TEMP 36; O2SAT 98
[2021-01-22 23:48] LABS: Glucose Point of Care 88 mg/dl (65-105)
[2021-01-23] MEDS: LORazepam (*CRX) 0.5 MG TABLET PO ×3 (03:10→18:19)
[2021-01-23 05:28] LABS: Glucose Point of Care 111 mg/dl (65-105)
[2021-01-23 09:06] VITALS: BP 137/94; PULSE 92; RESP 12; TEMP 36.3; O2SAT 98
[2021-01-23] MEDS: ENOXAPARIN 40 MG/0.4 ML SYRINGE SUB-Q (09:12)
[2021-01-23] MEDS: FOLIC ACID 1 MG TABLET PO (09:12)
[2021-01-23] MEDS: THIAMINE HCL 200 MG/2 ML VIAL 100 MG IV PUSH (09:12)
[2021-01-23] MEDS: OLANZapine 5 MG TABLET PO ×3 (09:13→21:11)
[2021-01-23] MEDS: CENTRAL LINE FLUSH 10 ML IV PUSH ×3 (09:21→21:13)
[2021-01-23 11:15] LABS: Glucose Point of Care 105 mg/dl (65-105)
--- NOTE | 2021-01-23 11:25 | PM.IMPN ---
Progress Note: A&P Assessment and Plan (1) Encephalopathy: Code(s): G93.40 - Encephalopathy, unspecified Status: Acute Assessment and Plan: Appears to be toxic metabolic encephalopathy with delirium. ? Withdrawal, patient does have CVA at baseline - Patient was on Precedex early in the course but has been off now for many days - Seroquel started 01/13 after Neurology recommendation and will be continue. 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 Neurology recommended placement --currently on room air with O2 sats -CT brain 01/09: No acute intracranial abnormality, no significant change, chronic bilateral occipital lobe infarctions, mild sinus disease TSH and ammonia level were normal -patient has a AICD. Patient did have MRI done in October of this year were unfortunately our hospital MRI cannot scan even if the device is MRI compatible -MRI done in 10/2020 was consistent with PRES - I suspect some component of cortical visual impairment which has been confirmed by patient's daughter and I have discussed with Dr. 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 PRN for agitation and increased Seroquel to 100 mg at the bedtime from 50 mg, will continue to monitor, patient is seen by design coordinator and neurologist and appreciate. 01/22/2021 Interval history patient remains clinically stable with a and ecephalopathy and hallucination was seen by psychiatrist Dr. Green started the patient on Zyprexa 5 mg p.o. b.i.d. as needed and Zyprexa 5 mg at the bedtime, continued Ativan 1 mg q.6 p.r.n., and stopped Seroquel at bedtime, will continue to monitor appreciate Psychiatry input and further recommendation to follow. 01/23/2021 Interval history:patient remains clinically stable with ecephalopathic and hallucination, currently he is agitated was seen by psychiatrist started the patient on Zyprexa 5 mg b.i.d. p.r.n. and Zyprexa 5 mg at the bedtime. patient with history cerebral infarct and expanding and neurologist suspect causing blindness, I spoke with patient's sister on 01/22 and updated current condition, and scheduled to arrange a meeting with his family and the neurologist. appreciate design coordinator, neurologist and psychiatrist, will continue to monitor (2) Seizures: Code(s): R56.9 - Unspecified convulsions Status: Chronic Assessment and Plan: Patient presented with seizure activities, received Ativan and Keppra in the ER, was postictal and was intubated for airway protection -currently on Keppra 1500 mg q.12 -no seizure activity noted overnight -neurology has evaluated the patient and appreciate their recommendation -EEG 01/04/2021 - Abnormal record due to the presence of bihemispheric theta and delta slow activity with persistent right hemispheric delta activity admixed with sharp and slow-wave transients at the rate of 1 to 2 per seconds these abnormalities are suggestive of seizure disorder with right hemispheric focus . (3) Dysphagia: Code(s): R13.10 - Dysphagia, unspecified Status: Acute Assessment and Plan: Patient has been unable to complete a swallow evaluation due to lack of cooperation and agitation He was started on TPN earlier this week Nursing staff has been unable to place an NG tube despite multiple attempts yesterday. Dobbhoff placement by IR on 01/14 and patient was tolerating tube feeds without any issues. TPN was discontinued Dobbhoff of was replaced yesterday 01/18 an
[2021-01-23 16:00] VITALS: BP 161/85; PULSE 110; RESP 14; TEMP 36.4; O2SAT 96
[2021-01-23 17:32] LABS: Glucose Point of Care 97 mg/dl (65-105)
[2021-01-24] VITALS: BP 154/95; PULSE 105; RESP 16; TEMP 36.3; O2SAT 98
[2021-01-24] MEDS: LORazepam (*CRX) 0.5 MG TABLET PO ×2 (00:09→11:45)
[2021-01-24 00:19] LABS: Glucose Point of Care 119 mg/dl (65-105)
[2021-01-24 04:37] LABS: Basophils Absolute Auto 0.1 K/mm3 (0.0-0.1); Basophils Percent Auto 1.1 % (0.2-1.2); Eosinophils Absolute Auto 0.4 K/mm3 (0-0.3); Eosinophils Percent Auto 3.8 % (0-4.4); Hematocrit 29.1 % (42.0-52.0); Hemoglobin 9.2 g/dL (14.0-18.0); Immature Granulocyte Absolute 0.03 K/mm3 (0.00-0.031); Immature Granulocyte Percent A 0.3 % (0-0.5); Lymphocytes Absolute Auto 1.14 K/mm3 (0.9-3.2); Lymphocytes Percent Auto 12.2 % (18.3-44.2); Mean Corpuscular HGB Conc 31.6 g/dl (32-36); Mean Corpuscular Hemoglobin 28.7 pg (26-34); Mean Corpuscular Volume 90.7 fl (80-100); Mean Platelet Volume 9.3 fl (7.4-10.4); Monocytes Absolute Auto 0.7 K/mm3 (0.1-0.6); Monocytes Percent Auto 7.4 % (2.6-8.5); Neutrophils Percent Auto 75.2 % (45.5-73.1); Platelet Count Result 451 k/mm3 (150-375); Red Blood Count 3.21 M/mm3 (4.6-6.20); Red Cell Distribution Width 16.7 % (11.5-14.5); White Blood Count 9.3 K/mm3 (4.5-10.0)
[2021-01-24 04:51] LABS: Alanine Aminotransferase 37 U/L (4-50); Albumin Level 3.8 g/dL (3.5-5.1); Alkaline Phosphatase 92 U/L (38-126); Anion Gap 10 mmol/L (8-16); Aspartate Amino Transferase 45 U/L (17-59); Bilirubin,Total 0.3 mg/dL (0.2-1.3); Blood Urea Nitrogen 15 mg/dL (9-20); Calcium 9.6 mg/dL (8.4-10.2); Carbon Dioxide 28 mmol/L (22-30); Chloride 100 mmol/L (98-107); Estimated CRCL calculation 108 ml/min; Estimated Glomerular Filt Rate > 60; Glucose 106 mg/dL (65-110); Magnesium 1.6 mg/dL (1.6-2.3); Potassium 4.1 mmol/L (3.4-5.0); Sodium 138 mmol/L (137-145)
[2021-01-24 04:55] LABS: Prothrombin Time 13.5 Seconds (11.1-14.7)
[2021-01-24 04:56] LABS: Partial Thromboplastin Time 48.3 SECONDS (22.3-36.8)
[2021-01-24 04:57] LABS: Transferrin 121 mg/dL (206-381)
[2021-01-24] MEDS: CENTRAL LINE FLUSH 10 ML IV PUSH ×3 (05:13→21:15)
[2021-01-24 08:00] VITALS: BP 115/82; PULSE 77; RESP 20; TEMP 36.4; O2SAT 100
[2021-01-24] MEDS: ENOXAPARIN 40 MG/0.4 ML SYRINGE SUB-Q (09:07)
[2021-01-24] MEDS: FOLIC ACID 1 MG TABLET PO (09:07)
[2021-01-24] MEDS: THIAMINE HCL 200 MG/2 ML VIAL 100 MG IV PUSH (09:08)
[2021-01-24] MEDS: OLANZapine 5 MG TABLET PO ×4 (11:52→21:14)
--- NOTE | 2021-01-24 14:11 | PM.IMPN ---
Progress Note: A&P Assessment and Plan (1) Encephalopathy: Code(s): G93.40 - Encephalopathy, unspecified Status: Acute Assessment and Plan: Appears to be toxic metabolic encephalopathy with delirium. ? 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 Neurology recommended placement -currently on Zyprexa and p.r.n. Ativan -restraints in place -CT brain 01/09: No acute intracranial abnormality, no significant change, chronic bilateral occipital lobe infarctions, mild sinus disease -TSH and ammonia level were normal -patient has a AICD. Patient did have MRI done in October of this year were unfortunately our hospital MRI cannot scan even if the device is MRI compatible -MRI done in 10/2020 was consistent with PRES - I suspect some component of cortical visual impairment which has been confirmed by patient's daughter and I have discussed with Dr. Johnson and there is no way for us to check for it here - psychiatric evaluation will be helpful but at this time patient is not medically cleared for psych to evaluate him here (2) Seizures: Code(s): R56.9 - Unspecified convulsions Status: Chronic Assessment and Plan: Patient presented with seizure activities, received Ativan and Keppra in the ER, was postictal and was intubated for airway protection -currently on Keppra 1500 mg q.12 -no seizure activity noted overnight -neurology has evaluated the patient and appreciate their recommendation -EEG 01/04/2021 - Abnormal record due to the presence of bihemispheric theta and delta slow activity with persistent right hemispheric delta activity admixed with sharp and slow-wave transients at the rate of 1 to 2 per seconds these abnormalities are suggestive of seizure disorder with right hemispheric focus . -continue Keppra, blue was seizure activities have been noted since admission (3) Dysphagia: Code(s): R13.10 - Dysphagia, unspecified Status: Acute Assessment and Plan: Patient has been unable to complete a swallow evaluation due to lack of cooperation and agitation He was started on TPN earlier this week Nursing staff has been unable to place an NG tube despite multiple attempts yesterday. Dobbhoff placement by IR on 01/14 and patient was tolerating tube feeds without any issues. TPN was discontinued Dobbhoff of was replaced yesterday 01/18 and patient pulled out again yesterday evening PEG tube placed on 01/20/21, continue tube feeds and tolerating (4) Acute respiratory failure: Qualifiers: Respiratory failure complication: hypoxia Qualified Code(s): J96.01 - Acute respiratory failure with hypoxia Code(s): J96.00 - Acute respiratory failure, unspecified whether with hypoxia or hypercapnia Status: Acute Assessment and Plan: Patient was postictal after being given Ativan for his seizures in the ER and was unable to protect his airway, patient was intubated on 01/03/2021 -patient successfully extubated on 01/06/2021 -currently on room air -PT/OT has been ordered (5) COPD (chronic obstructive pulmonary disease): Qualifiers: COPD type: unspecified COPD Qualified Code(s): J44.9 - Chronic obstructive pulmonary disease, unspecified Code(s): J44.9 - Chronic obstructive pulmonary disease, unspecified Status: Acute Assessment and Plan: History of COPD, continue bronchodilators, (6) ETOH abuse: Code(s): F10.10 - Alcohol abuse, uncomplicated Status: Acute Assessment and Plan: Continue thiamine and folic acid -patient with heavy alcohol use in the past (7) Empyema: Code(s): J86.9 - Pyothora
[2021-01-24 16:00] VITALS: BP 125/78; PULSE 82; RESP 18; TEMP 36.3; O2SAT 93
[2021-01-24 17:22] LABS: Glucose Point of Care 81 mg/dl (65-105)
[2021-01-24 21:15] VITALS: BP 136/86; PULSE 82; RESP 16; TEMP 37.1; O2SAT 94
[2021-01-24 23:38] LABS: Glucose Point of Care 103 mg/dl (65-105)
[2021-01-25] MEDS: LORazepam (*CRX) 0.5 MG TABLET PO ×3 (00:16→12:29)
[2021-01-25 04:00] VITALS: BP 137/89; PULSE 80; RESP 16; TEMP 36.8; O2SAT 96
[2021-01-25] MEDS: CENTRAL LINE FLUSH 10 ML IV PUSH ×3 (04:52→20:22)
[2021-01-25 08:00] VITALS: BP 138/86; PULSE 87; RESP 18; TEMP 36.9; O2SAT 97
[2021-01-25] MEDS: SILVERGEL (ELTA) 45 ML 1 APPLIC TOPICAL (08:54)
[2021-01-25] MEDS: ENOXAPARIN 40 MG/0.4 ML SYRINGE SUB-Q (08:57)
[2021-01-25] MEDS: FOLIC ACID 1 MG TABLET PO (08:57)
[2021-01-25] MEDS: THIAMINE HCL 200 MG/2 ML VIAL 100 MG IV PUSH (08:57)
[2021-01-25] MEDS: OLANZapine 5 MG TABLET PO ×2 (09:15→17:24)
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
[2021-01-25 13:03] LABS: Glucose Point of Care 101 mg/dl (65-105)
--- NOTE | 2021-01-25 15:29 | PM.IMPN ---
Progress Note: A&P Assessment and Plan (1) Encephalopathy: Code(s): G93.40 - Encephalopathy, unspecified Status: Acute Assessment and Plan: Appears to be toxic metabolic encephalopathy with delirium. ? 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 Neurology recommended placement -currently on Zyprexa and p.r.n. Ativan -restraints in place -CT brain 01/09: No acute intracranial abnormality, no significant change, chronic bilateral occipital lobe infarctions, mild sinus disease -TSH and ammonia level were normal -patient has a AICD. Patient did have MRI done in October of this year were unfortunately our hospital MRI cannot scan even if the device is MRI compatible -MRI done in 10/2020 was consistent with PRES - I suspect some component of cortical visual impairment which has been confirmed by patient's daughter and I have discussed with Dr. Johnson and there is no way for us to check for it here - psychiatric evaluation will be helpful but at this time patient is not medically cleared for psych to evaluate him here Psychiatric evaluation has been done by Dr. Green (2) Seizures: Code(s): R56.9 - Unspecified convulsions Status: Chronic Assessment and Plan: Patient presented with seizure activities, received Ativan and Keppra in the ER, was postictal and was intubated for airway protection -currently on Keppra 1500 mg q.12 -no seizure activity noted overnight -neurology has evaluated the patient and appreciate their recommendation -EEG 01/04/2021 - Abnormal record due to the presence of bihemispheric theta and delta slow activity with persistent right hemispheric delta activity admixed with sharp and slow-wave transients at the rate of 1 to 2 per seconds these abnormalities are suggestive of seizure disorder with right hemispheric focus . -continue Keppra, blue was seizure activities have been noted since admission With switch Keppra to via PEG tube (3) Dysphagia: Code(s): R13.10 - Dysphagia, unspecified Status: Acute Assessment and Plan: Patient has been unable to complete a swallow evaluation due to lack of cooperation and agitation He was started on TPN earlier this week Nursing staff has been unable to place an NG tube despite multiple attempts yesterday. Dobbhoff placement by IR on 01/14 and patient was tolerating tube feeds without any issues. TPN was discontinued Dobbhoff of was replaced yesterday 01/18 and patient pulled out again yesterday evening PEG tube placed on 01/20/21, continue tube feeds and tolerating (4) Acute respiratory failure: Qualifiers: Respiratory failure complication: hypoxia Qualified Code(s): J96.01 - Acute respiratory failure with hypoxia Code(s): J96.00 - Acute respiratory failure, unspecified whether with hypoxia or hypercapnia Status: Acute Assessment and Plan: Patient was postictal after being given Ativan for his seizures in the ER and was unable to protect his airway, patient was intubated on 01/03/2021 -patient successfully extubated on 01/06/2021 -currently on room air -PT/OT has been ordered (5) COPD (chronic obstructive pulmonary disease): Qualifiers: COPD type: unspecified COPD Qualified Code(s): J44.9 - Chronic obstructive pulmonary disease, unspecified Code(s): J44.9 - Chronic obstructive pulmonary disease, unspecified Status: Acute Assessment and Plan: History of COPD, continue bronchodilators, (6) ETOH abuse: Code(s): F10.10 - Alcohol abuse, uncomplicated Status: Acute Assessment and Plan: Continue thiamine and folic acid -pat
[2021-01-25 16:00] VITALS: BP 120/87; PULSE 96; RESP 20; TEMP 36.6; O2SAT 97
[2021-01-25] MEDS: LORazepam INJ (*CRX) 2 MG/ML VIAL 1 MG IV PUSH (17:49)
[2021-01-25 18:44] LABS: Glucose Point of Care 101 mg/dl (65-105)
[2021-01-25 20:00] VITALS: PULSE 80; RESP 20; O2SAT 100
[2021-01-25] MEDS: levETIRAcetam ORAL SOL 500 MG/5 ML UDC 1500 MG FEED TUBE (20:21)
[2021-01-25] MEDS: OLANZapine 5 MG TABLET 10 MG PO (20:22)
[2021-01-26] VITALS: BP 118/82; PULSE 80; RESP 18; O2SAT 95
[2021-01-26 00:11] LABS: Glucose Point of Care 109 mg/dl (65-105)
[2021-01-26] MEDS: CENTRAL LINE FLUSH 10 ML IV PUSH ×3 (05:18→20:12)
[2021-01-26 06:26] LABS: Glucose Point of Care 91 mg/dl (65-105)
[2021-01-26 08:00] VITALS: BP 116/74; PULSE 86; RESP 18; TEMP 36.6; O2SAT 95
[2021-01-26] MEDS: levETIRAcetam ORAL SOL 500 MG/5 ML UDC 1500 MG FEED TUBE ×2 (08:23→20:10)
[2021-01-26] MEDS: ENOXAPARIN 40 MG/0.4 ML SYRINGE SUB-Q (08:23)
[2021-01-26] MEDS: FOLIC ACID 1 MG TABLET PO (08:23)
[2021-01-26] MEDS: THIAMINE HCL 200 MG/2 ML VIAL 100 MG IV PUSH (08:24)
[2021-01-26] MEDS: OLANZapine 5 MG TABLET PO ×2 (08:24→13:11)
[2021-01-26] MEDS: SILVERGEL (ELTA) 45 ML 1 APPLIC TOPICAL (08:24)
[2021-01-26] MEDS: LORazepam (*CRX) 0.5 MG TABLET PO (11:30)
--- NOTE | 2021-01-26 11:40 | PM.IMPN ---
Progress Note: A&P Assessment and Plan (1) Encephalopathy: Code(s): G93.40 - Encephalopathy, unspecified Status: Acute Assessment and Plan: Appears to be toxic metabolic encephalopathy with delirium. ? 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 Neurology recommended placement -currently on Zyprexa and p.r.n. Ativan -CT brain 01/09: No acute intracranial abnormality, no significant change, chronic bilateral occipital lobe infarctions, mild sinus disease -TSH and ammonia level were normal -patient has a AICD. Patient did have MRI done in October of this year were unfortunately our hospital MRI cannot scan even if the device is MRI compatible -MRI done in 10/2020 was consistent with PRES - I suspect some component of cortical visual impairment which has been confirmed by patient's daughter and I have discussed with Dr. Johnson and there is no way for us to check for it here - Psychiatric evaluation has been done by Dr. Green. Patient has been started on Zyprexa p.o. q.h.s. and p.r.n. during the day - he continues to require restraints has limited his placement at the facility for rehab. Discontinue restraints and place a sitter at bedside and see how he does for next 24 hours (2) Seizures: Code(s): R56.9 - Unspecified convulsions Status: Chronic Assessment and Plan: Patient presented with seizure activities, received Ativan and Keppra in the ER, was postictal and was intubated for airway protection -currently on Keppra 1500 mg q.12 -no seizure activity noted overnight -neurology has evaluated the patient and appreciate their recommendation -EEG 01/04/2021 - Abnormal record due to the presence of bihemispheric theta and delta slow activity with persistent right hemispheric delta activity admixed with sharp and slow-wave transients at the rate of 1 to 2 per seconds these abnormalities are suggestive of seizure disorder with right hemispheric focus . -continue Keppra via PEG tube (3) Dysphagia: Code(s): R13.10 - Dysphagia, unspecified Status: Acute Assessment and Plan: Patient has been unable to complete a swallow evaluation due to lack of cooperation and agitation He was started on TPN earlier this week Nursing staff has been unable to place an NG tube despite multiple attempts yesterday. Dobbhoff placement by IR on 01/14 and patient was tolerating tube feeds without any issues. TPN was discontinued Dobbhoff of was replaced yesterday 01/18 and patient pulled out again yesterday evening PEG tube placed on 01/20/21, continue tube feeds and tolerating (4) Acute respiratory failure: Qualifiers: Respiratory failure complication: hypoxia Qualified Code(s): J96.01 - Acute respiratory failure with hypoxia Code(s): J96.00 - Acute respiratory failure, unspecified whether with hypoxia or hypercapnia Status: Acute Assessment and Plan: Patient was postictal after being given Ativan for his seizures in the ER and was unable to protect his airway, patient was intubated on 01/03/2021 -patient successfully extubated on 01/06/2021 -currently on room air -PT/OT has been ordered (5) COPD (chronic obstructive pulmonary disease): Qualifiers: COPD type: unspecified COPD Qualified Code(s): J44.9 - Chronic obstructive pulmonary disease, unspecified Code(s): J44.9 - Chronic obstructive pulmonary disease, unspecified Status: Acute Assessment and Plan: History of COPD, continue bronchodilators, (6) ETOH abuse: Code(s): F10.10 - Alcohol abuse, uncomplicated Status: Acute Assessment and Plan: Continue thiamine
[2021-01-26] MEDS: LORazepam (*CRX) 1 MG TABLET PO ×2 (14:14→22:13)
[2021-01-26 16:00] VITALS: BP 112/65; PULSE 57; RESP 18; O2SAT 97
[2021-01-26 20:00] VITALS: O2SAT 99
[2021-01-26] MEDS: OLANZapine 5 MG TABLET 10 MG PO (20:11)
[2021-01-26 23:20] VITALS: BP 129/82; PULSE 90; RESP 16; TEMP 36.4; O2SAT 99
[2021-01-27] MEDS: CENTRAL LINE FLUSH 10 ML IV PUSH ×2 (05:48→20:11)
[2021-01-27 06:05] LABS: Alanine Aminotransferase 48 U/L (4-50); Albumin Level 3.8 g/dL (3.5-5.1); Alkaline Phosphatase 83 U/L (38-126); Anion Gap 5 mmol/L (8-16); Aspartate Amino Transferase 49 U/L (17-59); Bilirubin,Total 0.2 mg/dL (0.2-1.3); Blood Urea Nitrogen 16 mg/dL (9-20); Calcium 9.6 mg/dL (8.4-10.2); Carbon Dioxide 31 mmol/L (22-30); Chloride 100 mmol/L (98-107); Estimated CRCL calculation 104 ml/min; Estimated Glomerular Filt Rate > 60; Glucose 115 mg/dL (65-110); Magnesium 1.7 mg/dL (1.6-2.3); Potassium 4.4 mmol/L (3.4-5.0); Sodium 136 mmol/L (137-145)
[2021-01-27 06:46] LABS: Basophils Absolute Auto 0.1 K/mm3 (0.0-0.1); Basophils Percent Auto 2.4 % (0.2-1.2); Eosinophils Absolute Auto 0.4 K/mm3 (0-0.3); Eosinophils Percent Auto 6.7 % (0-4.4); Hematocrit 28.6 % (42.0-52.0); Hemoglobin 9.1 g/dL (14.0-18.0); Immature Granulocyte Absolute 0.01 K/mm3 (0.00-0.031); Immature Granulocyte Percent A 0.2 % (0-0.5); Lymphocytes Absolute Auto 1.08 K/mm3 (0.9-3.2); Lymphocytes Percent Auto 20.1 % (18.3-44.2); Mean Corpuscular HGB Conc 31.8 g/dl (32-36); Mean Corpuscular Hemoglobin 28.7 pg (26-34); Mean Corpuscular Volume 90.2 fl (80-100); Mean Platelet Volume 9.5 fl (7.4-10.4); Monocytes Absolute Auto 0.5 K/mm3 (0.1-0.6); Monocytes Percent Auto 9.3 % (2.6-8.5); Neutrophils Absolute Auto 3.3 K/mm3 (1.3-6.7); Neutrophils Percent Auto 61.3 % (45.5-73.1); Platelet Count Result 484 k/mm3 (150-375); Red Blood Count 3.17 M/mm3 (4.6-6.20); Red Cell Distribution Width 16.8 % (11.5-14.5); White Blood Count 5.4 K/mm3 (4.5-10.0)
[2021-01-27] MEDS: LORazepam (*CRX) 1 MG TABLET PO ×2 (07:08→12:20)
[2021-01-27] MEDS: OLANZapine 5 MG TABLET PO ×2 (07:08→14:19)
[2021-01-27 08:00] VITALS: BP 124/66; PULSE 99; RESP 20; TEMP 36.4; O2SAT 99
[2021-01-27] MEDS: ENOXAPARIN 40 MG/0.4 ML SYRINGE SUB-Q (09:05)
[2021-01-27] MEDS: FOLIC ACID 1 MG TABLET PO (09:06)
[2021-01-27] MEDS: THIAMINE HCL 200 MG/2 ML VIAL 100 MG IV PUSH (09:06)
[2021-01-27] MEDS: levETIRAcetam ORAL SOL 500 MG/5 ML UDC 1500 MG FEED TUBE ×2 (09:06→20:04)
[2021-01-27] MEDS: SILVERGEL (ELTA) 45 ML 1 APPLIC TOPICAL (09:06)
--- NOTE | 2021-01-27 10:36 | PC.NURSE ---
1030-SITTER SENT FROM BEDSIDE. BED ALARM ON. WILL CONTINUE TO MONITOR.
--- NOTE | 2021-01-27 14:23 | WPDINTPN ---
Progress Note: A&P Assessment and Plan (1) Encephalopathy: Code(s): G93.40 - Encephalopathy, unspecified Status: Acute Assessment and Plan: Appears to be toxic metabolic encephalopathy with delirium. ? 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 Neurology recommended placement -currently on Zyprexa and p.r.n. Ativan -CT brain 01/09: No acute intracranial abnormality, no significant change, chronic bilateral occipital lobe infarctions, mild sinus disease -TSH and ammonia level were normal -patient has a AICD. Patient did have MRI done in October of this year were unfortunately our hospital MRI cannot scan even if the device is MRI compatible -MRI done in 10/2020 was consistent with PRES - I suspect some component of cortical visual impairment which has been confirmed by patient's daughter and I have discussed with Dr. Johnson and there is no way for us to check for it here - Psychiatric evaluation has been done by Dr. Green. Patient has been started on Zyprexa p.o. q.h.s. and p.r.n. during the day - medications were adjusted and p.r.n. Ativan was added - patient now is off restraints but has a sitter at bedside and needs continues redirection from him pulling out on lines and tubes or coming out of bed (2) Seizures: Code(s): R56.9 - Unspecified convulsions Status: Chronic Assessment and Plan: Patient presented with seizure activities, received Ativan and Keppra in the ER, was postictal and was intubated for airway protection -currently on Keppra 1500 mg q.12 -no seizure activity noted overnight -neurology has evaluated the patient and appreciate their recommendation -EEG 01/04/2021 - Abnormal record due to the presence of bihemispheric theta and delta slow activity with persistent right hemispheric delta activity admixed with sharp and slow-wave transients at the rate of 1 to 2 per seconds these abnormalities are suggestive of seizure disorder with right hemispheric focus . -continue Keppra via PEG tube (3) Dysphagia: Code(s): R13.10 - Dysphagia, unspecified Status: Acute Assessment and Plan: Patient has been unable to complete a swallow evaluation due to lack of cooperation and agitation He was started on TPN earlier this week Nursing staff has been unable to place an NG tube despite multiple attempts yesterday. Dobbhoff placement by IR on 01/14 and patient was tolerating tube feeds without any issues. TPN was discontinued Dobbhoff of was replaced yesterday 01/18 and patient pulled out again yesterday evening PEG tube placed on 01/20/21, continue tube feeds and tolerating - I will consult speech to re-evaluate his swallow and see if he can have any supplementation through mouth which may lead to decrease in patient's frustration and agitation (4) Acute respiratory failure: Qualifiers: Respiratory failure complication: hypoxia Qualified Code(s): J96.01 - Acute respiratory failure with hypoxia Code(s): J96.00 - Acute respiratory failure, unspecified whether with hypoxia or hypercapnia Status: Acute Assessment and Plan: Patient was postictal after being given Ativan for his seizures in the ER and was unable to protect his airway, patient was intubated on 01/03/2021 -patient successfully extubated on 01/06/2021 -currently on room air -PT/OT has been ordered (5) COPD (chronic obstructive pulmonary disease): Qualifiers: COPD type: unspecified COPD Qualified Code(s): J44.9 - Chronic obstructive pulmonary disease, unspecified Code(s): J44.9 - Chronic obstructive pulmonary disease, unspecified Status: Acute A
[2021-01-27 16:43] VITALS: BP 121/92; PULSE 96; RESP 18; TEMP 36; O2SAT 98
--- NOTE | 2021-01-27 16:57 | PC.NURSE ---
This patient, Augusto Leon, was received from [icu] on 01/27/21 at 1626. Patient/family oriented to unit policies and routines
[2021-01-27 19:30] VITALS: O2SAT 96
[2021-01-27] MEDS: OLANZapine 5 MG TABLET 10 MG PO (20:04)
[2021-01-27 22:00] VITALS: BP 138/85; PULSE 96; RESP 16; TEMP 36.4; O2SAT 100
[2021-01-28] MEDS: LORazepam (*CRX) 1 MG TABLET PO ×3 (01:47→15:11)
[2021-01-28] MEDS: CENTRAL LINE FLUSH 10 ML IV PUSH ×2 (06:28→15:16)
[2021-01-28] MEDS: levETIRAcetam ORAL SOL 500 MG/5 ML UDC 1500 MG FEED TUBE ×2 (08:04→21:44)
[2021-01-28] MEDS: ENOXAPARIN 40 MG/0.4 ML SYRINGE SUB-Q (08:04)
[2021-01-28] MEDS: FOLIC ACID 1 MG TABLET PO (08:04)
[2021-01-28] MEDS: SILVERGEL (ELTA) 45 ML 1 APPLIC TOPICAL (08:05)
[2021-01-28] MEDS: THIAMINE HCL 200 MG/2 ML VIAL 100 MG IV PUSH (08:05)
--- NOTE | 2021-01-28 11:13 | PCNFU ---
Nutrition Follow-Up Complete: Inadequate oral intake related to oral intubation as evidenced by NPO status. Goal: Patient will meet estimated nutritional needs. Patient is meeting current goal. No new goal to report. Pt current nutrition is Jevity 1.5 at 60 ml/hr over 22 hours. Last recorded weight is 42.7 kg, down from 52 kg. Bed scale weights. Bowel Motility:+BM reported 01/28 Labs Reviewed:Glu 115, Cr 0.4,Na 136, Hct 28.6,Hgb 9.1 Meds Noted:Thiamine, Folic Acid, Ativan, Keppra, Lovenox. Additional Notes: Nutrition follow up. Patient had PEG placed 01/20. Tube feedings are being tolerated at 60 ml/hr of Jevity 1.5 providing 1980 kcals/84 gms protein/1003 ml water. Free water flush 30 ml q 4 hours. Skin: stage 2-buttock, Deep Tissue-left upper back. Plans for SNF. Agree with diet orders. Monitoring: Follow up every Sunday and Sunday.
[2021-01-28] MEDS: OLANZapine 5 MG TABLET PO ×2 (12:04→17:23)
[2021-01-28 14:00] VITALS: BP 116/80; PULSE 90; RESP 14; TEMP 36.1; O2SAT 100
[2021-01-28 20:39] VITALS: O2SAT 95
[2021-01-28] MEDS: LORazepam (*CRX) 1 MG TABLET FEED TUBE (21:48)
[2021-01-28] MEDS: OLANZapine 5 MG TABLET 10 MG FEED TUBE (21:49)
[2021-01-28 22:00] VITALS: BP 150/82; PULSE 100; RESP 18; TEMP 35.9; O2SAT 97
[2021-01-29 06:00] VITALS: BP 137/63; PULSE 88; RESP 16; TEMP 36.2; O2SAT 100
[2021-01-29 08:00] VITALS: PULSE 88; RESP 16; O2SAT 100
--- NOTE | 2021-01-29 09:04 | WPDPNPSYCH ---
Objective Data Vital Signs Vital Signs: Vital Signs - 24 hr 01/28/21 14:00 01/28/21 20:39 01/28/21 22:00 Temperature 96.9 F L 96.7 F L Pulse Rate 90 100 Respiratory Rate 14 18 Blood Pressure 116/80 150/82 H Pulse Oximetry 100 95 97 01/29/21 06:00 Temperature 97.2 F L Pulse Rate 88 Respiratory Rate 16 Blood Pressure 137/63 Pulse Oximetry 100 Intake/Output Intake/Output: Intake & Output 01/26/21 01/27/21 01/28/21 01/29/21 23:59 23:59 23:59 23:59 Intake Total 7276 179 3409 0 Output Total 524 283 8550 500 Balance 942 165 29 500 Meds/Results Medications: Active Medications Generic Name Dose Route Start Last Admin Trade Name Freq PRN Reason Stop Dose Admin Albuterol 2.5 mg 01/03/21 18:38 Albuterol Sulfate Neb 2.5 Mg/0.5 Ml Inh INHALATION Q4HRT PRN Shortness Of Breath Alteplase, Recombinant 2 mg 01/19/21 08:20 01/19/21 09:00 Alteplase 2 Mg Vial (Cathflo) IV PUSH 2 mg ONCE PRN Administration Line Occlusion Enoxaparin Sodium 40 mg 01/04/21 09:00 01/28/21 08:04 Enoxaparin 40 Mg/0.4 Ml Syringe SUB-Q 40 mg DAILY MONIK Administration Folic Acid 1 mg 01/21/21 09:00 01/28/21 08:04 Folic Acid 1 Mg Tablet PO 1 mg DAILY MONIK Administration Hydralazine HCl 10 mg 01/09/21 11:32 Hydralazine Hcl 20 Mg/Ml Vial IV PUSH Q4H PRN Blood Pressure - High Dextrose 1,000 mls @ 50 mls/hr 01/10/21 19:44 Dextrose 10% IV CONT .Q20H PRN if PN is interrupted Labetalol HCl 20 mg 01/11/21 09:48 01/12/21 14:44 Labetalol Hcl Inj 100 Mg/20 Ml Vial IV PUSH 20 mg Q4H PRN Administration SBP > 160 Levetiracetam 1,500 mg 01/25/21 21:00 01/28/21 21:44 Levetiracetam Oral Dominique 500 Mg/5 Ml Udc FEED TUBE 1,500 mg Q12HR MONIK Administration Lorazepam 1 mg 01/28/21 21:34 01/28/21 21:48 Lorazepam (*Crx) 1 Mg Tablet FEED TUBE 1 mg Q6HR PRN Administration Agitation Olanzapine 5 mg 01/21/21 23:04 01/28/21 17:23 Olanzapine 5 Mg Tablet PO 5 mg BID PRN Administration Agitation Olanzapine 10 mg 01/28/21 21:40 01/28/21 21:49 Olanzapine 5 Mg Tablet FEED TUBE 10 mg HS MONIK Administration Silver Nitrate 1 applic 01/25/21 09:00 01/28/21 08:05 Silvergel (Elta) 45 Ml TOPICAL 1 applic DAILY MONIK Administration Sodium Chloride 10 ml 01/10/21 14:00 01/29/21 05:30 Central Line Flush IV PUSH Not Given Q8HR MONIK Sodium Chloride 10 ml 01/10/21 12:51 Central Line Flush IV PUSH PRN PRN with TPN bag changes Sodium Chloride 20 ml 01/10/21 12:51 Central Line Flush IV PUSH PRN PRN after blood draws Radiology Results: ITS Impressions Abdomen X-Ray 01/03/21 17:57 IMPRESSION: 1. Nasogastric tube tip in the stomach. 2. Airspace opacities in right mid and lower lung zones, consistent with atelectasis versus pneumonia. Chest X-Ray 01/05/21 07:02 IMPRESSION: 1. Tubes in position. 2. Stable airspace disease and other findings as above. Head CT 01/09/21 09:35 IMPRESSION: 1. No acute intracranial abnormality. No significant change. 2: Chronic bilateral occipital lobe infarctions. 3: Mild sinus disease. Tube Placement 01/18/21 10:49 IMPRESSION: 1. Fluoroscopy guided nasoenteric tube placement with tip in the stomach. 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 Alcohol use disorder in full early remission Nicotine use disorder Pharmacologic noncompliance Plan: Zyprexa (olanzapine) 5mg p.o. qid. for target symptom of psychosis and agitation. Patient is at his target dose of Zyprexa at20mg a day. His Zyprexa p
[2021-01-29] MEDS: LORazepam (*CRX) 1 MG TABLET FEED TUBE ×2 (09:42→22:24)
[2021-01-29] MEDS: SILVERGEL (ELTA) 45 ML 1 APPLIC TOPICAL (09:43)
[2021-01-29] MEDS: ENOXAPARIN 40 MG/0.4 ML SYRINGE SUB-Q (09:43)
[2021-01-29] MEDS: FOLIC ACID 1 MG TABLET PO (09:43)
[2021-01-29] MEDS: levETIRAcetam ORAL SOL 500 MG/5 ML UDC 1500 MG FEED TUBE ×2 (09:43→22:16)
--- NOTE | 2021-01-29 10:40 | PCPTNOTE ---
Attempted PT evaluation this date, however pt refused. As therapist was attempting to ask pt questions pt repeatedly stated I m off today and when instructed to sit on the edge of the bed pt stated no.
[2021-01-29] MEDS: LORazepam (*CRX) 0.5 MG TABLET FEED TUBE ×2 (13:06→18:46)
[2021-01-29 15:35] VITALS: BP 133/72; PULSE 72; RESP 18; TEMP 37.1; O2SAT 98
[2021-01-29] MEDS: OLANZapine 5 MG TABLET FEED TUBE (18:45)
[2021-01-29 22:00] VITALS: BP 140/72; PULSE 77; RESP 16; TEMP 36.2; O2SAT 95
--- NOTE | 2021-01-30 01:01 | PC.NURSE ---
Daylight Savings Time For Daylight Savings Time Ending in the Fall - Clocks are moved back. For Daylight Savings Time Beginning in the Spring - Clocks are moved ahead. For [facility], the time of change occurs at 0200 hrs. Time is taken from the ems manager. This entry on the patient's chart recognizes the change in time reflected during documentation. Example: 2 entries for vital signs may be charted for 0200 hrs.
[2021-01-30 06:00] VITALS: BP 110/62; PULSE 95; RESP 16; TEMP 36.2; O2SAT 96
[2021-01-30 08:00] VITALS: PULSE 95; RESP 16; O2SAT 96
[2021-01-30] MEDS: LORazepam (*CRX) 0.5 MG TABLET FEED TUBE ×3 (08:38→17:45)
[2021-01-30] MEDS: SILVERGEL (ELTA) 45 ML 1 APPLIC TOPICAL (08:39)
[2021-01-30] MEDS: FOLIC ACID 1 MG TABLET PO (08:39)
[2021-01-30] MEDS: ENOXAPARIN 40 MG/0.4 ML SYRINGE SUB-Q (08:39)
[2021-01-30] MEDS: OLANZapine 5 MG TABLET FEED TUBE ×2 (08:39→17:45)
[2021-01-30] MEDS: levETIRAcetam ORAL SOL 500 MG/5 ML UDC 1500 MG FEED TUBE ×2 (08:39→20:01)
[2021-01-30] MEDS: LORazepam (*CRX) 1 MG TABLET FEED TUBE ×2 (13:22→20:01)
[2021-01-30 15:37] VITALS: BP 117/77; PULSE 92; RESP 18; TEMP 36.6; O2SAT 97
[2021-01-30 19:06] VITALS: BP 116/75; PULSE 92; RESP 18; TEMP 36.4; O2SAT 96
[2021-01-31] MEDS: HYDROcodone/acetaminophen (*CRX) 5-325 MG TABLET 1 TAB PO (01:24)
[2021-01-31 05:40] VITALS: BP 148/90; PULSE 81; RESP 16; TEMP 36.4; O2SAT 99
[2021-01-31 06:52] LABS: Basophils Absolute Auto 0.1 K/mm3 (0.0-0.1); Basophils Percent Auto 1.6 % (0.2-1.2); Eosinophils Absolute Auto 0.3 K/mm3 (0-0.3); Eosinophils Percent Auto 5.3 % (0-4.4); Hemoglobin 10.2 g/dL (14.0-18.0); Immature Granulocyte Absolute 0.01 K/mm3 (0.00-0.031); Immature Granulocyte Percent A 0.2 % (0-0.5); Lymphocytes Absolute Auto 1.14 K/mm3 (0.9-3.2); Lymphocytes Percent Auto 20.9 % (18.3-44.2); Mean Corpuscular HGB Conc 30.9 g/dl (32-36); Mean Corpuscular Hemoglobin 27.6 pg (26-34); Mean Corpuscular Volume 89.2 fl (80-100); Mean Platelet Volume 9.6 fl (7.4-10.4); Monocytes Absolute Auto 0.6 K/mm3 (0.1-0.6); Monocytes Percent Auto 11.7 % (2.6-8.5); Neutrophils Absolute Auto 3.3 K/mm3 (1.3-6.7); Neutrophils Percent Auto 60.3 % (45.5-73.1); Platelet Count Result 481 k/mm3 (150-375); Red Cell Distribution Width 16.8 % (11.5-14.5); White Blood Count 5.5 K/mm3 (4.5-10.0)
[2021-01-31 07:04] LABS: Prothrombin Time 13.4 Seconds (11.1-14.7)
[2021-01-31 07:06] LABS: Partial Thromboplastin Time 41.2 SECONDS (22.3-36.8)
[2021-01-31 07:24] LABS: Alanine Aminotransferase 71 U/L (4-50); Alkaline Phosphatase 88 U/L (38-126); Anion Gap 8 mmol/L (8-16); Aspartate Amino Transferase 66 U/L (17-59); Bilirubin,Total 0.2 mg/dL (0.2-1.3); Blood Urea Nitrogen 22 mg/dL (9-20); Calcium 9.8 mg/dL (8.4-10.2); Carbon Dioxide 32 mmol/L (22-30); Chloride 101 mmol/L (98-107); Estimated CRCL calculation 116 ml/min; Estimated Glomerular Filt Rate > 60; Glucose 107 mg/dL (65-110); Magnesium 1.9 mg/dL (1.6-2.3); Potassium 4.2 mmol/L (3.4-5.0); Sodium 141 mmol/L (137-145)
--- NOTE | 2021-01-31 07:37 | PM.IMPN ---
Progress Note: A&P Assessment and Plan (1) Encephalopathy: Code(s): G93.40 - Encephalopathy, unspecified Status: Acute Assessment and Plan: PAtient has developped a form of toxic metabolic encephalopathy with delirium. ? 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 Neurology recommended placement -currently on Zyprexa and p.r.n. Ativan -restraints in place -CT brain 01/09: No acute intracranial abnormality, no significant change, chronic bilateral occipital lobe infarctions, mild sinus disease -TSH and ammonia level were normal -patient has a AICD. Patient did have MRI done in October of this year were unfortunately our hospital MRI cannot scan even if the device is MRI compatible -MRI done in 10/2020 was consistent with PRES - I suspect some component of cortical visual impairment which has been confirmed by patient's daughter and I have discussed with Dr. Johnson and there is no way for us to check for it here - Psychiatric evaluation has been done by Dr. Green. Recommendations reviewed and updated. (2) Seizures: Code(s): R56.9 - Unspecified convulsions Status: Chronic Assessment and Plan: Patient presented with seizure activities, received Ativan and Keppra in the ER, was postictal and was intubated for airway protection -currently on Keppra 1500 mg q.12 -no seizure activity noted overnight -neurology has evaluated the patient and appreciate their recommendation -EEG 01/04/2021 - Abnormal record due to the presence of bihemispheric theta and delta slow activity with persistent right hemispheric delta activity admixed with sharp and slow-wave transients at the rate of 1 to 2 per seconds these abnormalities are suggestive of seizure disorder with right hemispheric focus . -continue Keppra, blue was seizure activities have been noted since admission With switch Keppra to via PEG tube (3) Dysphagia: Code(s): R13.10 - Dysphagia, unspecified Status: Acute Assessment and Plan: Patient has been unable to complete a swallow evaluation due to lack of cooperation and agitation He was started on TPN earlier this week Nursing staff has been unable to place an NG tube despite multiple attempts yesterday. Dobbhoff placement by IR on 01/14 and patient was tolerating tube feeds without any issues. TPN was discontinued Dobbhoff of was replaced yesterday 01/18 and patient pulled out again yesterday evening PEG tube placed on 01/20/21, continue tube feeds and tolerating (4) Acute respiratory failure: Qualifiers: Respiratory failure complication: hypoxia Qualified Code(s): J96.01 - Acute respiratory failure with hypoxia Code(s): J96.00 - Acute respiratory failure, unspecified whether with hypoxia or hypercapnia Status: Acute Assessment and Plan: Patient was postictal after being given Ativan for his seizures in the ER and was unable to protect his airway, patient was intubated on 01/03/2021 -patient successfully extubated on 01/06/2021 -currently on room air -PT/OT has been ordered (5) COPD (chronic obstructive pulmonary disease): Qualifiers: COPD type: unspecified COPD Qualified Code(s): J44.9 - Chronic obstructive pulmonary disease, unspecified Code(s): J44.9 - Chronic obstructive pulmonary disease, unspecified Status: Acute Assessment and Plan: History of COPD, continue bronchodilators, (6) ETOH abuse: Code(s): F10.10 - Alcohol abuse, uncomplicated Status: Acute Assessment and Plan: Continue thiamine and folic acid -patient with heavy alcohol use in the past (7) Empyema:
[2021-01-31] MEDS: levETIRAcetam ORAL SOL 500 MG/5 ML UDC 1500 MG FEED TUBE ×2 (08:45→22:35)
[2021-01-31] MEDS: OLANZapine 5 MG TABLET FEED TUBE ×2 (08:45→16:28)
[2021-01-31] MEDS: LORazepam (*CRX) 0.5 MG TABLET FEED TUBE ×3 (08:45→16:28)
[2021-01-31] MEDS: FOLIC ACID 1 MG TABLET PO (08:45)
[2021-01-31] MEDS: SILVERGEL (ELTA) 45 ML 1 APPLIC TOPICAL (08:45)
[2021-01-31] MEDS: ENOXAPARIN 40 MG/0.4 ML SYRINGE SUB-Q (08:45)
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
[2021-01-31] MEDS: CENTRAL LINE FLUSH 10 ML IV PUSH (12:47)
[2021-01-31 14:00] VITALS: BP 159/91; PULSE 92; RESP 18; TEMP 36.6; O2SAT 99
[2021-01-31] MEDS: LORazepam (*CRX) 1 MG TABLET FEED TUBE (17:42)
[2021-01-31 22:00] VITALS: BP 137/73; PULSE 88; RESP 18; TEMP 37.1; O2SAT 100
[2021-02-01] MEDS: LORazepam (*CRX) 1 MG TABLET FEED TUBE (00:39)
[2021-02-01 06:00] VITALS: BP 123/65; PULSE 87; RESP 16; TEMP 36.4; O2SAT 97
[2021-02-01 09:00] VITALS: BP 121/76; PULSE 80; RESP 14; TEMP 35.9; O2SAT 100
[2021-02-01] MEDS: levETIRAcetam ORAL SOL 500 MG/5 ML UDC 1500 MG FEED TUBE ×2 (10:46→21:08)
[2021-02-01] MEDS: LORazepam (*CRX) 0.5 MG TABLET FEED TUBE ×3 (10:47→21:07)
[2021-02-01] MEDS: OLANZapine 5 MG TABLET FEED TUBE ×2 (10:47→21:07)
[2021-02-01] MEDS: FOLIC ACID 1 MG TABLET PO (10:47)
[2021-02-01] MEDS: SILVERGEL (ELTA) 45 ML 1 APPLIC TOPICAL (10:47)
[2021-02-01] MEDS: ENOXAPARIN 40 MG/0.4 ML SYRINGE SUB-Q (10:47)
--- NOTE | 2021-02-01 11:16 | PC.NURSE ---
On 02/01/21, the student, [ Tiana Orellana], provided care and completed [facility] documentation on this patient. I have reviewed the student's documentation and agree with the findings.
--- NOTE | 2021-02-01 11:32 | PCNFU ---
Nutrition Follow-Up Complete: Inadequate oral intake related to oral intubation as evidenced by NPO status. Goal: Patient will meet estimated nutritional needs. Patient is meeting current diet orders. No new goal. Pt current nutrition is Jevity 1.5 at 60 ml/hr over 22 hours. Last recorded weight is 47.8 kg, down from 52 kg on admit. Bowel Motility:+BM reported 01/31 Labs Reviewed:BUN 22, Cr 0.4,Hct 33.0,Hgb 10.2 Meds Noted:Lovenox, Folic Acid, Ativan. Skin:WNL Additional Notes: Patient remains on tube feedings of Jevity 1.5 at 60 ml/hr over 22 hours. This is goal rate, providing 1980 kcals/84 gms protein/1003 ml water. Free water flush 30 ml q 4 hours. Agree with diet orders. Monitoring: Follow up every Sunday and Sunday.
[2021-02-01 13:37] LABS: Transferrin 140 mg/dL (206-381)
[2021-02-01 14:00] VITALS: BP 113/73; PULSE 84; RESP 20; TEMP 36.6; O2SAT 100
--- NOTE | 2021-02-01 14:19 | PM.IMPN ---
Progress Note: A&P Assessment and Plan (1) Encephalopathy: Code(s): G93.40 - Encephalopathy, unspecified Status: Acute Assessment and Plan: PAtient has developped a form of toxic metabolic encephalopathy with delirium. ? 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 Neurology recommended placement -currently on Zyprexa and p.r.n. Ativan -patient no longer require restraints. CTR the bedside for safety. -CT brain 01/09: No acute intracranial abnormality, no significant change, chronic bilateral occipital lobe infarctions, mild sinus disease -TSH and ammonia level were normal -patient has a AICD. Patient did have MRI done in October of this year were unfortunately our hospital MRI cannot scan even if the device is MRI compatible -MRI done in 10/2020 was consistent with PRES - I suspect some component of cortical visual impairment which has been confirmed by patient's daughter and I have discussed with Dr. Johnson and there is no way for us to check for it here - Psychiatric evaluation has been done by Dr. Green. Recommendations reviewed and updated. Zyprexa increased to 5 mg per NG tube 4 times a day. (2) Seizures: Code(s): R56.9 - Unspecified convulsions Status: Chronic Assessment and Plan: Patient presented with seizure activities, received Ativan and Keppra in the ER, was postictal and was intubated for airway protection -currently on Keppra 1500 mg q.12 hrs. -no seizure activity noted overnight -neurology has evaluated the patient and appreciate their recommendation -EEG 01/04/2021 - Abnormal record due to the presence of bihemispheric theta and delta slow activity with persistent right hemispheric delta activity admixed with sharp and slow-wave transients at the rate of 1 to 2 per seconds these abnormalities are suggestive of seizure disorder with right hemispheric focus . -continue Keppra, blue was seizure activities have been noted since admission (3) Dysphagia: Code(s): R13.10 - Dysphagia, unspecified Status: Acute Assessment and Plan: Patient has been unable to complete a swallow evaluation due to lack of cooperation and agitation He was started on TPN earlier this week Nursing staff has been unable to place an NG tube despite multiple attempts yesterday. Dobbhoff placement by IR on 01/14 and patient was tolerating tube feeds without any issues. TPN was discontinued Dobbhoff of was replaced yesterday 01/18 and patient pulled out again yesterday evening PEG tube placed on 01/20/21, continue tube feeds and tolerating (4) Acute respiratory failure: Qualifiers: Respiratory failure complication: hypoxia Qualified Code(s): J96.01 - Acute respiratory failure with hypoxia Code(s): J96.00 - Acute respiratory failure, unspecified whether with hypoxia or hypercapnia Status: Acute Assessment and Plan: Patient was postictal after being given Ativan for his seizures in the ER and was unable to protect his airway, patient was intubated on 01/03/2021 -patient successfully extubated on 01/06/2021 -currently on room air -PT/OT has been ordered (5) COPD (chronic obstructive pulmonary disease): Qualifiers: COPD type: unspecified COPD Qualified Code(s): J44.9 - Chronic obstructive pulmonary disease, unspecified Code(s): J44.9 - Chronic obstructive pulmonary disease, unspecified Status: Acute Assessment and Plan: History of COPD, continue bronchodilators, (6) ETOH abuse: Code(s): F10.10 - Alcohol abuse, uncomplicated Status: Acute Assessment and Plan: Continue thiamine and folic ac
[2021-02-01 20:10] VITALS: PULSE 88; RESP 18; O2SAT 99
[2021-02-01 22:00] VITALS: BP 156/86; PULSE 88; RESP 18; TEMP 36; O2SAT 99
[2021-02-02] MEDS: LORazepam (*CRX) 1 MG TABLET FEED TUBE (05:06)
[2021-02-02 06:00] VITALS: BP 155/76; PULSE 63; RESP 18; TEMP 36.2; O2SAT 94
[2021-02-02 06:56] LABS: Glucose Point of Care 121 mg/dl (65-105)
[2021-02-02 06:56] LABS: Glucose Point of Care 101 mg/dl (65-105)
[2021-02-02] MEDS: FOLIC ACID 1 MG TABLET PO (10:06)
[2021-02-02] MEDS: LORazepam (*CRX) 0.5 MG TABLET FEED TUBE ×2 (10:06→13:18)
[2021-02-02] MEDS: levETIRAcetam ORAL SOL 500 MG/5 ML UDC 1500 MG FEED TUBE (10:06)
[2021-02-02] MEDS: OLANZapine 5 MG TABLET FEED TUBE ×2 (10:07→13:18)
[2021-02-02] MEDS: ENOXAPARIN 40 MG/0.4 ML SYRINGE SUB-Q (10:07)
[2021-02-02] MEDS: SILVERGEL (ELTA) 45 ML 1 APPLIC TOPICAL (10:07)
--- NOTE | 2021-02-02 14:37 | P.PNIM_ITS ---
Progress Note: A&P Assessment and Plan (1) Encephalopathy: Code(s): G93.40 - Encephalopathy, unspecified Status: Acute Assessment and Plan: PAtient has developped a form of toxic metabolic encephalopathy with delirium. ? Withdrawal, patient does have CVA at baseline. Patient appears to be less irritable after initiation of Zyprexa. There were no events overnight. 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 Neurology recommended placement -currently on Zyprexa and p.r.n. Ativan -patient no longer require restraints. CTR the bedside for safety. -CT brain 01/09: No acute intracranial abnormality, no significant change, chronic bilateral occipital lobe infarctions, mild sinus disease -TSH and ammonia level were normal -patient has a AICD. Patient did have MRI done in October of this year were unfortunately our hospital MRI cannot scan even if the device is MRI compatible -MRI done in 10/2020 was consistent with PRES - I suspect some component of cortical visual impairment which has been confirmed by patient's daughter and I have discussed with Dr. Johnson and there is no way for us to check for it here - Psychiatric evaluation has been done by Dr. Green. Recommendations reviewed and updated. Zyprexa increased to 5 mg per NG tube 4 times a day. (2) Seizures: Code(s): R56.9 - Unspecified convulsions Status: Chronic Assessment and Plan: Patient presented with seizure activities, received Ativan and Keppra in the ER, was postictal and was intubated for airway protection -currently on Keppra 1500 mg q.12 hrs. -no seizure activity noted overnight -neurology has evaluated the patient and appreciate their recommendation -EEG 01/04/2021 - Abnormal record due to the presence of bihemispheric theta and delta slow activity with persistent right hemispheric delta activity admixed with sharp and slow-wave transients at the rate of 1 to 2 per seconds these abnormalities are suggestive of seizure disorder with right hemispheric focus . -continue Keppra, blue was seizure activities have been noted since admission (3) Dysphagia: Code(s): R13.10 - Dysphagia, unspecified Status: Acute Assessment and Plan: Patient has been unable to complete a swallow evaluation due to lack of cooperat ion and agitation He was started on TPN earlier this week Nursing staff has been unable to place an NG tube despite multiple attempts yesterday. Dobbhoff placement by IR on 01/14 and patient was tolerating tube feeds without any issues. TPN was discontinued Dobbhoff of was replaced yesterday 01/18 and patient pulled out again yesterday evening PEG tube placed on 01/20/21, continue tube feeds and tolerating (4) Acute respiratory failure: Qualifiers: Respiratory failure complication: hypoxia Qualified Code(s): J96.01 - Acute respiratory failure with hypoxia Code(s): J96.00 - Acute respiratory failure, unspecified whether with hypoxia or hypercapnia Status: Acute Assessment and Plan: Patient was postictal after being given Ativan for his seizures in the ER and was unable to protect his airway, patient was intubated on 01/03/2021 -patient successfully extubated on 01/06/2021 -currently on room air -PT/OT has been ordered (5) COPD (chronic obstructive pulmonary disease): Qualifiers:
[2021-02-02 14:41] VITALS: BP 119/78; PULSE 90; RESP 18; TEMP 36.6; O2SAT 100
--- NOTE | 2021-02-04 19:23 | PM.DS ---
DS: Admitting Diagnosis Discharge Date 02/02/21 Admitting Diagnosis Seizure status epilepticus. DS: Discharge Diagnosis Discharge Diagnosis (1) Encephalopathy: Code(s): G93.40 - Encephalopathy, unspecified Status: Acute Assessment and Plan: PAtient has developped a form of toxic metabolic encephalopathy with delirium. ? Withdrawal, patient does have CVA at baseline. Patient appears to be less irritable after initiation of Zyprexa. There were no events overnight. 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 Neurology recommended placement -currently on Zyprexa and p.r.n. Ativan -patient no longer require restraints. CTR the bedside for safety. -CT brain 01/09: No acute intracranial abnormality, no significant change, chronic bilateral occipital lobe infarctions, mild sinus disease -TSH and ammonia level were normal -patient has a AICD. Patient did have MRI done in October of this year were unfortunately our hospital MRI cannot scan even if the device is MRI compatible -MRI done in 10/2020 was consistent with PRES - I suspect some component of cortical visual impairment which has been confirmed by patient's daughter and I have discussed with Dr. Johnson and there is no way for us to check for it here - Psychiatric evaluation has been done by Dr. Green. Recommendations reviewed and updated. Zyprexa increased to 5 mg per NG tube 4 times a day. (2) Seizures: Code(s): R56.9 - Unspecified convulsions Status: Chronic Assessment and Plan: Patient presented with seizure activities, received Ativan and Keppra in the ER, was postictal and was intubated for airway protection -currently on Keppra 1500 mg q.12 hrs. -no seizure activity noted overnight -neurology has evaluated the patient and appreciate their recommendation -EEG 01/04/2021 - Abnormal record due to the presence of bihemispheric theta and delta slow activity with persistent right hemispheric delta activity admixed with sharp and slow-wave transients at the rate of 1 to 2 per seconds these abnormalities are suggestive of seizure disorder with right hemispheric focus . -continue Keppra, blue was seizure activities have been noted since admission (3) Dysphagia: Code(s): R13.10 - Dysphagia, unspecified Status: Acute Assessment and Plan: Patient has been unable to complete a swallow evaluation due to lack of cooperation and agitation He was started on TPN earlier this week Nursing staff has been unable to place an NG tube despite multiple attempts yesterday. Dobbhoff placement by IR on 01/14 and patient was tolerating tube feeds without any issues. TPN was discontinued Dobbhoff of was replaced yesterday 01/18 and patient pulled out again yesterday evening PEG tube placed on 01/20/21, continue tube feeds and tolerating (4) Acute respiratory failure: Qualifiers: Respiratory failure complication: hypoxia Qualified Code(s): J96.01 - Acute respiratory failure with hypoxia Code(s): J96.00 - Acute respiratory failure, unspecified whether with hypoxia or hypercapnia Status: Acute Assessment and Plan: Patient was postictal after being given Ativan for his seizures in the ER and was unable to protect his airway, patient was intubated on 01/03/2021 -patient successfully extubated on 01/06/2021 -currently on room air -PT/OT has been ordered (5) COPD (chronic obstructive pulmonary disease): Qualifiers: COPD type: unspecified COPD Qualified Code(s): J44.9 - Chronic obstructive pulmonary disease, unspecified Code(s): J44.9 - Chronic obstructive pulmonary disease, unspecified Status: Acute Assessment
== END 2021-02-02 14:45 | DRG 53 ==
LOC: ANHED 15:18 → ANHICU 15:52 → ANH3MEDSUR 02-02 11:05 → ANHICU 02-03 10:49
PROVIDERS: Emergency Medicine; Internal Medicine; Internal Medicine Gastroenterology; Nurse Practitioner; Psychiatry & Neurology Psychiatry; Admitting Provider Internal Medicine; Emergency Provider Emergency Medicine; PCP Nurse Practitioner Family; Visit Provider Internal Medicine
PROC: 0DH63UZ Insertion of Feeding Device into Stomach, Percutaneous Approach (ICD-10-PCS; CPT 43246; principal; 2021-01-19 13:45)
DX: G40.201 Localization-related (focal) (partial) symptomatic epilepsy and epileptic syndromes with complex partial seizures, not intractable, with status epilepticus (principal); I10 Essential (primary) hypertension; F17.210 Nicotine dependence, cigarettes, uncomplicated; K22.70 Barrett's esophagus without dysplasia; F32.A Depression, unspecified; Z95.810 Presence of automatic (implantable) cardiac defibrillator; J44.9 Chronic obstructive pulmonary disease, unspecified; Y90.9 Presence of alcohol in blood, level not specified; J96.00 Acute respiratory failure, unspecified whether with hypoxia or hypercapnia; F32.9 Major depressive disorder, single episode, unspecified; J86.9 Pyothorax without fistula; Z20.822 Contact with and (suspected) exposure to COVID-19; G92.8 Other toxic encephalopathy; E87.8 Other disorders of electrolyte and fluid balance, not elsewhere classified; E83.42 Hypomagnesemia; R13.10 Dysphagia, unspecified; E46 Unspecified protein-calorie malnutrition; Z68.1 Body mass index [BMI] 19.9 or less, adult; F05 Delirium due to known physiological condition; K21.00 Gastro-esophageal reflux disease with esophagitis, without bleeding; Z56.0 Unemployment, unspecified; K29.60 Other gastritis without bleeding; F01.51 Vascular dementia, unspecified severity, with behavioral disturbance; F10.21 Alcohol dependence, in remission; Z91.14 Patient's other noncompliance with medication regimen
CPT/HCPCS: 31500; 36415; 36569; 36600; 43246; 43752; 70450; 71045; 80048; 80053; 80307; 81001; 82140; 82306; 82375; 82550; 82607; 82728; 82746; 82805; 82948; 83050; 83605; 83615; 83690; 83735; 84100; 84443; 84466; 84478; 84484; 85025; 85027; 85610; 85730; 86592; 86703; 86803; 87040; 87340; 92610; 93005; 94003; 95816; 96361; 96365; 96367; 96375; 97161; 99285; A9270; C1751; C9113; C9803; G0432; J0295; J0360; J1630; J1650; J1953; J2001; J2060; J2250; J2310; J2405; J2704; J2997; J3010; J3411; J3475; J3480; J7030; J7040; J7120; J7121; U0003; U0005

== ENCOUNTER 2023-01-10 19:09 | Observation (INO) | payer OTHER, SELFPAY ==
--- NOTE | ~2023-01-10 | CT_ITS ---
EXAMINATION: CT brain wo con DATE: 01/10/2023 20:52 INDICATION: Seizure. TECHNIQUE: Computed tomography (CT) of the head was performed without intravenous contrast. The mA wa s adjusted according to patient size. Iterative reconstruction technique was employed. The dose-lengt h product was 605.33 mGy-cm. COMPARISON: Head CT 01/09/2021 FINDINGS: There are scattered areas of low attenuation in the cerebral white matter. There is chronic encephalomalacia in right parietal occipital region and left parietal occipital region. There is no intracranial hemorrhage, acute infarction, or abnormal intracranial mass lesion. The ventricles are n ormal in size. There is mild mucosal thickening in the paranasal sinuses. The orbits are normal. Ther e is a left otomastoid effusion. IMPRESSION: 1. Chronic encephalomalacia in the bilateral parietal-occipital regions. 2. Stable moderate nonspecific cerebral white matter disease, which likely represents chronic small v essel ischemic disease. Reviewed, dictated and finalized at location E. IMPRESSION: 1. Chronic encephalomalacia in the bilateral parietal-occipital regions. 2. Stable moderate nonspecific cerebral white matter disease, which likely repr esents chronic small vessel ischemic disease.
--- NOTE | ~2023-01-10 | CT_ITS ---
EXAMINATION: CTA BRAIN/CAROTID DATE: 01/10/2023 23:38 INDICATION: Seizure. Visual field defect. TECHNIQUE: Computed tomographic angiography (CTA) of the head and neck was performed with 100 mL Omni paque-350 intravenous contrast. Multiplanar reconstructions and maximum intensity projection 3D-recon structions of the carotid arteries and of the intracranial arteries were created by the technologist on a separate workstation. Precontrast CT of the head was also obtained. Automated exposure control and iterative reconstruction technique were employed.The dose-length product was 1181.78 mGy-cm. COMPARISON: None. FINDINGS: Carotid arteries: Aortic arch is normal in caliber. There is atherosclerotic plaque without hemodynamic significant álvaro nosis along the great vessels arising from the aortic arch. There is 25% stenosis of the right caroti d bulb relative to normal distal artery lumen diameter (NASCET criteria). There is 30% stenosis of th e left carotid bulb relative to normal distal artery lumen diameter. There is additional atherosclero tic plaque with 50% stenosis at the origin of the left vertebral artery. Moderate paraseptal predomin ant emphysema at the visualized upper lungs. There is fluid in the visualized upper thoracic esophagu s which demonstrates diffuse mild wall thickening which could be due to reflux esophagitis. Cervical soft tissues are unremarkable. Moderate cervical spondylosis. Intracranial arteries There is atherosclerotic plaque at the bilateral carotid siphons more prominent on the left where the re is up to 50% stenosis at the cavernous portion of the left internal carotid artery. The vertebral arteries are codominant with no hemodynamically significant stenosis in the vertebral or basilar esthela jorge. The vertebral and basilar arteries are relatively small relative to the bilateral internal rosario tid arteries. The bilateral A1 and left P1 segments are patent. The right posterior cerebral arteries supplied via a patent left posterior commuting artery. There is also a patent but smaller caliber le ft posterior communicating artery. There is a patent anterior communicating artery. There are no aneu rysms identified. Cerebral arterial arborization appears symmetric. No abnormally enhancing brain le sions identified. Again noted is chronic encephalomalacia in the bilateral parieto-occipital regions. IMPRESSION: 1. 25% stenosis of the right carotid bulb relative to normal distal artery lumen diameter (NASCET cri teria). 2. 35% stenosis of the left carotid bulb relative to normal distal artery lumen diameter. 3. 50% stenosis at the origin of the left vertebral artery. 4. 50% stenosis at the cavernous portion of the left internal carotid artery. Reviewed, dictated and finalized at location A. IMPRESSION: 1. 25% stenosis of the right carotid bulb relative to normal distal artery lume n diameter (NASCET criteria). 2. 35% stenosis of the left carotid bulb relative to normal distal artery lumen diameter. 3. 50% stenosis at the origin of the left vertebral artery. 4. 50% stenosis at the cavernous portion of the left internal carotid artery.
--- NOTE | ~2023-01-10 | XR_ITS ---
EXAMINATION: XR chest 1V portable DATE: 01/10/2023 21:38 INDICATION: Seizure. TECHNIQUE: A single frontal view of the chest was obtained. COMPARISON: Chest single view 01/05/2021 FINDINGS: There is no pneumonia, pleural effusion, or pneumothorax. The heart size is normal. There i s a left chest pacer with lead in right ventricle. Mediastinal surgical clips are noted. There are ol d healed right rib fractures. IMPRESSION: 1. No acute cardiopulmonary disease. Reviewed, dictated and finalized at location E.
--- NOTE | 2023-01-10 19:34 | PC.NURSE ---
Pt did not respond x3 calls for triage. Will re-attempt.
[2023-01-10] MEDS: LORazepam INJ (*CRX) 2 MG/ML VIAL 1 MG IM (20:11)
[2023-01-10 20:12] VITALS: BP 184/86; PULSE 88; RESP 32; TEMP 37.2; O2SAT 98
[2023-01-10 20:19] LABS: Glucose Point of Care 125 mg/dl (65-105)
--- NOTE | 2023-01-10 20:19 | ECG_ITS ---
Measurements Intervals [place] Rate: 106 P: 55 IA: 141 QRS: 57 QRSD: 82 T: 55 QT: 318 QTc: 422 Interpretive Statements SINUS TACHYCARDIA BASELINE ARTIFACT LOW-VOLTAGE QRS IN LIMB LEADS ABNORMAL ECG COMPARED TO ECG 01/03/2021 13:50:30 NO SIGNIFICANT CHANGES Electronically Signed On 01-11-2023 17:11:13 CDT by Silvestre Raza M.D.
--- NOTE | 2023-01-10 20:22 | ED.GENADULT ---
HPI - General Adult General Chief complaint: Seizure <Santiago Sun PA-C - Last Filed: 01/11/23 03:41> Stated complaint: gradual vision loss/fall <Santiago Sun PA-C - Last Filed: 01/11/23 03:41> Time Seen by Provider: 01/10/23 20:13 <Santiago Sun PA-C - Last Filed: 01/11/23 03:41> Source: patient <HOMA Sloan Last Filed: 01/11/23 03:41> Mode of arrival: EMS <HOMA Sloan Last Filed: 01/11/23 03:41> Limitations: altered mental status <HOMA Sloan Last Filed: 01/11/23 03:41> History of Present Illness HPI narrative: This is a 57-year-old male who presents to the ED via EMS for initial chief complaint of visual field problems and an unwitnessed fall at the [facility] today. While in the waiting room we were informed that the patient was having seizure-like activity. He does have a known seizure disorder and is on valproic acid and Keppra. History limited as patient is postictal. The suture winder hand who brought the patient and reported that the patient was ANO x4 and at his baseline initially. States he was having problems with his vision closing in. He was unable to report on any details of the patient's fall. <Santiago Sun PA-C - Last Filed: 01/11/23 03:41> Related Data Home medications: Home Medications Medication Instructions Recorded Confirmed Lactobacillus acidophilus 2,000 mmu cells PO BID 01/11/23 01/11/23 (Acidophilus capsule) acetaminophen 325 mg tablet 325 mg PO Q4H PRN Pain 01/11/23 01/11/23 albuterol sulfate 90 mcg/actuation 1 inh inhalation Q6H PRN Shortness 01/11/23 01/11/23 aerosol inhaler Of Breath atorvastatin 20 mg tablet 20 mg PO DAILY 01/11/23 01/11/23 cholecalciferol (vitamin D3) 1,250 1,250 mcg PO WEEKLY 01/11/23 01/11/23 mcg (50,000 unit) tablet levetiracetam 1,000 mg tablet 2,000 mg PO BID 01/11/23 01/11/23 ondansetron 4 mg disintegrating 4 mg PO Q8H PRN Nausea 01/11/23 01/11/23 tablet <Santiago Sun PA-C - Last Filed: 01/11/23 03:41> Allergies/adverse reactions: Allergies Allergy/AdvReac Type Severity Reaction Status Date / Time No Known Allergies Allergy Verified 01/10/23 20:19 <Santiago Sun PA-C - Last Filed: 01/11/23 03:41> Review of Systems Review of Systems: ROS unobtainable: Yes unobtainable due to mental status <HOMA Sloan Last Filed: 01/11/23 03:41> [facility] Past Medical History Medical History: Medical History Fitzpatrick esophagus Colon cancer screening Depression Erosive esophagitis Erosive gastritis HTN (hypertension) Seizure disorder Seizures Severe anemia Tobacco dependence <Santiago Sun PA-C - Last Filed: 01/11/23 03:41> Surgical History Surgical History: Surgical History AICD (automatic cardioverter/defibrillator) present History of foot surgery Right Heel Surgery - Screws/Plates S/P thoracotomy [facility] in [facility] performed by [phone]. <Santiago Sun PA-C - Last Filed: 01/11/23 03:41> Family History Family History: Family History Mother Family history of malignant neoplasm of breast in first degree relative Father Family history of heart disease in male family member before age 55 <HOMA Sloan Last Filed: 01/11/23 03:41> Social History Social History: Social History Social History: the patient lives home alone. He is listed as a full code. The patient is . He has 2 children. He is currently unemployed. The patient quit smoking when he received his thoracentesis and had been using a nicotine patch. The patient also quit drinking after he had his accident September of this year. This is according to his sister. The patient does not have a durable power
[2023-01-10 20:27] VITALS: PULSE 98; RESP 23; O2SAT 93
[2023-01-10 20:30] LABS: Basophils Absolute Auto 0.1 K/mm3 (0.0-0.1); Eosinophils Absolute Auto 0.1 K/mm3 (0-0.3); Eosinophils Percent Auto 0.6 % (0-4.4); Hematocrit 44.2 % (42.0-52.0); Hemoglobin 13.5 g/dL (14.0-18.0); Immature Granulocyte Absolute 0.04 K/mm3 (0.00-0.031); Immature Granulocyte Percent A 0.4 % (0-0.5); Lymphocytes Absolute Auto 3.67 K/mm3 (0.9-3.2); Lymphocytes Percent Auto 35.2 % (18.3-44.2); Mean Corpuscular HGB Conc 30.5 g/dl (32-36); Mean Corpuscular Hemoglobin 26.3 pg (26-34); Mean Platelet Volume 9.8 fl (7.4-10.4); Monocytes Absolute Auto 0.9 K/mm3 (0.1-0.6); Monocytes Percent Auto 8.9 % (2.6-8.5); Neutrophils Absolute Auto 5.6 K/mm3 (1.3-6.7); Neutrophils Percent Auto 53.9 % (45.5-73.1); Platelet Count Result 365 k/mm3 (150-375); Red Blood Count 5.14 M/mm3 (4.6-6.20); Red Cell Distribution Width 16.2 % (11.5-14.5); White Blood Count 10.4 K/mm3 (4.5-10.0)
[2023-01-10] MEDS: LORazepam INJ (*CRX) 2 MG/ML VIAL IV PUSH (20:34)
[2023-01-10 20:41] LABS: Alanine Aminotransferase 59 U/L (6-50); Alkaline Phosphatase 86 U/L (38-126); Anion Gap 20 mmol/L (8-16); Aspartate Amino Transferase 33 U/L (17-59); Bilirubin,Total 0.5 mg/dL (0.2-1.3); Blood Urea Nitrogen 15 mg/dL (9-20); Calcium 9.7 mg/dL (8.4-10.2); Carbon Dioxide 18 mmol/L (22-30); Chloride 98 mmol/L (98-107); Creatine Kinase 99 U/L (55-170); Estimated CRCL calculation 91 ml/min; Estimated Glomerular Filt Rate > 60; Ethanol < 10 mg/dL (<10); Glucose 114 mg/dL (65-110); Lactate Dehydrogenase 212 U/L (120-246); Potassium 3.8 mmol/L (3.4-5.0); Sodium 136 mmol/L (137-145)
--- NOTE | 2023-01-10 20:53 | PC.NURSE ---
Madiha called for further information. She states another resident found the patient sitting upright on the ground. Unwitnessed fall. When she assessed the patient at 1845 he was altered AOx1. Patient is normally independent and AOx4. She does not know when his last seizure was. Denies use of alcohol or drugs.
[2023-01-10 21:17] VITALS: BP 138/88; PULSE 107; RESP 18; O2SAT 98
[2023-01-10 21:23] LABS: Appearance Urine Clear (Clear); Bilirubin Urine Negative (Negative); Blood Urine Negative (Negative); Color Urine Yellow (Yellow); Glucose Urine UA Negative (Negative); Ketones Urine Trace mg/dL (Negative); Leukocyte Esterase Ur Negative LEU/UL (Negative); Nitrate Urine Negative (Negative); Protein Urine Negative (Negative)
[2023-01-10] MEDS: LORazepam INJ (*CRX) 2 MG/ML VIAL 1 MG IV PUSH (21:24)
[2023-01-10 21:26] LABS: Add Urine Microscopic? NO
[2023-01-10 21:33] LABS: Amphetamine Screen Urine Negative (Negative); Barbiturate Screen Urine Negative (Negative); Benzodiazepines Screen Urine Negative (Negative); Cannabinoid Screen Urine Negative (Negative); Cocaine Screen Urine Negative (Negative); Methadone Screen Urine Negative (Negative); Opiate Screen Urine Negative (Negative); Phencyclidine Screen Urine Negative (Negative)
[2023-01-10 22:04] VITALS: BP 140/98; PULSE 90; RESP 15; O2SAT 98
[2023-01-10 22:39] LABS: Valproic Acid 60.4 ug/mL (50-120)
[2023-01-10 23:39] VITALS: BP 148/92; PULSE 100; RESP 15; O2SAT 100
[2023-01-11] VITALS (11 sets, daily range): BP systolic 100–137; BP diastolic 59–90; PULSE 75–97; RESP 15–18; TEMP 36.3–36.8; O2SAT 96–100; BMI 22.4
--- NOTE | 2023-01-11 03:01 | ADMGEN ---
This patient, Augusto Leon, was admitted to Medical Room 250-. Patient/family oriented to hospital policies and general routines including ID bracelet, bed and alarms, visiting hours, pain management, procedures, bathroom and other care routines, personal items, smoking policy, room service/diet, and visiting hours. Information on how to activate the Rapid Response Team has been discussed. Patient/Family are encouraged to report perceived risks to care and to ask questions if they do not understand what they are told or what they should do.
[2023-01-11] MEDS: SODIUM CHLORIDE 0.9% IV 1,000 ML 65 ML IV CONT ×2 (03:21→16:51)
--- NOTE | 2023-01-11 03:45 | PC.NURSE ---
Unable to perform full admission, RE Meehan called with no answer, admission completed from medical records and the pt chart to the best of this nurses ability.
--- NOTE | 2023-01-11 04:27 | PC.NURSE ---
Rakan (daughter) and Helen (sibling) contacted regarding pt medications, unable to gather any information from them, unable to complete Med rec at this time.
--- NOTE | 2023-01-11 06:09 | PC.NURSE ---
This RN tried to call Rakan GRIMALDO, to obtain consent for MRI of the brain. No answer, left a message.
[2023-01-11] MEDS: DIVALPROEX SODIUM ER 500 MG TAB.24H PO ×2 (08:28→20:04)
--- NOTE | 2023-01-11 09:57 | WPDNEURCNPN ---
Assessment and Plan Assessment and plan (1) Seizure: Code(s): R56.9 - Unspecified convulsions Status: Acute Plan Mr. Leon is a 57 year old male with a history of epilepsy presenting due to breakthrough seizure. Seems to be unprovoked. - Increased VPA to 500mg in AM, 250mg in mid-day, and 750mg qhs - Continue Keppra 2000mg BID - EEG is not needed since patient has a known history of epilepsy and he is communicating appropriately, making subclinical seizures very unlikely Consult date: 01/11/23 Reason for consult: Breakthrough seizure HPI: Augusto Leon is a 57 year old male with a history of Fitzpatrick's esophagus, depression, HTN, epilepsy presenting due to breakthrough seizure. Patient had an unwitnessed fall on the day of presentation. He was at [facility]. Prior to the fall, he had been complaining of change in his visual field. At baseline he is AOx4. While waiting in the ED, he had what was described as seizure like activity, which required Ativan 4mg to abort. He was post-ictal afterwards. CT head was negative for acute process. CTA brain/carotid showed 25% stenosis of R carotid bulb, 35% stenosis of L carotid bulb, 50% stenosis of origin of L vertebral artery, and 50% stenosis of carverous segment of L ICA. His blood pressure was initially elevated to 184/86. Lab work was mostly unrevealing. UDS and UA were negative. His VPA level is 60. Keppra level obtained and is pending. His current regimen of antiseizure medication is Keppra 2000mg BID and VPA 500mg qAM and 750mg qhs. Patient reports he has several seizures a year but is not able to quantiy exactly how many and how often. Review of Systems Constitutional: Constitutional: Denies chills, Denies fever(s) and Denies weight loss Eyes: Eyes: Denies diplopia and Denies loss of vision Comments: chronic vision loss in the left eye ENT: Denies dizziness, Denies hearing loss and Denies tinnitus Cardiovascular: Cardiovascular: Denies chest pain, Denies syncope and Denies dyspnea Respiratory: Respiratory: Denies cough, Denies dyspnea and Denies wheezing Gastrointestinal: Gastrointestinal: Denies abdominal pain, Denies change in bowel habits and Denies vomiting Genitourinary: Genitourinary: Denies urinary incontinence Musculoskeletal: Musculoskeletal: Denies arthralgias and Denies joint swelling Integumentary/Breasts: Skin/Breast: Denies new lesions and Denies rash Neurologic: Reports as per HPI, Denies dizziness, Denies syncope and Denies loss of vision Psychiatric: Psychiatric: Denies anxiety and Denies depression Endocrine: Endocrine: Denies cold intolerance and Denies heat intolerance Hematologic/Lymphatic: Hematologic/Lymphatic: Denies easy bleeding and Denies easy bruising Allergic/Immunologic: Allergic/Immunologic: Denies no additional allergic/immunologic complaints and Denies wheezing PMFSH Past Medical History Medical History Fitzpatrick esophagus Colon cancer screening Depression Erosive esophagitis Erosive gastritis HTN (hypertension) Seizure disorder Seizures Severe anemia Tobacco dependence Surgical History Surgical History AICD (automatic cardioverter/defibrillator) present History of foot surgery Right Heel Surgery - Screws/Plates S/P thoracotomy [facility] in [facility] performed by [phone]. Family History Family History Mother Family history of malignant neoplasm of breast in first degree relative Father Family history of heart disease in male family member before age 55 Social History Social History Social History: the patient lives home alone. He is listed as a full code. The patient is . He has 2 children. He is currently unemployed. The patient quit [employer]
--- NOTE | 2023-01-11 10:39 | PM.IMHP ---
H&P: HPI History of Present Illness Date/Time: 01/11/23 10:39 Chief Complaint: This is a 57-year-old male who presents to the ED via EMS for initial chief complaint of visual field problems and an unwitnessed fall at the [facility] today.? While in the waiting room we were informed that the patient was having seizure-like activity.? He does have a known seizure disorder and is on valproic acid and Keppra.? History limited as patient is postictal. The mortar man who brought the patient and reported that the patient was ANO x4 and at his baseline initially.? States he was having problems with his vision closing in.? He was unable to report on any details of the patient's fall. Review of Systems Review of Systems: 10 point ROS negative except as stated in HPI / Subjective PMFSH Past Medical History Medical History Fitzpatrick esophagus Colon cancer screening Depression Erosive esophagitis Erosive gastritis HTN (hypertension) Seizure disorder Seizures Severe anemia Tobacco dependence Surgical History Surgical History AICD (automatic cardioverter/defibrillator) present History of foot surgery Right Heel Surgery - Screws/Plates S/P thoracotomy [facility] in [facility] performed by [phone]. Family History Family History Mother Family history of malignant neoplasm of breast in first degree relative Father Family history of heart disease in male family member before age 55 Social History Social History Social History: the patient lives home alone. He is listed as a full code. The patient is . He has 2 children. He is currently unemployed. The patient quit smoking when he received his thoracentesis and had been using a nicotine patch. The patient also quit drinking after he had his accident September of this year. This is according to his sister. The patient does not have a durable power united [place] attorney for healthcare. The daughter is working on becoming the power united [place] attorney. Code status full code Smoking packs per day: 1 Smoking cigarettes per day: 20.0 Years smoked: 30 Smoking pack-years: 30.00 Smoking status: Current every day smoker Alcohol intake: current Drinks per week: 70 Alcohol use details: Daily Substance use: never Substance use type: does not use Living arrangements: with family Occupation/Education: occupation Gender identity (if verbalized by the patient): Male Spiritual care concerns: No Meds Home Medications and Allergies Home Medications Medication Instructions Recorded Confirmed Type folic acid 1 mg tablet 1 mg PO DAILY 30 days #30 tabs 02/02/21 01/11/23 Rx Lactobacillus acidophilus 2,000 mmu cells PO BID 01/11/23 01/11/23 History (Acidophilus capsule) acetaminophen 325 mg tablet 325 mg PO Q4H PRN Pain 01/11/23 01/11/23 History albuterol sulfate 90 mcg/actuation 1 inh inhalation Q6H PRN Shortness 01/11/23 01/11/23 History aerosol inhaler Of Breath atorvastatin 20 mg tablet 20 mg PO DAILY 01/11/23 01/11/23 History cholecalciferol (vitamin D3) 1,250 1,250 mcg PO WEEKLY 01/11/23 01/11/23 History mcg (50,000 unit) tablet divalproex 250 mg tablet,extended 250 mg PO DAILY 01/11/23 01/11/23 History release 24 hr divalproex 500 mg tablet,extended 500 mg PO BID 01/11/23 01/11/23 History release 24 hr levetiracetam 1,000 mg tablet 2,000 mg PO BID 01/11/23 01/11/23 History ondansetron 4 mg disintegrating 4 mg PO Q8H PRN Nausea 01/11/23 01/11/23 History tablet Allergies Allergy/AdvReac Type Severity Reaction Status Date / Time No Known Allergies Allergy Verified 01/10/23 20:19 Vital Signs Vital Signs - 24 hr 01/10/23 20:12 01/10/23 21:17 01/10/23 20:27 Temperature
[2023-01-11] MEDS: ACIDOPHILUS/BULGARICUS CHEWABLE TABLET 2 TABLET PO (16:48)
[2023-01-11] MEDS: DIVALPROEX SODIUM ER 250 MG TAB.24H PO (20:04)
[2023-01-11] MEDS: levETIRAcetam 1000MG/NACL100ML 1,000 MG/100 ML BAG 383.39 MG IVPB ×2 (20:04→21:03)
[2023-01-12] VITALS: PULSE 74
[2023-01-12 04:00] VITALS: PULSE 67
[2023-01-12 05:30] VITALS: BP 120/78; PULSE 73; RESP 18; TEMP 36.3; O2SAT 97
[2023-01-12 08:00] VITALS: PULSE 65
[2023-01-12] MEDS: levETIRAcetam 1000MG/NACL100ML 1,000 MG/100 ML BAG 383 MG IVPB (09:00)
[2023-01-12] MEDS: levETIRAcetam 1000MG/NACL100ML 1,000 MG/100 ML BAG 383.39 MG IVPB (10:19)
[2023-01-12] MEDS: ATORVASTATIN 20 MG TABLET PO (10:20)
[2023-01-12] MEDS: FOLIC ACID 1 MG TABLET PO (10:20)
[2023-01-12] MEDS: DIVALPROEX SODIUM ER 500 MG TAB.24H PO (10:20)
[2023-01-12] MEDS: ACIDOPHILUS/BULGARICUS CHEWABLE TABLET 2 TABLET PO ×2 (10:20→17:00)
[2023-01-12] MEDS: SODIUM CHLORIDE 0.9% IV 1,000 ML 65 ML IV CONT (10:23)
--- NOTE | 2023-01-12 10:55 | WPDNEUROLOGY ---
Neurology EEG Report General Information Date of Study: 01/11/23 EEG NUMBER [id number]
--- NOTE | 2023-01-12 11:35 | PM.DS ---
DS: Admitting Diagnosis Discharge Date January 12, 2023 Admitting Diagnosis Seizure DS: Discharge Diagnosis Discharge Diagnosis (1) Seizure: Code(s): R56.9 - Unspecified convulsions Status: Acute Assessment and Plan: appreciate neurologyinput eeg pending (2) Anxiety: Code(s): F41.9 - Anxiety disorder, unspecified Status: Acute Assessment and Plan: monitor (3) HTN (hypertension): Qualifiers: Hypertension type: essential hypertension Qualified Code(s): I10 - Essential (primary) hypertension Code(s): I10 - Essential (primary) hypertension Status: Chronic (4) Hyperlipemia: Code(s): E78.5 - Hyperlipidemia, unspecified Status: Acute DS: Summary Hospital Course Hospital Course: 57-year-old male admitted for seizure. Neurology was Consul were adjusted. He has not had any seizures since his admission. Okay for discharge Time Spent with Patient Time attestation: Total time spent providing and/or coordinating discharge services: Exam Narrative: General: alert and oriented Psych: appropriate mood nad affect Eyes: PERRLA Neck: Trachea midline, no new lesions Skin: no changes Lungs: CTA Cardiac: Normal S1,S2, no MGR ABD: soft, nd, nt, nbs Ext: no new lesions, no cce Vasc: Pulses intact Discharge Plan Discharge Attending physician on discharge: Rubens Jett Consulting providers: Tigre Johnson Discharging Clinician: Rubens Jett Patient Disposition: Home, Self-Care Activity: as tolerated Diet: as tolerated Patient Instructions: Antibiotic Form Stand Alone Forms: General Discharge Information Follow-up/Referrals: Tigre Johnson MD [Physician] - Discharge Medications: New divalproex 250 mg tablet,delayed release (DR/EC) 250 mg PO .daily @ noon Qty: 30 0RF Continued acetaminophen 325 mg Tablet 325 mg PO Q4H PRN (Reason: Pain) atorvastatin 20 mg tablet 20 mg PO DAILY Acidophilus Capsule 2,000 mmu cells PO BID albuterol sulfate 90 mcg/actuation HFA aerosol inhaler 1 inh INHALATION Q6H PRN (Reason: Shortness Of Breath) ondansetron 4 mg Tablet,Disintegrating 4 mg PO Q8H PRN (Reason: Nausea) levetiracetam 1,000 mg tablet 2,000 mg PO BID cholecalciferol (vitamin D3) 1,250 mcg (50,000 unit) Tablet 1,250 mcg PO WEEKLY Rx Instructions: Mondays folic acid 1 mg Tablet 1 mg PO DAILY 30 Days Qty: 30 0RF Discontinued divalproex 500 mg tablet extended release 24 hr 500 mg PO BID divalproex 250 mg tablet extended release 24 hr 250 mg PO DAILY Rx Instructions: Give with 500mg to =750mg at HS Date of admission: 01/11/23 01:17 Primary Care Provider: Luz Bentley Admitting Provider: Luis Enrique Santamaria V. Attending physician on admission: Luis Enrique Santamaria V. Condition: Guarded Prognosis
[2023-01-12 12:00] VITALS: PULSE 70
[2023-01-12 13:33] VITALS: BP 121/79; PULSE 65; RESP 16; TEMP 36.5; O2SAT 96
[2023-01-12 21:20] LABS: SARS-CoV-2 RNA PCR Negative (Negative)
[2023-01-14 17:40] LABS: Levetiracetam Keppra 49.6 mcg/mL (6.0-46.0)
--- NOTE | 2023-01-15 09:04 | WPDNEUROLOGY ---
Neurology EEG Report General Information Date of Study: 01/11/23 TEST Routine EEG DIAGNOSIS Seizure CONDITION OF RECORDING Drowsy, asleep EEG NUMBER [id number] CLINICAL HISTORY Patient has a history of epilepsy. He was admitted due to increase in breakthrough seizures. EEG DESCRIPTION Well formed posterior dominant rhythm is not seen. The recording is continuous. There is a well developed anterior-posterior gradient. No significant asymmetries of background activities are noted. With drowsiness there is a mixture of beta, alpha, and theta activity. As the patient enters stage II sleep, symmetrical spindles are present. Arousal is unremarkable. There is an isolated sharp transient noted in F7 lead (left anterior temporal region). No seizures were noted. Hyperventilation and photic stimulation were not performed. IMPRESSION This is an abnormal routine EEG due to the presence of an isolated sharp transient in the left anterior temporal region. This may suggest a decreased threshold for having seizure from a focal onset mechanism. Clinical correlation recommended.
[2023-01-17 06:01] LABS: Prolactin 32.5 ng/mL (***)
== END 2023-01-12 20:10 | disposition home or self-care (01) ==
LOC: ANHED 01-11 01:22 → ANH2MED 01-12 09:05
PROVIDERS: Admitting Provider Chiropractor; Emergency Provider Physician Assistant; PCP Nurse Practitioner Family; Visit Provider Chiropractor
DX: R56.9 Unspecified convulsions (principal); W19.XXXA Unspecified fall, initial encounter; K22.70 Barrett's esophagus without dysplasia; R90.82 White matter disease, unspecified; R94.31 Abnormal electrocardiogram [ECG] [EKG]; F32.A Depression, unspecified; I10 Essential (primary) hypertension; E78.5 Hyperlipidemia, unspecified; D64.9 Anemia, unspecified; F17.210 Nicotine dependence, cigarettes, uncomplicated; F10.90 Alcohol use, unspecified, uncomplicated; Y90.0 Blood alcohol level of less than 20 mg/100 ml; Z20.822 Contact with and (suspected) exposure to COVID-19; Z95.810 Presence of automatic (implantable) cardiac defibrillator; Z79.1 Long term (current) use of non-steroidal anti-inflammatories (NSAID); Z79.51 Long term (current) use of inhaled steroids; Z79.899 Other long term (current) drug therapy
CPT/HCPCS: 36415; 70450; 70496; 70498; 71045; 80053; 80164; 80177; 80307; 81003; 82550; 82948; 83615; 84146; 85025; 87635; 93005; 95816; 96361; 96365; 96366; 96372; 96375; 99285; A9270; G0378; G0379; J1953; J2060; J7030; Q9967

== ENCOUNTER 2023-03-08 23:05 | Emergency (ER) | payer OTHER, SELFPAY ==
--- NOTE | ~2023-03-08 | XR_ITS ---
Portable chest x-ray Comparison: 01/10/2023 Clinical History: Weakness Findings: There is mild haziness left perihilar region. Right lung clear. Cardiomediastinal silhoue tte is stable, with pacemaker device. Stable chronic right rib fracture deformities noted. Impression: Mild haziness left perihilar region, nonspecific. Consider CT to further evaluate for possible pulmon ervin nodule versus airspace disease. Reviewed, dictated and finalized at [facility]. LAYER Impression: Mild haziness left perihilar region, nonspecific. Consider CT to further evalua te for possible pulmonary nodule versus airspace disease.
--- NOTE | ~2023-03-08 | CT_ITS ---
CT head without contrast Indication: Altered mental status, seizure COMPARISON: 01/10/2023 Technique: Serial scans were obtained through the brain without the administration of contrast. Dose reduction technique was used on this scan by utilizing automated exposure control and iterative recon struction technique. The dose-length product (DLP) was 605.33 mGy-cm. Findings: There is no evidence of intracranial hemorrhage, mass lesion, or acute infarct. Focal old e ncephalomalacia in the high right parietal lobe, unchanged. The ventricles and subarachnoid spaces ar e dilated, consistent with mild atrophy. Low attenuation regions are seen within the periventricular white matter bilaterally, likely representing changes from chronic microvascular ischemic disease. T here is no evidence of edema, mass effect or midline shift. The visualized paranasal sinuses and ma stoid air cells are clear. Impression: No intracranial hemorrhage, mass, or acute infarct. Stable chronic encephalomalacia right parietal lobe. Atrophy and chronic white matter changes, as above. Reviewed, dictated and finalized at location . ITAL RECEIVING CLERK Impression: No intracranial hemorrhage, mass, or acute infarct. Stable chronic encephalomalacia right parietal lobe. Atrophy and chronic white matter changes, as above.
[2023-03-08 23:05] VITALS: BP 136/83; PULSE 87; RESP 17; TEMP 36.4; O2SAT 93
[2023-03-09] VITALS (7 sets, daily range): BP systolic 94–124; BP diastolic 58–73; PULSE 76–82; RESP 18–21; O2SAT 93–99
--- NOTE | 2023-03-09 00:09 | ECG_ITS ---
Measurements Intervals [place] Rate: 85 P: 19 OK: 140 QRS: 54 QRSD: 78 T: 64 QT: 349 QTc: 416 Interpretive Statements SINUS RHYTHM LOW-VOLTAGE QRS OTHERWISE UNREMARKABLE ECG COMPARED TO ECG 01/10/2023 20:58:14 NO SIGNIFICANT DIFFERENCE Electronically Signed On 03-09-2023 14:04:54 PROCUREMENT PROFESSIONAL by Rubens Clark M.D.
[2023-03-09 00:53] LABS: Basophils Percent Auto 0.3 % (0.2-1.2); Eosinophils Percent Auto 0.2 % (0-4.4); Hematocrit 44.8 % (42.0-52.0); Hemoglobin 14.6 g/dL (14.0-18.0); Immature Granulocyte Absolute 0.05 K/mm3 (0.00-0.031); Immature Granulocyte Percent A 0.4 % (0-0.5); Lymphocytes Absolute Auto 1.11 K/mm3 (0.9-3.2); Lymphocytes Percent Auto 9.5 % (18.3-44.2); Mean Corpuscular HGB Conc 32.6 g/dl (32-36); Mean Corpuscular Hemoglobin 26.4 pg (26-34); Mean Corpuscular Volume 81.2 fl (80-100); Mean Platelet Volume 9.1 fl (7.4-10.4); Monocytes Absolute Auto 0.7 K/mm3 (0.1-0.6); Monocytes Percent Auto 5.5 % (2.6-8.5); Neutrophils Absolute Auto 9.9 K/mm3 (1.3-6.7); Neutrophils Percent Auto 84.1 % (45.5-73.1); Platelet Count Result 312 k/mm3 (150-375); Red Blood Count 5.52 M/mm3 (4.6-6.20); Red Cell Distribution Width 15.9 % (11.5-14.5); White Blood Count 11.7 K/mm3 (4.5-10.0)
[2023-03-09 01:05] LABS: Alanine Aminotransferase 24 U/L (6-50); Albumin Level 4.8 g/dL (3.5-5.1); Alkaline Phosphatase 104 U/L (38-126); Anion Gap 11 mmol/L (8-16); Aspartate Amino Transferase 31 U/L (17-59); Bilirubin,Total 0.5 mg/dL (0.2-1.3); Blood Urea Nitrogen 17 mg/dL (9-20); Calcium 9.9 mg/dL (8.4-10.2); Carbon Dioxide 27 mmol/L (22-30); Chloride 92 mmol/L (98-107); Estimated CRCL calculation 113 ml/min; Estimated Glomerular Filt Rate > 60; Glucose 108 mg/dL (65-110); Potassium 4.3 mmol/L (3.4-5.0); Sodium 130 mmol/L (137-145)
[2023-03-09 02:44] LABS: INR 0.9; Partial Thromboplastin Time 34.8 SECONDS (22.3-36.8); Prothrombin Time 12.8 Seconds (11.1-14.7)
[2023-03-09] MEDS: SODIUM CHLORIDE 0.9% IV 1,000 ML 999 ML IV CONT (03:59)
[2023-03-09] MEDS: ACETAMINOPHEN 500 MG TABLET 1000 MG PO (04:00)
[2023-03-09] MEDS: PROCHLORPERAZINE EDISYLATE 10 MG/2 ML VIAL IV PUSH (04:00)
[2023-03-09 04:23] LABS: Magnesium 1.7 mg/dL (1.6-2.3)
[2023-03-09 04:33] LABS: Lactic Acid Reflex 1.2 mmol/L (0.7-2.0)
[2023-03-09 04:36] LABS: Troponin I 0.013 ng/mL (0.000-0.034)
[2023-03-09 04:39] LABS: Appearance Urine Clear (Clear); Bacteria Urine None Seen /hpf; Bilirubin Urine Negative (Negative); Blood Urine Negative (Negative); Color Urine Dark Yellow (Yellow); Glucose Urine UA Negative (Negative); Hyaline Casts Urine Present /lpf; Ketones Urine Trace mg/dL (Negative); Leukocyte Esterase Ur Negative LEU/UL (Negative); Nitrate Urine Negative (Negative); Non Pathogenic Casts >20; Protein Urine Trace mg/dL (Negative); RBC Urine 0-2 /hpf (0-2); Specific Grav Ur 1.022 (1.001-1.035); Squamous Epithelial Cell Urine Occasional /hpf (Few); WBC Clumps Urine Present /HPF
[2023-03-09 04:40] LABS: Add Urine Microscopic? YES
[2023-03-09 04:51] LABS: Procalcitonin 0.1 ng/mL
--- NOTE | 2023-03-09 05:13 | ED.GENADULT ---
HPI - General Adult General Chief complaint: Altered Mental Status Stated complaint: AMS Time Seen by Provider: 03/09/23 02:56 History of Present Illness HPI narrative: the patient is a 57-year-old gentleman who presents to emergency department with chief complaint of altered mental status. The patient reports has been feeling weak and feeling nauseated the patient states that time he has had a little headache and some cramping in his abdomen. The patient also has history of seizure disorder the family get reports that the patient is acting basically his baseline at this point. Related Data Home Medications Medication Instructions Recorded Confirmed Lactobacillus acidophilus 2,000 mmu cells PO BID 01/11/23 01/11/23 (Acidophilus capsule) acetaminophen 325 mg tablet 325 mg PO Q4H PRN Pain 01/11/23 01/11/23 albuterol sulfate 90 mcg/actuation 1 inh inhalation Q6H PRN Shortness 01/11/23 01/11/23 aerosol inhaler Of Breath atorvastatin 20 mg tablet 20 mg PO DAILY 01/11/23 01/11/23 cholecalciferol (vitamin D3) 1,250 1,250 mcg PO WEEKLY 01/11/23 01/11/23 mcg (50,000 unit) tablet levetiracetam 1,000 mg tablet 2,000 mg PO BID 01/11/23 01/11/23 ondansetron 4 mg disintegrating 4 mg PO Q8H PRN Nausea 01/11/23 01/11/23 tablet Allergies Allergy/AdvReac Type Severity Reaction Status Date / Time No Known Allergies Allergy Verified 03/09/23 04:04 Review of Systems Review of Systems: A 10 system review of systems was completed on the patient and is negative except for what is stated in the HPI. Nursing and ancillary documentation was reviewed. [facility] Past Medical History Medical History Fitzpatrick esophagus Colon cancer screening Depression Erosive esophagitis Erosive gastritis HTN (hypertension) Seizure disorder Seizures Severe anemia Tobacco dependence Surgical History Surgical History AICD (automatic cardioverter/defibrillator) present History of foot surgery Right Heel Surgery - Screws/Plates S/P thoracotomy [facility] performed by [phone]. Family History Family History Mother Family history of malignant neoplasm of breast in first degree relative Father Family history of heart disease in male family member before age 55 Social History Social History Social History: the patient lives home alone. He is listed as a full code. The patient is . He has 2 children. He is currently unemployed. The patient quit smoking when he received his thoracentesis and had been using a nicotine patch. The patient also quit drinking after he had his accident September of this year. This is according to his sister. The patient does not have a durable power attorney at law for healthcare. The daughter is working on becoming the power attorney at law. Code status full code Smoking packs per day: 1 Smoking cigarettes per day: 20.0 Years smoked: 30 Smoking pack-years: 30.00 Smoking status: Current every day smoker Alcohol intake: current Drinks per week: 70 Alcohol use details: Daily Substance use: never Substance use type: does not use Living arrangements: with family Occupation/Education: occupation Gender identity (if verbalized by the patient): Male Spiritual care concerns: No Exam Narrative: GENERAL: Well-appearing, well-nourished, and in no acute distress. HEAD: Normocephalic, atraumatic. EYES: PERRLA and EOMI. ENT: Nares clear, no rhinorrhea or epistaxis. Mucous membranes moist. NECK: Supple. CHEST: Clear to auscultation. No respiratory distress. HEART: Regular rate and rhythm. No murmur heard. Normal peripheral pulses. ABDOMEN: Soft, nontender, nondistended, normal active bowel so
== END 2023-03-09 07:19 ==
PROVIDERS: Emergency Provider Emergency Medicine; PCP Nurse Practitioner Family
DX: N39.0 Urinary tract infection, site not specified (principal); I10 Essential (primary) hypertension; K22.70 Barrett's esophagus without dysplasia; G40.909 Epilepsy, unspecified, not intractable, without status epilepticus; Z86.2 Personal history of diseases of the blood and blood-forming organs and certain disorders involving the immune mechanism; Z95.810 Presence of automatic (implantable) cardiac defibrillator; F17.210 Nicotine dependence, cigarettes, uncomplicated
CPT/HCPCS: 36415; 70450; 71045; 80053; 81001; 83605; 83735; 84145; 84484; 85025; 85610; 85730; 87086; 93005; 96361; 96365; 96375; 99284; A9270; J0696; J0780; J7030